=== PATIENT | female | born 1935 | race Caucasian/White ===

== ENCOUNTER 2016-07-05 07:08 | Emergency (ER) | payer OTHER ==
[2016-07-05] MEDS ORDERED: IPRATROPIUM/ALBUTEROL (0.5MG/3MG) NEB INH ONE (07:15)
[2016-07-05] MEDS ORDERED: METHYLPREDNISOLONE PF 125MG/VIAL IVP ONE (07:19)
--- NOTE | 2016-07-05 07:23 | Emergency Department Record ---
History of Present Illness - General Chief Complaint: Shortness of breath Stated Complaint: JOSÉ ANTONIO Time Seen by Provider: 07/05/16 07:18 Source: Patient Mode of Arrival: EMS Limitations: No limitations - History of Present Illness Initial Comments: 60 yo female presents to ED with a CC of difficulty breathing and wheezing symptoms, reports a history of COPD. Patient denies fevers or chills, but does report non-productive cough symptoms. Friend at the bedside reports that the patient went to bed last night without respiratory distress. Patient denies chest pain symptoms. MD Complaint: Shortness of breath Onset/Timin -: Minutes(s) Radiation: Other Severity: Severe Consistency: Constant Improves With: Nothing Worsens With: Nothing Known History Of: COPD Associated Symptoms: Other Treatments Prior to Arrival: Bronchodilator - Related Data Home Oxygen Therapy: No Home Medications Medication Instructions Recorded Confirmed Last Taken Albuterol Sulfate [Ventolin Hfa] 1 - 2 puff IH .EVERY 4-6 HOURS PRN 07/05/1607/05/16 Budesonide/Formoterol Fumarate 10.2 gm IH BID 07/05/16 07/05/16 07/05/16 [Symbicort 160-4.5 Mcg Inhaler] Clopidogrel Bisulfate [Clopidogrel] 75 mg PO DAILY 07/05/16 07/05/16 Unknown Diltiazem HCl [Diltiazem 24Hr ER] 240 mg PO DAILY 07/05/16 07/05/16 Unknown Ezetimibe [Zetia] 10 mg PO DAILY 07/05/16 07/05/16 Unknown Famotidine [Pepcid] 20 mg PO TID 07/05/16 07/05/16 Unknown Furosemide [Lasix] 20 mg PO DAILY 07/05/16 07/05/16 Unknown Simvastatin [Zocor] 20 mg PO DAILY 07/05/16 07/05/16 Unknown Allergies Allergy/AdvReac Type Severity Reaction Status Date / Time codeine Allergy PT UNSURE Verified 07/05/16 09:18 OF REACTION Penicillins Allergy PT UNSURE Verified 07/05/16 09:18 OF REACTION Travel Screening - Travel/Exposure Within Last 30 Days Have you traveled within the last 30 days?: No Review of Systems Constitutional: Denies: Chills, Fever, Malaise, Night sweats Eyes: Denies: Eye discharge, Eye pain ENT: Denies: Congestion, Ear pain, Epistaxis Respiratory: Reports: Cough, Dyspnea, Wheezes Cardiovascular: Reports: Dyspnea on exertion. Denies: Chest pain Endocrine: Denies: Fatigue, Heat or cold intolerance Gastrointestinal: Denies: Abdominal pain, Nausea, Vomiting Genitourinary: Denies: Dysuria, Frequency, Hematuria, Incontinence Musculoskeletal: Denies: Arthralgia, Back pain, Gout, Joint swelling Skin: Denies: Bruising, Change in color Neurological: Denies: Abnormal gait, Confusion, Headache, Seizure Psychiatric: Denies: Anxiety Hematological/Lymphatic: Denies: Anemia, Blood Clots Physical Exam - General General Appearance: Alert, Oriented x3, Cooperative, Severe distress - Head Head exam: Atraumatic, Normocephalic, Normal inspection Head exam detail: negative: Abrasion, Contusion, Bennett's sign, General tenderness, Hematoma, Laceration - Eye Eye exam: Normal appearance. negative: Conjunctival injection, Periorbital swelling, Periorbital tenderness, Scleral icterus - ENT Ear exam: negative: Auricular hematoma, Auricular trauma Nasal Exam: negative: Active bleeding, Discharge, Dried blood, Foreign body Mouth exam: negative: Drooling, Laceration, Muffled voice, Tongue elevation - Neck Neck exam: Normal inspection. negative: Meningismus, Tenderness - Respiratory Respiratory exam: Decreased breath sounds, Prolonged expiratory, Respiratory distress, Wheezes - Cardiovascular Cardiovascular Exam: Normal rhythm, Normal heart sounds, Tachycardia - GI/Abdominal GI/Abdominal exam: Soft. negative: Rebound, Rigid, Tenderness - Rectal Rectal exam: Deferred - exam: Deferred - Extremities Extremities exam: Normal inspection. negative: Calf tenderness, Pedal edema, Tenderness - Back Back exam: Denies: CVA tenderness (R), CVA tenderness (L) - Neurological Neurological exam: Alert, Normal gait, Oriented X3 - Psychiatric Psychiatric exam: Normal affect, Normal mood - Skin Skin exam: Normal color. negative: Abrasion Type of lesion: negative: abrasion Course Vital Signs 07/05/16 07:10 Temperature 97.9 F Pulse Rate 128 H Respiratory 40 H Rate Blood Pressure 135/74 Pulse Ox 100 - Reevaluation(s) Reevaluation #1: 07/05/16 07:26 EKG: Sinus Tachycardia 128 Normal axis, normal intervals No acute ST-T wave changes Patient is receiving 2nd duoneb (first via EMS), will likely trial Bipap following ABG results. Reevaluation #2: 07/05/16 07:49 Labs reviewed, WBC 15.5, chemistry is pending at this time. AB.36/84/39.3/21.4/97%. Patient reassessed, pulse down to 120, RR mid-upper 20's, patient reports that she is feeling tired. Will trial bipap for respiratory work of breathing and reassess. CXR: Hyperinflation, ?mild infiltrate RLL. Reevaluation #3: 07/05/16 08:06 Labs reviewed, Troponin 0.046. BUN 29, Creatinine 1.2. Reevaluation #4: 07/05/16 08:29 CXR reviewed, hyperinflation, pulmonary venous hypertension suggested with ? mild CHF superimposed. Reevaluation #5: 07/05/16 08:58 Case was discussed with Dr. Hawkins as well as Dr. Beck, will admit for COPD exacerbation. Patient reassessed, pulse 170's. repeat EKG obtained, now in atrial fibrillation. Cardizem IV and qttp ordered. EKG #2: Atrial Fibrillation 171 Normal axis, normal intervals rate-related ST-T wave changes. 10:[address] Beck was updated on the patient's development of atrial fibrillation, recommends transfer. Patient and her family report that they would like to be transferred to [facility], 1-call contacted for transfer. Patient's rate is now down to 90's, rate controlled, remains irregular. 07/05/16 09:41 07/05/16 10:30 Medical Decision Making - Lab Data Result diagrams: 07/05/16 07:25 07/05/16 07:25 Disposition Disposition: Admit Clinical Impression: COPD exacerbation, Elevated troponin, Atrial fibrillation and flutter Disposition: Still a Patient at [facility] Decision to Admit: Admit from ER Decision to Admit Date: 07/05/16 Decision to Admit Time: :59 Forms: Patient Portal Access Time of Disposition: 08:59
[2016-07-05 07:35] LABS: BASO % 0.3 % (0-6); EOS % 1.1 % (0-6); GRAN % 60.1 % (47-80); HEMATOCRIT 42.7 % (35.0-47.0); LYMPH % 33.1 % (16-45); MEAN CORPUSCULAR HEMOGLOBIN 31.8 pg (27-33); MEAN CORPUSCULAR HGB CONC 32.8 g/dl (32-36); MEAN PLATELET VOLUME 10.2 fl (7.4-10.4); MONO % 5.4 % (0-9); PLATELET COUNT 258 K/uL (130-400); RED CELL DISTRIBUTION WIDTH 14.6 % (11.5-14.5); WHITE BLOOD COUNT W/O DIFF 15.5 K/uL (4.2-12.2)
[2016-07-05 07:43] LABS: ALLEN TEST NOT DONE; ARTERIAL BLOOD GAS BASE EXCESS -3.2 mmol/L (-2 - 3); ARTERIAL BLOOD GAS HCO3 21.4 mmol/L (18-23); ARTERIAL BLOOD GAS PCO2 39.3 mmHg (35-48); ARTERIAL BLOOD GAS pH 7.36 (7.35-7.45); CARBOXYHEMOGLOBIN 1.4 % (0-1.5); METHEMOGLOBIN 0.1 % (0.0-1.5); O2 HEMOGLOBIN 95.5 % vol (94-99); TOTAL HEMOGLOBIN 13.3 g/dl (11.6-16)
[2016-07-05 07:48] LABS: ALB/GLOB RATIO 1.2 (1.1-1.8); ALBUMIN 3.8 gm/dL (3.5-5.0); ANION GAP 11.7 (7-16); BILIRUBIN,TOTAL 0.61 mg/dL (0.2-1.3); CARBON DIOXIDE 25.3 mmol/L (22-30); CREATININE 1.2 mg/dL (0.52-1.04); TOTAL PROTEIN 6.9 gm/dL (6.3-8.2)
[2016-07-05 07:59] LABS: TROPONIN I 0.046 ng/mL (0.00-0.034)
[2016-07-05] MEDS ORDERED: ASPIRIN 81 MG CHEWABLE TABLET PO ONE (08:06)
[2016-07-05] MEDS ORDERED: IPRATROPIUM/ALBUTEROL (0.5MG/3MG) NEB INH PRN (09:00)
[2016-07-05] MEDS ORDERED: 0.9 % SODIUM CHLORIDE 1000ML 1,000 ML IV PRN (09:00)
[2016-07-05] MEDS ORDERED: 0.9 % SODIUM CHLORIDE 1000ML 500 ML IV SCH (09:30)
[2016-07-05] MEDS ORDERED: DILTIAZEM 25MG/5ML VIAL IV ONE (09:39)
[2016-07-05] MEDS ORDERED: DILTIAZEM HCL 125 MG in 0.9 % SODIUM CHLORIDE 100ML 100 ML IV SCH (09:45)
[2016-07-05] MEDS ORDERED: METHYLPREDNISOLONE PF 125MG/VIAL IVP SCH (10:00)
[2016-07-05] MEDS ORDERED: LEVOFLOXACIN/D5W 750 MG in DEXTROSE 1 BAG IVPB SCH (10:00)
[2016-07-05] MEDS ORDERED: ALBUTEROL SULFATE (0.083%) 2.5 MG/3 ML NEB INH SCH (10:00)
--- NOTE | 2016-07-10 15:17 | RADIOLOGY REPORT ---
EXAM: PORTABLE CHEST HISTORY: SHORTNESS OF BREATH, PAIN MID TO LOWER CHEST BILATERALLY, SHE CAN'T CATCH HER BREATH, DIFFICULTY BREATHING. TECHNIQUE: AP portable view of the chest was obtained. Comparison: None. FINDINGS: The heart size is normal. The lungs appear somewhat hyperinflated which may represent some underlying COPD. There is blunting of the costophrenic angles. There also appears to be some pulmonary venous hypertension. The costophrenic angle blunting may be simply related to the hyperinflation, but small basilar effusions cannot be excluded. Clinical correlation as to mild CHF superimposed on COPD suggested. No pneumothorax evident. Calcification of the aorta. IMPRESSION: 1. HYPERINFLATION SUGGESTING COPD. 2. SOME PULMONARY VENOUS HYPERTENSION AND BLUNTING OF THE COSTOPHRENIC ANGLES. CLINICAL CORRELATION TO MILD CHF SUPERIMPOSED ON COPD SUGGESTED. JOB NUMBER: [id number] MTDD
== END 2016-07-05 14:52 | disposition still patient (30) ==
LOC: ER 07:08 → EDBD 07:08 → ER 14:52
DX: J44.1 Chronic obstructive pulmonary disease with (acute) exacerbation (principal); I48.91 Unspecified atrial fibrillation; I48.92 Unspecified atrial flutter; R79.89 Other specified abnormal findings of blood chemistry; Z87.891 Personal history of nicotine dependence
CPT/HCPCS: 36600; 71010; 80053; 82375; 82803; 84484; 85025; 93005; 93010; 94640; 94660; 96365; 96366; 96375; 99285; J2930; J7030

== ENCOUNTER 2016-07-19 12:16 | Inpatient (IN) | payer MEDICARE, OTHER ==
--- NOTE | 2016-07-19 12:33 | Emergency Department Record ---
History of Present Illness - General Chief complaint: Nausea, Vomiting, Diarrhea Stated complaint: A-FIB Time Seen by Provider: 07/19/16 12:32 Source: Patient Mode of Arrival: Ambulatory Limitations: No limitations - History of Present Illness Initial comments: The patient is here due to a 2 week hx of weakness, nausea, and loose stools. She denies any vomiting, CP, SOB, fevers or chills. The patient was in the ER here just over 2 weeks ago for a COPD excacerbation and was found to be in Afib. [facility] Afib chemically converted back to NSR. She was discharged on Amiodarone and a new heart medicine and has not felt well since. MD complaint: Diarrhea, Nausea Onset/Timin -: Week(s) Description of Diarrhea: Other Associated Symptoms: Headaches, Weakness - Related Data Home Medications Medication Instructions Recorded Confirmed Last Taken Albuterol Sulfate [Ventolin Hfa] 1 - 2 puff IH .EVERY 4-6 HOURS PRN 07/05/1601/2707/19/16 Budesonide/Formoterol Fumarate 10.2 gm IH BID 07/05/16 07/19/16 07/19/16 [Symbicort 160-4.5 Mcg Inhaler] Clopidogrel Bisulfate [Clopidogrel] 75 mg PO DAILY 07/05/16 07/19/16 07/19/16 Ezetimibe [Zetia] 10 mg PO DAILY 07/05/16 07/19/16 07/19/16 Famotidine [Pepcid] 20 mg PO TID 07/05/16 07/19/16 07/19/16 Furosemide [Lasix] 20 mg PO DAILY 07/05/16 07/19/16 07/19/16 Simvastatin [Zocor] 20 mg PO DAILY 07/05/16 07/19/16 07/19/16 Amiodarone HCl [Pacerone] 200 mg PO BID 07/19/16 07/19/16 07/19/16 Atenolol 25 mg PO BID 07/19/16 07/19/16 07/19/16 Famotidine [Pepcid] 20 mg PO BID 07/19/16 07/19/16 07/19/16 Prednisone [Prednisone 20Mg] 40 mg PO DAILY 07/19/16 07/19/16 07/19/16 Allergies Allergy/AdvReac Type Severity Reaction Status Date / Time codeine Allergy PT UNSURE Verified 07/05/16 09:18 OF REACTION Penicillins Allergy PT UNSURE Verified 07/05/16 09:18 OF REACTION Travel Screening - Travel/Exposure Within Last 30 Days Have you traveled within the last 30 days?: No - Travel/Exposure Within Last Year Have you traveled outside the [place] in the last year?: No - Additonal Travel Details Have you been exposed to anyone with a communicable illness?: No - Travel Symptoms Symptom Screening: None Review of Systems Constitutional: Reports: Malaise. Denies: Chills, Fever Eyes: Denies: Eye discharge ENT: Denies: Congestion Respiratory: Denies: Cough, Dyspnea Cardiovascular: Denies: Arrhythmia, Chest pain Past Medical History - SOCIAL HISTORY Smoking Status: Former smoker Alcohol Use: None Drug Use: None - RESPIRATORY Hx Respiratory Disorders: Yes Hx COPD: Yes Comment:: emphysema - CARDIOVASCULAR Hx Cardio Disorders: Yes Hx Heart Attack: Yes Hx Hypertension: Yes Comment:: High cholesterol, bilat. leg swelling, poss hx afib - NEURO Hx Neuro Disorders: No - GI Hx GI Disorders: Yes Hx Reflux: Yes - Hx Genitourinary Disorders: No - ENDOCRINE Hx Endocrine Disorders: No - MUSCULOSKELETAL Hx Musculoskeletal Disorders: No - PSYCH Hx Psych Problems: No - HEMATOLOGY/ONCOLOGY Hx Hematology/Oncology Disorders: Yes Hx Cancer: Yes (cervical) Family Medical History Any Significant Family History?: No Physical Exam - General General Appearance: Alert, Oriented x3, Cooperative, No acute distress - Head Head exam: Atraumatic, Normocephalic, Normal inspection - Eye Eye exam: Normal appearance, PERRL - ENT Throat exam: Normal inspection. negative: Tonsillar erythema, Tonsillar exudate - Neck Neck exam: Normal inspection, Full ROM. negative: Tenderness - Respiratory Respiratory exam: Normal lung sounds bilaterally. negative: Respiratory distress - Cardiovascular Cardiovascular Exam: Regular rate, Bradycardia - GI/Abdominal GI/Abdominal exam: Soft, Normal bowel sounds. negative: Guarding, Rigid, Tenderness - Extremities Extremities exam: Normal inspection, Full ROM, Normal capillary refill. negative: Tenderness Course Vital Signs 07/19/16 12:19 Temperature 98.0 F Pulse Rate 50 L Respiratory 16 Rate Blood Pressure 122/42 Pulse Ox 96 - Reevaluation(s) Reevaluation #1: The patient is doing much better at this time. Her nausea has resolved and she is asking to eat and drink. She denies any AP presently. 07/19/16 14:02 Reevaluation #2: The patient is doing better but still does not feel back to normal. I explained to her the results of her lab tests and UA and the need for admission and she agreed to the plan. I also did discuss the plan with Melissa (ROLO) and she accepts the admission. 07/19/16 15:42 Medical Decision Making - Data Complexity MDM Data: Labs Ordered and/or Reviewed, EKG Ordered and/or Reviewed - Lab Data Result diagrams: 07/19/16 13:34 07/19/16 13:34 - EKG Data -: EKG Interpreted by Me (Sinus leandro at 50. Lateral T changes with prolonged QT.) Disposition Disposition: Admit Clinical Impression: Hyponatremia Urinary Tract Infection Qualifiers: Urinary tract infection type: site unspecified Hematuria presence: without hematuria Qualified Code(s): N39.0 - Urinary tract infection, site not specified Disposition: Still a Patient at [facility] Decision to Admit: Admit from ER Decision to Admit Date: 07/19/16 Decision to Admit Time: 15:44 Accepting Physician: Shruthi Time Discussed w/Accepting Physician: 15:44 Condition: (2) Stable Forms: Patient Portal Access Time of Disposition: 15:44
[2016-07-19] MEDS ORDERED: ONDANSETRON HCL IV 4 MG/2 ML VIAL IVP ONE (12:37)
[2016-07-19] MEDS ORDERED: ACETAMINOPHEN 325 MG TAB PO ONE (12:37)
[2016-07-19] MEDS ORDERED: 0.9 % SODIUM CHLORIDE 1,000 ML BAG IV ONE ×2 (13:11→15:38)
[2016-07-19 13:36] LABS: BASO % 0.1 % (0-6); EOS % 0.7 % (0-6); GRAN % 79.2 % (47-80); HEMATOCRIT 40.5 % (35.0-47.0); HEMOGLOBIN 13.7 gm/dl (11.6-16.0); LYMPH % 11.1 % (16-45); MEAN CELL VOLUME 95.5 fl (81-97); MEAN CORPUSCULAR HEMOGLOBIN 32.3 pg (27-33); MEAN CORPUSCULAR HGB CONC 33.8 g/dl (32-36); MEAN PLATELET VOLUME 10.2 fl (7.4-10.4); MONO % 8.9 % (0-9); PLATELET COUNT 183 K/uL (130-400); RED BLOOD COUNT 4.24 M/uL (3.80-5.40); RED CELL DISTRIBUTION WIDTH 15.1 % (11.5-14.5); WHITE BLOOD COUNT W/O DIFF 14.9 K/uL (4.2-12.2)
[2016-07-19 14:01] LABS: CKMB < 1.0 ng/mL (0-4.3)
[2016-07-19 14:03] LABS: URINE BILIRUBIN NEGATIVE (NEGATIVE); URINE BLOOD TRACE-I (NEGATIVE); URINE COLOR YELLOW; URINE GLUCOSE (UA) NEGATIVE (NEGATIVE); URINE KETONE NEGATIVE (NEGATIVE); URINE LEUKOCYTE ESTERASE MODERATE (NEGATIVE); URINE NITRITE POSITIVE (NEGATIVE); URINE PROTEIN NEGATIVE (NEGATIVE); URINE UROBILINOGEN 0.2 E.U./dL (0.20 - 1.00)
[2016-07-19 14:04] LABS: URINE APPEARANCE CLOUDY
[2016-07-19 14:13] LABS: URINE BACTERIA 4+; URINE EPITHELIAL CELLS 0 - 2 (FEW); URINE WBC 36 - 50 (0-2/hpf)
[2016-07-19 15:16] LABS: BLOOD UREA NITROGEN 24 mg/dL (7-17); GLUCOSE,RANDOM 82 mg/dL (70-110)
[2016-07-19 15:17] LABS: ALB/GLOB RATIO 1.3 (1.1-1.8); ALKALINE PHOSPHATASE 45 U/L (38-126); ALT/SGPT 18 U/L (9-52); AST/SGOT 19 U/L (14-36); CREATININE 1.3 mg/dL (0.52-1.04); EST GLOMERULAR FILTRATION RATE 42 ml/min; TOTAL PROTEIN 5.3 gm/dL (6.3-8.2)
[2016-07-19 15:18] LABS: CREATINE PHOSPHOKINASE 20 U/L (30-135); TROPONIN I 0.016 ng/mL (0.00-0.034)
[2016-07-19] MEDS ORDERED: CEFTRIAXONE SODIUM 1 GM in 0.9 % SODIUM CHLORIDE 100ML 100 ML IVPB ONE (15:33)
[2016-07-19] MEDS ORDERED: ALBUTEROL HFA 8 GM INHALER INH PRN (17:00)
[2016-07-19] MEDS: CEFTRIAXONE SODIUM 1 GM in 0.9 % SODIUM CHLORIDE 100ML 100 ML IVPB SCH (18:54)
[2016-07-19] MEDS: 0.9 % SODIUM CHLORIDE 1000ML 1,000 ML IV PRN (19:30)
[2016-07-19] MEDS: SYMBICORT PUFF SCH ×2 (20:40→22:03)
[2016-07-19 20:43] LABS: CKMB 1.4 ug/L (0-6); TROPONIN I 0.024 ng/mL (0.00-0.034)
[2016-07-19] MEDS ORDERED: FAMOTIDINE 20MG TABLET PO SCH (22:00)
[2016-07-19] MEDS: ATENOLOL 25 MG TABLET PO SCH (22:42)
[2016-07-20] MEDS: ACETAMINOPHEN 500 MG TABLET PO PRN (01:54)
[2016-07-20] MEDS: DIPHENHYDRAMINE HCL 25 MG CAPSULE PO PRN (04:37)
[2016-07-20] MEDS: CEFTRIAXONE SODIUM 1 GM in 0.9 % SODIUM CHLORIDE 100ML 100 ML IVPB SCH ×2 (04:38→17:38)
[2016-07-20 04:39] LABS: BASO % 0.1 % (0-6); EOS % 0.9 % (0-6); GRAN % 79.5 % (47-80); HEMATOCRIT 40.4 % (35.0-47.0); HEMOGLOBIN 13.3 gm/dl (11.6-16.0); LYMPH % 11.6 % (16-45); MEAN CELL VOLUME 97.3 fl (81-97); MEAN CORPUSCULAR HGB CONC 32.9 g/dl (32-36); MEAN PLATELET VOLUME 10.4 fl (7.4-10.4); MONO % 7.9 % (0-9); PLATELET COUNT 168 K/uL (130-400); RED BLOOD COUNT 4.15 M/uL (3.80-5.40); RED CELL DISTRIBUTION WIDTH 15.5 % (11.5-14.5); WHITE BLOOD COUNT W/O DIFF 10.8 K/uL (4.2-12.2)
[2016-07-20 04:45] LABS: ANION GAP 6.4 (7-16); CARBON DIOXIDE 24.6 mmol/L (22-30); CREATININE 1.2 mg/dL (0.52-1.04)
[2016-07-20 07:25] LABS: ALBUMIN 2.9 gm/dL (3.5-5.0); BILIRUBIN,TOTAL 0.72 mg/dL (0.2-1.3); TOTAL PROTEIN 5.4 gm/dL (6.3-8.2)
[2016-07-20] MEDS: SYMBICORT PUFF SCH ×4 (08:48→22:00)
[2016-07-20] MEDS ORDERED: SIMVASTATIN 20 MG TABLET PO SCH (10:00)
[2016-07-20] MEDS ORDERED: PREDNISONE 20 MG TAB PO SCH (10:00)
[2016-07-20] MEDS ORDERED: EZETIMIBE 10 MG TABLET PO SCH (10:00)
--- NOTE | 2016-07-20 10:23 | History & Physical ---
History of Present Illness - Date of Service Date of Service for History & Physical: 07/20/16 - History of Present Illness Admitting Diagnosis: 1. Symptomatic hyponatremia with UTI. 2. Prolonged QT. History of Present Illness: 80yo female with CC of weakness and nausea. She has history of COPD, [place], HTN, HD , afib, GERD, arthritis, and cervical cancer. patient recently admitted at [facility] for afib that developed after COPD exacerbation. patient presented to the ED last night with weakness, nausea and just not feeling well for the past two weeks. Discharged home from [facility] about 2 weeks ago after being admitted for afib. was chemically cardioverted and discharged home on amiodorone. Has not felt well since but really started to feel weak yesterday. While in the ED, patient had EKG that showed sinus bradycardia with T wave changes in lateral leads and QTc of 481. Her 1st set of troponin was wnl range. she was not complaining of chest pain. Her WBC count was elevated at 14.9, sodium was low at 125 and chloride low at 97. Corrected calcium was 9.0 and mg was 2. Her UA was nitrite and leuk est positive. Patient was started on rocephin 1gm IV for UTI, amiodorone was held and she was admitted for serial enzymes and continued cardiac monitoring. 07/20/16- Patients states she is feeling much better today. She says she still feels weaker than baseline but was able to get up and ambulate to the bathroom independently. She denies chest pain, nausea, or abdominal pain. She has not had any urinary burning but has been urinating frequently. She denies fevers, chills and her appetite has been normal. She has a follow up appointment with Dr. Pollard in the next few weeks for her atrial fibrillation. PCP: Cardiology: [facility] Travel Screening - Travel/Exposure Within Last 30 Days Have you traveled within the last 30 days?: No - Travel/Exposure Within Last Year Have you traveled outside the [place] in the last year?: No - Additonal Travel Details Have you been exposed to anyone with a communicable illness?: No - Travel Symptoms Symptom Screening: None Review of Systems Constitutional: Reports: Malaise, Weakness (generalized). Denies: Chills, Fever Eyes: Denies: Eye discharge ENT: Denies: Congestion Respiratory: Denies: Cough, Dyspnea Cardiovascular: Denies: Arrhythmia, Chest pain Genitourinary: Denies: Dysuria, Frequency, Incontinence, Urgency Musculoskeletal: Denies: Back pain Neurological: Denies: Confusion, Headache Past Medical History - SOCIAL HISTORY Smoking Status: Former smoker Alcohol Use: None Drug Use: None - RESPIRATORY Hx Respiratory Disorders: Yes Hx Asthma: No Hx Bronchitis: No Hx COPD: Yes Hx Dyspnea: No Hx Pneumonia: No Hx Pulmonary Embolism: No Hx Sleep Apnea: No Hx Tuberculosis: No Hx of CPAP: No Comment:: emphysema - CARDIOVASCULAR Hx Cardio Disorders: Yes Hx Abnormal EKG: Yes Hx Cardiac Cath: No Hx Chest Pain: No Hx CHF: No Hx Deep Vein Thrombosis: No Hx Edema: No Hx Heart Attack: Yes Hx Hypertension: Yes Hx Hypotension: No Hx Irregular Heartbeat: Yes Hx Palpitations: No Hx Pacemaker/Defib: No Hx Vascular Disease: No Comment:: High cholesterol, bilat. leg swelling, poss hx afib - NEURO Hx Neuro Disorders: No - GI Hx GI Disorders: Yes Hx Abdominal Pain: No Hx Celiac Disease: No Hx Crohn's Disease: No Hx Diverticulitis: No Hx GI Bleed: No Hx Reflux: Yes Hx Hepatitis/Jaundice: No Hx Hiatal Hernia: No Hx Irritable Bowel: No Hx Liver Disease: No Hx Nausea/Vomiting: Yes Hx Obstructive Bowel: No Hx Pancreatitis: No Hx Rectal Bleeding: No Hx Ulcer: No Hx Wt Loss/Wt Gain: No Hx of Polyps: No - Hx Genitourinary Disorders: No - ENDOCRINE Hx Endocrine Disorders: No - MUSCULOSKELETAL Hx Musculoskeletal Disorders: Yes Hx Arthritis: Yes Hx Back Injury: No Hx Fibromyalgia: No Hx Gout: No Hx Musculoskeletal Disease: No Hx Osteoporosis: No - PSYCH Hx Psych Problems: No - HEMATOLOGY/ONCOLOGY Hx Hematology/Oncology Disorders: Yes Hx Cancer: Yes (cervical) Family Medical History Any Significant Family History?: No H&P Meds/Allergies - Allergies Allergies: Allergies Allergy/AdvReac Type Severity Reaction Status Date / Time codeine Allergy PT UNSURE Verified 07/19/16 17:56 OF REACTION Penicillins Allergy PT UNSURE Verified 07/19/16 17:56 OF REACTION - Home Medications Home Medications Medication Instructions Recorded Confirmed Last Taken Albuterol Sulfate [Ventolin Hfa] 1 - 2 puff IH .EVERY 4-6 HOURS PRN 07/05/1601/2707/19/16 Budesonide/Formoterol Fumarate 10.2 gm IH BID 07/05/16 07/19/16 07/19/16 [Symbicort 160-4.5 Mcg Inhaler] Clopidogrel Bisulfate [Clopidogrel] 75 mg PO DAILY 07/05/16 07/19/16 07/19/16 Ezetimibe [Zetia] 10 mg PO DAILY 07/05/16 07/19/16 07/19/16 Famotidine [Pepcid] 20 mg PO TID 07/05/16 07/19/16 07/19/16 Furosemide [Lasix] 20 mg PO DAILY 07/05/16 07/19/16 07/19/16 Simvastatin [Zocor] 20 mg PO DAILY 07/05/16 07/19/16 07/19/16 Amiodarone HCl [Pacerone] 200 mg PO BID 07/19/16 07/19/16 07/19/16 Atenolol 25 mg PO BID 07/19/16 07/19/16 07/19/16 Famotidine [Pepcid] 20 mg PO BID 07/19/16 07/19/16 07/19/16 Prednisone [Prednisone 20Mg] 40 mg PO DAILY 07/19/16 07/19/16 07/19/16 - Active Medications Active Medications: Current Medications Acetaminophen (Tylenol 500mg Tab) 1,000 mg PO Q6H PRN PRN Reason: Pain - General Last Admin: 07/20/16 01:54 Dose: 500 mg Albuterol Sulfate (Ventolin Hfa) 2 puff INH Q4H PRN PRN Reason: Cough and Difficulty Breathing Atenolol (Tenormin) 25 mg PO BID [facility] Last Admin: 07/19/16 22:42 Dose: Not Given Clopidogrel Bisulfate (Plavix) 75 mg PO DAILY [facility] Diphenhydramine HCl (Benadryl Capsule) 25 mg PO Q6H PRN PRN Reason: NAUSEA Last Admin: 07/20/16 04:37 Dose: 25 mg Ezetimibe (Zetia) 10 mg PO DAILY [facility] Famotidine (Pepcid) 20 mg PO BIDAC [facility] Ceftriaxone Sodium 1 gm/ (Sodium Chloride) 100 mls @ 100 mls/hr IVPB Q12H [facility] Stop: 07/24/16 17:01 Last Admin: 07/20/16 04:38 Dose: 100 mls/hr Sodium Chloride () 1,000 mls @ 83 mls/hr IV .Q12H3M PRN PRN Reason: LARGE VOLUME IV Last Admin: 07/19/16 19:30 Dose: 83 mls/hr Patient Own Med: (Symbicort 160-4.5 Mg) 2 each PUFF BID [facility] Last Admin: 07/20/16 08:48 Dose: 2 each Simvastatin (Zocor) 20 mg PO DAILY [facility] Physical Exam - Vital Signs Vital Signs: Vital Signs - Last 24 Hrs Temp Pulse Pulse Resp BP BP Pulse Ox 07/20/16 08:00 97.9 F 60 18 114/59 97 07/20/16 04:25 95 07/20/16 04:00 97.9 F 52 L 20 109/47 95 07/19/16 23:00 97.6 F 54 L 18 105/41 95 07/19/16 20:40 51 L 16 95 07/19/16 20:26 20 07/19/16 19:00 97.2 F L 55 L 16 118/70 07/19/16 17:32 53 L 16 07/19/16 17:02 16 108/41 96 07/19/16 17:00 97.8 F 53 L 12 126/70 98 - General General Appearance: Alert, Oriented x3, Cooperative, No acute distress Limitations: No limitations - Head Head exam: Atraumatic, Normocephalic, Normal inspection - Eye Eye exam: Normal appearance, PERRL - ENT Throat exam: Normal inspection. negative: Tonsillar erythema, Tonsillar exudate - Neck Neck exam: Normal inspection, Full ROM. negative: Tenderness - Respiratory Respiratory exam: Normal lung sounds bilaterally. negative: Respiratory distress - Cardiovascular Cardiovascular Exam: Regular rate, Bradycardia - GI/Abdominal GI/Abdominal exam: Soft, Normal bowel sounds. negative: Guarding, Rigid, Tenderness - Extremities Extremities exam: Normal inspection, Full ROM, Normal capillary refill. negative: Tenderness - Neurological Neurological exam: Alert, Normal gait, Oriented X3, Reflexes normal - Psychiatric Psychiatric exam: Normal affect, Normal mood - Skin Skin exam: Dry, Intact, Normal color, Warm Results - Labs Result Diagrams: 07/20/16 04:20 07/20/16 04:20 Labs Last 24 Hours: Laboratory Results - last 24 hr 07/19/16 07/20/16 07/20/16 20:10 04:20 04:20 WBC 10.8 RBC 4.15 Hgb 13.3 Hct 40.4 MCV 97.3 H MCH 32.0 MCHC 32.9 RDW 15.5 H Plt Count 168 MPV 10.4 Gran % 79.5 Lymphocytes % 11.6 L Monocytes % 7.9 Eosinophils % 0.9 Basophils % 0.1 Sodium Potassium Chloride Carbon Dioxide Anion Gap BUN Creatinine Estimated GFR Random Glucose Calcium Total Bilirubin Direct Bilirubin AST ALT Alkaline Phosphatase CK-MB (CK-2) 1.4 1.2 Troponin I 0.024 Total Protein Albumin 07/20/16 07/20/16 07/20/16 04:20 04:20 04:20 WBC RBC Hgb Hct MCV MCH MCHC RDW Plt Count MPV Gran % Lymphocytes % Monocytes % Eosinophils % Basophils % Sodium 138 Potassium 4.3 Chloride 107 Carbon Dioxide 24.6 Anion Gap 6.4 L BUN 18 H Creatinine 1.2 H Estimated GFR 46 Random Glucose 87 Calcium 7.7 L Total Bilirubin 0.72 Direct Bilirubin 0.0 AST 73 H ALT 36 Alkaline Phosphatase 57 CK-MB (CK-2) Troponin I 0.018 Total Protein 5.4 L Albumin 2.9 L VTE H&P Assessment - Risk for VTE Risk for VTE: Yes Risk Level: High Risk Assessment Date: 07/20/16 Risk Assessment Time: 17:35 VTE Orders Placed or Will Be Placed: Yes Plan - Inpatient Certification Inpatient Certification: Admit to inpatient care: Based on my medical assessment, after consideration of patient's risk factors (age, co-morbidities and patient presenting symptoms and acuity), I expect that this patient will remain in the hospital greater than or equal to two midnights and that the services needed warrant inpatient care because: Patient Risk Factors: [age, UTI, prolonged QT, hyponatremia, recent hospitalization] Estimated length of stay: [48-72H] The patient may reasonably be expected to be discharged or transferred to a hospital within 96 hours after admission to [facility]. Services needed: [IV antibiotics, IV fluids, cardiology consult, cardiac monitoring] Post hospital care (if known): [] I certify that my determination is in accordance with my understanding of Medicare requirements for reasonable and necessary inpatient services. 07/20/16 10:37 - Detailed Diagnosis and Plan (1) Urinary tract infection Current Visit: Yes Status: Acute Qualifiers: Urinary tract infection type: site unspecified Hematuria presence: without hematuria Qualified Code(s): N39.0 - Urinary tract infection, site not specified Base Code: N39.0 - URINARY TRACT INFECTION, SITE NOT SPECIFIED Comment: 07/20/16- UA showed nitrite positve and mod leuk esterase. urine sent for culture. WBC count down from 14.9 to 10.8 today and patient remains afebrile. -continue rocephin 1gm IV q12H -repeat labs qam (2) Generalized weakness Current Visit: Yes Status: Acute Base Code: R53.1 - WEAKNESS Comment: 07/20/16- generalized weakness improved today. MLC is UTI. She has been up ambulating to the bathroom with minimal assistance. she does currently live alone but has family doing most of her IADL's. still capable of her ADL's. -will continue to monitor need for PT/OT eval if she does not continue to improve (3) Hyponatremia Current Visit: Yes Status: Acute Base Code: E87.1 - HYPO-OSMOLALITY AND HYPONATREMIA Comment: 07/20/16- Resolved. Sodium improved to 138 from 125 with NS run at 83cc/ hr. -repeat labs qam (4) QT prolongation Current Visit: Yes Status: Acute Base Code: R94.31 - ABNORMAL ELECTROCARDIOGRAM [ECG] [EKG] Comment: 07/20/16- QTc 491 today. Holding amiodorone until cardiology consult. Patient still in sinus bradycardia. magnesium normal, calcium corrected for low albumin is WNL range. sodium corrected and potassium wnl. -cardiology consulted -continue cardiac monitoring (5) Full code status Current Visit: Yes Status: Acute Base Code: Z78.9 - OTHER SPECIFIED HEALTH STATUS Comment: 07/20/16- patient is full code (6) DVT prophylaxis Current Visit: Yes Status: Acute Base Code: [id number] - Comment: 07/20/16-Patient is high risk for DVT with h/o of afib, age and restricted mobility, however, also high risk for bleed with age, weakness, and antiplatelet therapy. 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
[2016-07-20] MEDS: CLOPIDOGREL 75MG TABLET PO SCH (11:14)
[2016-07-20] MEDS: FAMOTIDINE 20MG TABLET PO SCH (11:14)
[2016-07-20] MEDS: 0.9 % SODIUM CHLORIDE 1000ML 1,000 ML IV PRN (11:28)
[2016-07-20] MEDS: ATENOLOL 25 MG TABLET PO SCH ×2 (12:31→21:01)
--- NOTE | 2016-07-20 15:21 | Medical Records Consult ---
DATE OF CONSULTATION: 07/20/16 INDICATION: ABNORMAL EKG. HISTORY: This 80-year-old female with a prior history of COPD, MS, coronary disease, hypertension, peripheral vascular disease, A-fib, GERD, arthritis, cervical cancer presented to [facility] not feeling well and diagnosed with a urinary tract infection. The Emergency Department Physician felt her QT interval was abnormal. Her QT corrected was less than 500 on serial EKGs. She was just recently seen at [facility] by the Electrophysiology Service. She had an episode of atrial fibrillation, spontaneously converted, and has been taking Amiodarone. She has a follow-up appointment with Dr. Pollard. She was not placed on oral anticoagulation due to bleeding risk. This was going to be discussed with Dr. Pollard at a future appointment. She currently takes Plavix for her coronary artery disease, peripheral vascular disease. She has denied any recurrence of her atrial fibrillation since being discharged from the hospital. Her ejection fraction at the time of her hospitalization was 40%. She had moderate mitral regurgitation. No follow-up echocardiograms have been performed. PAST MEDICAL HISTORY: COPD. MS. Coronary artery disease. Peripheral vascular disease. Hypertension. A-Fib. GERD. Cervical cancer. Arthritis. ALLERGIES: CODEINE, PENICILLINS; UNSURE OF REACTION. HOME MEDICATIONS: Albuterol Sulfate one to two puffs every 4-6 hours Symbicort as directed Clopidogrel 75 mg daily Zetia 10 mg daily Pepcid 20 mg b.i.d. Lasix 20 mg daily Zocor 20 mg daily Amiodarone 200 mg b.i.d. as directed by Dr. Pollard Atenolol 25 mg b.i.d. Prednisone 40 mg daily REVIEW OF SYSTEMS: GENERAL: Positive for weakness. HEENT: No acute hearing/ vision changes. CARDIOVASCULAR: Denies any chest pain at rest with activity. No shortness of breath. No episodes of palpitations, fluttering. No syncope. PULMONARY: Chronic shortness of breath. No cough, hemoptysis. GI: Denies any dysuria, hematuria. ENDOCRINE: Denies diabetes history. HEME: No unexplained bruising or bleeding. NEUROMUSCULAR: No stroke or seizure history. She did have a fall last summer with a significant head injury. No documentation of that is available for review. PHYSICAL EXAMINATION: VITAL SIGNS: Temperature 97.9. Pulse 60 and regular. Blood pressure 114/59. Pulse ox 97%. GENERAL: Alert and in no apparent distress. She was sitting at the edge of the bed, just finished what appeared to be a large lunch. Her plate was clean. She denies any chest pain or shortness of breath. States she feels fine. HEENT: Normocephalic/atraumatic. NECK: Supple. No JVD. No carotid bruits are appreciated. PULMONARY: Clear to auscultation. A few scattered end expiratory wheezes. CARDIAC: Regular rhythm. 2/6 holosystolic murmur at the apex. ABDOMEN: Soft. Positive bowel sounds. No bruits are appreciated. EXTREMITIES: Trace edema. Pedal pulses are diminished. NEUROMUSCULAR: Speech was clear. Answered all questions appropriately. EKGs: Again show sinus bradycardia. QT corrected is less than 500. LABORATORIES: See EMR. Troponin-I is 0.018, BUN 18, creatinine 1.2. ASSESSMENT/PLAN: HISTORY OF ATRIAL FIBRILLATION: She converted spontaneously. She is on an antiarrhythmic in the form of Amiodarone 400 mg and had been titrating down as directed. She will continue on that medication. She will follow-up with Dr. Pollard regarding anticoagulation going forward. She will continue with her Plavix for now. I did explain to her that Plavix would likely give her very little protection in terms of atrial fibrillation but certainly given her vascular history and antiplatelet therapy are also indicated. She has had a noted right carotid artery dissection. 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 Her left internal carotid was 50-70% stenosed. If no follow-up has been done in the last year, would recommend follow-up carotid ultrasound. HISTORY OF CAD, PERIPHERAL VASCULAR DISEASE: Recommend again antiplatelet therapy, statin, LDL cholesterol goal less than 70. She should follow-up with one of our peripheral interventionalists if possible given her known history of peripheral vascular disease. Again, QT interval is less than 500. I see no reason why she has to discontinue Amiodarone at this point. Again, follow-up with Dr. Pollard as instructed from her hospital discharge summary dated 03/07/17. Jose Flores D.O. Date & Time JOB NUMBER: [id number] MTDD
[2016-07-20] MEDS: AMIODARONE HCL 200 MG TABLET PO SCH ×2 (17:45→21:01)
[2016-07-20] MEDS: SIMVASTATIN 20 MG TABLET PO SCH (21:01)
[2016-07-20] MEDS: EZETIMIBE 10 MG TABLET PO SCH (21:02)
[2016-07-21] MEDS: ACETAMINOPHEN 500 MG TABLET PO PRN (00:07)
[2016-07-21] MEDS: DIPHENHYDRAMINE HCL 25 MG CAPSULE PO PRN (02:51)
[2016-07-21] MEDS: CEFTRIAXONE SODIUM 1 GM in 0.9 % SODIUM CHLORIDE 100ML 100 ML IVPB SCH ×2 (05:20→17:21)
[2016-07-21 06:21] LABS: BASO % 0.2 % (0-6); EOS % 1.7 % (0-6); GRAN % 75.5 % (47-80); HEMOGLOBIN 13.9 gm/dl (11.6-16.0); LYMPH % 11.7 % (16-45); MEAN CELL VOLUME 98.4 fl (81-97); MEAN CORPUSCULAR HEMOGLOBIN 31.8 pg (27-33); MEAN CORPUSCULAR HGB CONC 32.3 g/dl (32-36); MEAN PLATELET VOLUME 10.3 fl (7.4-10.4); MONO % 10.9 % (0-9); PLATELET COUNT 138 K/uL (130-400); RED BLOOD COUNT 4.37 M/uL (3.80-5.40); RED CELL DISTRIBUTION WIDTH 15.5 % (11.5-14.5); WHITE BLOOD COUNT W/O DIFF 10.5 K/uL (4.2-12.2)
[2016-07-21] MEDS ORDERED: ALBUTEROL SULFATE (0.083%) 2.5 MG/3 ML NEB INH PRN (06:42)
[2016-07-21 07:40] LABS: ALB/GLOB RATIO 1.1 (1.1-1.8); ALBUMIN 3.1 gm/dL (3.5-5.0); ALKALINE PHOSPHATASE 60 U/L (38-126); ALT/SGPT 40 U/L (9-52); AST/SGOT 33 U/L (14-36); BILIRUBIN,TOTAL 0.41 mg/dL (0.2-1.3); BLOOD UREA NITROGEN 11 mg/dL (7-17); CREATININE 0.9 mg/dL (0.52-1.04); EST GLOMERULAR FILTRATION RATE > 60 ml/min; GLUCOSE,RANDOM 91 mg/dL (70-110); TOTAL PROTEIN 5.8 gm/dL (6.3-8.2)
[2016-07-21] MEDS: FAMOTIDINE 20MG TABLET PO SCH ×3 (08:05→17:20)
[2016-07-21] MEDS: SYMBICORT PUFF SCH ×2 (09:24→21:20)
[2016-07-21] MEDS ORDERED: FUROSEMIDE 20 MG TABLET PO SCH ×2 (10:00)
[2016-07-21] MEDS: AMIODARONE HCL 200 MG TABLET PO SCH ×2 (10:30→21:53)
[2016-07-21] MEDS: ATENOLOL 25 MG TABLET PO SCH ×2 (10:31→21:53)
[2016-07-21] MEDS: CLOPIDOGREL 75MG TABLET PO SCH ×2 (10:31→14:48)
[2016-07-21] MEDS: IPRATROPIUM/ALBUTEROL (0.5MG/3MG) NEB INH SCH ×4 (10:53→22:00)
--- NOTE | 2016-07-21 15:25 | Physician Progress Note ---
Subjective - Date Date of Physician Progress Note: 07/21/16 - Subjective Subjective Comment: 07/21/16- Patient reports that her weakness has improved. She has been up to the bathroom with minimal assistance which is much improved from admission. Patient does report shortness of breath starting this morning. She denies chest pain or pain with deep inspiration. Her oxygen saturation was about 89% on room air at that time. She has COPD and was admitted 2 weeks ago for exacerbation but has been doing well since that time. She denies cough, sputum production. She had relief of symptoms with supplemental O2 and duoneb treatment. Objective - Vital Signs Vital Signs: Vital Signs - Last 24 Hrs Temp Pulse Pulse Resp BP BP Pulse Ox 07/21/16 15:10 64 18 89 L 07/21/16 12:00 98.7 F 67 18 144/56 99 07/21/16 08:24 72 18 07/21/16 08:00 97.3 F L 72 18 153/94 2 L 07/21/16 06:45 74 18 97 07/21/16 06:25 68 18 89 L 07/21/16 04:00 97.6 F 63 20 148/70 96 07/21/16 00:00 97.9 F 77 20 147/69 97 07/20/16 20:00 97.9 F 67 18 107/49 97 07/20/16 16:00 97.6 F 68 18 150/65 97 - General General Appearance: Alert, Oriented x3, Cooperative, No acute distress Limitations: No limitations - Head Head exam: Atraumatic, Normocephalic, Normal inspection - Eye Eye exam: Normal appearance, PERRL - ENT Throat exam: Normal inspection. negative: Tonsillar erythema, Tonsillar exudate - Neck Neck exam: Normal inspection, Full ROM. negative: Tenderness - Respiratory Respiratory exam: Normal lung sounds bilaterally, Prolonged expiratory. negative: Accessory muscle use, Respiratory distress, Wheezes - Cardiovascular Cardiovascular Exam: Regular rate, Bradycardia - GI/Abdominal GI/Abdominal exam: Soft, Normal bowel sounds. negative: Guarding, Rigid, Tenderness - Extremities Extremities exam: Normal inspection, Full ROM, Normal capillary refill. negative: Tenderness - Neurological Neurological exam: Alert, Normal gait, Oriented X3, Reflexes normal - Psychiatric Psychiatric exam: Normal affect, Normal mood - Skin Skin exam: Dry, Intact, Normal color, Warm Assessment and Plan - Assessment and Plan (1) Urinary tract infection Current Visit: Yes Status: Acute Qualifiers: Urinary tract infection type: site unspecified Hematuria presence: without hematuria Qualified Code(s): N39.0 - Urinary tract infection, site not specified Base Code: N39.0 - URINARY TRACT INFECTION, SITE NOT SPECIFIED Comment: 07/21/16- Improving. UA showed nitrite positve and mod leuk esterase. urine sent for culture. WBC count stable at 10.5 and patient remains afebrile. -continue rocephin 1gm IV q12H. Will plan to transition to oral abx tomorrow if she continues to improve -repeat labs qam (2) Generalized weakness Current Visit: Yes Status: Acute Base Code: R53.1 - WEAKNESS Comment: 07/21/16- Improving. MLC is UTI. She has been up ambulating to the bathroom with minimal assistance. she does currently live alone but has family doing most of her IADL's. still capable of her ADL's. -will continue to monitor need for PT/OT eval if she does not continue to improve (3) Shortness of breath Current Visit: Yes Status: Acute Base Code: R06.02 - SHORTNESS OF BREATH Comment: 07/21/16- Improved following duoneb and supplemental oxygen. Patient was recently admitted for COPD exacerbationbut had been feeling back to baseline. -will get CXR to eval for acute process -will saline lock since electrolytes have normalized and she will receive her lasix 20mg today (she takes this q48H). -continue duoneb q4H prn SOB -continue supplemental o2 at 2L -monitor vitals q8H -If CXR negative and SOB does not improve will start eval for PE. (4) Hyponatremia Current Visit: Yes Status: Acute Base Code: E87.1 - HYPO-OSMOLALITY AND HYPONATREMIA Comment: 07/21/16- Resolved. Sodium stable at 142 today. -repeat labs qam (5) QT prolongation Current Visit: Yes Status: Acute Base Code: R94.31 - ABNORMAL ELECTROCARDIOGRAM [ECG] [EKG] Comment: 07/21/16- Stable. Patient evaluated by Dr. Flores, cardiology yesterday. He recommended resuming her amiodorone 200mg pO bid as prescribed by Dr. Pollard and following up with him as previously scheduled next week. -resume amiodorone 200mg po bid -continue cardiac monitoring -continue to monitor electrolytes qam (6) Full code status Current Visit: Yes Status: Acute Base Code: Z78.9 - OTHER SPECIFIED HEALTH STATUS Comment: 07/21/16- patient is full code (7) DVT prophylaxis Current Visit: Yes Status: Acute Base Code: [id number] - Comment: 07/21/16-Patient is high risk for DVT with h/o of afib, age and restricted mobility, however, also high risk for bleed with age, weakness, and antiplatelet therapy. -will continue plavix and aspirin -cardiology deferring to Dr. Pollard for exterminator helper termite anticoagulation -will add SCD's while in bed Results - Labs Result Diagrams: 07/21/16 06:15 07/21/16 06:15 Labs Last 24 Hours: Laboratory Results - last 24 hr 07/21/16 07/21/16 06:15 06:15 WBC 10.5 RBC 4.37 Hgb 13.9 Hct 43.0 MCV 98.4 H MCH 31.8 MCHC 32.3 RDW 15.5 H Plt Count 138 MPV 10.3 Gran % 75.5 Lymphocytes % 11.7 L Monocytes % 10.9 H Eosinophils % 1.7 Basophils % 0.2 Sodium 142 Potassium 4.6 Chloride 109 H Carbon Dioxide 27.0 Anion Gap 6.0 L BUN 11 Creatinine 0.9 Estimated GFR > 60 Random Glucose 91 Calcium 8.0 L Total Bilirubin 0.41 AST 33 ALT 40 Alkaline Phosphatase 60 Total Protein 5.8 L Albumin 3.1 L Globulin 2.7 Albumin/Globulin Ratio 1.1 DVT/PE Assessment - Risk for VTE Risk for VTE: No Risk Level: High Risk Assessment Date: 07/20/16 Risk Assessment Time: 17:35 VTE Orders Placed or Will Be Placed: Yes - Active Medicaitons Current Medications: Current Medications Acetaminophen (Tylenol 500mg Tab) 1,000 mg PO Q6H PRN PRN Reason: Pain - General Last Admin: 07/21/16 00:07 Dose: 1,000 mg Albuterol Sulfate (Ventolin Hfa) 2 puff INH Q4H PRN PRN Reason: Cough and Difficulty Breathing Last Admin: 07/21/16 04:00 Dose: 2 puff Albuterol/Ipratropium (Duoneb) 3 ml INH RESP.Q4H.WA [facility] Last Admin: 07/21/16 15:14 Dose: 3 ml Amiodarone HCl (Pacerone) 200 mg PO BID [facility] Last Admin: 07/21/16 10:30 Dose: 200 mg Atenolol (Tenormin) 25 mg PO BID [facility] Last Admin: 07/21/16 10:31 Dose: 25 mg Clopidogrel Bisulfate (Plavix) 75 mg PO DAILY [facility] Last Admin: 07/21/16 14:48 Dose: Not Given Diphenhydramine HCl (Benadryl Capsule) 25 mg PO Q6H PRN PRN Reason: NAUSEA Last Admin: 07/21/16 02:51 Dose: 25 mg Ezetimibe (Zetia) 10 mg PO QHS [facility] Last Admin: 07/20/16 21:02 Dose: Not Given Famotidine (Pepcid) 20 mg PO BIDAC [facility] Last Admin: 07/21/16 10:27 Dose: Not Given Furosemide (Lasix) 20 mg PO Q48H [facility] Last Admin: 07/21/16 10:29 Dose: Not Given Ceftriaxone Sodium 1 gm/ (Sodium Chloride) 100 mls @ 100 mls/hr IVPB Q12H [facility] Stop: 07/24/16 17:01 Last Admin: 07/21/16 05:20 Dose: 100 mls/hr Patient Own Med: (Symbicort 160-4.5 Mg) 2 each PUFF BID [facility] Last Admin: 07/21/16 09:24 Dose: 2 each Simvastatin (Zocor) 20 mg PO QHS [facility] Last Admin: 07/20/16 21:01 Dose: 20 mg AMI Plan - Labs Result Diagrams: 07/21/16 06:15 07/21/16 06:15
[2016-07-21] MEDS: EZETIMIBE 10 MG TABLET PO SCH (21:05)
[2016-07-21] MEDS: SIMVASTATIN 20 MG TABLET PO SCH (21:06)
[2016-07-22] MEDS: ACETAMINOPHEN 500 MG TABLET PO PRN (03:14)
[2016-07-22] MEDS: CEFTRIAXONE SODIUM 1 GM in 0.9 % SODIUM CHLORIDE 100ML 100 ML IVPB SCH (05:26)
[2016-07-22] MEDS: IPRATROPIUM/ALBUTEROL (0.5MG/3MG) NEB INH SCH ×2 (05:57→09:29)
[2016-07-22] MEDS: FAMOTIDINE 20MG TABLET PO SCH (06:05)
[2016-07-22] MEDS: DIPHENHYDRAMINE HCL 25 MG CAPSULE PO PRN (06:05)
[2016-07-22 07:40] LABS: BASO % 0.2 % (0-6); EOS % 1.7 % (0-6); GRAN % 71.3 % (47-80); HEMATOCRIT 41.2 % (35.0-47.0); HEMOGLOBIN 13.5 gm/dl (11.6-16.0); LYMPH % 15.8 % (16-45); MEAN CELL VOLUME 97.9 fl (81-97); MEAN CORPUSCULAR HEMOGLOBIN 32.1 pg (27-33); MEAN CORPUSCULAR HGB CONC 32.8 g/dl (32-36); MEAN PLATELET VOLUME 10.7 fl (7.4-10.4); PLATELET COUNT 132 K/uL (130-400); RED BLOOD COUNT 4.21 M/uL (3.80-5.40); RED CELL DISTRIBUTION WIDTH 15.4 % (11.5-14.5); WHITE BLOOD COUNT W/O DIFF 8.8 K/uL (4.2-12.2)
[2016-07-22 07:50] LABS: ALB/GLOB RATIO 1.1 (1.1-1.8); ALBUMIN 3.3 gm/dL (3.5-5.0); ALKALINE PHOSPHATASE 59 U/L (38-126); ALT/SGPT 34 U/L (9-52); ANION GAP 10.1 (7-16); AST/SGOT 26 U/L (14-36); BILIRUBIN,TOTAL 0.57 mg/dL (0.2-1.3); BLOOD UREA NITROGEN 14 mg/dL (7-17); CARBON DIOXIDE 27.9 mmol/L (22-30); CREATININE 0.9 mg/dL (0.52-1.04); EST GLOMERULAR FILTRATION RATE > 60 ml/min; GLUCOSE,RANDOM 137 mg/dL (70-110); TOTAL PROTEIN 6.2 gm/dL (6.3-8.2)
[2016-07-22] MEDS: SYMBICORT PUFF SCH (09:33)
[2016-07-22] MEDS: CLOPIDOGREL 75MG TABLET PO SCH (09:45)
[2016-07-22] MEDS: AMIODARONE HCL 200 MG TABLET PO SCH (09:46)
[2016-07-22] MEDS: ATENOLOL 25 MG TABLET PO SCH (09:48)
--- NOTE | 2016-07-22 12:37 | Discharge Summary ---
Providers Discharge Summary Date: 07/22/16 Date of admission: 07/19/16 16:40 Expected Date of Discharge: 07/22/16 Attending physician: LUCHO NI Primary care physician: RISHI BOB D.O. Consults: Consult Orders 07/19/16 17:08 Consult - Cardiology NOW Consulting Provider: BHARAT CORMIER Physician Instructions: Reason For Exam: bradycardia; QT prolongation Does pt have current boiler attendant?: TCI Comment: seen at [facility] for rapid afib about 1 month ago and started on amiodorone Physical Exam - Vital Signs Vital Signs: Vital Signs - Last 24 Hrs Temp Pulse Pulse Resp BP BP Pulse Ox 07/22/16 09:36 60 18 95 07/22/16 09:16 97.8 F 52 L 18 121/48 96 07/22/16 09:00 51 L 18 07/22/16 05:57 95 07/22/16 04:48 98.0 F 62 18 116/52 96 07/21/16 23:15 97.9 F 68 18 101/60 95 07/21/16 21:52 18 98 07/21/16 21:25 67 20 07/21/16 21:20 67 20 07/21/16 21:11 63 20 90 L 07/21/16 20:00 98.5 F 69 20 114/54 98 07/21/16 16:00 98.0 F 66 18 117/57 98 07/21/16 15:10 64 18 89 L 07/21/16 12:00 98.7 F 67 18 144/56 99 - General General Appearance: Alert, Oriented x3, Cooperative, No acute distress Limitations: No limitations - Head Head exam: Atraumatic, Normocephalic, Normal inspection - Eye Eye exam: Normal appearance, PERRL - ENT Throat exam: Normal inspection. negative: Tonsillar erythema, Tonsillar exudate - Neck Neck exam: Normal inspection, Full ROM. negative: Tenderness - Respiratory Respiratory exam: Normal lung sounds bilaterally, Prolonged expiratory. negative: Accessory muscle use, Respiratory distress, Wheezes - Cardiovascular Cardiovascular Exam: Regular rate, Normal rhythm, Normal heart sounds - GI/Abdominal GI/Abdominal exam: Soft, Normal bowel sounds. negative: Guarding, Rigid, Tenderness - Extremities Extremities exam: Normal inspection, Full ROM, Normal capillary refill. negative: Tenderness - Neurological Neurological exam: Alert, Normal gait, Oriented X3, Reflexes normal - Psychiatric Psychiatric exam: Normal affect, Normal mood - Skin Skin exam: Dry, Intact, Normal color, Warm Hospitalization - Hospitalization Admission Diagnosis: 1. Symptomatic hyponatremia with UTI. 2. Prolonged QT. - Problem List/Discharge Diagnosis (1) Urinary tract infection Status: Acute Discharge Diagnosis: Urinary tract infection type: site unspecified Hematuria presence: without hematuria Qualified Code(s): N39.0 - Urinary tract infection, site not specified Base Code: N39.0 - URINARY TRACT INFECTION, SITE NOT SPECIFIED Comment: 07/22/16- continues to improve. UA showed nitrite positve and mod leuk esterase. urine culture positive for e.coli susceptible to rocephin. WBC count continues to remain normal at 8.8 down from 14.9 at admission and patient remains afebrile. -transition to cefdinir 300mg PO BID for 7 mroe days for total 10 day course. Script sent to pharmacy -Patient's daughter will call Dr. Bob's office tomorrow to schedule follow up appointment (2) Generalized weakness Status: Acute Base Code: R53.1 - WEAKNESS Comment: 07/22/16- Resolved. MLC was UTI. She has been up ambulating to the bathroom without assistance and did take a walk down the [place] yesterday as well. she does currently live alone but has family doing most of her IADL's. still capable of her ADL's. -will plan to discharge home today. Daughter is going to stay with her for a few days to continue to monitor her (3) Shortness of breath Status: Acute Base Code: R06.02 - SHORTNESS OF BREATH Comment: 07/22/16- Resolved. Patient has not had any further shortness of breath and has been satting 96-98% on room air. She denies chest pain or cough/sputum production -will discharge home with outpatient follow up with PCP for COPD care. (4) Hyponatremia Status: Acute Base Code: E87.1 - HYPO-OSMOLALITY AND HYPONATREMIA Comment: 07/22/16- Resolved. Sodium stable at 138 today. (5) QT prolongation Status: Acute Base Code: R94.31 - ABNORMAL ELECTROCARDIOGRAM [ECG] [EKG] Comment: 07/22/16- resolved. Patient evaluated by Dr. Cormier, cardiology yesterday. He recommended resuming her amiodorone 200mg pO bid as prescribed by Dr. Pollard and following up with him as previously scheduled next week. -continue amiodorone 200mg po bid (6) Full code status Status: Acute Base Code: Z78.9 - OTHER SPECIFIED HEALTH STATUS Comment: 07/22/16- patient is full code (7) DVT prophylaxis Status: Acute Base Code: [id number] - Comment: 07/22/16-Patient is high risk for DVT with h/o of afib, age and restricted mobility, however, also high risk for bleed with age, weakness, and antiplatelet therapy. -will have her continue plavix and aspirin -cardiology deferring to Dr. Pollard for alf anticoagulation - Hospitalization Course Disposition: Home, Self-Care Hospital Course: 80yo female with CC of weakness and nausea. She has history of COPD, UT, HTN, HD , afib, GERD, arthritis, and cervical cancer. patient recently admitted at [facility] for afib that developed after COPD exacerbation. patient presented to the ED last night with weakness, nausea and just not feeling well for the past two weeks. Discharged home from [facility] about 2 weeks ago after being admitted for afib. was chemically cardioverted and discharged home on amiodorone. Has not felt well since but really started to feel weak yesterday. While in the ED, patient had EKG that showed sinus bradycardia with T wave changes in lateral leads and QTc of 481. Her 1st set of troponin was wnl range. she was not complaining of chest pain. Her WBC count was elevated at 14.9, sodium was low at 125 and chloride low at 97. Corrected calcium was 9.0 and mg was 2. Her UA was nitrite and leuk est positive. Patient was started on rocephin 1gm IV for UTI, amiodorone was held and she was admitted for serial enzymes and continued cardiac monitoring. 07/20/16- Patients states she is feeling much better today. She says she still feels weaker than baseline but was able to get up and ambulate to the bathroom independently. She denies chest pain, nausea, or abdominal pain. She has not had any urinary burning but has been urinating frequently. She denies fevers, chills and her appetite has been normal. She has a follow up appointment with Dr. Pollard in the next few weeks for her atrial fibrillation. 07/21/16- Patient reports that her weakness has improved. She has been up to the bathroom with minimal assistance which is much improved from admission. Patient does report shortness of breath starting this morning. She denies chest pain or pain with deep inspiration. Her oxygen saturation was about 89% on room air at that time. She has COPD and was admitted 2 weeks ago for exacerbation but has been doing well since that time. She denies cough, sputum production. She had relief of symptoms with supplemental O2 and duoneb treatment. 07/22/16- Patient reports that she is back to her baseline is ready to go home. She says her weakness has resolved and she has been up ambulating to the bathroom without assistance and even took a walk down the hallway last night. Her shrotness of breath resolved completely yesterday after duoneb treatment and has not returned. She has not needed supplemental oxygen and last breathing treatment was yesterday. she denies any chest pain or pain with inhalation. Procedures: Imaging and X-Rays 07/21/16 09:41 CHEST 2 VIEWS [RAD] Stat Abnormal Labs: Abnormal Lab Results 07/20/16 07/20/16 07/20/16 Range/Units 04:20 04:20 04:20 MCV 97.3 H (81-97) fl RDW 15.5 H (11.5-14.5) % MPV (7.4-10.4) fl Lymphocytes % 11.6 L (16-45) % Monocytes % (0-9) % Chloride (98-107) mmol/L Anion Gap 6.4 L (7-16) BUN 18 H (7-17) mg/dL Creatinine 1.2 H (0.52-1.04) mg/dL Random Glucose (70-110) mg/dL Calcium 7.7 L (8.5-10.1) mg/dL AST 73 H (14-36) U/L Total Protein 5.4 L (6.3-8.2) gm/dL Albumin 2.9 L (3.5-5.0) gm/dL 07/21/16 07/21/16 07/22/16 Range/Units 06:15 06:15 07:33 MCV 98.4 H 97.9 H (81-97) fl RDW 15.5 H 15.4 H (11.5-14.5) % MPV 10.7 H (7.4-10.4) fl Lymphocytes % 11.7 L 15.8 L (16-45) % Monocytes % 10.9 H 11.0 H (0-9) % Chloride 109 H (98-107) mmol/L Anion Gap 6.0 L (7-16) BUN (7-17) mg/dL Creatinine (0.52-1.04) mg/dL Random Glucose (70-110) mg/dL Calcium 8.0 L (8.5-10.1) mg/dL AST (14-36) U/L Total Protein 5.8 L (6.3-8.2) gm/dL Albumin 3.1 L (3.5-5.0) gm/dL 07/22/16 Range/Units 07:33 MCV (81-97) fl RDW (11.5-14.5) % MPV (7.4-10.4) fl Lymphocytes % (16-45) % Monocytes % (0-9) % Chloride (98-107) mmol/L Anion Gap (7-16) BUN (7-17) mg/dL Creatinine (0.52-1.04) mg/dL Random Glucose 137 H (70-110) mg/dL Calcium (8.5-10.1) mg/dL AST (14-36) U/L Total Protein 6.2 L (6.3-8.2) gm/dL Albumin 3.3 L (3.5-5.0) gm/dL Condition at Discharge: (2) Stable Discharge Medications - Discharge Medications Prescriptions: Cefdinir [Omnicef] 300 mg PO BID #14 cap Home Medications: Ambulatory Orders Albuterol Sulfate [Ventolin Hfa] 1 - 2 puff IH .EVERY 4-6 HOURS PRN 07/05/16 [ Last Taken 07/19/16] Budesonide/Formoterol Fumarate [Symbicort 160-4.5 Mcg Inhaler] 10.2 gm IH BID [Last Taken 07/19/16] Clopidogrel Bisulfate [Clopidogrel] 75 mg PO DAILY 07/05/16 [Last Taken 07/19/16 ] Ezetimibe [Zetia] 10 mg PO DAILY 07/05/16 [Last Taken 07/19/16] Famotidine [Pepcid] 20 mg PO TID 07/05/16 [Last Taken 07/19/16] Furosemide [Lasix] 20 mg PO DAILY 07/05/16 [Last Taken 07/19/16] Simvastatin [Zocor] 20 mg PO DAILY 07/05/16 [Last Taken 07/19/16] Amiodarone HCl [Pacerone] 200 mg PO BID 07/19/16 [Last Taken 07/19/16] Atenolol 25 mg PO BID 07/19/16 [Last Taken 07/19/16] Famotidine [Pepcid] 20 mg PO BID 07/19/16 [Last Taken 07/19/16] Prednisone [Prednisone 20Mg] 40 mg PO DAILY 07/19/16 [Last Taken 07/19/16] Cefdinir [Omnicef] 300 mg PO BID #14 cap 07/22/16 [Last Taken Unknown] Discharge Plan - Discharge Instructions Activity at Discharge: Resume Usual Activities As Tolerated Diet at Discharge: Advance to Usual Diet Instructions: Urinary Tract Infection in Women (DC) Additional Instructions: Continue omnicef 300mg twice daily until finished Follow up with Dr. Pollard as previously scheduled Call Dr. Bob to see if follow up appointment can be moved up
[2016-07-22] MEDS ORDERED: CEFDINIR 300 MG CAPSULE PO ONE (12:43)
--- NOTE | 2016-07-23 08:29 | RADIOLOGY REPORT ---
EXAM: CHEST, TWO VIEWS HISTORY: ACUTE SHORTNESS OF BREATH. TECHNIQUE: Two views of the chest were obtained. Comparison: Chest x-ray 07/05/16. FINDINGS: The lungs are hyperinflated with diffuse lucency consistent with emphysema. Fine reticular prominence at the lung bases, unchanged from prior likely due to chronic interstitial change. Blunting of the costophrenic angles consistent with trace pleural effusions. The cardiac silhouette is not enlarged. The diaphragm is unremarkable. Osteopenia with dextroconvex curvature of the lower thoracic spine. IMPRESSION: EMPHYSEMA WITH PROBABLE CHRONIC INTERSTITIAL CHANGE AT THE LUNG BASES. TRACE PLEURAL EFFUSIONS. JOB NUMBER: [id number] MTDD
== END 2016-07-22 13:19 | disposition home or self-care (01) | DRG 690 ==
LOC: ER 12:16 → MEDSURG 16:40
PROVIDERS: ADMIT Family Medicine; ATTEND Family Medicine
DX: N39.0 Urinary tract infection, site not specified (principal); E87.1 Hypo-osmolality and hyponatremia; Z79.01 Long term (current) use of anticoagulants; I48.91 Unspecified atrial fibrillation; E78.00 Pure hypercholesterolemia, unspecified; J44.1 Chronic obstructive pulmonary disease with (acute) exacerbation; I10 Essential (primary) hypertension; R94.31 Abnormal electrocardiogram [ECG] [EKG]; R53.1 Weakness; J44.9 Chronic obstructive pulmonary disease, unspecified; I25.10 Atherosclerotic heart disease of native coronary artery without angina pectoris; Z79.02 Long term (current) use of antithrombotics/antiplatelets
CPT/HCPCS: 93041; 99285 ×2; 94760; 96365; 82550; 83735; 85025; 82553; 84484; 80053; 81001; 93005; 93010; J2405; 71020; 80048; 80076; 94010; 94640; 94761; 99223; 99233; 99239; J7030; J7613

== ENCOUNTER 2016-07-30 05:22 | Emergency (ER) | payer MEDICARE ==
--- NOTE | 2016-07-30 05:43 | Emergency Department Record ---
History of Present Illness - General Chief Complaint: Difficulty Breathing Stated Complaint: JOSÉ ANTONIO Time Seen by Provider: 07/30/16 05:39 Source: Patient Mode of Arrival: Stretcher Limitations: No limitations - History of Present Illness Initial Comments: The patient is here due to a 2 hour history of JOSÉ ANTONIO and rib pain. The JOSÉ ANTONIO woke her up at home and since she has been breathing hard her ribs have been hurting also. She denies any recent fever, chills, or sputum production. The patient does have a hx of COPD and recent Afib and has been admitted to [facility] 3 weeks ago for that. She then was admitted here at [facility] from 07/19-07/22 for a UTI and hyponatremia. MD Complaint: Shortness of breath Onset/Timin -: Hour(s) Consistency: Constant Improves With: Nothing Worsens With: Nothing Known History Of: COPD Associated Symptoms: Chest pain Treatments Prior to Arrival: Bronchodilator - Related Data Home Oxygen Therapy: No Home Medications Medication Instructions Recorded Confirmed Last Taken Albuterol Sulfate [Ventolin Hfa] 1 - 2 puff IH .EVERY 4-6 HOURS PRN 07/05/1607/19/16 Budesonide/Formoterol Fumarate 10.2 gm IH BID 07/05/16 07/30/16 07/19/16 [Symbicort 160-4.5 Mcg Inhaler] Clopidogrel Bisulfate [Clopidogrel] 75 mg PO DAILY 07/05/16 07/30/16 07/19/16 Ezetimibe [Zetia] 10 mg PO DAILY 07/05/16 07/30/16 07/19/16 Furosemide [Lasix] 20 mg PO DAILY 07/05/16 07/30/16 07/19/16 Simvastatin [Zocor] 20 mg PO DAILY 07/05/16 07/30/16 07/19/16 Amiodarone HCl [Pacerone] 200 mg PO BID 07/19/16 07/30/16 07/19/16 Atenolol 25 mg PO BID 07/19/16 07/30/16 07/19/16 Famotidine [Pepcid] 20 mg PO BID 07/19/16 07/30/16 07/19/16 Allergies Allergy/AdvReac Type Severity Reaction Status Date / Time codeine Allergy PT UNSURE Verified 07/30/16 05:31 OF REACTION Penicillins Allergy PT UNSURE Verified 07/30/16 05:31 OF REACTION Travel Screening - Travel/Exposure Within Last 30 Days Have you traveled within the last 30 days?: No - Travel/Exposure Within Last Year Have you traveled outside the [place] in the last year?: No - Additonal Travel Details Have you been exposed to anyone with a communicable illness?: No - Travel Symptoms Symptom Screening: None Review of Systems Constitutional: Denies: Chills, Fever Eyes: Denies: Eye discharge ENT: Reports: Congestion Respiratory: Reports: Cough, Dyspnea Cardiovascular: Reports: Chest pain. Denies: Arrhythmia Endocrine: Reports: Fatigue Gastrointestinal: Denies: Diarrhea, Vomiting Genitourinary: Denies: Dysuria Musculoskeletal: Denies: Back pain Skin: Denies: Bruising Past Medical History - SOCIAL HISTORY Smoking Status: Former smoker Alcohol Use: None Drug Use: None - RESPIRATORY Hx Respiratory Disorders: Yes Hx Asthma: No Hx Bronchitis: No Hx COPD: Yes Hx Dyspnea: No Hx Pneumonia: No Hx Pulmonary Embolism: No Hx Sleep Apnea: No Hx Tuberculosis: No Hx of CPAP: No Comment:: emphysema - CARDIOVASCULAR Hx Cardio Disorders: Yes Hx Abnormal EKG: Yes Hx Cardiac Cath: No Hx Chest Pain: No Hx CHF: No Hx Deep Vein Thrombosis: No Hx Edema: No Hx Heart Attack: Yes Hx Hypertension: Yes Hx Hypotension: No Hx Irregular Heartbeat: Yes Hx Palpitations: No Hx Pacemaker/Defib: No Hx Vascular Disease: No Comment:: High cholesterol, bilat. leg swelling, poss hx afib - NEURO Hx Neuro Disorders: No - GI Hx GI Disorders: Yes Hx Abdominal Pain: No Hx Celiac Disease: No Hx Crohn's Disease: No Hx Diverticulitis: No Hx GI Bleed: No Hx Reflux: Yes Hx Hepatitis/Jaundice: No Hx Hiatal Hernia: No Hx Irritable Bowel: No Hx Liver Disease: No Hx Nausea/Vomiting: Yes Hx Obstructive Bowel: No Hx Pancreatitis: No Hx Rectal Bleeding: No Hx Ulcer: No Hx Wt Loss/Wt Gain: No Hx of Polyps: No - Hx Genitourinary Disorders: No - ENDOCRINE Hx Endocrine Disorders: No - MUSCULOSKELETAL Hx Musculoskeletal Disorders: Yes Hx Arthritis: Yes Hx Back Injury: No Hx Fibromyalgia: No Hx Gout: No Hx Musculoskeletal Disease: No Hx Osteoporosis: No - PSYCH Hx Psych Problems: No - HEMATOLOGY/ONCOLOGY Hx Hematology/Oncology Disorders: Yes Hx Cancer: Yes (cervical) Family Medical History Any Significant Family History?: No Physical Exam - General General Appearance: Alert, Oriented x3, Cooperative, Mild distress (due to JOSÉ ANTONIO.) - Head Head exam: Atraumatic, Normocephalic, Normal inspection - Eye Eye exam: Normal appearance, PERRL - ENT Throat exam: Normal inspection. negative: Tonsillar erythema, Tonsillar exudate - Neck Neck exam: Normal inspection, Full ROM. negative: Tenderness - Respiratory Respiratory exam: Accessory muscle use (mild.), Chest wall tenderness, Rales ( at the bases.), Respiratory distress (mild.), Rhonchi. negative: Normal lung sounds bilaterally - Cardiovascular Cardiovascular Exam: Regular rate, Normal rhythm, Normal heart sounds - GI/Abdominal GI/Abdominal exam: Soft, Normal bowel sounds. negative: Tenderness - Extremities Extremities exam: Normal inspection, Full ROM, Normal capillary refill. negative: Pedal edema, Tenderness - Neurological Neurological exam: Alert. negative: Motor sensory deficit - Psychiatric Psychiatric exam: Anxious Course Vital Signs 07/30/16 05:30 Temperature 98.1 F Pulse Rate 96 H Respiratory 32 H Rate Blood Pressure 186/101 Pulse Ox 99 - Reevaluation(s) Reevaluation #1: The patient's JOSÉ ANTONIO has not improved since presentation to the ER and her 02 sats have dropped minimally so we will start BIPAP. 07/30/16 06:07 Reevaluation #2: The patient is now on BIPAP and doing well. She feels like her breathing is improving and she denies any new issues. Her 02 sats are improving on the BIPAP. 07/30/16 06:17 Reevaluation #3: The patient is doing better now. She denies any significant CP and states her JOSÉ ANTONIO is improved. Her BP is down to 170/77 and her RR is now in the low 20's. Her work of breathing is improving and much less labored. I did discuss the issues with the Critical Care team at [facility] and they did accept the patient. She was formally accepted by Dr. Batista and Dr. Montes. 07/30/16 06:46 Reevaluation #4: The patient's BP is 164/78 and she is now on 20 mcg of Nitro. She is doing much better and is tolerating the BIPAP well. 07/30/16 06:57 Reevaluation #5: The patient is doing better at this time. Her RR is in the low 20's and her BP now is 155/70. She feels like her breathing has improved and denies feeling like she is tiring out. I have been unable to obtain an ABG due to the machine being down for maintenance and not coming up yet for use. Clinically the patient is doing much better on the BIPAP and seems to be tolerating it well. We will initiate her transfer even though we do not have the ABG. I clinically strongly doubt the patient will need to be intubated so we will not hold up the transfer for the ABG due to not knowing when we will be able to obtain it. 7:40 am The patient continues to improve. We did perform a 2nd ABG and her PH improved from 7.16 to 7.28 and her CO2 decreased to 52 from 65. I did discuss these results with Dr. Batista at [facility] and he agrees that she will not need to be intubated prior to transfer. The patient is awake and alert and denies any pain. She states her JOSÉ ANTONIO is much improved. The patient's BP is now 1205/60 so we will lower her Nitro drip minimally. 07/30/16 07:07 07/30/16 07:39 07/30/16 07:40 07/30/16 07:45 Medical Decision Making - Data Complexity MDM Data: Labs Ordered and/or Reviewed, X-Ray Ordered and/or Reviewed, EKG Ordered and/or Reviewed - Lab Data Result diagrams: 07/30/16 05:50 07/30/16 05:50 - EKG Data -: EKG Interpreted by Me EKG: No Acute Changes, Unchanged From Previous - Radiology Data Radiology results: Report reviewed (CXR: Pulm edema.) Critical Care Time Critical Care Time: Yes Total Critical Care Time: 60 Critical Care Time: Please see previous input for full accounting of the patient's evaluation. Disposition Disposition: Transfer Clinical Impression: Pulmonary edema Qualifiers: Chronicity: acute Qualified Code(s): J81.0 - Acute pulmonary edema Disposition: Acute Care Hospital Transfer Transfer To: [facility] CCU Reason For Transfer: Pulmonary Edema. Accepting Physician: Dr. Batista Time Discussed w/Accepting Physician: 06:51 Condition: (2) Stable Forms: Patient Portal Access Time of Disposition: 06:51
[2016-07-30] MEDS ORDERED: FUROSEMIDE IV 40MG/4ML VIAL IVP ONE (05:47)
[2016-07-30] MEDS ORDERED: IPRATROPIUM/ALBUTEROL (0.5MG/3MG) NEB INH ONE (05:48)
[2016-07-30] MEDS ORDERED: MORPHINE SULFATE 5 MG/ML PFS IVP ONE (05:50)
[2016-07-30 05:55] LABS: BASO % 0.3 % (0-6); EOS % 2.4 % (0-6); GRAN % 55.1 % (47-80); HEMATOCRIT 44.6 % (35.0-47.0); HEMOGLOBIN 14.8 gm/dl (11.6-16.0); LYMPH % 34.1 % (16-45); MEAN CELL VOLUME 97.2 fl (81-97); MEAN CORPUSCULAR HEMOGLOBIN 32.2 pg (27-33); MEAN CORPUSCULAR HGB CONC 33.2 g/dl (32-36); MEAN PLATELET VOLUME 9.9 fl (7.4-10.4); MONO % 8.1 % (0-9); PLATELET COUNT 301 K/uL (130-400); RED BLOOD COUNT 4.59 M/uL (3.80-5.40); RED CELL DISTRIBUTION WIDTH 14.9 % (11.5-14.5); WHITE BLOOD COUNT W/O DIFF 12.9 K/uL (4.2-12.2)
[2016-07-30] MEDS ORDERED: NITROGLYCERIN/D5W 50 MG in DEXTROSE 5 % IN WATER 1 BAG IV SCH ×2 (06:00)
[2016-07-30 06:05] LABS: ANION GAP 11.7 (7-16); CARBON DIOXIDE 25.3 mmol/L (22-30); CREATININE 1.2 mg/dL (0.52-1.04)
[2016-07-30 06:07] LABS: INR 0.89; PARTIAL THROMBOPLASTIN TIME 24.5 SECONDS (24.5-39.1); PROTHROMBIN TIME (PATIENT) 10.1 SECONDS (9.5-12.1)
[2016-07-30 06:18] LABS: CKMB 1.5 ug/L (0-6); TROPONIN I 0.017 ng/mL (0.00-0.034)
[2016-07-30] MEDS ORDERED: METHYLPREDNISOLONE PF 125MG/VIAL IVP ONE (07:07)
[2016-07-30 07:14] LABS: ARTERIAL BLD GAS O2 SATURATION 89.2 % (95-98); ARTERIAL BLOOD GAS BASE EXCESS -6.9 mmol/L (-2 - 3); ARTERIAL BLOOD GAS HCO3 22.8 mmol/L (18-23); CARBOXYHEMOGLOBIN 1.1 % (0-1.5); METHEMOGLOBIN 0.2 % (0.0-1.5); TOTAL HEMOGLOBIN 13.6 g/dl (11.6-16)
[2016-07-30 07:16] LABS: ARTERIAL BLOOD GAS pH 7.16 (7.35-7.45)
[2016-07-30 07:17] LABS: ARTERIAL BLOOD GAS PCO2 66.5 mmHg (35-48)
[2016-07-30 07:32] LABS: ARTERIAL BLD GAS O2 SATURATION 93.4 % (95-98); ARTERIAL BLOOD GAS BASE EXCESS -3.2 mmol/L (-2 - 3); ARTERIAL BLOOD GAS HCO3 23.8 mmol/L (18-23); ARTERIAL BLOOD GAS PCO2 52.7 mmHg (35-48); ARTERIAL BLOOD GAS pH 7.28 (7.35-7.45); CARBOXYHEMOGLOBIN 0.6 % (0-1.5); METHEMOGLOBIN 1.1 % (0.0-1.5); O2 HEMOGLOBIN 91.8 % vol (94-99); TOTAL HEMOGLOBIN 13.9 g/dl (11.6-16)
--- NOTE | 2016-08-01 15:27 | RADIOLOGY REPORT ---
EXAM: CHEST AP or PA ONLY HISTORY: DIFFICULTY IN BREATHING. TECHNIQUE: Single AP chest. COMPARISON: 07/21/2016. FINDINGS: Heart size normal. Chronic underlying interstitial lung disease. There is superimposed consolidation of the right lung base. Osseous structures are normal. IMPRESSION: CHRONIC UNDERLYING INTERSTITIAL LUNG DISEASE. SUPERIMPOSED CONSOLIDATION OF THE RIGHT LUNG BASE. FOLLOW-UP UNTIL RESOLUTION IS RECOMMENDED. JOB NUMBER: [id number] MTDD
== END 2016-07-30 08:05 | disposition short-term general hospital (02) ==
LOC: ER 05:22
DX: J81.0 Acute pulmonary edema (principal); Z87.891 Personal history of nicotine dependence; J44.9 Chronic obstructive pulmonary disease, unspecified; I10 Essential (primary) hypertension; I25.2 Old myocardial infarction; I48.91 Unspecified atrial fibrillation
CPT/HCPCS: 36600; 71010; 80048; 82375; 82550; 82553; 82803; 83880; 84484; 85025; 85610; 85730; 93005; 93010; 94640; 94660; 96365; 96366; 96375; 99291; J1940; J2930

== ENCOUNTER 2016-08-12 16:51 | Emergency (ER) | payer MEDICARE ==
[2016-08-12] MEDS ORDERED: METHYLPREDNISOLONE PF 125MG/VIAL IVP ONE (18:20)
--- NOTE | 2016-08-12 18:20 | Emergency Department Record ---
History of Present Illness - General Chief Complaint: Shortness of breath Stated Complaint: JOSÉ ANTONIO Time Seen by Provider: 08/12/16 18:03 Source: Patient Mode of Arrival: Wheelchair - History of Present Illness Initial Comments: The patient and her family states she is not feeling well the past 2-3 days, is less energetic, and just lying around the house. Today she is having JOSÉ ANTONIO and states "it feels like I'm trying to breathe too deep to get oxygen." She was discharged from [facility] 10 days ago on a steroid taper which finished yesterday. Daughter states she did not go home on antibiotics. Patient denies f ,c,n,v,d,ap,cp swelling in her legs. She has a history of COPD, a fib times 2, and now CHF, for which she was transferred to [facility]. She uses inhalers only, no nebulizers, according to family. MD Complaint: Shortness of breath Onset/Timin -: Days(s) Consistency: Constant Improves With: Nothing Worsens With: Nothing Known History Of: Congestive heart failure, COPD Associated Symptoms: Other Treatments Prior to Arrival: Bronchodilator, Diuretics - Related Data Home Oxygen Therapy: No Home Oxygen Amount: none Home Medications Medication Instructions Recorded Confirmed Last Taken Albuterol Sulfate [Ventolin Hfa] 1 - 2 puff IH .EVERY 4-6 HOURS PRN 07/05/1606/2908/12/16 Budesonide/Formoterol Fumarate 10.2 gm IH BID 07/05/16 08/12/16 08/12/16 [Symbicort 160-4.5 Mcg Inhaler] Ezetimibe [Zetia] 10 mg PO DAILY 07/05/16 08/12/16 08/12/16 Furosemide [Lasix] 20 mg PO DAILY 07/05/16 08/12/16 08/12/16 Simvastatin [Zocor] 20 mg PO DAILY 07/05/16 08/12/16 08/11/16 Amiodarone HCl [Pacerone] 200 mg PO BID 07/19/16 08/12/16 08/12/16 Famotidine [Pepcid] 20 mg PO BID 07/19/16 08/12/16 08/12/16 Apixaban [Eliquis] 5 mg PO BID 08/12/16 08/12/16 08/12/16 Aspirin [Aspir-Low] 81 mg PO DAILY 08/12/16 08/12/16 08/12/16 Carvedilol [Coreg] 3.125 mg PO BID 08/12/16 08/12/16 08/12/16 Lisinopril 2.5 mg PO DAILY 08/12/16 08/12/16 08/12/16 Allergies Allergy/AdvReac Type Severity Reaction Status Date / Time codeine Allergy PT UNSURE Verified 08/12/16 17:18 OF REACTION Penicillins Allergy PT UNSURE Verified 08/12/16 17:18 OF REACTION Travel Screening - Travel/Exposure Within Last 30 Days Have you traveled within the last 30 days?: No Review of Systems Reviewed: No additional complaints except as noted below Constitutional: Reports: As per HPI. Denies: Chills, Fever, Malaise, Night sweats, Weakness, Weight change Eyes: Reports: As per HPI. Denies: Eye discharge, Eye pain, Photophobia, Vision change ENT: Reports: As per HPI. Denies: Congestion, Dental pain, Ear pain, Epistaxis , Hearing loss, Throat pain Respiratory: Reports: As per HPI. Denies: Cough, Dyspnea, Hemoptysis, Stridor, Wheezes Cardiovascular: Reports: As per HPI. Denies: Arrhythmia, Chest pain, Dyspnea on exertion, Edema, Murmurs, Orthopnea, Palpitations, Paroxysmal nocturnal dyspnea, Rheumatic Fever, Syncope Endocrine: Reports: As per HPI. Denies: Fatigue, Heat or cold intolerance, Polydipsia, Polyuria Gastrointestinal: Reports: As per HPI. Denies: Abdominal pain, Constipation, Diarrhea, Hematemesis, Hematochezia, Melena, Nausea, Vomiting Genitourinary: Reports: As per HPI. Denies: Abnormal menses, Discharge, Dyspareunia, Dysuria, Frequency, Hematuria, Incontinence, Retention, Urgency Musculoskeletal: Reports: As per HPI. Denies: Arthralgia, Back pain, Gout, Joint swelling, Myalgia, Neck pain Skin: Reports: As per HPI. Denies: Bruising, Change in color, Change in hair/ nails, Lesions, Pruritus, Rash Neurological: Reports: As per HPI. Denies: Abnormal gait, Confusion, Headache, Numbness, Paresthesias, Seizure, Tingling, Tremors, Vertigo, Weakness Psychiatric: Reports: As per HPI. Denies: Anxiety, Auditory hallucinations, Depression, Homicidal thoughts, Suicidal thoughts, Visual hallucinations Hematological/Lymphatic: Reports: As per HPI. Denies: Anemia, Blood Clots, Easy bleeding, Easy bruising, Swollen glands Past Medical History - SOCIAL HISTORY Smoking Status: Former smoker Alcohol Use: None Drug Use: None - RESPIRATORY Hx Respiratory Disorders: Yes Hx Asthma: No Hx Bronchitis: No Hx COPD: Yes Hx Dyspnea: No Hx Pneumonia: No Hx Pulmonary Embolism: No Hx Sleep Apnea: No Hx Tuberculosis: No Hx of CPAP: No Comment:: emphysema - CARDIOVASCULAR Hx Cardio Disorders: Yes Hx Abnormal EKG: Yes Hx Cardiac Cath: No Hx Chest Pain: No Hx CHF: Yes Hx Deep Vein Thrombosis: No Hx Edema: No Hx Heart Attack: Yes Hx Hypertension: Yes Hx Hypotension: No Hx Irregular Heartbeat: Yes Hx Palpitations: No Hx Pacemaker/Defib: No Hx Vascular Disease: No Comment:: High cholesterol, bilat. leg swelling, poss hx afib - NEURO Hx Neuro Disorders: No - GI Hx GI Disorders: Yes Hx Abdominal Pain: No Hx Celiac Disease: No Hx Crohn's Disease: No Hx Diverticulitis: No Hx GI Bleed: No Hx Reflux: Yes Hx Hepatitis/Jaundice: No Hx Hiatal Hernia: No Hx Irritable Bowel: No Hx Liver Disease: No Hx Nausea/Vomiting: Yes Hx Obstructive Bowel: No Hx Pancreatitis: No Hx Rectal Bleeding: No Hx Ulcer: No Hx Wt Loss/Wt Gain: No Hx of Polyps: No - Hx Genitourinary Disorders: No - ENDOCRINE Hx Endocrine Disorders: No - MUSCULOSKELETAL Hx Musculoskeletal Disorders: Yes Hx Arthritis: Yes Hx Back Injury: No Hx Fibromyalgia: No Hx Gout: No Hx Musculoskeletal Disease: No Hx Osteoporosis: No - PSYCH Hx Psych Problems: No - HEMATOLOGY/ONCOLOGY Hx Hematology/Oncology Disorders: Yes Hx Cancer: Yes (cervical) Family Medical History Any Significant Family History?: No Physical Exam - General General Appearance: Alert, Oriented x3, Cooperative, No acute distress - Head Head exam: Normal inspection - Eye Eye exam: Normal appearance, PERRL Pupils: Normal accommodation - ENT ENT exam: Normal exam, Mucous membranes moist, Normal external ear exam, Normal orophraynx, TM's normal bilaterally Ear exam: Normal external inspection. negative: External canal tenderness Nasal Exam: Normal inspection. negative: Discharge, Sinus tenderness Mouth exam: Normal external inspection, Tongue normal Teeth exam: Normal inspection. negative: Dental caries Throat exam: Normal inspection. negative: Tonsillar erythema, Tonsillar exudate - Neck Neck exam: Normal inspection, Full ROM, Other (no JVD). negative: Lymphadenopathy, Meningismus, Tenderness - Respiratory Respiratory exam: Decreased breath sounds, Prolonged expiratory, Other ( increased AP diameter). negative: Accessory muscle use, Chest wall tenderness, Respiratory distress, Wheezes - Cardiovascular Cardiovascular Exam: Regular rate, Normal rhythm, Normal heart sounds - GI/Abdominal GI/Abdominal exam: Soft, Normal bowel sounds. negative: Tenderness - Rectal Rectal exam: Deferred - exam: Deferred - Extremities Extremities exam: Normal inspection, Full ROM, Normal capillary refill. negative: Calf tenderness, Pedal edema, Tenderness - Back Back exam: Reports: Normal inspection, Full ROM. Denies: Muscle spasm, Rash noted, Tenderness - Neurological Neurological exam: Alert, Normal gait, Oriented X3, Reflexes normal - Psychiatric Psychiatric exam: Normal affect, Normal mood - Skin Skin exam: Dry, Intact, Normal color, Warm Course Vital Signs 08/12/16 17:12 Temperature 97.4 F L Pulse Rate 74 Respiratory 18 Rate Blood Pressure 149/66 Pulse Ox 98 - Reevaluation(s) Reevaluation #1: The patient states the nebulizer helped her breathing but made her fine tremors worsen. She was instructed to follow up with Dr. Kwan as previously arranged this week to evaluate home nebulizers, steroids, and for general recheck. She was told that coming off of steroids from 2 days ago will make her feel worse in general and that is to be expected. Chronic steroid use is to be avoided. 08/12/16 19:51 Reevaluation #2: troponin is -.018 today. Reviewed her prior troponins all 6 of which were between 0.016 to 0.024. 08/12/16 19:53 08/12/16 19:54 08/12/16 19:54 Medical Decision Making - Management Options MDM Management: No Additional Work-up Planned - Data Complexity MDM Data: Labs Ordered and/or Reviewed, EKG Ordered and/or Reviewed - Lab Data Result diagrams: 08/12/16 19:04 08/12/16 19:04 - EKG Data -: EKG Interpreted by Me EKG: No Acute Changes Disposition Disposition: Discharge Clinical Impression: Chronic Obstructive Pulmonary Disease Qualifiers: COPD type: unspecified COPD Qualified Code(s): J44.9 - Chronic obstructive pulmonary disease, unspecified Disposition: Home, Self-Care Condition: (1) Good Instructions: Dyspnea (ED), Chronic Obstructive Pulmonary Disease (ED) Additional Instructions: Home. Continue present meds. Follow up with Dr. Kwan for recheck this week as scheduled. May call to request sooner appointment or first cancellation status if desired.
[2016-08-12 19:12] LABS: HEMATOCRIT 40.1 % (35.0-47.0); MEAN CELL VOLUME 96.9 fl (81-97); MEAN CORPUSCULAR HEMOGLOBIN 31.4 pg (27-33); MEAN CORPUSCULAR HGB CONC 32.4 g/dl (32-36); MEAN PLATELET VOLUME 10.8 fl (7.4-10.4); PLATELET COUNT 171 K/uL (130-400); RED BLOOD COUNT 4.14 M/uL (3.80-5.40); RED CELL DISTRIBUTION WIDTH 15.7 % (11.5-14.5); WHITE BLOOD COUNT W/O DIFF 14.1 K/uL (4.2-12.2)
[2016-08-12] MEDS ORDERED: ALBUTEROL SULFATE (0.083%) 2.5 MG/3 ML NEB INH ONE (19:22)
[2016-08-12 19:23] LABS: ANION GAP 2.6 (7-16); CARBON DIOXIDE 28.4 mmol/L (22-30)
[2016-08-12 19:34] LABS: TROPONIN I 0.018 ng/mL (0.00-0.034)
== END 2016-08-12 20:07 | disposition home or self-care (01) ==
LOC: ER 16:51
DX: J44.9 Chronic obstructive pulmonary disease, unspecified (principal); I48.91 Unspecified atrial fibrillation; I50.9 Heart failure, unspecified; I10 Essential (primary) hypertension; I25.2 Old myocardial infarction; Z87.891 Personal history of nicotine dependence
CPT/HCPCS: 71020; 80048; 84484; 85027; 93005; 93010; 94640; 99284; J2930; J7613

== ENCOUNTER 2016-08-17 19:00 | Inpatient (IN) | payer MEDICARE ==
[2016-08-17] MEDS ORDERED: ASPIRIN 81 MG CHEWABLE TABLET PO ONE (19:11)
[2016-08-17] MEDS ORDERED: IPRATROPIUM/ALBUTEROL (0.5MG/3MG) NEB INH ONE (19:11)
--- NOTE | 2016-08-17 19:20 | Emergency Department Record ---
History of Present Illness - General Chief Complaint: Shortness of breath Stated Complaint: CHEST PAINS TODAY / JOSÉ ANTONIO Time Seen by Provider: 08/17/16 19:10 Source: Patient, Family (patient's daughter) Mode of Arrival: Wheelchair Limitations: No limitations - History of Present Illness Initial Comments: 80 yo female presents to ED with a CC of increased JOSÉ ANTONIO today associated with intermittent chest pain symptoms. Patient was recently seen and treated for her COPD symptoms, deneis fevers, chills, or productive cough symptoms. Patient describes her CP symptoms as "flashes" of pain. Patient reports history of [place] 1987, believes she underwent nuclear stress testing in April of 2016. MD Complaint: Chest pain, Shortness of breath Onset/Timin -: Days(s) Severity: Moderate Consistency: Intermittent Improves With: Nothing Worsens With: Nothing Known History Of: COPD Associated Symptoms: Chest pain Treatments Prior to Arrival: None - Related Data Home Oxygen Therapy: No Home Medications Medication Instructions Recorded Confirmed Last Taken Albuterol Sulfate [Ventolin Hfa] 1 - 2 puff IH .EVERY 4-6 HOURS PRN 07/05/1611/2608/12/16 Budesonide/Formoterol Fumarate 10.2 gm IH BID 07/05/16 08/17/16 08/12/16 [Symbicort 160-4.5 Mcg Inhaler] Ezetimibe [Zetia] 10 mg PO DAILY 07/05/16 08/17/16 08/12/16 Furosemide [Lasix] 20 mg PO DAILY 07/05/16 08/17/16 08/12/16 Simvastatin [Zocor] 20 mg PO DAILY 07/05/16 08/17/16 08/11/16 Amiodarone HCl [Pacerone] 200 mg PO BID 07/19/16 08/17/16 08/12/16 Famotidine [Pepcid] 20 mg PO BID 07/19/16 08/17/16 08/12/16 Apixaban [Eliquis] 5 mg PO BID 08/12/16 08/17/16 08/12/16 Aspirin [Aspir-Low] 81 mg PO DAILY 08/12/16 08/17/16 08/12/16 Carvedilol [Coreg] 3.125 mg PO BID 08/12/16 08/17/16 08/12/16 Lisinopril 2.5 mg PO DAILY 08/12/16 08/17/16 08/12/16 Allergies Allergy/AdvReac Type Severity Reaction Status Date / Time codeine Allergy PT UNSURE Verified 08/12/16 17:18 OF REACTION Penicillins Allergy PT UNSURE Verified 08/12/16 17:18 OF REACTION Review of Systems Constitutional: Denies: Chills, Fever, Malaise, Night sweats Eyes: Denies: Eye discharge, Eye pain ENT: Denies: Congestion, Ear pain, Epistaxis Respiratory: Reports: Dyspnea. Denies: Cough, Hemoptysis Cardiovascular: Reports: Chest pain. Denies: Dyspnea on exertion, Palpitations Endocrine: Denies: Fatigue, Heat or cold intolerance Gastrointestinal: Denies: Abdominal pain, Nausea, Vomiting Genitourinary: Denies: Dysuria, Frequency, Hematuria, Incontinence Musculoskeletal: Denies: Arthralgia, Back pain, Gout, Joint swelling Skin: Denies: Bruising, Change in color Neurological: Denies: Abnormal gait, Confusion, Headache, Seizure Psychiatric: Denies: Anxiety Hematological/Lymphatic: Denies: Anemia, Blood Clots Past Medical History - SOCIAL HISTORY Smoking Status: Former smoker Drug Use: None - RESPIRATORY Hx Respiratory Disorders: Yes Hx Asthma: No Hx Bronchitis: No Hx COPD: Yes Hx Dyspnea: No Hx Pneumonia: No Hx Pulmonary Embolism: No Hx Sleep Apnea: No Hx Tuberculosis: No Hx of CPAP: No Comment:: emphysema - CARDIOVASCULAR Hx Cardio Disorders: Yes Hx Abnormal EKG: Yes Hx Cardiac Cath: No Hx Chest Pain: No Hx CHF: Yes Hx Deep Vein Thrombosis: No Hx Edema: No Hx Heart Attack: Yes Hx Hypertension: Yes Hx Hypotension: No Hx Irregular Heartbeat: Yes Hx Palpitations: No Hx Pacemaker/Defib: No Hx Vascular Disease: No Comment:: High cholesterol, bilat. leg swelling, poss hx afib - NEURO Hx Neuro Disorders: No - GI Hx GI Disorders: Yes Hx Abdominal Pain: No Hx Celiac Disease: No Hx Crohn's Disease: No Hx Diverticulitis: No Hx GI Bleed: No Hx Reflux: Yes Hx Hepatitis/Jaundice: No Hx Hiatal Hernia: No Hx Irritable Bowel: No Hx Liver Disease: No Hx Nausea/Vomiting: Yes Hx Obstructive Bowel: No Hx Pancreatitis: No Hx Rectal Bleeding: No Hx Ulcer: No Hx Wt Loss/Wt Gain: No Hx of Polyps: No - Hx Genitourinary Disorders: No - ENDOCRINE Hx Endocrine Disorders: No - MUSCULOSKELETAL Hx Musculoskeletal Disorders: Yes Hx Arthritis: Yes Hx Back Injury: No Hx Fibromyalgia: No Hx Gout: No Hx Musculoskeletal Disease: No Hx Osteoporosis: No - PSYCH Hx Psych Problems: No - HEMATOLOGY/ONCOLOGY Hx Hematology/Oncology Disorders: Yes Hx Cancer: Yes (cervical) Physical Exam - General General Appearance: Alert, Oriented x3, Cooperative, Other (patient reports that she is CP-free at this time) Limitations: No limitations - Head Head exam: Atraumatic, Normocephalic, Normal inspection Head exam detail: negative: Abrasion, Contusion, Bennett's sign, General tenderness, Hematoma, Laceration - Eye Eye exam: Normal appearance. negative: Conjunctival injection, Periorbital swelling, Periorbital tenderness, Scleral icterus - ENT Ear exam: negative: Auricular hematoma, Auricular trauma Nasal Exam: negative: Active bleeding, Discharge, Dried blood, Foreign body Mouth exam: negative: Drooling, Laceration, Muffled voice, Tongue elevation - Neck Neck exam: Normal inspection. negative: Meningismus, Tenderness - Respiratory Respiratory exam: Decreased breath sounds. negative: Rales, Respiratory distress, Rhonchi - Cardiovascular Cardiovascular Exam: Regular rate, Normal rhythm, Normal heart sounds - GI/Abdominal GI/Abdominal exam: Soft. negative: Rebound, Rigid, Tenderness - Rectal Rectal exam: Deferred - exam: Deferred - Extremities Extremities exam: Normal inspection. negative: Tenderness - Back Back exam: Denies: CVA tenderness (R), CVA tenderness (L) - Neurological Neurological exam: Alert, Oriented X3 - Psychiatric Psychiatric exam: Normal affect, Normal mood - Skin Skin exam: Normal color. negative: Abrasion Type of lesion: negative: abrasion Course - Reevaluation(s) Reevaluation #1: 08/17/16 19:17 EKG: NSR 72 Normal axis, normal intervals No acute ST-T wave changes Unchanged from 08/12/16 Previous records obtained from [facility] ([facility] Consult 07/31/16) Nuclear stress testing (05/11/17) No evidence for ischemia on examination Normal wall motion Reevaluation #2: 08/17/16 20:12 CXR: Improvement in right base infiltrate from previous Reevaluation #3: 08/17/16 20:52 Labs reviewed, BNP 1730, labs are otherwise grossly unremarkable for an acute process. Patient and family were updated on all results thus far as well as plan for repeat Troponin in 2.5 more hours, patient is resting comfortably and reports improvment in her breathing symptoms. Will continue to monitor. Reevaluation #4: 08/17/16 23:17 Patient's 2nd Troponin drawn, got up to use the restroom and became acute short of breath, biox 87%. Oxygen placed on the patient, solumedrol ordered for probable COPD exacerbation. Will admit for further observation and treatment of patient's COPD. Medical Decision Making - Lab Data Result diagrams: 08/17/16 19:30 08/17/16 19:30 Disposition Disposition: Admit Clinical Impression: COPD exacerbation, Generalized weakness COPD (chronic obstructive pulmonary disease) Qualifiers: COPD type: unspecified COPD Qualified Code(s): J44.9 - Chronic obstructive pulmonary disease, unspecified Chest pain Qualifiers: Chest pain type: unspecified Qualified Code(s): R07.9 - Chest pain, unspecified Disposition: Still a Patient at [facility] Decision to Admit: Admit from ER Decision to Admit Date: 08/17/16 Decision to Admit Time: 23:19 Condition: (2) Stable Forms: Patient Portal Access Time of Disposition: 23:19
[2016-08-17 19:42] LABS: BASO % 0.1 % (0-6); EOS % 1.8 % (0-6); GRAN % 78.9 % (47-80); HEMATOCRIT 36.3 % (35.0-47.0); HEMOGLOBIN 11.7 gm/dl (11.6-16.0); LYMPH % 10.6 % (16-45); MEAN CORPUSCULAR HGB CONC 32.2 g/dl (32-36); MEAN PLATELET VOLUME 9.9 fl (7.4-10.4); MONO % 8.6 % (0-9); PLATELET COUNT 180 K/uL (130-400); RED BLOOD COUNT 3.78 M/uL (3.80-5.40); RED CELL DISTRIBUTION WIDTH 15.4 % (11.5-14.5); WHITE BLOOD COUNT W/O DIFF 10.5 K/uL (4.2-12.2)
[2016-08-17 19:51] LABS: MEAN CORPUSCULAR HEMOGLOBIN 30.9 pg (27-33)
[2016-08-17 19:54] LABS: INR 1.19; PROTHROMBIN TIME (PATIENT) 13.4 SECONDS (9.5-12.1)
[2016-08-17 20:23] LABS: BLOOD UREA NITROGEN 17 mg/dL (7-17); EST GLOMERULAR FILTRATION RATE 57 ml/min; GLUCOSE,RANDOM 106 mg/dL (70-110)
[2016-08-17 20:24] LABS: ALBUMIN 2.8 gm/dL (3.5-5.0); ALKALINE PHOSPHATASE 60 U/L (38-126); ALT/SGPT 33 U/L (9-52); AST/SGOT 16 U/L (14-36); CREATINE PHOSPHOKINASE < 20 U/L (30-135); TOTAL PROTEIN 5.6 gm/dL (6.3-8.2)
[2016-08-17 20:40] LABS: CKMB 0.6 ug/L (0-6)
[2016-08-17 20:41] LABS: TROPONIN I 0.015 ng/mL (0.00-0.034)
[2016-08-17] MEDS ORDERED: METHYLPREDNISOLONE PF 125MG/VIAL IVP ONE (23:17)
[2016-08-18] MEDS ORDERED: CEFTRIAXONE SODIUM 1 GM in 0.9 % SODIUM CHLORIDE 100ML 100 ML IVPB SCH (00:27)
[2016-08-18] MEDS ORDERED: ALBUTEROL SULFATE (0.083%) 2.5 MG/3 ML NEB INH PRN (00:27)
[2016-08-18] MEDS ORDERED: 0.9 % SODIUM CHLORIDE 1000ML 1,000 ML IV PRN (00:27)
[2016-08-18] MEDS ORDERED: AZITHROMYCIN 500 MG in 0.9 % SODIUM CHLORIDE 250ML 250 ML IVPB SCH (00:27)
[2016-08-18] MEDS: IPRATROPIUM/ALBUTEROL (0.5MG/3MG) NEB INH SCH ×5 (06:43→23:22)
[2016-08-18 08:20] LABS: HEMATOCRIT 37.7 % (35.0-47.0); MEAN CELL VOLUME 96.4 fl (81-97); MEAN CORPUSCULAR HEMOGLOBIN 30.7 pg (27-33); MEAN CORPUSCULAR HGB CONC 31.8 g/dl (32-36); MEAN PLATELET VOLUME 9.9 fl (7.4-10.4); PLATELET COUNT 191 K/uL (130-400); RED BLOOD COUNT 3.91 M/uL (3.80-5.40); RED CELL DISTRIBUTION WIDTH 15.5 % (11.5-14.5)
[2016-08-18 08:32] LABS: ALB/GLOB RATIO 1.2 (1.1-1.8); ALBUMIN 3.8 gm/dL (3.5-5.0); ANION GAP 12.8 (7-16); BILIRUBIN,TOTAL 0.38 mg/dL (0.2-1.3); CARBON DIOXIDE 26.2 mmol/L (22-30); TOTAL PROTEIN 7.1 gm/dL (6.3-8.2)
[2016-08-18] MEDS ORDERED: FUROSEMIDE 20 MG TABLET PO SCH (10:00)
[2016-08-18] MEDS ORDERED: AMIODARONE HCL 200 MG PO SCH (10:00)
[2016-08-18] MEDS ORDERED: SIMVASTATIN 20 MG TABLET PO SCH (10:00)
[2016-08-18] MEDS ORDERED: METHYLPREDNISOLONE PF 125MG/VIAL IVP SCH ×2 (10:00)
[2016-08-18] MEDS ORDERED: LISINOPRIL 2.5 MG PO SCH (10:00)
[2016-08-18] MEDS: BUDESONIDE 0.5 MG/2 ML INH SCH ×2 (10:15→18:54)
[2016-08-18] MEDS: AMIODARONE HCL 200 MG TABLET PO SCH ×3 (11:28→23:11)
[2016-08-18] MEDS: CARVEDILOL 3.125 MG TABLET PO SCH ×3 (11:29→23:10)
[2016-08-18] MEDS: APIXABAN 5MG TABLET PO SCH ×3 (11:29→23:11)
[2016-08-18] MEDS: FAMOTIDINE 20MG TABLET PO SCH ×2 (11:29→17:52)
[2016-08-18] MEDS: LEVOFLOXACIN 500 MG TABLET PO SCH (11:30)
[2016-08-18] MEDS: PREDNISONE 20 MG TAB PO SCH (11:30)
[2016-08-18] MEDS: LISINOPRIL 5 MG TABLET PO SCH (11:33)
[2016-08-18] MEDS: EZETIMIBE 10 MG TABLET PO SCH (11:34)
[2016-08-18] MEDS: ASPIRIN 81 MG TABEC PO SCH (11:35)
--- NOTE | 2016-08-18 15:22 | History & Physical ---
History of Present Illness - Date of Service Date of Service for History & Physical: 08/18/16 - History of Present Illness Admitting Diagnosis: COPD exacerbation. Intermittent Chest Pain History of Present Illness: 80yo female with CC of shortness of breath and fatigue. She has history of COPD , [place], HTN, HD, afib, GERD, arthritis, and cervical cancer. patient's last stress test was in April 2016 was negative for ischemia. Patient has been hospitalized or been to the ED 5 times since beginning of July. She was originally here at [facility] ED for suspected COPD exacerbation and was found to be in afib so was transferred to [facility], where she chemically cardioverted. She was started on antiarrhythmic medication and discharged home. She returned to [facility] ED several days later with acute onset of weakness. She was found to have UTI and questionable QT prolongation. She was treated with antibiotics and evaluated by Dr. Flores at that time who recommended no change in medications and to follow up with Dr. Pollard outpatient. Patient then returned to [facility] ED about 10 days later with acute onset shortness of breath. she was found to be in respiratory distress and required bipap and transfer to [facility] where she was diagnosed with new onset heart failure. She was started on diuretics and eventually discharged home. She was doing well up until about 6 days ago when she returned to [facility] ED for shortness of breath and fatigue. Her CXR at that time showed RLL infiltrate, however, overall, CXR was vastly improved from previous visit. patient was sent home with supportive treatment but no abx. She returned last evening with continued SOB and fatigue. While in the ED, patient had another CXR again demonstrating a right lower lobe infiltrate that continued to improve from 07/30/16 and 08/12/16. No pulmonary edema or evidence of acute CHF. Her oxygen saturation at rest was mid to upper 90's but ED physician noted decrease with ambulation to below 89%. Her WBC count was WNL but with 95% neutrophils. Moderately decreased kidney function stable from previous visits. Troponin was trended and remained within cut-off guidelines (0.015/0.021/0.018/<0.012). Patient was admitted for right lower lobe pneumonia with COPD exacerbation. 08/18/16- Patient states she is feeling better today. She says her shortness of breath has mostly resolved. she was up to the bathroom independently and did not feel short of breath. She says the nebulizer seems to work much better than her inhalers at home. She has been trying to use her symbicort twice daily. she denies chest pain, headache, abdominal pain, black/bloody stools, lower leg swelling. PCP: [facility] Travel Screening - Travel/Exposure Within Last 30 Days Have you traveled within the last 30 days?: No - Travel/Exposure Within Last Year Have you traveled outside the [place] in the last year?: No - Travel Symptoms Symptom Screening: None Review of Systems Constitutional: Denies: Chills, Fever, Malaise, Night sweats Eyes: Denies: Eye discharge, Eye pain ENT: Denies: Congestion, Ear pain, Epistaxis Respiratory: Reports: Dyspnea. Denies: Cough, Hemoptysis Cardiovascular: Reports: Dyspnea on exertion. Denies: Chest pain, Palpitations Endocrine: Denies: Fatigue, Heat or cold intolerance Gastrointestinal: Denies: Abdominal pain, Nausea, Vomiting Genitourinary: Denies: Dysuria, Frequency, Hematuria, Incontinence Musculoskeletal: Denies: Arthralgia, Back pain, Gout, Joint swelling Skin: Denies: Bruising, Change in color Neurological: Reports: Weakness (tires easily). Denies: Abnormal gait, Confusion, Headache, Seizure Psychiatric: Denies: Anxiety Hematological/Lymphatic: Denies: Anemia, Blood Clots Past Medical History - SOCIAL HISTORY Smoking Status: Former smoker Alcohol Use: None Drug Use: None - RESPIRATORY Hx Respiratory Disorders: Yes Hx Asthma: No Hx Bronchitis: No Hx COPD: Yes Hx Dyspnea: No Hx Pneumonia: No Hx Pulmonary Embolism: No Hx Sleep Apnea: No Hx Tuberculosis: No Hx of CPAP: No Comment:: emphysema - CARDIOVASCULAR Hx Cardio Disorders: Yes Hx Abnormal EKG: Yes Hx Cardiac Cath: No Hx Chest Pain: No Hx CHF: Yes Hx Deep Vein Thrombosis: No Hx Edema: No Hx Heart Attack: Yes Hx Hypertension: Yes Hx Hypotension: No Hx Irregular Heartbeat: Yes Hx Palpitations: No Hx Pacemaker/Defib: No Hx Vascular Disease: No Comment:: High cholesterol, bilat. leg swelling, poss hx afib - NEURO Hx Neuro Disorders: No - GI Hx GI Disorders: Yes Hx Abdominal Pain: No Hx Celiac Disease: No Hx Crohn's Disease: No Hx Diverticulitis: No Hx GI Bleed: No Hx Reflux: Yes Hx Hepatitis/Jaundice: No Hx Hiatal Hernia: No Hx Irritable Bowel: No Hx Liver Disease: No Hx Nausea/Vomiting: Yes Hx Obstructive Bowel: No Hx Pancreatitis: No Hx Rectal Bleeding: No Hx Ulcer: No Hx Wt Loss/Wt Gain: No Hx of Polyps: No - Hx Genitourinary Disorders: No - ENDOCRINE Hx Endocrine Disorders: No - MUSCULOSKELETAL Hx Musculoskeletal Disorders: Yes Hx Arthritis: Yes Hx Back Injury: No Hx Fibromyalgia: No Hx Gout: No Hx Musculoskeletal Disease: No Hx Osteoporosis: No - PSYCH Hx Psych Problems: No - HEMATOLOGY/ONCOLOGY Hx Hematology/Oncology Disorders: Yes Hx Cancer: Yes (cervical) Family Medical History Any Significant Family History?: Yes Hx Heart Disease: Brother/Sister *Heart Comment: [place] H&P Meds/Allergies - Allergies Allergies: Allergies Allergy/AdvReac Type Severity Reaction Status Date / Time codeine Allergy PT UNSURE Verified 08/12/16 17:18 OF REACTION Penicillins Allergy PT UNSURE Verified 08/12/16 17:18 OF REACTION - Home Medications Home Medications Medication Instructions Recorded Confirmed Last Taken Albuterol Sulfate [Ventolin Hfa] 1 - 2 puff IH .EVERY 4-6 HOURS PRN 07/05/1611/2608/12/16 Budesonide/Formoterol Fumarate 10.2 gm IH BID 07/05/16 08/17/16 08/12/16 [Symbicort 160-4.5 Mcg Inhaler] Ezetimibe [Zetia] 10 mg PO DAILY 07/05/16 08/17/16 08/12/16 Furosemide [Lasix] 20 mg PO DAILY 07/05/16 08/17/16 08/12/16 Simvastatin [Zocor] 20 mg PO DAILY 07/05/16 08/17/16 08/11/16 Amiodarone HCl [Pacerone] 200 mg PO BID 07/19/16 08/17/16 08/12/16 Famotidine [Pepcid] 20 mg PO BID 07/19/16 08/17/16 08/12/16 Apixaban [Eliquis] 5 mg PO BID 08/12/16 08/17/16 08/12/16 Aspirin [Aspir-Low] 81 mg PO DAILY 08/12/16 08/17/16 08/12/16 Carvedilol [Coreg] 3.125 mg PO BID 08/12/16 08/17/16 08/12/16 Lisinopril 2.5 mg PO DAILY 08/12/16 08/17/16 08/12/16 - Active Medications Active Medications: Current Medications Albuterol Sulfate () 2.5 mg INH RESP.Q2H PRN PRN Reason: DIFFICULTY IN BREATHING Albuterol/Ipratropium (Duoneb) 3 ml INH RESP.Q4H.[facility] Last Admin: 08/18/16 14:22 Dose: 3 ml Amiodarone HCl (Pacerone) 200 mg PO BID [facility] Last Admin: 08/18/16 11:28 Dose: 200 mg Apixaban (Eliquis) 5 mg PO BID [facility] Last Admin: 08/18/16 11:29 Dose: 5 mg Aspirin (Ecotrin (Ec)) 81 mg PO DAILY [facility] Last Admin: 08/18/16 11:35 Dose: 81 mg Budesonide (Pulmicort) 0.5 mg INH RESP.BID [facility] Last Admin: 08/18/16 10:15 Dose: 0.5 mg Carvedilol (Coreg) 3.125 mg PO BID [facility] Last Admin: 08/18/16 11:29 Dose: 3.125 mg Ezetimibe (Zetia) 10 mg PO DAILY [facility] Last Admin: 08/18/16 11:34 Dose: 10 mg Famotidine (Pepcid) 20 mg PO BID [facility] Last Admin: 08/18/16 11:29 Dose: 20 mg Furosemide (Lasix) 20 mg PO DAILY [facility] Last Admin: 08/18/16 11:33 Dose: Not Given Sodium Chloride () 1,000 mls @ 15 mls/hr IV .Q24H PRN PRN Reason: LARGE VOLUME IV Levofloxacin (Levaquin Tab) 750 mg PO Q48H [facility] Last Admin: 08/18/16 11:30 Dose: 750 mg Lisinopril (Zestril) 2.5 mg PO DAILY [facility] Last Admin: 08/18/16 11:33 Dose: 2.5 mg Prednisone (Prednisone 20mg) 20 mg PO DAILYWM [facility] Last Admin: 08/18/16 11:30 Dose: 20 mg Simvastatin (Zocor) 20 mg PO DAILY [facility] Last Admin: 08/18/16 11:33 Dose: 20 mg Physical Exam - Vital Signs Vital Signs: Vital Signs - Last 24 Hrs Temp Pulse Pulse Resp BP Pulse Ox 08/18/16 14:15 74 18 08/18/16 14:00 97.4 F L 76 18 135/67 96 08/18/16 10:00 72 18 94 L 08/18/16 08:45 97.4 F L 77 18 145/71 98 08/18/16 06:51 76 18 97 08/18/16 06:00 97.5 F L 68 18 115/56 100 08/18/16 02:00 98.8 F 75 18 113/67 98 08/18/16 00:25 97.6 F 76 20 158/70 98 - General General Appearance: Alert, Oriented x3, Cooperative, No acute distress Limitations: No limitations - Head Head exam: Atraumatic, Normocephalic, Normal inspection Head exam detail: negative: Abrasion, Contusion, Bennett's sign, General tenderness, Hematoma, Laceration - Eye Eye exam: Normal appearance. negative: Conjunctival injection, Periorbital swelling, Periorbital tenderness, Scleral icterus - ENT Ear exam: negative: Auricular hematoma, Auricular trauma Nasal Exam: negative: Active bleeding, Discharge, Dried blood, Foreign body Mouth exam: negative: Drooling, Laceration, Muffled voice, Tongue elevation - Neck Neck exam: Normal inspection. negative: Meningismus, Tenderness - Respiratory Respiratory exam: Decreased breath sounds (diminshed throughout except for RLL) , Rales (crackles right lower lobe ). negative: Respiratory distress, Rhonchi - Cardiovascular Cardiovascular Exam: Regular rate, Normal rhythm, Normal heart sounds - GI/Abdominal GI/Abdominal exam: Soft. negative: Rebound, Rigid, Tenderness - Rectal Rectal exam: Deferred - exam: Deferred - Extremities Extremities exam: Normal inspection. negative: Tenderness - Back Back exam: Denies: CVA tenderness (R), CVA tenderness (L) - Neurological Neurological exam: Alert, Oriented X3 - Psychiatric Psychiatric exam: Normal affect, Normal mood - Skin Skin exam: Normal color. negative: Abrasion Type of lesion: negative: abrasion Results - Labs Result Diagrams: 08/18/16 08:10 08/18/16 08:10 Labs Last 24 Hours: Laboratory Results - last 24 hr 08/18/16 08/18/16 08/18/16 03:30 08:10 08:10 WBC 6.0 RBC 3.91 Hgb 12.0 Hct 37.7 MCV 96.4 MCH 30.7 MCHC 31.8 L RDW 15.5 H Plt Count 191 MPV 9.9 Neutrophils % 95.0 H Lymphocytes % 4.0 L Monocytes % 1.0 Eosinophils % 0.0 Basophils % 0.0 Sodium Potassium Chloride Carbon Dioxide Anion Gap BUN Creatinine Estimated GFR Random Glucose Calcium Total Bilirubin AST ALT Alkaline Phosphatase Troponin I 0.018 < 0.012 Total Protein Albumin Globulin Albumin/Globulin Ratio 08/18/16 08:10 WBC RBC Hgb Hct MCV MCH MCHC RDW Plt Count MPV Neutrophils % Lymphocytes % Monocytes % Eosinophils % Basophils % Sodium 141 Potassium 4.7 Chloride 102 Carbon Dioxide 26.2 Anion Gap 12.8 BUN 18 H Creatinine 1.0 Estimated GFR 57 Random Glucose 210 H Calcium 9.0 Total Bilirubin 0.38 AST 23 ALT 25 Alkaline Phosphatase 82 Troponin I Total Protein 7.1 Albumin 3.8 Globulin 3.3 Albumin/Globulin Ratio 1.2 - Imaging and Cardiology Chest x-ray Status: Report reviewed, Image reviewed (right lower lobe infiltrate. Improved compared to 08/12/16) VTE H&P Assessment - Risk for VTE Risk for VTE: No Risk Level: Very Low Risk Assessment Date: 08/18/16 Risk Assessment Time: 15:45 VTE Orders Placed or Will Be Placed: No VTE Reason for No Prophylaxis: Not Indicated (currently on residential anticoagulation therapy) Plan - Detailed Diagnosis and Plan (1) Right lower lobe pneumonia Current Visit: Yes Status: Acute Qualifiers: Pneumonia type: due to unspecified organism Qualified Code(s): J18.1 - Lobar pneumonia, unspecified organism Base Code: J18.1 - LOBAR PNEUMONIA, UNSPECIFIED ORGANISM Comment: 08/18/17- CXR form 08/17/16 shows persistent RLL infiltrate, but improving without abx. She denies any aspiration history but has been hospitalzed 3 times within the past month so risk for nosocomial infection is high. WBC count wnl with 95% neutrophils. afebrile. no blood cultures or sputum cultures obtained in the ED yesterday or from previous visit on 08/12 prior to initiating antibiotics. -will obtain blood and sputum cultures but abx have already been initiated in ED -will start on levaquin 750mg po q48 (renally dosed) for pneumonia in COPD patient, however, will monitor response closely and determine need for transition to abx that will cover for nosocomial infections. -continue supplemental oxygen to keep o2 saturation >92% -continue vitals q8H -repeat labs qam (2) COPD exacerbation Current Visit: Yes Status: Acute Base Code: J44.1 - CHRONIC OBSTRUCTIVE PULMONARY DISEASE W (ACUTE) EXACERBATION Comment: 08/18/16- suspect she has acute COPD (likely emphysema) exacerbation 2/2 RLL pneumonia. Respiratory therapy states patient has very ineffectual inspiration and capacity to use an inhaler or MDI. Feel that nebulizer medication will be of significant benefit to patient and already we have seen improvement in her symptoms with the nebulizer use vs inhaler -will write script for home nebulizer -disontinue symbicort -no LAMA/LABA in nebulizer solution available so will schedule duoneb QID -Add budesonide 0.5% nebulized twice daily -transition to oral prednisone 20mg daily. will do low dose to avoid fluid retention wiht new diagnosis of CHF -continue to monitor vitals q8H and response to nebulizer regimen (3) CHF (congestive heart failure) Current Visit: Yes Status: Chronic Qualifiers: Congestive heart failure type: unspecified congestive heart failure type Congestive heart failure chronicity: chronic Qualified Code(s): I50.9 - Heart failure, unspecified Base Code: I50.9 - HEART FAILURE, UNSPECIFIED Comment: 08/18/16- Patient believes she was recently diagnosed with CHF at her hospitalization at [facility] on 07/30/16. Her CXR from [facility] on 07/30/16 shows pulmondary edema and she was transferred then to [facility]. Unfortunately, I do not have those records available to review nor do I have echo results. I do see that she has been started on lasix 20mg q48H for renal dosing since her last admission. Her CXR from 08/17 shows resolution of edema but with residual RLL infiltrate. She has no pedal edema on exam -will continue lasix q48H -monitor weight daily -request records from [facility] (4) DVT prophylaxis Current Visit: No Status: Acute Base Code: [id number] - Comment: 08/18/16-Patient is low risk for DVT while on residential anticoagulation started by cardiology -will continue eliquis 5mg po bid -will continue aspirin 81mg po daily (5) Full code status Current Visit: No Status: Acute Base Code: Z78.9 - OTHER SPECIFIED HEALTH STATUS Comment: 08/18/16- patient is full code
[2016-08-18] MEDS: 0.9 % SODIUM CHLORIDE 10ML SYR IVP SCH (20:20)
[2016-08-19] MEDS ORDERED: DIPHENHYDRAMINE HCL 25 MG CAPSULE PO PRN (00:16)
[2016-08-19 06:23] LABS: BASO % 0.1 % (0-6); HEMATOCRIT 31.5 % (35.0-47.0); HEMOGLOBIN 10.2 gm/dl (11.6-16.0); LYMPH % 7.6 % (16-45); MEAN CELL VOLUME 96.3 fl (81-97); MEAN CORPUSCULAR HGB CONC 32.4 g/dl (32-36); MEAN PLATELET VOLUME 9.7 fl (7.4-10.4); MONO % 5.3 % (0-9); PLATELET COUNT 202 K/uL (130-400); RED BLOOD COUNT 3.27 M/uL (3.80-5.40); WHITE BLOOD COUNT W/O DIFF 13.7 K/uL (4.2-12.2)
[2016-08-19 06:27] LABS: MEAN CORPUSCULAR HEMOGLOBIN 31.1 pg (27-33)
[2016-08-19 06:34] LABS: ALKALINE PHOSPHATASE 62 U/L (38-126); ALT/SGPT 36 U/L (9-52); ANION GAP 6.1 (7-16); AST/SGOT 22 U/L (14-36); BILIRUBIN,TOTAL 0.28 mg/dL (0.2-1.3); BLOOD UREA NITROGEN 18 mg/dL (7-17); CARBON DIOXIDE 26.9 mmol/L (22-30); CREATININE 0.9 mg/dL (0.52-1.04); EST GLOMERULAR FILTRATION RATE > 60 ml/min; GLUCOSE,RANDOM 142 mg/dL (70-110); TOTAL PROTEIN 5.9 gm/dL (6.3-8.2)
[2016-08-19] MEDS: IPRATROPIUM/ALBUTEROL (0.5MG/3MG) NEB INH SCH ×5 (06:50→22:00)
[2016-08-19] MEDS: BUDESONIDE 0.5 MG/2 ML INH SCH ×2 (06:50→18:49)
[2016-08-19 06:56] LABS: PLATELET ESTIMATE NORMAL (NORMAL)
[2016-08-19] MEDS: PREDNISONE 20 MG TAB PO SCH (08:10)
[2016-08-19] MEDS: 0.9 % SODIUM CHLORIDE 10ML SYR IVP SCH ×2 (08:10→20:20)
[2016-08-19] MEDS: FAMOTIDINE 20MG TABLET PO SCH ×3 (08:10→16:58)
--- NOTE | 2016-08-19 09:36 | Physician Progress Note ---
Subjective - Date Date of Physician Progress Note: 08/19/16 - Subjective Subjective Comment: Patient states she continues to improve. She says her shortness of breath is much better when using the nebulizers for her breathing treatments. She denies cough, chest pain, lower extremity swelling. She did get up and walk with nursing yesterday but fatigued easily. Daughter present today states her mom gets little to no activity at home. She has refused in the past to go to pulmonary rehab. Objective - Vital Signs Vital Signs: Vital Signs - Last 24 Hrs Temp Pulse Pulse Resp BP BP BP 08/19/16 08:45 98.3 F 85 16 141/68 08/19/16 06:50 82 16 08/19/16 05:40 97.8 F 89 18 161/86 08/19/16 00:13 97.5 F L 77 18 147/84 08/18/16 20:00 97.7 F 79 18 148/68 08/18/16 18:29 97.4 F L 135/67 08/18/16 15:36 78 08/18/16 14:15 74 18 08/18/16 14:00 97.4 F L 76 18 135/67 08/18/16 10:00 72 18 Pulse Ox 08/19/16 08:45 95 08/19/16 06:50 97 08/19/16 05:40 98 08/19/16 00:13 96 08/18/16 20:00 96 08/18/16 18:29 08/18/16 15:36 08/18/16 14:15 08/18/16 14:00 96 08/18/16 10:00 94 L - General General Appearance: Alert, Oriented x3, Cooperative, No acute distress Limitations: No limitations - Head Head exam: Atraumatic, Normocephalic, Normal inspection Head exam detail: negative: Abrasion, Contusion, Bennett's sign, General tenderness, Hematoma, Laceration - Eye Eye exam: Normal appearance. negative: Conjunctival injection, Periorbital swelling, Periorbital tenderness, Scleral icterus - ENT Ear exam: negative: Auricular hematoma, Auricular trauma Nasal Exam: negative: Active bleeding, Discharge, Dried blood, Foreign body Mouth exam: negative: Drooling, Laceration, Muffled voice, Tongue elevation - Neck Neck exam: Normal inspection. negative: Meningismus, Tenderness - Respiratory Respiratory exam: Decreased breath sounds (diminshed throughout except for RLL) , Rales (crackles right lower lobe improving). negative: Respiratory distress, Rhonchi - Cardiovascular Cardiovascular Exam: Regular rate, Normal rhythm, Normal heart sounds - GI/Abdominal GI/Abdominal exam: Soft. negative: Rebound, Rigid, Tenderness - Rectal Rectal exam: Deferred - exam: Deferred - Extremities Extremities exam: Normal inspection. negative: Tenderness - Back Back exam: Denies: CVA tenderness (R), CVA tenderness (L) - Neurological Neurological exam: Alert, Oriented X3 - Psychiatric Psychiatric exam: Normal affect, Normal mood - Skin Skin exam: Normal color. negative: Abrasion Type of lesion: negative: abrasion Assessment and Plan - Assessment and Plan (1) Right lower lobe pneumonia Current Visit: Yes Status: Acute Qualifiers: Pneumonia type: due to unspecified organism Qualified Code(s): J18.1 - Lobar pneumonia, unspecified organism Base Code: J18.1 - LOBAR PNEUMONIA, UNSPECIFIED ORGANISM Comment: 08/19/17- clinically improving. CXR form 08/17/16 shows persistent RLL infiltrate. WBC count up slightly this morning but started steroids yesterday. afebrile. blood cultures and sputum cultures obtained and pending. -continue levaquin 750mg po q48 (renally dosed) for pneumonia in COPD patient, however, will continue to monitor response closely and determine need for transition to abx that will cover for nosocomial infections. -continue supplemental oxygen to keep o2 saturation >92% -continue vitals q8H -repeat labs qam (2) COPD exacerbation Current Visit: Yes Status: Acute Base Code: J44.1 - CHRONIC OBSTRUCTIVE PULMONARY DISEASE W (ACUTE) EXACERBATION Comment: 08/19/16- suspect she has acute COPD (likely emphysema) exacerbation 2/2 RLL pneumonia. Respiratory therapy states patient has very ineffectual inspiration and capacity to use an inhaler or MDI. Feel that nebulizer medication will be of significant benefit to patient and already we have seen improvement in her symptoms with the nebulizer use vs inhaler -will write script for home nebulizer -disontinue symbicort -no LAMA/LABA in nebulizer solution available so will schedule duoneb QID -Add budesonide 0.5% nebulized twice daily -continue oral prednisone 20mg daily. will do low dose to avoid fluid retention wiht new diagnosis of CHF -continue to monitor vitals q8H and response to nebulizer regimen (3) Physical deconditioning Current Visit: Yes Status: Acute Base Code: R53.81 - OTHER MALAISE Comment: 08/19/16- Patient has physical deconditioning from sedentary lifestyle. She has generalized weakness. Daughter very interested in having home therapy out. Patient has refused to go to pulmonary rehab in the past. -PT/OT ordered to evaluate patient tomorrow (4) CHF (congestive heart failure) Current Visit: Yes Status: Chronic Qualifiers: Congestive heart failure type: unspecified congestive heart failure type Congestive heart failure chronicity: chronic Qualified Code(s): I50.9 - Heart failure, unspecified Base Code: I50.9 - HEART FAILURE, UNSPECIFIED Comment: 08/19/16-stable. no evidence of fluid overload on exam. -will continue lasix q48H -monitor weight daily -request records from [facility] (5) DVT prophylaxis Current Visit: No Status: Acute Base Code: [id number] - Comment: 08/19/16-Patient is low risk for DVT while on termination clerk anticoagulation started by cardiology -will continue eliquis 5mg po bid -will continue aspirin 81mg po daily (6) Full code status Current Visit: No Status: Acute Base Code: Z78.9 - OTHER SPECIFIED HEALTH STATUS Comment: 08/19/16- patient is full code Results - Labs Result Diagrams: 08/20/16 06:05 08/20/16 06:05 Labs Last 24 Hours: Laboratory Results - last 24 hr 08/18/16 08/18/16 08/19/16 08:10 21:30 06:00 WBC 13.7 H RBC 3.27 L Hgb 10.2 L Hct 31.5 L MCV 96.3 MCH 31.1 MCHC 32.4 RDW 15.0 H Plt Count 202 MPV 9.7 Neutrophils % 89.0 H Lymphocytes % 7.0 L Monocytes % 4.0 Eosinophils % 0.0 Basophils % 0.1 Platelet Estimate Normal RBC Morphology Normal Sodium Potassium Chloride Carbon Dioxide Anion Gap BUN Creatinine Estimated GFR POC Glucose 261 H Random Glucose Calcium Total Bilirubin AST ALT Alkaline Phosphatase Troponin I < 0.012 Total Protein Albumin Globulin Albumin/Globulin Ratio 08/19/16 06:00 WBC RBC Hgb Hct MCV MCH MCHC RDW Plt Count MPV Neutrophils % Lymphocytes % Monocytes % Eosinophils % Basophils % Platelet Estimate RBC Morphology Sodium 138 Potassium 4.4 Chloride 105 Carbon Dioxide 26.9 Anion Gap 6.1 L BUN 18 H Creatinine 0.9 Estimated GFR > 60 POC Glucose Random Glucose 142 H Calcium 8.7 Total Bilirubin 0.28 AST 22 ALT 36 Alkaline Phosphatase 62 Troponin I Total Protein 5.9 L Albumin 3.0 L Globulin 2.9 Albumin/Globulin Ratio 1.0 L DVT/PE Assessment - Risk for VTE Risk for VTE: No Risk Level: Very Low Risk Assessment Date: 08/18/16 Risk Assessment Time: 15:45 VTE Orders Placed or Will Be Placed: No VTE Reason for No Prophylaxis: Not Indicated (currently on longterm anticoagulation therapy) - Active Medicaitons Current Medications: Current Medications Albuterol Sulfate () 2.5 mg INH RESP.Q2H PRN PRN Reason: DIFFICULTY IN BREATHING Albuterol/Ipratropium (Duoneb) 3 ml INH RESP.Q4H.[facility] Last Admin: 08/19/16 06:50 Dose: 3 ml Amiodarone HCl (Pacerone) 200 mg PO BID [facility] Last Admin: 08/18/16 23:11 Dose: Not Given Apixaban (Eliquis) 5 mg PO BID [facility] Last Admin: 08/18/16 23:11 Dose: Not Given Aspirin (Ecotrin (Ec)) 81 mg PO DAILY [facility] Last Admin: 08/18/16 11:35 Dose: 81 mg Budesonide (Pulmicort) 0.5 mg INH RESP.BID [facility] Last Admin: 08/19/16 06:50 Dose: 0.5 mg Carvedilol (Coreg) 3.125 mg PO BID [facility] Last Admin: 08/18/16 23:10 Dose: Not Given Diphenhydramine HCl (Benadryl Capsule) 25 mg PO QHS PRN PRN Reason: SLEEP Last Admin: 08/19/16 01:26 Dose: 25 mg Ezetimibe (Zetia) 10 mg PO DAILY [facility] Last Admin: 08/18/16 11:34 Dose: 10 mg Famotidine (Pepcid) 20 mg PO TIDAC [facility] Last Admin: 08/19/16 08:10 Dose: 20 mg Furosemide (Lasix) 20 mg PO WEEKLY [facility] Furosemide (Lasix) 20 mg PO WEEKLY [facility] Furosemide (Lasix) 20 mg PO WEEKLY [facility] Sodium Chloride () 1,000 mls @ 15 mls/hr IV .Q24H PRN PRN Reason: LARGE VOLUME IV Levofloxacin (Levaquin Tab) 750 mg PO Q48H [facility] Last Admin: 08/18/16 11:30 Dose: 750 mg Lisinopril (Zestril) 2.5 mg PO DAILY [facility] Last Admin: 08/18/16 11:33 Dose: 2.5 mg Prednisone (Prednisone 20mg) 20 mg PO DAILYWM [facility] Last Admin: 08/19/16 08:10 Dose: 20 mg Simvastatin (Zocor) 20 mg PO DAILY [facility] Last Admin: 08/18/16 20:20 Dose: 20 mg Sodium Chloride () 10 ml IVP Q12H [facility] Last Admin: 08/19/16 08:10 Dose: 10 ml AMI Plan - Labs Result Diagrams: 08/20/16 06:05 08/20/16 06:05
[2016-08-19] MEDS: CARVEDILOL 3.125 MG TABLET PO SCH ×3 (10:52→22:48)
[2016-08-19] MEDS: EZETIMIBE 10 MG TABLET PO SCH ×2 (10:53→20:20)
[2016-08-19] MEDS: ASPIRIN 81 MG TABEC PO SCH (10:53)
[2016-08-19] MEDS: APIXABAN 5MG TABLET PO SCH ×3 (10:53→22:48)
[2016-08-19] MEDS: LISINOPRIL 5 MG TABLET PO SCH (10:54)
[2016-08-19] MEDS: AMIODARONE HCL 200 MG TABLET PO SCH ×3 (10:55→22:48)
[2016-08-19] MEDS ORDERED: NAPROXEN 220 MG PO PRN ×2 (11:36→11:51)
[2016-08-19] MEDS ORDERED: SIMVASTATIN 20 MG TABLET PO SCH (20:00)
[2016-08-19] MEDS: SIMVASTATIN 20 MG TABLET PO SCH ×2 (20:19→22:49)
[2016-08-20] MEDS: TEMAZEPAM 15 MG CAPSULE PO PRN ×2 (01:06→23:01)
[2016-08-20] MEDS: IPRATROPIUM/ALBUTEROL (0.5MG/3MG) NEB INH SCH ×5 (06:20→23:18)
[2016-08-20] MEDS: BUDESONIDE 0.5 MG/2 ML INH SCH ×2 (06:20→19:03)
[2016-08-20 06:36] LABS: BASO % 0.1 % (0-6); EOS % 0.3 % (0-6); HEMATOCRIT 34.7 % (35.0-47.0); LYMPH % 14.8 % (16-45); MEAN CELL VOLUME 96.4 fl (81-97); MEAN CORPUSCULAR HGB CONC 31.7 g/dl (32-36); MEAN PLATELET VOLUME 9.4 fl (7.4-10.4); MONO % 8.8 % (0-9); PLATELET COUNT 244 K/uL (130-400); RED CELL DISTRIBUTION WIDTH 15.3 % (11.5-14.5); WHITE BLOOD COUNT W/O DIFF 12.9 K/uL (4.2-12.2)
[2016-08-20 06:40] LABS: MEAN CORPUSCULAR HEMOGLOBIN 30.5 pg (27-33)
[2016-08-20 06:47] LABS: ALBUMIN 3.1 gm/dL (3.5-5.0); BILIRUBIN,TOTAL 0.47 mg/dL (0.2-1.3); TOTAL PROTEIN 6.1 gm/dL (6.3-8.2)
--- NOTE | 2016-08-20 07:39 | RADIOLOGY REPORT ---
EXAM: CHEST, TWO VIEWS HISTORY: CHEST TIGHTNESS, PROGRESSIVE DIFFICULTY BREATHING. TECHNIQUE: Two views of the chest were obtained. Comparison: Chest 07/30/16 and also comparison chest x-ray 08/12/16. FINDINGS: The lungs are diffusely hyperinflated. Persistent moderately dense right basilar infiltrate perhaps minimally improved from the prior study. The cardiac silhouette is unremarkable. The diaphragm is flattened. Osteopenia. IMPRESSION: EMPHYSEMA. PERHAPS MILD IMPROVEMENT IN MODERATELY DENSE RIGHT BASILAR AIR SPACE DISEASE CONSISTENT WITH PNEUMONIA. JOB NUMBER: [id number] [facility]
[2016-08-20] MEDS: FAMOTIDINE 20MG TABLET PO SCH ×3 (08:11→17:05)
[2016-08-20] MEDS: PREDNISONE 20 MG TAB PO SCH (08:12)
[2016-08-20] MEDS: 0.9 % SODIUM CHLORIDE 10ML SYR IVP SCH ×2 (08:13→23:17)
[2016-08-20 08:38] LABS: ANION GAP 7.8 (7-16); CARBON DIOXIDE 25.2 mmol/L (22-30)
[2016-08-20] MEDS: ASPIRIN 81 MG TABEC PO SCH (09:36)
[2016-08-20] MEDS: CARVEDILOL 3.125 MG TABLET PO SCH ×3 (09:36→23:17)
[2016-08-20] MEDS: APIXABAN 5MG TABLET PO SCH ×3 (09:38→23:18)
[2016-08-20] MEDS: AMIODARONE HCL 200 MG TABLET PO SCH ×3 (09:39→23:18)
[2016-08-20] MEDS: LEVOFLOXACIN 500 MG TABLET PO SCH (09:39)
[2016-08-20] MEDS: LISINOPRIL 5 MG TABLET PO SCH (09:40)
[2016-08-20] MEDS ORDERED: FUROSEMIDE 20 MG TABLET PO SCH (10:00)
[2016-08-20] MEDS ORDERED: NAPROXEN 220 MG PO PRN (10:14)
--- NOTE | 2016-08-20 10:28 | Rehab Evaluation ---
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 1965 uterine cancer- partial hysterectomy Hernia repair PMH - Respiratory Hx Respiratory Disorders Yes Hx Asthma No Hx Bronchitis No Hx Chronic Obstructive Yes Pulmonary Disease (COPD) Hx Dyspnea No Hx Pneumonia No Hx Pulmonary Embolism No Hx Sleep Apnea No Hx Tuberculosis No Hx of CPAP No Comment: emphysema PMH - Cardiovascular Hx Cardiovascular Disorders Yes Hx Abnormal EKG Yes Hx Cardiac Catheterization No Hx Chest Pain No Hx Congestive Heart Failure Yes Hx Deep Vein Thrombosis No Hx Edema No Hx Heart Attack Yes Hx Hypertension Yes Hx Hypotension No Hx Irregular Heartbeat Yes Hx Palpitations No Hx Pacemaker/Defibrillator No Hx Vascular Disease No Comment: High cholesterol, bilat. leg swelling, poss hx afib PMH - Neuro Hx Neurological Disorders No PMH - GI Hx Gastrointestinal Disorders Yes Hx Abdominal Pain No Hx Celiac Disease No Hx Crohn's Disease No Hx Diverticulitis No Hx Gastrointestinal Bleed No Hx Gastroesophageal Reflux Yes Hx Hepatitis/Jaundice No Hx Hiatal Hernia No Hx Irritable Bowel No Hx Liver Disease No Hx Nausea/Vomiting Yes Hx Obstructive Bowel No Hx Pancreatitis No Hx Rectal Bleeding No Hx Ulcer No Hx Weight Loss/Weight Gain No PMH - Hx Genitourinary Disorders No PMH - Endocrine Hx Endocrine Disorders No PMH - Musculoskeletal Hx Musculoskeletal Disorders Yes Hx Arthritis Yes Hx Back Injury No Hx Fibromyalgia No Hx Gout No Hx Musculoskeletal Disease No Hx Osteoporosis No PMH - Psych Hx Psychiatric Problems No PMH - Hematology/Oncology Hx Hematology/Oncology Yes Disorders Hx Cancer Yes: cervical Premorbid Status: Detail (Pt lives with daughter in a 1 story house with 2 steps and no handrailing at the entrance. She has a tub/shower combination and her daughter just purchased a tub bench for her that she has not used yet. She has a standard height toilet in the bathroom that she normally uses and an elevated toilet in the second bathroom. She does not have grab bars in the tub or by the toilets. Prior to admission she was Ind with self cares although her daughter "supervises her". Her daughter is responsible for all home mgmt, meal prep and laundry. She has a 4 wheeled walker that she uses at times.) Social History: Detail (Pt has a supportive daughter.) Precautions: [place], Fall - Time With Patient Total Time Spent With Patient (Min): 30 Treatment Procedures: Detail (OT eval - low complexity) Subjective Information - Subjective Information Per Patient Objective Data - Pain Pain Present: No - Mental Status Patient Orientation: Oriented x3 - Visual Perception Appears within normal limits for therapeutic activities - ROM Within normal limits (Rahat UE AROM WNL) - Strength/Tone Within normal limits (Rahat UE MMT grossly 4/5 throughout) - Coordination Appears within normal limits for therapeutic activities (Pt presents with rahat UE tremors, she reports these are premorbid.) - Bed Mobility Independent (Ind with supine to sit.) - Transfers Independent (Ind with sit to stand from EOB, Ind with stand to sit into chair.) - Balance Balance Sitting: Good Balance Standing: Fair - Sensation Intact - Gait Detail (Pt able to amb in hallway with hand held assist. She was very fatigued and had mild shortness of breath.) - ADL's/IADL's Detail (Pt reports she is toileting with assist from nursing, sponge bathing with assist from nursing and she was able to don underpants, sock type slippers and slip on shoes Indly.) Therapy Assessment - Therapy Assessment Detail (Pt presents with decreased endurance, decreased Ind with self care activities and decreased safety with mobility needed for safe and Ind self cares.) Problem List - Problem List Occupational Therapy Problem List: Detail (1. Decreased Ind with self care activities 2. Decreased endurance needed for safe and Ind ADLs/functional mobility 3. Decreased functional mobility needed for safe and Ind self care activities) Goals - Goals Occupational Therapy Goals: 1. Pt will be Ind with showering in sitting. 2. Pt will be Ind with functional mobility needed for self care activities 3. Pt will demonstrate improved endurance needed for safe and Ind ADLs and functional mobility. Prognosis - Prognosis Good Plan - Plan Occupational Therapy Plan: OT 2-4 days per week to address goals. Pt would benefit from home OT at discharge to ensure safety and Ind with ADLs.
--- NOTE | 2016-08-20 10:44 | Rehab Evaluation ---
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 1965 uterine cancer- partial hysterectomy Hernia repair PMH - Respiratory Hx Respiratory Disorders Yes Hx Asthma No Hx Bronchitis No Hx Chronic Obstructive Yes Pulmonary Disease (COPD) Hx Dyspnea No Hx Pneumonia No Hx Pulmonary Embolism No Hx Sleep Apnea No Hx Tuberculosis No Hx of CPAP No Comment: emphysema PMH - Cardiovascular Hx Cardiovascular Disorders Yes Hx Abnormal EKG Yes Hx Cardiac Catheterization No Hx Chest Pain No Hx Congestive Heart Failure Yes Hx Deep Vein Thrombosis No Hx Edema No Hx Heart Attack Yes Hx Hypertension Yes Hx Hypotension No Hx Irregular Heartbeat Yes Hx Palpitations No Hx Pacemaker/Defibrillator No Hx Vascular Disease No Comment: High cholesterol, bilat. leg swelling, poss hx afib PMH - Neuro Hx Neurological Disorders No PMH - GI Hx Gastrointestinal Disorders Yes Hx Abdominal Pain No Hx Celiac Disease No Hx Crohn's Disease No Hx Diverticulitis No Hx Gastrointestinal Bleed No Hx Gastroesophageal Reflux Yes Hx Hepatitis/Jaundice No Hx Hiatal Hernia No Hx Irritable Bowel No Hx Liver Disease No Hx Nausea/Vomiting Yes Hx Obstructive Bowel No Hx Pancreatitis No Hx Rectal Bleeding No Hx Ulcer No Hx Weight Loss/Weight Gain No PMH - Hx Genitourinary Disorders No PMH - Endocrine Hx Endocrine Disorders No PMH - Musculoskeletal Hx Musculoskeletal Disorders Yes Hx Arthritis Yes Hx Back Injury No Hx Fibromyalgia No Hx Gout No Hx Musculoskeletal Disease No Hx Osteoporosis No PMH - Psych Hx Psychiatric Problems No PMH - Hematology/Oncology Hx Hematology/Oncology Yes Disorders Hx Cancer Yes: cervical Premorbid Status: Detail (Pt lives with daughter in a 1 story house with 2 steps and no handrailing at the entrance. She has a tub/shower combination and her daughter just purchased a tub bench for her that she has not used yet. She has a standard height toilet in the bathroom that she normally uses and an elevated toilet in the second bathroom. She does not have grab bars in the tub or by the toilets. Prior to admission she was Ind with self cares although her daughter "supervises her". Her daughter is responsible for all home mgmt, meal prep and laundry.) Social History: Detail (Pt has a supportive daughter.) Precautions: [place], Fall - Time With Patient Total Time Spent With Patient (Min): 25 Treatment Procedures: Detail (PT Initial Evaluation.) Subjective Information - Subjective Information Per Patient (The patient complained of bilateral LE "aching" due to "circulation ". The patient denied pain complaints. The patient also complained of feeling weak and "shakey".) Objective Data - Mental Status Patient Orientation: Oriented x3 - Visual Perception Appears within normal limits for therapeutic activities - ROM Within normal limits (LE AROM was WFL.) - Strength/Tone Not within normal limits (The patient's LE strength was generally 4 to 4+/5 throughout. Refer to OT note for UE strength grades. Bilateral hand tremors were noted at rest.) - Bed Mobility Independent (The patient was independent with supine to and from sit transfer and scooting up in bed.) - Transfers Independent (The patient acheived sit to and from stand transfer independently.) - Balance Balance Sitting: Good Balance Standing: Fair (The patient stood and pulled up her pants without support. Unsteadiness was noted with ambulation. The patient's balance was not fully assessed using Standardized Balance Tests.) - Gait Detail (The patient ambulated with CG and hand hold of one a distance of108 feet x 1. The patient ambulated with decreased stride length,shuffling steps . Shortness of breath was noted with ambulation after 54 feet. The patient required a 45 second rest breakand was able to complete pursed lip breathing.) Therapy Assessment - Therapy Assessment Detail (The patient has decreased ability to complete sustained physical activity, shortness of breath with activity, decreased LE strength and unsteadiness with gait. The patient and her daughter were instructed that the patient should use her walker when ambulating at home. The patient expressed reluctance in using a walker. The importance of using a walker for fall prevention was emphasized to the patient. Feel the patient would benefit from ongoing short term PT as an inpatient and then at Home to return to previous functional level. The PT complexity of evaluation is rated as low due stable condition and few personal factors.) Patient Education - Patient Education Teaching Topic: Equipment Use (The patient was instructed to use her wheeled walker at home due to current unsteadiness with gait.) Response: Verbalize Understanding Teaching Method: Discussion Teaching Recipient: Patient, Family Barriers To Learning: None Problem List - Problem List Physical Therapy Problem List: Detail (1) Shortness of breath with ambulation. 2 ) Decreased ability to complete sustained physical activity 3) Decreased standing balance and unsteadiness with ambulation. 4) Decreased LE strength) Goals - Goals Physical Therapy Goals: 1)The patient will ambulate 150 feet with minimal to no shortness of breath with or without assistive device. 2) The patient will tolerate 30 to 35 minutes of physical activity with one to two periods and minimal shortness of breath. 3) Evaluate the patient's balance using Tinetti Balance Assessment. 4) Increase LE strength 1/3 muscle grade. Prognosis - Prognosis Good (Good for return to home environment.) Plan - Plan Physical Therapy Plan: PT daily M-F for LE strengthening and balance exercises, ambulation and muscular endurance exercises. Ongoing PT is recommended following discharge from [facility].
--- NOTE | 2016-08-20 13:21 | Discharge Summary ---
<Melissa Lucia - Last Filed: 08/20/16 13:22> Providers Discharge Summary Date: 08/20/16 Date of admission: 08/17/16 23:45 Expected Date of Discharge: 08/20/16 Attending physician: LUCHO NI Primary care physician: RISHI BOB D.O. Physical Exam - Vital Signs Vital Signs: Vital Signs - Last 24 Hrs Temp Pulse Pulse Resp BP Pulse Ox 08/20/16 11:18 72 18 93 L 08/20/16 08:16 98.0 F 71 18 155/69 93 L 08/20/16 06:21 74 18 08/20/16 01:00 97.6 F 83 20 170/74 95 08/19/16 20:00 98.1 F 80 18 140/59 97 08/19/16 18:52 80 16 08/19/16 14:39 84 18 94 L 08/19/16 14:14 86 16 96 - General General Appearance: Alert, Oriented x3, Cooperative, No acute distress Limitations: No limitations - Head Head exam: Atraumatic, Normocephalic, Normal inspection Head exam detail: negative: Abrasion, Contusion, Bennett's sign, General tenderness, Hematoma, Laceration - Eye Eye exam: Normal appearance. negative: Conjunctival injection, Periorbital swelling, Periorbital tenderness, Scleral icterus - ENT Ear exam: negative: Auricular hematoma, Auricular trauma Nasal Exam: negative: Active bleeding, Discharge, Dried blood, Foreign body Mouth exam: negative: Drooling, Laceration, Muffled voice, Tongue elevation - Neck Neck exam: Normal inspection. negative: Meningismus, Tenderness - Respiratory Respiratory exam: Decreased breath sounds (diminshed throughout except for RLL) , Rales (crackles right lower lobe improving). negative: Respiratory distress, Rhonchi - Cardiovascular Cardiovascular Exam: Regular rate, Normal rhythm, Normal heart sounds - GI/Abdominal GI/Abdominal exam: Soft. negative: Rebound, Rigid, Tenderness - Rectal Rectal exam: Deferred - exam: Deferred - Extremities Extremities exam: Normal inspection. negative: Tenderness - Back Back exam: Denies: CVA tenderness (R), CVA tenderness (L) - Neurological Neurological exam: Alert, Oriented X3 - Psychiatric Psychiatric exam: Normal affect, Normal mood - Skin Skin exam: Normal color. negative: Abrasion Type of lesion: negative: abrasion Hospitalization - Hospitalization Admission Diagnosis: COPD exacerbation. Intermittent Chest Pain - Problem List/Discharge Diagnosis (1) Right lower lobe pneumonia Status: Acute Discharge Diagnosis: Pneumonia type: due to unspecified organism Qualified Code(s): J18.1 - Lobar pneumonia, unspecified organism Base Code: J18.1 - LOBAR PNEUMONIA, UNSPECIFIED ORGANISM Comment: 08/20/17- clinically improving. CXR form 08/17/16 shows persistent RLL infiltrate. WBC count up slightly this morning but started steroids yesterday. afebrile. blood cultures and sputum cultures obtained and pending. -continue levaquin 750mg po q48 (renally dosed) for pneumonia in COPD patient, however, will continue to monitor response closely and determine need for transition to abx that will cover for nosocomial infections. -continue supplemental oxygen to keep o2 saturation >92% -continue vitals q8H -repeat labs qam (2) COPD exacerbation Status: Acute Base Code: J44.1 - CHRONIC OBSTRUCTIVE PULMONARY DISEASE W ( ACUTE) EXACERBATION Comment: 08/20/16- suspect she has acute COPD (likely emphysema) exacerbation 2/ 2 RLL pneumonia. Respiratory therapy states patient has very ineffectual inspiration and capacity to use an inhaler or MDI. Feel that nebulizer medication will be of significant benefit to patient and already we have seen improvement in her symptoms with the nebulizer use vs inhaler -will write script for home nebulizer -disontinue symbicort -no LAMA/LABA in nebulizer solution available so will schedule duoneb QID -Add budesonide 0.5% nebulized twice daily -continue oral prednisone 20mg daily. will do low dose to avoid fluid retention wiht new diagnosis of CHF -continue to monitor vitals q8H and response to nebulizer regimen (3) Physical deconditioning Status: Acute Base Code: R53.81 - OTHER MALAISE Comment: 08/20/16- Patient has physical deconditioning from sedentary lifestyle. She has generalized weakness. Daughter very interested in having home therapy out. Patient has refused to go to pulmonary rehab in the past. -PT/OT ordered to evaluate patient tomorrow (4) CHF (congestive heart failure) Status: Chronic Discharge Diagnosis: Congestive heart failure type: unspecified congestive heart failure type Congestive heart failure chronicity: chronic Qualified Code(s): I50.9 - Heart failure, unspecified Base Code: I50.9 - HEART FAILURE, UNSPECIFIED Comment: 08/20/16-stable. no evidence of fluid overload on exam. -will continue lasix q48H -monitor weight daily -request records from [facility] (5) DVT prophylaxis Status: Acute Base Code: [id number] - Comment: 08/20/16-Patient is low risk for DVT while on oil heaterman anticoagulation started by cardiology -will continue eliquis 5mg po bid -will continue aspirin 81mg po daily (6) Full code status Status: Acute Base Code: Z78.9 - OTHER SPECIFIED HEALTH STATUS Comment: 08/20/16- patient is full code - Hospitalization Course Disposition: Home Health Service Hospital Course: 80yo female with CC of shortness of breath and fatigue. She has history of COPD , [place], HTN, HD, afib, GERD, arthritis, and cervical cancer. patient's last stress test was in April 2016 was negative for ischemia. Patient has been hospitalized or been to the ED 5 times since beginning of July. She was originally here at [facility] ED for suspected COPD exacerbation and was found to be in afib so was transferred to [facility], where she chemically cardioverted. She was started on antiarrhythmic medication and discharged home. She returned to [facility] ED several days later with acute onset of weakness. She was found to have UTI and questionable QT prolongation. She was treated with antibiotics and evaluated by Dr. Flores at that time who recommended no change in medications and to follow up with Dr. Pollard outpatient. Patient then returned to [facility] ED about 10 days later with acute onset shortness of breath. she was found to be in respiratory distress and required bipap and transfer to [facility] where she was diagnosed with new onset heart failure. She was started on diuretics and eventually discharged home. She was doing well up until about 6 days ago when she returned to [facility] ED for shortness of breath and fatigue. Her CXR at that time showed RLL infiltrate, however, overall, CXR was vastly improved from previous visit. patient was sent home with supportive treatment but no abx. She returned last evening with continued SOB and fatigue. While in the ED, patient had another CXR again demonstrating a right lower lobe infiltrate that continued to improve from 07/30/16 and 08/12/16. No pulmonary edema or evidence of acute CHF. Her oxygen saturation at rest was mid to upper 90's but ED physician noted decrease with ambulation to below 89%. Her WBC count was WNL but with 95% neutrophils. Moderately decreased kidney function stable from previous visits. Troponin was trended and remained within cut-off guidelines (0.015/0.021/0.018/<0.012). Patient was admitted for right lower lobe pneumonia with COPD exacerbation. 08/18/16- Patient states she is feeling better today. She says her shortness of breath has mostly resolved. she was up to the bathroom independently and did not feel short of breath. She says the nebulizer seems to work much better than her inhalers at home. She has been trying to use her symbicort twice daily. she denies chest pain, headache, abdominal pain, black/bloody stools, lower leg swelling. 08/19/16- Patient states she continues to improve. She says her shortness of breath is much better when using the nebulizers for her breathing treatments. She denies cough, chest pain, lower extremity swelling. She did get up and walk with nursing yesterday but fatigued easily. Daughter present today states her mom gets little to no activity at home. She has refused in the past to go to pulmonary rehab. 08/20/16- Abnormal Labs: Abnormal Lab Results 08/18/16 08/18/16 08/18/16 Range/Units 08:10 08:10 21:30 WBC (4.2-12.2) K/uL RBC (3.80-5.40) M/uL Hgb (11.6-16.0) gm/dl Hct (35.0-47.0) % MCHC 31.8 L (32-36) g/dl RDW 15.5 H (11.5-14.5) % Neutrophils % 95.0 H (47-80) % Lymphocytes % 4.0 L (16-45) % Chloride (98-107) mmol/L Anion Gap (7-16) BUN 18 H (7-17) mg/dL POC Glucose 261 H (70-110) mg/dL Random Glucose 210 H (70-110) mg/dL Total Protein (6.3-8.2) gm/dL Albumin (3.5-5.0) gm/dL Albumin/Globulin Ratio (1.1-1.8) 08/19/16 08/19/16 08/20/16 Range/Units 06:00 06:00 06:05 WBC 13.7 H 12.9 H (4.2-12.2) K/uL RBC 3.27 L 3.60 L (3.80-5.40) M/uL Hgb 10.2 L 11.0 L (11.6-16.0) gm/dl Hct 31.5 L 34.7 L (35.0-47.0) % MCHC 31.7 L (32-36) g/dl RDW 15.0 H 15.3 H (11.5-14.5) % Neutrophils % 89.0 H (47-80) % Lymphocytes % 7.0 L 14.8 L (16-45) % Chloride (98-107) mmol/L Anion Gap 6.1 L (7-16) BUN 18 H (7-17) mg/dL POC Glucose (70-110) mg/dL Random Glucose 142 H (70-110) mg/dL Total Protein 5.9 L (6.3-8.2) gm/dL Albumin 3.0 L (3.5-5.0) gm/dL Albumin/Globulin Ratio 1.0 L (1.1-1.8) 08/20/16 Range/Units 06:05 WBC (4.2-12.2) K/uL RBC (3.80-5.40) M/uL Hgb (11.6-16.0) gm/dl Hct (35.0-47.0) % MCHC (32-36) g/dl RDW (11.5-14.5) % Neutrophils % (47-80) % Lymphocytes % (16-45) % Chloride 108 H (98-107) mmol/L Anion Gap (7-16) BUN 26 H (7-17) mg/dL POC Glucose (70-110) mg/dL Random Glucose (70-110) mg/dL Total Protein 6.1 L (6.3-8.2) gm/dL Albumin 3.1 L (3.5-5.0) gm/dL Albumin/Globulin Ratio 1.0 L (1.1-1.8) Condition at Discharge: (1) Good Discharge Medications - Discharge Medications Prescriptions: Simvastatin [Zocor] 20 mg PO QHS #14 tablet Albuterol Sulfate 0.083% [Neb] 2.5 mg INH RESP.Q2H PRN #240 nebulization solution PRN Reason: Difficulty In Breathing Ipratropium/Albuterol [Duoneb] 3 ml IH Q4H #10 ampul.neb. Levofloxacin [Levaquin] 750 mg PO Q48H #5 tablet Budesonide [Pulmicort] 0.5 mg INH RESP.BID #10 ml Home Medications: Ambulatory Orders Albuterol Sulfate [Ventolin Hfa] 1 - 2 puff IH .EVERY 4-6 HOURS PRN 07/05/16 [ Last Taken 08/12/16] Ezetimibe [Zetia] 10 mg PO QHS 07/05/16 [Last Taken 08/12/16] Furosemide [Lasix] 20 mg PO MOWEFR 07/05/16 [Last Taken 08/12/16] Simvastatin [Zocor] 20 mg PO QHS 07/05/16 [Last Taken 08/11/16] Amiodarone HCl [Pacerone] 200 mg PO BID 07/19/16 [Last Taken 08/12/16] Famotidine [Pepcid] 20 mg PO TIDAC 07/19/16 [Last Taken 08/12/16] Apixaban [Eliquis] 5 mg PO BID 08/12/16 [Last Taken 08/12/16] Aspirin [Aspir-Low] 81 mg PO DAILY 08/12/16 [Last Taken 08/12/16] Carvedilol [Coreg] 3.125 mg PO BID 08/12/16 [Last Taken 08/12/16] Lisinopril 2.5 mg PO DAILY 08/12/16 [Last Taken 08/12/16] Budesonide [Pulmicort] 0.5 mg INH RESP.BID #10 ml 08/20/16 [Last Taken Unknown] Ipratropium/Albuterol [Duoneb] 3 ml IH Q4H #10 ampul.neb. 08/20/16 [Last Taken Unknown] Albuterol Sulfate 0.083% [Neb] 2.5 mg INH RESP.Q2H PRN #240 nebulization solution 08/21/16 [Last Taken Unknown] Levofloxacin [Levaquin] 750 mg PO Q48H #5 tablet 08/21/16 [Last Taken Unknown] Lisinopril [Zestril] 2.5 mg PO DAILY tablet 08/21/16 [Last Taken Unknown] Simvastatin [Zocor] 20 mg PO QHS #14 tablet 08/21/16 [Last Taken Unknown] Discharge Plan - Discharge Instructions Instructions: Simvastatin (By mouth), Levofloxacin (By mouth), Budesonide (By breathing), Ipratropium/Albuterol (By breathing), Chronic Obstructive Pulmonary Disease (DC), Pneumonia (DC) Additional Instructions: 2 Activity: As tolerated 2 Diet: As tolerated 2 Consults: [] 2 Follow Up: [With your primary care physician within 7-10 days] 2 Dressing/Wound Care: (Type) (Change) 2 Additional: [Continue home medications New medications Pulmicort 0.5mg inhaled twice per day Duoneb 3ml nebulized inhaled every 4 hours as needed for difficulty in breathing Albuterol 2.5mg inhaled every 2 hours as needed for difficulty in breathing levoquin as directed on bottle Zocor 20mg orally at bedtime] <SHER CAR - Last Filed: 08/21/16 15:52> Providers Discharge Summary Date: 08/21/16 Date of admission: 08/17/16 23:45 Expected Date of Discharge: 08/21/16 Attending physician: LUCHO NI Primary care physician: RISHI BOB D.O. Physical Exam - Vital Signs Vital Signs: Vital Signs - Last 24 Hrs Temp Pulse Pulse Resp BP Pulse Ox 08/21/16 08:56 97.5 F L 73 18 158/74 95 08/21/16 07:46 18 08/21/16 06:58 78 18 08/21/16 06:00 97.9 F 75 18 156/78 95 08/20/16 19:45 97.9 F 80 20 139/68 95 08/20/16 18:00 97.4 F L 85 18 118/69 94 L 08/20/16 15:19 74 20 08/20/16 14:00 97.6 F 78 18 157/87 92 L 08/20/16 11:18 72 18 93 L - General General Appearance: Alert, Oriented x3, No acute distress - Head Head exam: Normal inspection Head exam detail: negative: Abrasion, Contusion - Neck Neck exam: Normal inspection, Full ROM. negative: Tenderness - Respiratory Respiratory exam: Decreased breath sounds - Cardiovascular Cardiovascular Exam: Regular rate, Normal rhythm, Normal heart sounds - GI/Abdominal GI/Abdominal exam: Soft, Normal bowel sounds. negative: Tenderness - Extremities Extremities exam: Normal inspection, Full ROM, Normal capillary refill. negative: Tenderness - Psychiatric Psychiatric exam: Normal affect, Normal mood Hospitalization - Problem List/Discharge Diagnosis (1) Right lower lobe pneumonia Status: Acute Discharge Diagnosis: Pneumonia type: due to unspecified organism Qualified Code(s): J18.1 - Lobar pneumonia, unspecified organism Base Code: J18.1 - LOBAR PNEUMONIA, UNSPECIFIED ORGANISM Comment: 08/21/17- clinically improving. CXR form 08/17/16 shows persistent RLL infiltrate. WBC count 12.9 but currently on steroids. remains afebrile. blood cultures and sputum cultures obtained and pending. -continue levaquin 750mg po q48 (renally dosed) for pneumonia in COPD patient -discharge with home care -follow up with PCP in 2 weeks (family to arrange) (2) COPD exacerbation Status: Acute Base Code: J44.1 - CHRONIC OBSTRUCTIVE PULMONARY DISEASE W ( ACUTE) EXACERBATION Comment: 08/21/16- suspect she has acute COPD (likely emphysema) exacerbation 2/ 2 RLL pneumonia. Respiratory therapy states patient has very ineffectual inspiration and capacity to use an inhaler or MDI. Feel that nebulizer medication will be of significant benefit to patient and already we have seen improvement in her symptoms with the nebulizer use vs inhaler -home nebulizer with medications ordered through [facility]. -schedule duoneb QID -budesonide 0.5% nebulized twice daily -continue oral prednisone 20mg daily. will do low dose to avoid fluid retention wiht new diagnosis of CHF (3) CHF (congestive heart failure) Status: Chronic Discharge Diagnosis: Congestive heart failure type: unspecified congestive heart failure type Congestive heart failure chronicity: chronic Qualified Code(s): I50.9 - Heart failure, unspecified Base Code: I50.9 - HEART FAILURE, UNSPECIFIED Comment: 08/21/16-stable. no evidence of fluid overload on exam. - follow up with PCP in 2 weeks - home care to follow at home (4) DVT prophylaxis Status: Acute Base Code: [id number] - Comment: 08/21/16-Patient is low risk for DVT while on half-way anticoagulation started by cardiology -will continue eliquis 5mg po bid -will continue aspirin 81mg po daily (5) Full code status Status: Acute Base Code: Z78.9 - OTHER SPECIFIED HEALTH STATUS Comment: 08/21/16- patient is full code - Hospitalization Course Hospital Course: 80yo female with CC of shortness of breath and fatigue. She has history of COPD , [place], HTN, HD, afib, GERD, arthritis, and cervical cancer. patient's last stress test was in April 2016 was negative for ischemia. Patient has been hospitalized or been to the ED 5 times since beginning of July. She was originally here at [facility] ED for suspected COPD exacerbation and was found to be in afib so was transferred to [facility], where she chemically cardioverted. She was started on antiarrhythmic medication and discharged home. She returned to [facility] ED several days later with acute onset of weakness. She was found to have UTI and questionable QT prolongation. She was treated with antibiotics and evaluated by Dr. Flores at that time who recommended no change in medications and to follow up with Dr. Pollard outpatient. Patient then returned to [facility] ED about 10 days later with acute onset shortness of breath. she was found to be in respiratory distress and required bipap and transfer to [facility] where she was diagnosed with new onset heart failure. She was started on diuretics and eventually discharged home. She was doing well up until about 6 days ago when she returned to [facility] ED for shortness of breath and fatigue. Her CXR at that time showed RLL infiltrate, however, overall, CXR was vastly improved from previous visit. patient was sent home with supportive treatment but no abx. She returned last evening with continued SOB and fatigue. While in the ED, patient had another CXR again demonstrating a right lower lobe infiltrate that continued to improve from 07/30/16 and 08/12/16. No pulmonary edema or evidence of acute CHF. Her oxygen saturation at rest was mid to upper 90's but ED physician noted decrease with ambulation to below 89%. Her WBC count was WNL but with 95% neutrophils. Moderately decreased kidney function stable from previous visits. Troponin was trended and remained within cut-off guidelines (0.015/0.021/0.018/<0.012). Patient was admitted for right lower lobe pneumonia with COPD exacerbation. 08/18/16- Patient states she is feeling better today. She says her shortness of breath has mostly resolved. she was up to the bathroom independently and did not feel short of breath. She says the nebulizer seems to work much better than her inhalers at home. She has been trying to use her symbicort twice daily. she denies chest pain, headache, abdominal pain, black/bloody stools, lower leg swelling. PCP: [facility] Abnormal Labs: Abnormal Lab Results 08/18/16 08/18/16 08/18/16 Range/Units 08:10 08:10 21:30 WBC (4.2-12.2) K/uL RBC (3.80-5.40) M/uL Hgb (11.6-16.0) gm/dl Hct (35.0-47.0) % MCHC 31.8 L (32-36) g/dl RDW 15.5 H (11.5-14.5) % Neutrophils % 95.0 H (47-80) % Lymphocytes % 4.0 L (16-45) % Monocytes % (0-9) % Chloride (98-107) mmol/L Anion Gap (7-16) BUN 18 H (7-17) mg/dL Creatinine (0.52-1.04) mg/dL POC Glucose 261 H (70-110) mg/dL Random Glucose 210 H (70-110) mg/dL Total Protein (6.3-8.2) gm/dL Albumin (3.5-5.0) gm/dL Albumin/Globulin Ratio (1.1-1.8) 08/19/16 08/19/16 08/20/16 Range/Units 06:00 06:00 06:05 WBC 13.7 H 12.9 H (4.2-12.2) K/uL RBC 3.27 L 3.60 L (3.80-5.40) M/uL Hgb 10.2 L 11.0 L (11.6-16.0) gm/dl Hct 31.5 L 34.7 L (35.0-47.0) % MCHC 31.7 L (32-36) g/dl RDW 15.0 H 15.3 H (11.5-14.5) % Neutrophils % 89.0 H (47-80) % Lymphocytes % 7.0 L 14.8 L (16-45) % Monocytes % (0-9) % Chloride (98-107) mmol/L Anion Gap 6.1 L (7-16) BUN 18 H (7-17) mg/dL Creatinine (0.52-1.04) mg/dL POC Glucose (70-110) mg/dL Random Glucose 142 H (70-110) mg/dL Total Protein 5.9 L (6.3-8.2) gm/dL Albumin 3.0 L (3.5-5.0) gm/dL Albumin/Globulin Ratio 1.0 L (1.1-1.8) 08/20/16 08/21/16 08/21/16 Range/Units 06:05 06:25 06:25 WBC (4.2-12.2) K/uL RBC 3.59 L (3.80-5.40) M/uL Hgb 11.0 L (11.6-16.0) gm/dl Hct 34.3 L (35.0-47.0) % MCHC (32-36) g/dl RDW 15.2 H (11.5-14.5) % Neutrophils % (47-80) % Lymphocytes % (16-45) % Monocytes % 10.4 H (0-9) % Chloride 108 H (98-107) mmol/L Anion Gap (7-16) BUN 26 H 26 H (7-17) mg/dL Creatinine 1.1 H (0.52-1.04) mg/dL POC Glucose (70-110) mg/dL Random Glucose (70-110) mg/dL Total Protein 6.1 L 5.9 L (6.3-8.2) gm/dL Albumin 3.1 L 3.1 L (3.5-5.0) gm/dL Albumin/Globulin Ratio 1.0 L (1.1-1.8) Discharge Plan - Discharge Instructions Diet at Discharge: Advance to Usual Diet
--- NOTE | 2016-08-20 15:26 | Physician Progress Note ---
Subjective - Date Date of Physician Progress Note: 08/20/16 - Subjective Subjective Comment: 08/20/16- Patient continues to improve. Respiratory reports she coughed up a large mucus plug this morning following a breathing treatment. Her oxygen saturation has been stable 93% with activity. She has not had any further wheezing. she does report anxiety about going home. She says she gets nervous and feels like she can't breath when thinking about going home and says she'll probably have to come right back. Patient currently lives with her daughter. They are very open to having home care out with patient. patient continues to deny chest pain, headache, dizziness, abdominal pain. PT/OT worked with patient and found her to be deconditioned but felt she would do well with home therapy and use of her walker. Objective - Vital Signs Vital Signs: Vital Signs - Last 24 Hrs Temp Pulse Pulse Resp BP Pulse Ox 08/20/16 11:18 72 18 93 L 08/20/16 08:16 98.0 F 71 18 155/69 93 L 08/20/16 06:21 74 18 08/20/16 01:00 97.6 F 83 20 170/74 95 08/19/16 20:00 98.1 F 80 18 140/59 97 08/19/16 18:52 80 16 - General General Appearance: Alert, Oriented x3, Cooperative, No acute distress Limitations: No limitations - Head Head exam: Atraumatic, Normocephalic, Normal inspection Head exam detail: negative: Abrasion, Contusion, Bennett's sign, General tenderness, Hematoma, Laceration - Eye Eye exam: Normal appearance. negative: Conjunctival injection, Periorbital swelling, Periorbital tenderness, Scleral icterus - ENT Ear exam: negative: Auricular hematoma, Auricular trauma Nasal Exam: negative: Active bleeding, Discharge, Dried blood, Foreign body Mouth exam: negative: Drooling, Laceration, Muffled voice, Tongue elevation - Neck Neck exam: Normal inspection. negative: Meningismus, Tenderness - Respiratory Respiratory exam: Decreased breath sounds (diminshed throughout except for RLL) , Rales (crackles right lower lobe. continue to improve). negative: Respiratory distress, Rhonchi - Cardiovascular Cardiovascular Exam: Regular rate, Normal rhythm, Normal heart sounds - GI/Abdominal GI/Abdominal exam: Soft. negative: Rebound, Rigid, Tenderness - Rectal Rectal exam: Deferred - exam: Deferred - Extremities Extremities exam: Normal inspection. negative: Tenderness - Back Back exam: Denies: CVA tenderness (R), CVA tenderness (L) - Neurological Neurological exam: Alert, Oriented X3 - Psychiatric Psychiatric exam: Normal affect, Normal mood - Skin Skin exam: Normal color. negative: Abrasion Type of lesion: negative: abrasion Assessment and Plan - Assessment and Plan (1) Right lower lobe pneumonia Current Visit: Yes Status: Acute Qualifiers: Pneumonia type: due to unspecified organism Qualified Code(s): J18.1 - Lobar pneumonia, unspecified organism Base Code: J18.1 - LOBAR PNEUMONIA, UNSPECIFIED ORGANISM Comment: 08/20/17- clinically improving. CXR form 08/17/16 shows persistent RLL infiltrate. WBC count 12.9 but currently on steroids. remains afebrile. blood cultures and sputum cultures obtained and pending. -continue levaquin 750mg po q48 (renally dosed) for pneumonia in COPD patient, however, will continue to monitor response closely and determine need for transition to abx that will cover for nosocomial infections. -continue supplemental oxygen to keep o2 saturation >92% -continue vitals q8H -repeat labs qam (2) COPD exacerbation Current Visit: Yes Status: Acute Base Code: J44.1 - CHRONIC OBSTRUCTIVE PULMONARY DISEASE W (ACUTE) EXACERBATION Comment: 08/20/16- suspect she has acute COPD (likely emphysema) exacerbation 2/ 2 RLL pneumonia. Respiratory therapy states patient has very ineffectual inspiration and capacity to use an inhaler or MDI. Feel that nebulizer medication will be of significant benefit to patient and already we have seen improvement in her symptoms with the nebulizer use vs inhaler -home nebulizer with medications ordered through [facility]. will not be able to deliver until tomorrow. Do not feel patient can be discharged until nebulizer and medications set up at home so will plan on dc tomorrow morning. -schedule duoneb QID -budesonide 0.5% nebulized twice daily -continue oral prednisone 20mg daily. will do low dose to avoid fluid retention wiht new diagnosis of CHF -continue to monitor vitals q8H and response to nebulizer regimen (3) Physical deconditioning Current Visit: Yes Status: Acute Base Code: R53.81 - OTHER MALAISE Comment: 08/20/16- Patient has physical deconditioning from sedentary lifestyle. She has generalized weakness. pt/ot evaluated patient and felt she could use home therapy services for deconditioning. -social work has [facility] set up -will have home nursing, health aid, pt/ot, and home SW set up upon discharge (4) CHF (congestive heart failure) Current Visit: Yes Status: Chronic Qualifiers: Congestive heart failure type: unspecified congestive heart failure type Congestive heart failure chronicity: chronic Qualified Code(s): I50.9 - Heart failure, unspecified Base Code: I50.9 - HEART FAILURE, UNSPECIFIED Comment: 08/20/16-stable. no evidence of fluid overload on exam. -will continue lasix q48H -monitor weight daily -request records from [facility] (5) DVT prophylaxis Current Visit: No Status: Acute Base Code: [id number] - Comment: 08/20/16-Patient is low risk for DVT while on ferry terminal agent anticoagulation started by cardiology -will continue eliquis 5mg po bid -will continue aspirin 81mg po daily (6) Full code status Current Visit: No Status: Acute Base Code: Z78.9 - OTHER SPECIFIED HEALTH STATUS Comment: 08/20/16- patient is full code Results - Labs Result Diagrams: 08/20/16 06:05 08/20/16 06:05 Labs Last 24 Hours: Laboratory Results - last 24 hr 08/20/16 08/20/16 06:05 06:05 WBC 12.9 H RBC 3.60 L Hgb 11.0 L Hct 34.7 L MCV 96.4 MCH 30.5 MCHC 31.7 L RDW 15.3 H Plt Count 244 MPV 9.4 Gran % 76.0 Lymphocytes % 14.8 L Monocytes % 8.8 Eosinophils % 0.3 Basophils % 0.1 Sodium 141 Potassium 4.8 Chloride 108 H Carbon Dioxide 25.2 Anion Gap 7.8 BUN 26 H Creatinine 1.0 Estimated GFR 57 Random Glucose 80 Calcium 8.9 Total Bilirubin 0.47 AST 30 ALT 36 Alkaline Phosphatase 57 Total Protein 6.1 L Albumin 3.1 L Globulin 3.0 Albumin/Globulin Ratio 1.0 L DVT/PE Assessment - Risk for VTE Risk for VTE: No Risk Level: Very Low Risk Assessment Date: 08/18/16 Risk Assessment Time: 15:45 VTE Orders Placed or Will Be Placed: No VTE Reason for No Prophylaxis: Not Indicated (currently on ferry terminal agent anticoagulation therapy) - Active Medicaitons Current Medications: Current Medications Albuterol Sulfate () 2.5 mg INH RESP.Q2H PRN PRN Reason: DIFFICULTY IN BREATHING Albuterol/Ipratropium (Duoneb) 3 ml INH RESP.Q4H.WA [facility] Last Admin: 08/20/16 15:18 Dose: 3 ml Amiodarone HCl (Pacerone) 200 mg PO BID [facility] Last Admin: 08/20/16 09:39 Dose: 200 mg Apixaban (Eliquis) 5 mg PO BID [facility] Last Admin: 08/20/16 09:38 Dose: 5 mg Aspirin (Ecotrin (Ec)) 81 mg PO DAILY [facility] Last Admin: 08/20/16 09:36 Dose: 81 mg Budesonide (Pulmicort) 0.5 mg INH RESP.BID [facility] Last Admin: 08/20/16 06:20 Dose: 0.5 mg Carvedilol (Coreg) 3.125 mg PO BID [facility] Last Admin: 08/20/16 09:36 Dose: 3.125 mg Diphenhydramine HCl (Benadryl Capsule) 25 mg PO QHS PRN PRN Reason: SLEEP Last Admin: 08/19/16 01:26 Dose: 25 mg Ezetimibe (Zetia) 10 mg PO 2000 [facility] Last Admin: 08/19/16 20:20 Dose: 10 mg Famotidine (Pepcid) 20 mg PO TIDAC [facility] Last Admin: 08/20/16 13:22 Dose: 20 mg Furosemide (Lasix) 20 mg PO MoWeFr [facility] Last Admin: 08/20/16 09:38 Dose: 20 mg Sodium Chloride () 1,000 mls @ 15 mls/hr IV .Q24H PRN PRN Reason: LARGE VOLUME IV Levofloxacin (Levaquin Tab) 750 mg PO Q48H [facility] Last Admin: 08/20/16 09:39 Dose: 750 mg Lisinopril (Zestril) 2.5 mg PO DAILY [facility] Last Admin: 08/20/16 09:40 Dose: 2.5 mg Patient Own Med: Naproxen 220 Mg ( Aleve) 2 each PO Q12H PRN PRN Reason: Pain - General Patient Own Med: Naproxen 220 Mg ( Aleve) 1 each PO Q12H PRN PRN Reason: Pain - General Prednisone (Prednisone 20mg) 20 mg PO DAILYWM [facility] Last Admin: 08/20/16 08:12 Dose: 20 mg Simvastatin (Zocor) 20 mg PO QHS [facility] Last Admin: 08/19/16 22:49 Dose: Not Given Sodium Chloride () 10 ml IVP Q12H [facility] Last Admin: 08/20/16 08:13 Dose: 10 ml Temazepam (Restoril) 15 mg PO QHS PRN PRN Reason: INSOMNIA Last Admin: 08/20/16 01:06 Dose: 15 mg AMI Plan - Labs Result Diagrams: 08/20/16 06:05 08/20/16 06:05
[2016-08-20] MEDS: EZETIMIBE 10 MG TABLET PO SCH (20:43)
[2016-08-20] MEDS: SIMVASTATIN 20 MG TABLET PO SCH ×2 (20:44→23:18)
[2016-08-21 06:48] LABS: BASO % 0.1 % (0-6); EOS % 0.8 % (0-6); GRAN % 72.1 % (47-80); HEMATOCRIT 34.3 % (35.0-47.0); LYMPH % 16.6 % (16-45); MEAN CELL VOLUME 95.5 fl (81-97); MEAN CORPUSCULAR HEMOGLOBIN 30.6 pg (27-33); MEAN CORPUSCULAR HGB CONC 32.1 g/dl (32-36); MEAN PLATELET VOLUME 9.7 fl (7.4-10.4); MONO % 10.4 % (0-9); PLATELET COUNT 252 K/uL (130-400); RED BLOOD COUNT 3.59 M/uL (3.80-5.40); RED CELL DISTRIBUTION WIDTH 15.2 % (11.5-14.5); WHITE BLOOD COUNT W/O DIFF 8.7 K/uL (4.2-12.2)
[2016-08-21] MEDS: IPRATROPIUM/ALBUTEROL (0.5MG/3MG) NEB INH SCH (06:56)
[2016-08-21] MEDS: BUDESONIDE 0.5 MG/2 ML INH SCH (06:57)
[2016-08-21 07:28] LABS: ALB/GLOB RATIO 1.1 (1.1-1.8); ALBUMIN 3.1 gm/dL (3.5-5.0); BILIRUBIN,TOTAL 0.41 mg/dL (0.2-1.3); TOTAL PROTEIN 5.9 gm/dL (6.3-8.2)
[2016-08-21 07:29] LABS: ANION GAP 8.3 (7-16); CARBON DIOXIDE 28.7 mmol/L (22-30); CREATININE 1.1 mg/dL (0.52-1.04)
[2016-08-21] MEDS: PREDNISONE 20 MG TAB PO SCH (07:33)
[2016-08-21] MEDS: FAMOTIDINE 20MG TABLET PO SCH (07:33)
[2016-08-21] MEDS: LISINOPRIL 5 MG TABLET PO SCH (07:40)
[2016-08-21] MEDS: APIXABAN 5MG TABLET PO SCH (07:40)
[2016-08-21] MEDS: AMIODARONE HCL 200 MG TABLET PO SCH (07:41)
[2016-08-21] MEDS: CARVEDILOL 3.125 MG TABLET PO SCH (07:41)
[2016-08-21] MEDS: ASPIRIN 81 MG TABEC PO SCH (07:41)
--- NOTE | 2016-08-21 10:10 | Physical Therapy Tx Note ---
Physical Therapy Tx Note - Treatment Note Tolerated: Good Total Time Spent With Patient: 15 Physical Therapy Tx Note: Detail (The patient's balance was assessed using the Tinetti Assessment Tool. The patient scored 20/28 which is in the moderate risk for falling category. The patient ambulated 50 feet x 1 without device. O2 level was 92 after ambulating, shortness of breath was noted, however the patient used proper pursed lip breathing technique. The patient had one incident of LOB but was able to right herself. The patient's steadiness with gait has improved overall. The patient was instructed in fall prevention ie: wide of base of support, use of walker at home , walking often and also functional strengthening quad exercise including sit to stand without use of arms. The patient's family was present to reinforce importance of physical activity.) Physical Therapy Problem List: Detail (1) Shortness of breath with ambulation. 2 ) Decreased ability to complete sustained physical activity 3) Decreased standing balance and unsteadiness with ambulation. 4) Decreased LE strength) Physical Therapy Goals: 1)The patient will ambulate 150 feet with minimal to no shortness of breath with or without assistive device. 2) The patient will tolerate 30 to 35 minutes of physical activity with one to two periods and minimal shortness of breath. 3) Evaluate the patient's balance using Tinetti Balance Assessment. 4) Increase LE strength 1/3 muscle grade. Physical Therapy Plan: Patient is discharging to home today and is to recieve Home PT for balance and strengthening exercises and assessment of mobility in home environment.
[2016-08-27] MEDS ORDERED: FUROSEMIDE 20 MG TABLET PO SCH (10:00)
[2016-08-29] MEDS ORDERED: FUROSEMIDE 20 MG TABLET PO SCH (10:00)
[2016-08-31] MEDS ORDERED: FUROSEMIDE 20 MG TABLET PO SCH (10:00)
== END 2016-08-21 11:17 | disposition home health service (06) | DRG 194 ==
LOC: ER 19:00 → MEDSURG 23:45 → OBSVTOIN 23:45
PROVIDERS: ADMIT Family Medicine; ATTEND Family Medicine
DX: J18.1 Lobar pneumonia, unspecified organism (principal); J44.1 Chronic obstructive pulmonary disease with (acute) exacerbation; I10 Essential (primary) hypertension; I48.2 Chronic atrial fibrillation; I25.10 Atherosclerotic heart disease of native coronary artery without angina pectoris; E78.00 Pure hypercholesterolemia, unspecified; Z85.44 Personal history of malignant neoplasm of other female genital organs; Z85.41 Personal history of malignant neoplasm of cervix uteri; I50.9 Heart failure, unspecified; R53.1 Weakness; Z78.9 Other specified health status
CPT/HCPCS: 36416; 71020; 80053; 82550; 82553; 82948; 83880; 84484; 85025; 85027; 85610; 87040; 93005; 93010; 93041; 94760; 94761; 96374; 97165; 97530; 99223; 99233; 99239; 99285; J0456; J2930; J7050; J7512

== ENCOUNTER 2016-08-30 14:26 | Inpatient (IN) | payer MEDICARE ==
--- NOTE | 2016-08-30 14:36 | Emergency Department Record ---
History of Present Illness - General Chief complaint: Edema Stated complaint: SWELLING IN HER FEET/VOMITING Time Seen by Provider: 08/30/16 14:35 Source: Patient, Family Mode of Arrival: Wheelchair Limitations: No limitations - History of Present Illness Initial comments: The patient is here due to one day of nausea, 2 episodes of vomiting and bilateral feet swelling and pain. The patient states she was well yesterday. She denies any AP, back pain, CP, or SPRAGUE but has been SOB. The patient has a long hx of COPD, CHF and vascular dz and recently was in the hospital for CHF and COPD. The patient states she has been having foot and leg pain for months and it is slightly worse this week. She denies any weakness or numbness to the legs. The patient did see her PCP earlier this week who started her on Tramadol for the chronic issue. She has had femoral artery stents in the past about 15 years ago. MD Complaint: Abdominal Pain, Extremity pain Onset/Timin -: Days(s) Location: Left, Right, Foot Improves with: Nothing Worsens with: Nothing - Related Data Home Medications Medication Instructions Recorded Confirmed Last Taken Albuterol Sulfate [Ventolin Hfa] 1 - 2 puff IH .EVERY 4-6 HOURS PRN 07/05/1608/12/16 Ezetimibe [Zetia] 10 mg PO QHS 07/05/16 08/30/16 08/29/16 Furosemide [Lasix] 20 mg PO MOWEFR 07/05/16 08/30/16 08/29/16 Simvastatin [Zocor] 20 mg PO QHS 07/05/16 08/30/16 08/29/16 Amiodarone HCl [Pacerone] 200 mg PO BID 07/19/16 08/30/16 08/30/16 Apixaban [Eliquis] 5 mg PO BID 08/12/16 08/30/16 08/30/16 Aspirin [Aspir-Low] 81 mg PO DAILY 08/12/16 08/30/16 08/30/16 Carvedilol [Coreg] 3.125 mg PO BID 08/12/16 08/30/16 08/30/16 Omeprazole [Prilosec] 20 mg PO DAILY 08/30/16 08/30/16 08/30/16 Tramadol HCl [Ultram] 50 mg PO Q6H 08/30/16 08/30/16 08/30/16 Previous Rx's Medication Instructions Recorded Ipratropium/Albuterol [Duoneb] 3 ml IH Q4H #10 ampul.neb. 08/20/16 Albuterol Sulfate 0.083% [Neb] 2.5 mg INH RESP.Q2H PRN #240 08/21/16 nebulization solution Levofloxacin [Levaquin] 750 mg PO Q48H #5 tablet 08/21/16 Lisinopril [Zestril] 2.5 mg PO DAILY tablet 08/21/16 Allergies Allergy/AdvReac Type Severity Reaction Status Date / Time codeine Allergy PT UNSURE Verified 08/12/16 17:18 OF REACTION Penicillins Allergy PT UNSURE Verified 08/12/16 17:18 OF REACTION Travel Screening - Travel/Exposure Within Last 30 Days Have you traveled within the last 30 days?: No - Travel/Exposure Within Last Year Have you traveled outside the [place] in the last year?: No - Additonal Travel Details Have you been exposed to anyone with a communicable illness?: No - Travel Symptoms Symptom Screening: None Review of Systems Constitutional: Denies: Chills, Fever Eyes: Denies: Eye discharge ENT: Denies: Congestion Respiratory: Reports: Dyspnea. Denies: Cough Cardiovascular: Denies: Chest pain Endocrine: Reports: Fatigue Gastrointestinal: Reports: Nausea, Vomiting. Denies: Diarrhea Genitourinary: Denies: Dysuria Musculoskeletal: Denies: Back pain Skin: Denies: Bruising Past Medical History - SOCIAL HISTORY Smoking Status: Former smoker Alcohol Use: None Drug Use: None - RESPIRATORY Hx Respiratory Disorders: Yes Hx Asthma: No Hx Bronchitis: No Hx COPD: Yes Hx Dyspnea: No Hx Pneumonia: No Hx Pulmonary Embolism: No Hx Sleep Apnea: No Hx Tuberculosis: No Comment:: emphysema - CARDIOVASCULAR Hx Cardio Disorders: Yes Hx Abnormal EKG: Yes Hx Cardiac Cath: No Hx Chest Pain: No Hx CHF: Yes Hx Deep Vein Thrombosis: No Hx Edema: No Hx Heart Attack: Yes Hx Hypertension: Yes Hx Hypotension: No Hx Irregular Heartbeat: Yes Hx Palpitations: No Hx Pacemaker/Defib: No Hx Vascular Disease: No Comment:: High cholesterol, bilat. leg swelling, poss hx afib - NEURO Hx Neuro Disorders: No - GI Hx GI Disorders: Yes Hx Abdominal Pain: No Hx Celiac Disease: No Hx Crohn's Disease: No Hx Diverticulitis: No Hx GI Bleed: No Hx Reflux: Yes Hx Hepatitis/Jaundice: No Hx Hiatal Hernia: No Hx Irritable Bowel: No Hx Liver Disease: No Hx Nausea/Vomiting: Yes Hx Obstructive Bowel: No Hx Pancreatitis: No Hx Rectal Bleeding: No Hx Ulcer: No Hx Wt Loss/Wt Gain: No - Hx Genitourinary Disorders: No - ENDOCRINE Hx Endocrine Disorders: No - MUSCULOSKELETAL Hx Musculoskeletal Disorders: Yes Hx Arthritis: Yes Hx Back Injury: No Hx Fibromyalgia: No Hx Gout: No Hx Musculoskeletal Disease: No Hx Osteoporosis: No - PSYCH Hx Psych Problems: No - HEMATOLOGY/ONCOLOGY Hx Hematology/Oncology Disorders: Yes Hx Cancer: Yes (cervical) Family Medical History Any Significant Family History?: No Hx Heart Disease: Brother/Sister *Heart Comment: [place] Physical Exam - General General Appearance: Alert, Oriented x3, Cooperative, No acute distress, Other ( The patient's repeat RA biox was 92%.) - Head Head exam: Atraumatic, Normocephalic, Normal inspection - Eye Eye exam: Normal appearance, PERRL - ENT Throat exam: Normal inspection. negative: Tonsillar erythema, Tonsillar exudate - Neck Neck exam: Normal inspection, Full ROM. negative: Tenderness - Respiratory Respiratory exam: Normal lung sounds bilaterally. negative: Decreased breath sounds, Respiratory distress, Rhonchi, Stridor, Wheezes - Cardiovascular Cardiovascular Exam: Regular rate, Normal rhythm, Normal heart sounds - GI/Abdominal GI/Abdominal exam: Soft, Tenderness (There is mild diffuse tenderness in all 4 quads.). negative: Guarding, Rebound, Rigid - Extremities Extremities exam: Full ROM, Tenderness (The feet are tender bilaterally with decreased pulses. Both feet have normal sensation and are warm equally bilaterally.). negative: Normal inspection (There is very mild foot swelling but no leg swelling.), Calf tenderness, Normal capillary refill, Pedal edema - Neurological Neurological exam: Alert, Oriented X3. negative: Motor sensory deficit Course Vital Signs 08/30/16 14:28 Temperature 97.8 F Pulse Rate 80 Respiratory 18 Rate Blood Pressure 173/83 Pulse Ox 88 L - Reevaluation(s) Reevaluation #1: The patient is doing very well at this time. She is resting comfortably with no AP, nausea, SPRAGUE, CP or SOB. 08/30/16 15:19 Reevaluation #2: The patient is doing better at this time. She denies any CP or SOB and is resting comfortably on oxygen. She has urinated since receiving the Lasix. 08/30/16 17:36 Reevaluation #3: The patient is doing much better at this time. She has urinated twice since receiving the Lasix. Due to her JOSÉ ANTONIO, low biox and elevated BNP I do feel she will need overnight hospital admission. I did discuss this with the patient and she agrees. I then did talk with Gracia and she accepts the admission for Dr. Hawkins. 08/30/16 18:11 Reevaluation #4: The patient's Lower leg arterial studies were completed and do demonstrate a possible blockage on the L. The R does have fairly normal flow all the way down the leg. Due to the pain being chronic and present for months and years and the fact that the pain is in both legs equally, I do not feel the blockage is critical to the L leg. The patient does have normal sensation and motor function to the legs and feet, and does have warm legs and feet so I do not feel there is any limb threatening vascular issues at this time. I did discuss this with the patient and daughter and did recommend outpatient follow up with her vascular surgeon group when she is discharged from the hospital. 08/30/16 18:44 Medical Decision Making - Data Complexity MDM Data: Labs Ordered and/or Reviewed, X-Ray Ordered and/or Reviewed, EKG Ordered and/or Reviewed - Lab Data Result diagrams: 08/30/16 14:58 08/30/16 14:58 - EKG Data -: EKG Interpreted by Me EKG: No Acute Changes, Unchanged From Previous - Radiology Data Radiology results: Report reviewed (CXR: COPD with a possible small amount of atelectasis R base with trace pleural fluid.) Disposition Disposition: Admit Clinical Impression: CHF (congestive heart failure) Qualifiers: Congestive heart failure type: unspecified congestive heart failure type Congestive heart failure chronicity: chronic Qualified Code(s): I50.9 - Heart failure, unspecified Disposition: Still a Patient at [facility] Decision to Admit: Admit from ER Decision to Admit Date: 08/30/16 Decision to Admit Time: 18:13 Accepting Physician: Shruthi Time Discussed w/Accepting Physician: 18:13 Condition: (1) Good Forms: Patient Portal Access Time of Disposition: 18:13
[2016-08-30] MEDS ORDERED: ONDANSETRON HCL IV 4 MG/2 ML VIAL IVP ONE (14:44)
[2016-08-30 15:02] LABS: BASO % 0.2 % (0-6); EOS % 0.7 % (0-6); GRAN % 76.8 % (47-80); HEMATOCRIT 31.2 % (35.0-47.0); HEMOGLOBIN 10.2 gm/dl (11.6-16.0); LYMPH % 14.4 % (16-45); MEAN CELL VOLUME 94.3 fl (81-97); MEAN CORPUSCULAR HEMOGLOBIN 30.8 pg (27-33); MEAN CORPUSCULAR HGB CONC 32.7 g/dl (32-36); MEAN PLATELET VOLUME 8.8 fl (7.4-10.4); MONO % 7.9 % (0-9); PLATELET COUNT 335 K/uL (130-400); RED BLOOD COUNT 3.31 M/uL (3.80-5.40); RED CELL DISTRIBUTION WIDTH 15.1 % (11.5-14.5); WHITE BLOOD COUNT W/O DIFF 9.8 K/uL (4.2-12.2)
[2016-08-30 15:16] LABS: ANION GAP 9.6 (7-16); CARBON DIOXIDE 24.4 mmol/L (22-30); CREATININE 1.2 mg/dL (0.52-1.04)
[2016-08-30 15:17] LABS: INR 1.3; PARTIAL THROMBOPLASTIN TIME 39.9 SECONDS (24.5-39.1); PROTHROMBIN TIME (PATIENT) 14.7 SECONDS (9.5-12.1)
[2016-08-30 15:18] LABS: ALBUMIN 3.6 gm/dL (3.5-5.0); BILIRUBIN,TOTAL 0.78 mg/dL (0.2-1.3); TOTAL PROTEIN 6.7 gm/dL (6.3-8.2)
[2016-08-30 15:29] LABS: CKMB 1.3 ug/L (0-6); TROPONIN I 0.015 ng/mL (0.00-0.034)
[2016-08-30] MEDS ORDERED: FUROSEMIDE IV 20MG/2ML VIAL IVP ONE (15:31)
[2016-08-30] MEDS ORDERED: IPRATROPIUM/ALBUTEROL (0.5MG/3MG) NEB INH ONE (17:13)
[2016-08-30 17:38] LABS: URINE APPEARANCE CLEAR; URINE BILIRUBIN NEGATIVE (NEGATIVE); URINE BLOOD NEGATIVE (NEGATIVE); URINE COLOR YELLOW; URINE GLUCOSE (UA) NEGATIVE (NEGATIVE); URINE KETONE NEGATIVE (NEGATIVE); URINE LEUKOCYTE ESTERASE NEGATIVE (NEGATIVE); URINE NITRITE NEGATIVE (NEGATIVE); URINE PROTEIN NEGATIVE (NEGATIVE); URINE UROBILINOGEN 0.2 E.U./dL (0.20 - 1.00)
[2016-08-30] MEDS ORDERED: ALBUTEROL SULFATE (0.083%) 2.5 MG/3 ML NEB INH PRN (18:57)
[2016-08-30] MEDS ORDERED: ALBUTEROL HFA 8 GM INHALER INH PRN (18:57)
[2016-08-30] MEDS: IPRATROPIUM/ALBUTEROL (0.5MG/3MG) NEB INH SCH ×2 (19:33→22:38)
[2016-08-30] MEDS: AMIODARONE HCL 200 MG TABLET PO SCH (21:16)
[2016-08-30] MEDS: APIXABAN 5MG TABLET PO SCH (21:29)
[2016-08-30] MEDS: EZETIMIBE 10 MG TABLET PO SCH (21:32)
[2016-08-30] MEDS: CARVEDILOL 3.125 MG TABLET PO SCH (21:32)
[2016-08-30] MEDS: SIMVASTATIN 20 MG TABLET PO SCH (21:33)
[2016-08-30] MEDS: TRAMADOL HCL 50 MG TABLET PO SCH (21:39)
[2016-08-30 22:46] LABS: TROPONIN I 0.015 ng/mL (0.00-0.034)
[2016-08-31] MEDS: TRAMADOL HCL 50 MG TABLET PO SCH ×2 (01:06→06:12)
[2016-08-31] MEDS: IPRATROPIUM/ALBUTEROL (0.5MG/3MG) NEB INH SCH ×7 (02:38→22:54)
[2016-08-31 05:12] LABS: BASO % 0.3 % (0-6); EOS % 1.4 % (0-6); GRAN % 64.5 % (47-80); HEMATOCRIT 28.2 % (35.0-47.0); HEMOGLOBIN 9.1 gm/dl (11.6-16.0); LYMPH % 20.4 % (16-45); MEAN CELL VOLUME 94.9 fl (81-97); MEAN CORPUSCULAR HEMOGLOBIN 30.6 pg (27-33); MEAN CORPUSCULAR HGB CONC 32.3 g/dl (32-36); MEAN PLATELET VOLUME 8.7 fl (7.4-10.4); MONO % 13.4 % (0-9); PLATELET COUNT 329 K/uL (130-400); RED BLOOD COUNT 2.97 M/uL (3.80-5.40); RED CELL DISTRIBUTION WIDTH 15.1 % (11.5-14.5); WHITE BLOOD COUNT W/O DIFF 7.6 K/uL (4.2-12.2)
[2016-08-31 05:30] LABS: TROPONIN I 0.016 ng/mL (0.00-0.034)
[2016-08-31 05:44] LABS: ANION GAP 7.6 (7-16); CARBON DIOXIDE 25.4 mmol/L (22-30); CREATININE 1.2 mg/dL (0.52-1.04)
[2016-08-31] MEDS: PANTOPRAZOLE SODIUM 40 MG TABLET PO SCH (06:09)
--- NOTE | 2016-08-31 07:50 | RADIOLOGY REPORT ---
EXAM: CHEST, TWO VIEWS HISTORY: WEAKNESS. DIFFICULTY IN BREATHING. LOWER EXTREMITY SWELLING. TECHNIQUE: Semi-erect AP and lateral views of the chest were obtained. Comparison: Two view chest radiographic examination dated 08/17/16. FINDINGS: The heart projects mildly enlarged. No gross pulmonary venous hypertension is seen. Patchy air space opacities within the right lung base appear slightly more pronounced in the interval consistent with atelectasis or infiltrate, likely localizing to the posterior lower lobe. There is likely a small associated new right basilar pleural effusion. The lungs and pleural spaces are otherwise clear. The lungs are hyperinflated consistent with COPD. No destructive bone lesion is demonstrated. IMPRESSION: 1. HYPERINFLATION OF THE LUNGS CONSISTENT WITH COPD. 2. PATCHY AIR SPACE DISEASE WITHIN THE RIGHT LUNG BASE APPEARING SLIGHTLY MORE PRONOUNCED IN THE INTERVAL CONSISTENT WITH INFILTRATE OR ATELECTASIS. QUESTIONABLE NEW SMALL RIGHT BASILAR PLEURAL EFFUSION. 3. MILD CARDIOMEGALY WITHOUT GROSS PULMONARY VENOUS HYPERTENSION. 4. COPD. [facility]: [id number] [facility]
--- NOTE | 2016-08-31 08:02 | US ARTERIAL DOPPLER REPORT ---
EXAM: EMERGENCY BILATERAL ARTERIAL DOPPLER ULTRASOUND OF BOTH LOWER EXTREMITIES HISTORY: SWOLLEN FEET, FOOT PAIN, NAUSEA TODAY. TECHNIQUE: Sonographic evaluation of the arterial system of the bilateral lower extremities was performed with the addition of Doppler and spectral analysis. Images were obtained with the vascular probe oriented 60 degrees. Comparison: No prior arterial Doppler ultrasound of the lower extremities. FINDINGS: 3 Right Waveform Left Waveform Common Femoral Artery 64 cm/s Monophasic 123 cm/s Monophasic Profunda Femoral Artery 66 cm/s Monophasic 125 cm/s Monophasic Proximal Femoral Artery 58 cm/s Monophasic 33 cm/s Monophasic Mid Femoral Artery 63 cm/s Monophasic 40 cm/s Monophasic Distal Femoral Artery 52 cm/s Monophasic 29 cm/s Monophasic Popliteal Artery 27 cm/s Monophasic 32 cm/s Monophasic Posterior Tibial Artery 35 cm/s Monophasic 16 cm/s Monophasic Anterior Tibial Artery 23 cm/s Monophasic 21 cm/s Monophasic Peroneal Artery 28 cm/s Monophasic Not visualized Dorsalis Pedis Artery 15 cm/s Monophasic Not visualized The innersole fitter notes that plaque was visualized throughout the bilateral lower extremities although on the images themselves a prominent amount of plaque is not clearly seen on the right side. On the left there does appear to be a fairly prominent amount of plaque in the mid to distal aspect of the superficial femoral artery with reduced flow evident through this segment of the artery with color flow. IMPRESSION: 1. ON THE RIGHT SIDE, MONOPHASIC IMAGING IS SEEN THROUGHOUT, HOWEVER, FLOW IS VISUALIZED THROUGHOUT THE VESSELS OF THE RIGHT LOWER EXTREMITY INCLUDING THE TRIFURCATION RUN OFF ARTERIES THROUGHOUT THE CALF AND THE DORSALIS PEDIS. 2. ON THE LEFT, MONOPHASIC IMAGING IS SEEN THROUGHOUT THE VISUALIZED ARTERIES. THE PERONEAL ARTERY WAS NOT CLEARLY VISUALIZED WITHIN THE CALF. THE ANTERIOR AND POSTERIOR TIBIALS WERE SEEN. THE DORSALIS PEDIS WAS NOT CLEARLY SEEN WELL. CONSIDERABLE DROP IN FLOW VELOCITY BETWEEN THE COMMON FEMORAL AND THE SUPERFICIAL FEMORAL WITH DECREASED FLOW EVIDENT ON THE IMAGES IN MUCH OF THE SUPERFICIAL FEMORAL WELL, SUGGESTING SIGNIFICANT STENOSIS THROUGHOUT MUCH OF THE SUPERFICIAL FEMORAL ARTERY ON THE LEFT. [facility]: [id number] [facility]
--- NOTE | 2016-08-31 08:28 | History & Physical ---
Addendum entered and electronically signed by Gracia Schaeffer P.A. 16:17: Patient sitting up in chair following lunch. She began to feel dizzy. BP checked by nursing revealed systolic bp of 68, diastolic ~30. Patient placed on 20 mg of IV Lasix for CHF exacerbation by the ED physician. No IVF's were ordered. Nurse notified me of BP. Patient denies CP, SOB, upper extremity pain or jaw pain. Patient afebrile during this episode. Patient started on IV NS bolus. BP has now improved to 90/39. EKG demonstrate QTi of 502. Troponin negative. Patient's dizziness improved once BP improved. She's not lying comfortably in bed w/o concern. Original Note: History of Present Illness - Date of Service Date of Service for History & Physical: 08/31/16 - History of Present Illness Admitting Diagnosis: 1. Acute CHF with COPD History of Present Illness: 80yo female with CC of n/v and B/L LE swelling. She has history of COPD, CA, HTN, HD, afib, GERD, arthritis, and cervical cancer. patient's last stress test was in April 2016 was negative for ischemia. Patient's recent history from previous note on 08/20/16: Patient has been hospitalized or been to the ED 6 times since beginning of July. She was originally here at [facility] ED for suspected COPD exacerbation and was found to be in afib so was transferred to [facility], where she chemically cardioverted. She was started on antiarrhythmic medication and discharged home. She returned to [facility] ED several days later with acute onset of weakness. She was found to have UTI and questionable QT prolongation. She was treated with antibiotics and evaluated by Dr. Flores at that time who recommended no change in medications and to follow up with Dr. Pollard outpatient. Patient then returned to [facility] ED about 10 days later with acute onset shortness of breath. she was found to be in respiratory distress and required bipap and transfer to [facility] where she was diagnosed with new onset heart failure. She was started on diuretics and eventually discharged home. She was doing well up until 08/16/16 , when she returned to [facility] ED for shortness of breath and fatigue. Her CXR at that time showed RLL infiltrate, however, overall, CXR was vastly improved from previous visit. patient was sent home with supportive treatment but no abx. She returned 08/17/16 with continued SOB and fatigue. Patient admitted 08/17/16-02/26. Patient's daughter brought patient back to our ED 08/30/16 for N/V and B/L LE swelling. While in the ED, patient had another CXR demonstrating a right lower lobe infiltrate, hyperinflation suggesting COPD, and R basilar pleural effusion. No evidence of pulmonary HTN. EKG: no acute changes from previous. Borderline QT int: >485ms. Her oxygen saturation at rest was 88 per ED documentation. Her WBC count was WNL. Hgb 10.2, hct 31.2. Moderately decreased kidney function stable from previous visits. Troponin was trended and remained within cut-off guidelines (0.015/0.015/0.016). BNP 3680. Patient with chronic lower extremity pain. Lower ext arterial studies performed which demonstrate possible blockage on the left. The right does have fairly normal flow all the way down the leg. Patient was started on her home medications along with 20 mg of IV Lasix. Admitted for CHF exacerbation. 08/31/16- Patient states she is feeling a little better today. She denies SOB at rest, CP, LE swelling, nausea, fever, chills, diarrhea, hematemesis, hemoptysis , melena or hematochezia. She reports gas, generalized abdominal pain which she contributes to constipation. Her last stool was etiher Saturday or Saturday. She ambulated to the bathroom w/ assistance while off supplemental O2 and did drop oxygen saturation below 70 %. Supplemental O2 helps with VAZQUEZ. She says the nebulizer seems to work much better than her inhalers at home. She currently take 20 mg of PO Lasix at home , , and Saturday. Lower extremity leg pain is chronic and worse with ambulation. She has diminished pedal pulses B/L , denies numbness or tingling. normal ROM. She does not have a vascular surgeon. Patient had appt with [facility] (Dr. Cardoza) on 08/30/16, however this appt was cancelled as pt was experiencing N/V/ LE swelling. Patient was seen by her PCP on 08/28/16. Patient Levaquin was extended for 10 more days. Patient did not take her antibiotic on Saturday, however. Patient has home health assistance at home (PT/OT/nursing/home health aide). Lives at home with her daughter, Rachele. PCP: Demarcus Kwan D.O. Cardiology: Dr. Cardoza Travel Screening - Travel/Exposure Within Last 30 Days Have you traveled within the last 30 days?: No - Travel/Exposure Within Last Year Have you traveled outside the [place] in the last year?: No - Additonal Travel Details Have you been exposed to anyone with a communicable illness?: No - Travel Symptoms Symptom Screening: Joint & Muscle Aches, Vomiting Review of Systems Constitutional: Denies: Chills, Fever Eyes: Denies: Eye discharge ENT: Denies: Congestion Respiratory: Denies: Cough, Dyspnea Cardiovascular: Reports: Dyspnea on exertion. Denies: Chest pain, Edema, Palpitations Endocrine: Reports: Fatigue Gastrointestinal: Reports: Constipation, Nausea. Denies: Diarrhea, Vomiting Genitourinary: Denies: Dysuria Musculoskeletal: Denies: Back pain Skin: Denies: Bruising Neurological: Denies: Abnormal gait Hematological/Lymphatic: Reports: Anemia, Easy bruising Past Medical History - SOCIAL HISTORY Smoking Status: Former smoker Alcohol Use: None Drug Use: None - RESPIRATORY Hx Respiratory Disorders: Yes Hx COPD: Yes Hx Dyspnea: Yes Hx Pneumonia: Yes Comment:: emphysema - CARDIOVASCULAR Hx Cardio Disorders: Yes Hx Abnormal EKG: Yes Hx Chest Pain: Yes Hx CHF: Yes Hx Edema: Yes Hx Heart Attack: Yes Hx Hypertension: Yes Hx Irregular Heartbeat: Yes Hx Palpitations: Yes Hx Vascular Disease: Yes Comment:: High cholesterol, bilat. leg swelling, hx afib - NEURO Hx Neuro Disorders: Yes Hx Dizziness: Yes Hx Headaches: Yes Hx Neuropathy: Yes - GI Hx GI Disorders: Yes Hx Reflux: Yes Hx Nausea/Vomiting: Yes Hx Ulcer: Yes - Hx Genitourinary Disorders: Yes Hx Bladder Problem: Yes (bladder repair) - ENDOCRINE Hx Endocrine Disorders: No - MUSCULOSKELETAL Hx Musculoskeletal Disorders: Yes Hx Arthritis: Yes - PSYCH Hx Psych Problems: Yes Hx Anxiety: Yes Hx Depression: Yes Feelings of Hopelessness: Yes - HEMATOLOGY/ONCOLOGY Hx Hematology/Oncology Disorders: Yes Hx Cancer: Yes (uterine- partial hysterectomy) Family Medical History Any Significant Family History?: No Hx Heart Disease: Brother/Sister *Heart Comment: CA H&P Meds/Allergies - Allergies Allergies: Allergies Allergy/AdvReac Type Severity Reaction Status Date / Time codeine Allergy PT UNSURE Verified 08/12/16 17:18 OF REACTION Penicillins Allergy PT UNSURE Verified 08/12/16 17:18 OF REACTION - Home Medications Home Medications Medication Instructions Recorded Confirmed Last Taken Albuterol Sulfate [Ventolin Hfa] 1 - 2 puff IH .EVERY 4-6 HOURS PRN 07/05/1608/12/16 Ezetimibe [Zetia] 10 mg PO QHS 07/05/16 08/30/16 08/29/16 Furosemide [Lasix] 20 mg PO MOWEFR 07/05/16 08/30/16 08/29/16 Simvastatin [Zocor] 20 mg PO QHS 07/05/16 08/30/16 08/29/16 Amiodarone HCl [Pacerone] 200 mg PO DAILY 07/19/16 08/30/16 08/30/16 Apixaban [Eliquis] 5 mg PO BID 08/12/16 08/30/16 08/30/16 Aspirin [Aspir-Low] 81 mg PO DAILY 08/12/16 08/30/16 08/30/16 Carvedilol [Coreg] 3.125 mg PO BID 08/12/16 08/30/16 08/30/16 Levofloxacin [Levaquin Tab] 500 mg PO DAILY 08/30/16 08/30/16 Unknown Nitroglycerin [Nitroglycerin] 0.3 mg SL ASDIR PRN 08/30/16 08/30/16 Unknown Omeprazole [Prilosec] 40 mg PO DAILY 08/30/16 08/30/16 08/30/16 Tramadol HCl [Ultram] 50 mg PO Q6H 08/30/16 08/30/16 08/30/16 Budesonide [Pulmicort] 0.5 mg INH RESP.BID 08/31/16 08/31/16 08/30/16 07:00 Previous Rx's Medication Instructions Recorded Ipratropium/Albuterol [Duoneb] 3 ml IH Q4H #10 ampul.neb. 08/20/16 Albuterol Sulfate 0.083% [Neb] 2.5 mg INH RESP.Q2H PRN #240 08/21/16 nebulization solution Lisinopril [Zestril] 2.5 mg PO DAILY tablet 08/21/16 - Active Medications Active Medications: Current Medications Acetaminophen (Tylenol 500mg Tab) 500 mg PO Q6H PRN PRN Reason: PAIN/TEMP Albuterol Sulfate () 2.5 mg INH RESP.Q2H PRN PRN Reason: DIFFICULTY IN BREATHING Albuterol Sulfate (Ventolin Hfa) 1 - 2 puff INH .EVERY 4-6 HOURS PRN PRN Reason: DIFFICULTY IN BREATHING Albuterol/Ipratropium (Duoneb) 3 ml INH Q4H [facility] Last Admin: 08/31/16 06:13 Dose: 3 ml Amiodarone HCl (Pacerone) 200 mg PO BID [facility] Last Admin: 08/30/16 21:16 Dose: Not Given Apixaban (Eliquis) 5 mg PO BID [facility] Last Admin: 08/30/16 21:29 Dose: 5 mg Aspirin (Ecotrin (Ec)) 81 mg PO DAILY [facility] Budesonide (Pulmicort) 0.5 mg INH RESP.BID [facility] Carvedilol (Coreg) 3.125 mg PO BID [facility] Last Admin: 08/30/16 21:32 Dose: 3.125 mg Ezetimibe (Zetia) 10 mg PO QHS [facility] Last Admin: 08/30/16 21:32 Dose: 10 mg Furosemide (Lasix Iv) 20 mg IVP DAILY [facility] Lisinopril (Zestril) 2.5 mg PO DAILY [facility]oprazole [facility] (Pro[facility]ix) [facility] Last Admin: 08/31/16 06:09 Dose: 40 mg Simvastatin (Zocor) 20 mg PO QHS [facility] Last Admin: 08/30/16 21:33 Dose: 20 mg Temazepam (Restoril) 15 mg PO QHS PRN PRN Reason: INSOMNIA Tramadol HCl (Ultram) 50 mg PO Q6H [facility] Last Admin: 08/31/16 06:12 Dose: Not Given Physical Exam - Vital Signs Vital Signs: Vital Signs - Last 24 Hrs Temp Pulse Pulse Resp BP Pulse Ox 08/31/16 08:00 97.5 F L 74 14 117/57 97 08/31/16 06:37 84 16 08/31/16 06:36 80 20 97 08/31/16 04:00 97.9 F 72 12 107/54 98 08/31/16 02:46 86 16 08/31/16 02:44 80 16 98 08/31/16 00:57 98.5 F 67 14 110/47 100 08/30/16 22:41 76 16 96 08/30/16 22:30 84 16 08/30/16 20:57 97.3 F L 75 18 117/46 99 08/30/16 19:34 84 16 98 08/30/16 18:57 97.9 F 77 16 141/65 97 - General General Appearance: Alert, Oriented x3, Cooperative, No acute distress Limitations: No limitations - Head Head exam: Atraumatic, Normocephalic, Normal inspection - Eye Eye exam: Normal appearance, PERRL - ENT Throat exam: Normal inspection. negative: Tonsillar erythema, Tonsillar exudate - Neck Neck exam: Normal inspection, Full ROM. negative: Tenderness - Respiratory Respiratory exam: Normal lung sounds bilaterally, Rales (RLL). negative: Decreased breath sounds, Respiratory distress, Rhonchi, Stridor, Wheezes - Cardiovascular Cardiovascular Exam: Regular rate, Normal rhythm, Normal heart sounds - GI/Abdominal GI/Abdominal exam: Soft, Normal bowel sounds, Tenderness (There is mild diffuse tenderness in all 4 quads.). negative: Diminished bowel sounds, Guarding, Hyperactive bowel sounds, Hypoactive bowel sounds, Rebound, Rigid - Rectal Rectal exam: Deferred - exam: Deferred - Extremities Extremities exam: Full ROM, Tenderness (The feet are tender bilaterally with decreased pulses. Both feet have normal sensation and are warm equally bilaterally.). negative: Normal inspection, Calf tenderness, Normal capillary refill, Pedal edema - Neurological Neurological exam: Alert, Oriented X3. negative: Motor sensory deficit Results - Labs Result Diagrams: 08/31/16 05:00 08/31/16 05:00 Labs Last 24 Hours: Laboratory Results - last 24 hr 08/30/16 08/31/16 08/31/16 22:10 05:00 05:00 WBC 7.6 RBC 2.97 L Hgb 9.1 L Hct 28.2 L MCV 94.9 MCH 30.6 MCHC 32.3 RDW 15.1 H Plt Count 329 MPV 8.7 Gran % 64.5 Lymphocytes % 20.4 Monocytes % 13.4 H Eosinophils % 1.4 Basophils % 0.3 Sodium Potassium Chloride Carbon Dioxide Anion Gap BUN Creatinine Estimated GFR Random Glucose Calcium CK-MB (CK-2) 1.0 1.0 Troponin I 0.015 0.016 08/31/16 05:00 WBC RBC Hgb Hct MCV MCH MCHC RDW Plt Count MPV Gran % Lymphocytes % Monocytes % Eosinophils % Basophils % Sodium 132 L Potassium 4.4 Chloride 99 Carbon Dioxide 25.4 Anion Gap 7.6 BUN 15 Creatinine 1.2 H Estimated GFR 46 Random Glucose 73 Calcium 8.3 L CK-MB (CK-2) Troponin I VTE H&P Assessment - Risk for VTE Risk for VTE: Yes Risk Level: Low Risk Assessment Date: 08/31/16 Risk Assessment Time: 11:00 VTE Orders Placed or Will Be Placed: Yes Plan - Detailed Diagnosis and Plan (1) Anemia Current Visit: Yes Status: Acute Base Code: D64.9 - ANEMIA, UNSPECIFIED Comment: 08/31/16: unclear etiology. H/H decreased since previous admission. Denies any signs of GI bleeding. Will order anemia work up. (2) Right lower lobe pneumonia Current Visit: No Status: Acute Qualifiers: Pneumonia type: due to unspecified organism Qualified Code(s): J18.1 - Lobar pneumonia, unspecified organism Base Code: J18.1 - LOBAR PNEUMONIA, UNSPECIFIED ORGANISM Comment: 08/31/17- CXR 08/30/16- persistent RLL infiltrate. WBC WNL. remains afebrile. - continue PO levaquin 500 mg po qd. Levaquin dose extended by PCP as outpatient. Patient missed Saturday dose. May need to adjust dosing noting renal function and pneumonia in COPD patient - continue home COPD medication - supplemental O2. (3) CHF (congestive heart failure) Current Visit: Yes Status: Chronic Qualifiers: Congestive heart failure type: unspecified congestive heart failure type Congestive heart failure chronicity: chronic Qualified Code(s): I50.9 - Heart failure, unspecified Base Code: I50.9 - HEART FAILURE, UNSPECIFIED Comment: 08/31/16- CXR: COPD, small R basilar pleural effusion. Mild CMG. BNP: 3680. no evidence of fluid overload on exam. - Continue 20 mg of IV Lasix - Supplemental O2 as needed (4) COPD (chronic obstructive pulmonary disease) Current Visit: No Status: Acute Qualifiers: COPD type: unspecified COPD Qualified Code(s): J44.9 - Chronic obstructive pulmonary disease, unspecified Base Code: J44.9 - CHRONIC OBSTRUCTIVE PULMONARY DISEASE, UNSPECIFIED Comment: 08/31/16: Continue home medication. Duo neb treatment Q4H's while awake. Supplemental O2 as needed. (5) QT prolongation Current Visit: No Status: Acute Base Code: R94.31 - ABNORMAL ELECTROCARDIOGRAM [ECG] [EKG] Comment: 08/31/16- Patient evaluated by Dr. Flores during her previous admission. He recommended resuming her amiodorone 200mg PO BID as prescribed by Dr. Pollard. - paitent on Telemetry and in NSR. She denies SOB at rest, CP, dizziness. - patient had f/up visit with Dr. Pollard on 08/30/16, however she was not able to make appt noting ED visit. -continue amiodorone 200mg po bid - F/up with Dr. Pollard on 09/13/16 (6) Full code status Current Visit: No Status: Acute Base Code: Z78.9 - OTHER SPECIFIED HEALTH STATUS Comment: 08/31/16- patient is full code (7) DVT prophylaxis Current Visit: No Status: Acute Base Code: [id number] - Comment: 08/31/16-Patient is low risk for DVT while on long term care administrator anticoagulation started by cardiology -will continue eliquis 5mg po bid -will continue aspirin 81mg po daily
[2016-08-31] MEDS: ONDANSETRON 4 MG ODT TABLET SL PRN (09:23)
[2016-08-31] MEDS: CARVEDILOL 3.125 MG TABLET PO SCH ×2 (09:24→22:00)
[2016-08-31] MEDS: ASPIRIN 81 MG TABEC PO SCH (09:24)
[2016-08-31] MEDS: APIXABAN 5MG TABLET PO SCH ×2 (09:24→22:01)
[2016-08-31] MEDS: AMIODARONE HCL 200 MG TABLET PO SCH ×2 (09:24→22:02)
[2016-08-31] MEDS: LISINOPRIL 5 MG TABLET PO SCH (09:25)
[2016-08-31] MEDS ORDERED: TRAMADOL HCL 50 MG TABLET PO PRN (09:59)
[2016-08-31] MEDS ORDERED: FUROSEMIDE IV 20MG/2ML VIAL IVP SCH (10:00)
[2016-08-31] MEDS ORDERED: BISACODYL 5 MG TABLET PO ONE (10:27)
[2016-08-31] MEDS: BUDESONIDE 0.5 MG/2 ML INH SCH ×2 (10:52→19:42)
[2016-08-31] MEDS ORDERED: 0.9 % SODIUM CHLORIDE 1000ML 1,000 ML IV PRN ×2 (12:30→16:44)
[2016-08-31 14:10] LABS: CKMB 0.8 ug/L (0-6)
[2016-08-31 14:13] LABS: TROPONIN I < 0.012 ng/mL (0.00-0.034)
[2016-08-31] MEDS ORDERED: 0.9 % SODIUM CHLORIDE 1,000 ML BAG IV ONE (14:14)
[2016-08-31] MEDS: CEFEPIME HCL 2 GM in 0.9 % SODIUM CHLORIDE 100ML 100 ML IVPB SCH (16:48)
[2016-08-31] MEDS: EZETIMIBE 10 MG TABLET PO SCH (22:02)
[2016-08-31] MEDS: SIMVASTATIN 20 MG TABLET PO SCH (22:03)
[2016-09-01] MEDS: IPRATROPIUM/ALBUTEROL (0.5MG/3MG) NEB INH SCH ×5 (06:21→22:05)
[2016-09-01] MEDS: BUDESONIDE 0.5 MG/2 ML INH SCH ×2 (06:22→19:35)
[2016-09-01] MEDS: PANTOPRAZOLE SODIUM 40 MG TABLET PO SCH (06:57)
[2016-09-01] MEDS ORDERED: TRAMADOL HCL 50 MG TABLET PO PRN (10:09)
[2016-09-01 10:36] LABS: ANION GAP 3.7 (7-16); CARBON DIOXIDE 28.3 mmol/L (22-30); CREATININE 1.3 mg/dL (0.52-1.04)
[2016-09-01 10:51] LABS: BASO % 0.1 % (0-6); EOS % 1.4 % (0-6); GRAN % 75.3 % (47-80); HEMATOCRIT 30.1 % (35.0-47.0); HEMOGLOBIN 9.3 gm/dl (11.6-16.0); LYMPH % 13.1 % (16-45); MEAN CELL VOLUME 98.4 fl (81-97); MEAN CORPUSCULAR HGB CONC 30.9 g/dl (32-36); MEAN PLATELET VOLUME 9.1 fl (7.4-10.4); MONO % 10.1 % (0-9); PLATELET COUNT 331 K/uL (130-400); RED BLOOD COUNT 3.06 M/uL (3.80-5.40); RED CELL DISTRIBUTION WIDTH 15.6 % (11.5-14.5); WHITE BLOOD COUNT W/O DIFF 7.8 K/uL (4.2-12.2)
[2016-09-01 10:52] LABS: MEAN CORPUSCULAR HEMOGLOBIN 30.3 pg (27-33)
[2016-09-01] MEDS: CARVEDILOL 3.125 MG TABLET PO SCH ×2 (10:57→21:36)
[2016-09-01] MEDS: APIXABAN 5MG TABLET PO SCH ×2 (10:57→21:36)
[2016-09-01] MEDS: ASPIRIN 81 MG TABEC PO SCH (10:57)
[2016-09-01] MEDS: AMIODARONE HCL 200 MG TABLET PO SCH ×2 (10:59→21:36)
[2016-09-01] MEDS: LISINOPRIL 5 MG TABLET PO SCH (10:59)
[2016-09-01] MEDS: FUROSEMIDE 20 MG TABLET PO SCH (11:09)
[2016-09-01] MEDS ORDERED: MAGNESIUM HYDROXIDE 30 ML UDC PO PRN ×2 (13:04→15:27)
[2016-09-01] MEDS: CEFEPIME HCL 2 GM in 0.9 % SODIUM CHLORIDE 100ML 100 ML IVPB SCH (15:46)
--- NOTE | 2016-09-01 17:15 | Physician Progress Note ---
Subjective - Date Date of Physician Progress Note: 09/01/16 - Subjective Subjective Comment: feeling better and more energetic this am tolerating meals large stool pulse Ox dropped to 80% on RA no cp, heart palpitations, pain, fever, or chills. Objective - General General Appearance: Alert, Oriented x3, Cooperative, No acute distress Limitations: No limitations - Head Head exam: Atraumatic, Normocephalic, Normal inspection - Eye Eye exam: Normal appearance, PERRL - ENT Throat exam: Normal inspection. negative: Tonsillar erythema, Tonsillar exudate - Neck Neck exam: Normal inspection, Full ROM. negative: Tenderness - Respiratory Respiratory exam: Normal lung sounds bilaterally, Rales (RLL). negative: Decreased breath sounds, Respiratory distress, Rhonchi, Stridor, Wheezes - Cardiovascular Cardiovascular Exam: Regular rate, Normal rhythm, Normal heart sounds - GI/Abdominal GI/Abdominal exam: Soft, Normal bowel sounds. negative: Diminished bowel sounds , Guarding, Hyperactive bowel sounds, Hypoactive bowel sounds, Rebound, Rigid, Tenderness - Rectal Rectal exam: Deferred - exam: Deferred - Extremities Extremities exam: Full ROM, Tenderness (The feet are tender bilaterally with decreased pulses. Both feet have normal sensation and are warm equally bilaterally.). negative: Normal inspection, Calf tenderness, Normal capillary refill, Pedal edema - Neurological Neurological exam: Alert, Oriented X3. negative: Motor sensory deficit Assessment and Plan - Assessment and Plan (1) Right lower lobe pneumonia Current Visit: No Status: Acute Qualifiers: Pneumonia type: due to unspecified organism Qualified Code(s): J18.1 - Lobar pneumonia, unspecified organism Base Code: J18.1 - LOBAR PNEUMONIA, UNSPECIFIED ORGANISM Comment: 09/01/17- CXR 08/30/16- persistent RLL infiltrate. WBC WNL. remains afebrile. - IV Cefepime - continue home COPD medication - supplemental O2. (2) Anemia Current Visit: Yes Status: Acute Base Code: D64.9 - ANEMIA, UNSPECIFIED Comment: 09/01/16: improved. no signs of GI bleeding. (3) CHF (congestive heart failure) Current Visit: Yes Status: Chronic Qualifiers: Congestive heart failure type: unspecified congestive heart failure type Congestive heart failure chronicity: chronic Qualified Code(s): I50.9 - Heart failure, unspecified Base Code: I50.9 - HEART FAILURE, UNSPECIFIED Comment: 09/01/16- CXR: COPD, small R basilar pleural effusion. Mild CMG. BNP: 3680 on admission. - Continue 10 mg of PO Lasix daily - hold IVFs - Supplemental O2 as needed - monitor for fluid overload (4) COPD (chronic obstructive pulmonary disease) Current Visit: No Status: Acute Qualifiers: COPD type: unspecified COPD Qualified Code(s): J44.9 - Chronic obstructive pulmonary disease, unspecified Base Code: J44.9 - CHRONIC OBSTRUCTIVE PULMONARY DISEASE, UNSPECIFIED Comment: 09/01/16: - Continue home medication. - Duo neb treatment Q4H's while awake. - Supplemental O2 as needed. - home O2 qualification prior to D/C. (5) QT prolongation Current Visit: No Status: Acute Base Code: R94.31 - ABNORMAL ELECTROCARDIOGRAM [ECG] [EKG] Comment: 09/01/16 - continue to avoid QT prolonging agents - Discontinued Levquin and initiate IV cefepime - continue amiodorone 200mg po bid - continue to monitor VS's closely and tele - F/up with Dr. Pollard on 09/13/16 (6) Full code status Current Visit: No Status: Acute Base Code: Z78.9 - OTHER SPECIFIED HEALTH STATUS Comment: 09/01/16- patient is full code (7) DVT prophylaxis Current Visit: No Status: Acute Base Code: [id number] - Comment: 09/01/16-Patient is low risk for DVT while on usp anticoagulation started by cardiology -will continue eliquis 5mg po bid -will continue aspirin 81mg po daily Results - Labs Result Diagrams: 09/01/16 08:30 09/01/16 08:30 DVT/PE Assessment - Risk for VTE Risk for VTE: No Risk Level: Low Risk Assessment Date: 08/31/16 Risk Assessment Time: 11:00 VTE Orders Placed or Will Be Placed: Yes - Active Medicaitons Current Medications: Current Medications Acetaminophen (Tylenol 500mg Tab) 500 mg PO Q6H PRN PRN Reason: PAIN/TEMP Albuterol Sulfate () 2.5 mg INH RESP.Q2H PRN PRN Reason: DIFFICULTY IN BREATHING Albuterol/Ipratropium (Duoneb) 3 ml INH RESP.Q4H[facility] Last Admin: 04/22/17 15:15 Dose: 3 ml Amiodarone HCl (Pacerone) 200 mg PO BID [facility] Last Admin: 09/01/16 10:59 Dose: 200 mg Apixaban (Eliquis) 5 mg PO BID [facility] Last Admin: 09/01/16 10:57 Dose: 5 mg Aspirin (Ecotrin (Ec)) 81 mg PO DAILY [facility] Last Admin: 09/01/16 10:57 Dose: 81 mg Budesonide (Pulmicort) 0.5 mg INH RESP.BID [facility] Last Admin: 09/01/16 06:22 Dose: 0.5 mg Carvedilol (Coreg) 3.125 mg PO BID [facility] Last Admin: 09/01/16 10:57 Dose: 3.125 mg Ezetimibe (Zetia) 10 mg PO QHS [facility] Last Admin: 08/31/16 22:02 Dose: 10 mg Furosemide (Lasix) 10 mg PO DAILY [facility] Last Admin: 09/01/16 11:09 Dose: 10 mg CEFEPIME HCL 2 gm/ Sodium (Chloride) 100 mls @ 200 mls/hr IVPB Q24H [facility] Last Admin: 09/01/16 15:46 Dose: 200 mls/hr Sodium Chloride () 1,000 mls @ 25 mls/hr IV .Q24H PRN PRN Reason: LARGE VOLUME IV Last Admin: 08/31/16 16:46 Dose: 25 mls/hr Lisinopril (Zestril) 2.5 mg PO DAILY [facility] Last Admin: 09/01/16 10:59 Dose: 2.5 mg Magnesium Hydroxide (Milk Of Magnesium) 30 ml PO DAILY PRN PRN Reason: INDIGESTION Ondansetron HCl (Zofran Odt) 4 mg SL Q6H PRN PRN Reason: NAUSEA/VOMITING Last Admin: 08/31/16 09:23 Dose: 4 mg [facility]oprazole [facility] ([facility]) [facility] Admin: 09/01/16 06:57 Dose: 40 mg Simvastatin (Zocor) 20 mg PO QHS [facility] Last Admin: 08/31/16 22:03 Dose: 20 mg Temazepam (Restoril) 15 mg PO QHS PRN PRN Reason: INSOMNIA Tramadol HCl (Ultram) 50 mg PO Q6H PRN PRN Reason: Pain - General AMI Plan - Labs Result Diagrams: 09/01/16 08:30 09/01/16 08:30
[2016-09-01] MEDS: SIMVASTATIN 20 MG TABLET PO SCH (21:37)
[2016-09-01] MEDS: EZETIMIBE 10 MG TABLET PO SCH (21:37)
[2016-09-02] MEDS: TEMAZEPAM 15 MG CAPSULE PO PRN (02:14)
[2016-09-02] MEDS: PANTOPRAZOLE SODIUM 40 MG TABLET PO SCH (06:25)
[2016-09-02 06:31] LABS: BASO % 0.4 % (0-6); EOS % 1.9 % (0-6); HEMATOCRIT 27.5 % (35.0-47.0); HEMOGLOBIN 8.7 gm/dl (11.6-16.0); LYMPH % 23.3 % (16-45); MEAN CELL VOLUME 97.2 fl (81-97); MEAN CORPUSCULAR HEMOGLOBIN 30.7 pg (27-33); MEAN CORPUSCULAR HGB CONC 31.6 g/dl (32-36); MONO % 12.4 % (0-9); PLATELET COUNT 297 K/uL (130-400); RED BLOOD COUNT 2.83 M/uL (3.80-5.40); RED CELL DISTRIBUTION WIDTH 15.5 % (11.5-14.5); WHITE BLOOD COUNT W/O DIFF 6.8 K/uL (4.2-12.2)
[2016-09-02 06:41] LABS: ANION GAP 3.1 (7-16); CARBON DIOXIDE 29.9 mmol/L (22-30); CREATININE 1.1 mg/dL (0.52-1.04)
[2016-09-02] MEDS: IPRATROPIUM/ALBUTEROL (0.5MG/3MG) NEB INH SCH ×5 (09:31→22:55)
[2016-09-02] MEDS: BUDESONIDE 0.5 MG/2 ML INH SCH ×2 (09:31→19:13)
[2016-09-02] MEDS: ASPIRIN 81 MG TABEC PO SCH (10:58)
[2016-09-02] MEDS: APIXABAN 5MG TABLET PO SCH ×2 (10:58→21:39)
[2016-09-02] MEDS: FUROSEMIDE 20 MG TABLET PO SCH (10:59)
--- NOTE | 2016-09-02 10:59 | Physician Progress Note ---
Subjective - Date Date of Physician Progress Note: 09/02/16 - Subjective Subjective Comment: sitting up in bed w/ family at bedside appears to have even more energy today 2 moderate sized stools yesterday normal function denies fever, chills, n/v, abd pain, worsening cough patient interested in rehab facility following d/c. Objective - Vital Signs Vital Signs: Vital Signs - Last 24 Hrs Temp Pulse Resp BP Pulse Ox 09/02/16 08:17 97.6 F 89 16 139/57 95 09/02/16 05:00 97.9 F 77 18 121/47 95 09/01/16 23:20 97.7 F 71 20 125/54 98 09/01/16 20:00 97.4 F L 71 18 131/61 98 09/01/16 17:27 98.1 F 77 18 138/86 100 - General General Appearance: Alert, Oriented x3, Cooperative, No acute distress Limitations: No limitations - Head Head exam: Atraumatic, Normocephalic, Normal inspection - Eye Eye exam: Normal appearance, PERRL - ENT Throat exam: Normal inspection. negative: Tonsillar erythema, Tonsillar exudate - Neck Neck exam: Normal inspection, Full ROM. negative: Tenderness - Respiratory Respiratory exam: Normal lung sounds bilaterally, Rales (RLL). negative: Decreased breath sounds, Respiratory distress, Rhonchi, Stridor, Wheezes - Cardiovascular Cardiovascular Exam: Regular rate, Normal rhythm, Normal heart sounds - GI/Abdominal GI/Abdominal exam: Soft, Normal bowel sounds. negative: Diminished bowel sounds , Guarding, Hyperactive bowel sounds, Hypoactive bowel sounds, Rebound, Rigid, Tenderness - Rectal Rectal exam: Deferred - exam: Deferred - Extremities Extremities exam: Full ROM, Tenderness (The feet are tender bilaterally with decreased pulses. Both feet have normal sensation and are warm equally bilaterally.). negative: Normal inspection, Calf tenderness, Normal capillary refill, Pedal edema - Neurological Neurological exam: Alert, Oriented X3. negative: Motor sensory deficit Assessment and Plan - Assessment and Plan (1) Right lower lobe pneumonia Current Visit: No Status: Acute Qualifiers: Pneumonia type: due to unspecified organism Qualified Code(s): J18.1 - Lobar pneumonia, unspecified organism Base Code: J18.1 - LOBAR PNEUMONIA, UNSPECIFIED ORGANISM Comment: 09/01/17- CXR 08/30/16- persistent RLL infiltrate. WBC WNL. remains afebrile. - IV Cefepime - continue home COPD medication - supplemental O2. (2) Anemia Current Visit: Yes Status: Acute Base Code: D64.9 - ANEMIA, UNSPECIFIED Comment: 09/01/16: improved. no signs of GI bleeding. (3) CHF (congestive heart failure) Current Visit: Yes Status: Chronic Qualifiers: Congestive heart failure type: unspecified congestive heart failure type Congestive heart failure chronicity: chronic Qualified Code(s): I50.9 - Heart failure, unspecified Base Code: I50.9 - HEART FAILURE, UNSPECIFIED Comment: 09/02/16- Repeat CXR: COPD, R basilar pleural effusion. Mild CMG. RLL infiltrate. BNP: 3680 on admission. - Continue 10 mg of PO Lasix daily - hold IVFs - Supplemental O2 as needed - monitor for fluid overload - PNA treatment w/ IV Cefepime (4) COPD (chronic obstructive pulmonary disease) Current Visit: No Status: Acute Qualifiers: COPD type: unspecified COPD Qualified Code(s): J44.9 - Chronic obstructive pulmonary disease, unspecified Base Code: J44.9 - CHRONIC OBSTRUCTIVE PULMONARY DISEASE, UNSPECIFIED Comment: 09/02/16: - Continue home medication. - Duo neb treatment Q4H's while awake. - Supplemental O2 as needed. - home O2 qualification prior to D/C. (5) QT prolongation Current Visit: No Status: Acute Base Code: R94.31 - ABNORMAL ELECTROCARDIOGRAM [ECG] [EKG] Comment: 09/02/16 - continue to avoid QT prolonging agents - continue IV cefepime - continue amiodorone 200mg po bid - continue to monitor VS's closely and tele - F/up with Dr. Pollard on 09/13/16 (6) Full code status Current Visit: No Status: Acute Base Code: Z78.9 - OTHER SPECIFIED HEALTH STATUS Comment: 09/02/16- patient is full code (7) DVT prophylaxis Current Visit: No Status: Acute Base Code: [id number] - Comment: 09/02/16-Patient is low risk for DVT while on nursing home anticoagulation started by cardiology -will continue eliquis 5mg po bid -will continue aspirin 81mg po daily Results - Labs Result Diagrams: 09/02/16 05:30 09/02/16 05:30 Labs Last 24 Hours: Laboratory Results - last 24 hr 09/02/16 09/02/16 05:30 05:30 WBC 6.8 RBC 2.83 L Hgb 8.7 L Hct 27.5 L MCV 97.2 H MCH 30.7 MCHC 31.6 L RDW 15.5 H Plt Count 297 MPV 9.0 Gran % 62.0 Lymphocytes % 23.3 Monocytes % 12.4 H Eosinophils % 1.9 Basophils % 0.4 Sodium 137 Potassium 4.1 Chloride 104 Carbon Dioxide 29.9 Anion Gap 3.1 L BUN 14 Creatinine 1.1 H Estimated GFR 51 Random Glucose 86 Calcium 8.5 DVT/PE Assessment - Risk for VTE Risk for VTE: No Risk Level: Low Risk Assessment Date: 08/31/16 Risk Assessment Time: 11:00 VTE Orders Placed or Will Be Placed: Yes - Active Medicaitons Current Medications: Current Medications Acetaminophen (Tylenol 500mg Tab) 500 mg PO Q6H PRN PRN Reason: PAIN/TEMP Albuterol Sulfate () 2.5 mg INH RESP.Q2H PRN PRN Reason: DIFFICULTY IN BREATHING Albuterol/Ipratropium (Duoneb) 3 ml INH RESP.Q4H.WA [facility] Last Admin: 09/02/16 10:19 Dose: Not Given Amiodarone HCl (Pacerone) 200 mg PO BID [facility] Last Admin: 09/01/16 21:36 Dose: 200 mg Apixaban (Eliquis) 5 mg PO BID [facility] Last Admin: 09/01/16 21:36 Dose: 5 mg Aspirin (Ecotrin (Ec)) 81 mg PO DAILY [facility] Last Admin: 09/01/16 10:57 Dose: 81 mg Budesonide (Pulmicort) 0.5 mg INH RESP.BID [facility] Last Admin: 09/02/16 09:31 Dose: 0.5 mg Carvedilol (Coreg) 3.125 mg PO BID [facility] Last Admin: 09/01/16 21:36 Dose: 3.125 mg Ezetimibe (Zetia) 10 mg PO QHS [facility] Last Admin: 09/01/16 21:37 Dose: 10 mg Furosemide (Lasix) 10 mg PO DAILY [facility] Last Admin: 09/01/16 11:09 Dose: 10 mg CEFEPIME HCL 2 gm/ Sodium (Chloride) 100 mls @ 200 mls/hr IVPB Q24H [facility] Last Admin: 09/01/16 15:46 Dose: 200 mls/hr Lisinopril (Zestril) 2.5 mg PO DAILY [facility] Last Admin: 09/01/16 10:59 Dose: 2.5 mg Magnesium Hydroxide (Milk Of Magnesium) 30 ml PO DAILY PRN PRN Reason: INDIGESTION Ondansetron HCl (Zofran Odt) 4 mg SL Q6H PRN PRN Reason: NAUSEA/VOMITING Last Admin: 08/31/16 09:23 Dose: 4 mg [facility]op[facility] Admin: 09/02/16 06:25 Dose: 40 mg Simvastatin (Zocor) 20 mg PO QHS [facility] Last Admin: 09/01/16 21:37 Dose: 20 mg Temazepam (Restoril) 15 mg PO QHS PRN PRN Reason: INSOMNIA Last Admin: 09/02/16 02:14 Dose: 15 mg Tramadol HCl (Ultram) 50 mg PO Q6H PRN PRN Reason: Pain - General AMI Plan - Labs Result Diagrams: 09/02/16 05:30 09/02/16 05:30
[2016-09-02] MEDS: LISINOPRIL 5 MG TABLET PO SCH (11:01)
[2016-09-02] MEDS: CARVEDILOL 3.125 MG TABLET PO SCH ×2 (11:03→21:39)
[2016-09-02] MEDS: AMIODARONE HCL 200 MG TABLET PO SCH ×2 (11:03→21:39)
[2016-09-02] MEDS: CEFEPIME HCL 2 GM in 0.9 % SODIUM CHLORIDE 100ML 100 ML IVPB SCH (16:55)
[2016-09-02] MEDS: SIMVASTATIN 20 MG TABLET PO SCH (21:39)
[2016-09-02] MEDS: EZETIMIBE 10 MG TABLET PO SCH (21:39)
[2016-09-03] MEDS: TEMAZEPAM 15 MG CAPSULE PO PRN ×2 (01:40→21:17)
[2016-09-03] MEDS: IPRATROPIUM/ALBUTEROL (0.5MG/3MG) NEB INH SCH ×4 (06:21→18:31)
[2016-09-03] MEDS: BUDESONIDE 0.5 MG/2 ML INH SCH ×2 (06:21→18:31)
[2016-09-03] MEDS: PANTOPRAZOLE SODIUM 40 MG TABLET PO SCH (06:37)
[2016-09-03 06:46] LABS: HEMATOCRIT 29.5 % (35.0-47.0); HEMOGLOBIN 9.4 gm/dl (11.6-16.0); MEAN CORPUSCULAR HEMOGLOBIN 31.2 pg (27-33); MEAN CORPUSCULAR HGB CONC 31.9 g/dl (32-36); MEAN PLATELET VOLUME 8.8 fl (7.4-10.4); PLATELET COUNT 293 K/uL (130-400); RED BLOOD COUNT 3.01 M/uL (3.80-5.40); RED CELL DISTRIBUTION WIDTH 15.8 % (11.5-14.5); WHITE BLOOD COUNT W/O DIFF 6.9 K/uL (4.2-12.2)
[2016-09-03 07:08] LABS: ANION GAP 4.6 (7-16); CARBON DIOXIDE 31.4 mmol/L (22-30); CREATININE 1.1 mg/dL (0.52-1.04)
[2016-09-03 07:30] LABS: PLATELET ESTIMATE NORMAL (NORMAL)
--- NOTE | 2016-09-03 08:03 | Discharge Summary ---
Providers Discharge Summary Date: 09/03/16 Date of admission: 09/01/16 11:10 Expected Date of Discharge: 09/04/16 Attending physician: LUCHO NI Primary care physician: DEMARCUS BOB D.O. Physical Exam - Vital Signs Vital Signs: Vital Signs - Last 24 Hrs Temp Pulse Pulse Resp BP Pulse Ox 09/03/16 06:22 76 18 96 09/03/16 04:55 97.9 F 75 18 130/54 96 09/03/16 01:40 97.8 F 72 18 138/51 96 09/02/16 20:00 97.5 F L 74 18 135/49 97 09/02/16 17:00 98.6 F 66 18 108/73 99 09/02/16 13:00 97.6 F 72 18 133/57 99 09/02/16 09:00 68 18 09/02/16 08:17 97.6 F 89 16 139/57 95 - General General Appearance: Alert, Oriented x3, Cooperative, No acute distress Limitations: No limitations - Head Head exam: Atraumatic, Normocephalic, Normal inspection - Eye Eye exam: Normal appearance, PERRL - ENT Throat exam: Normal inspection. negative: Tonsillar erythema, Tonsillar exudate - Neck Neck exam: Normal inspection, Full ROM. negative: Tenderness - Respiratory Respiratory exam: Normal lung sounds bilaterally, Rales (RLL, improving). negative: Decreased breath sounds, Respiratory distress, Rhonchi, Stridor, Wheezes - Cardiovascular Cardiovascular Exam: Regular rate, Normal rhythm, Normal heart sounds - GI/Abdominal GI/Abdominal exam: Soft, Normal bowel sounds. negative: Diminished bowel sounds , Guarding, Hyperactive bowel sounds, Hypoactive bowel sounds, Rebound, Rigid, Tenderness - Rectal Rectal exam: Deferred - exam: Deferred - Extremities Extremities exam: Full ROM, Tenderness (The feet are tender bilaterally with decreased pulses. Both feet have normal sensation and are warm equally bilaterally.). negative: Normal inspection, Calf tenderness, Normal capillary refill, Pedal edema - Neurological Neurological exam: Alert, Oriented X3. negative: Motor sensory deficit Hospitalization - Hospitalization Admission Diagnosis: 1. Acute CHF with COPD - Problem List/Discharge Diagnosis (1) Right lower lobe pneumonia Current Visit: No Status: Acute Discharge Diagnosis: Pneumonia type: due to unspecified organism Qualified Code(s): J18.1 - Lobar pneumonia, unspecified organism Base Code: J18.1 - LOBAR PNEUMONIA, UNSPECIFIED ORGANISM Comment: 09/05/16 - afebrile, normal WBC. - She will complete IV Cefepime today - continue home COPD medications - supplemental O2 (2L's) w/ ambulation and at night. (2) Anemia Current Visit: Yes Status: Acute Base Code: D64.9 - ANEMIA, UNSPECIFIED Comment: 09/05/16: stable. no signs of GI bleeding. (3) CHF (congestive heart failure) Current Visit: Yes Status: Chronic Discharge Diagnosis: Congestive heart failure type: unspecified congestive heart failure type Congestive heart failure chronicity: chronic Qualified Code(s): I50.9 - Heart failure, unspecified Base Code: I50.9 - HEART FAILURE, UNSPECIFIED Comment: 09/05/16- Repeat CXR: COPD, R basilar pleural effusion. Mild CMG. RLL infiltrate. BNP: 3680 on admission. - Continue 10 mg of PO Lasix daily as outpatient. - outpatient cardiology visit as scheduled (09/13/16 & 10/26/16) - re lower ext pain, patient will need outpatient vascular referral (4) COPD (chronic obstructive pulmonary disease) Current Visit: No Status: Acute Discharge Diagnosis: COPD type: unspecified COPD Qualified Code(s): J44.9 - Chronic obstructive pulmonary disease, unspecified Base Code: J44.9 - CHRONIC OBSTRUCTIVE PULMONARY DISEASE, UNSPECIFIED Comment: 09/05/16: - Continue home medications - Duo neb treatment Q4H's while awake. - home O2 qualification: 2 L's of supplemental O2 w/ ambulationg and at night (5) QT prolongation Current Visit: No Status: Acute Base Code: R94.31 - ABNORMAL ELECTROCARDIOGRAM [ECG] [EKG] Comment: 09/05/16 - continue to avoid QT prolonging agents - amiodorone 200mg po bid - F/up with cardiology on 09/13/16 & 10/26/16 (6) Full code status Current Visit: No Status: Acute Base Code: Z78.9 - OTHER SPECIFIED HEALTH STATUS Comment: 09/05/16- patient remained full code - Hospitalization Course Disposition: Home Health Service Hospital Course: 80yo female with CC of n/v and B/L LE swelling. She has history of COPD, CA, HTN, HD, afib, GERD, arthritis, and cervical cancer. patient's last stress test was in April 2016 was negative for ischemia. Patient's recent history from previous note on 08/20/16: Patient has been hospitalized or been to the ED 6 times since beginning of July. She was originally here at [facility] ED for suspected COPD exacerbation and was found to be in afib so was transferred to [facility], where she chemically cardioverted. She was started on antiarrhythmic medication and discharged home. She returned to [facility] ED several days later with acute onset of weakness. She was found to have UTI and questionable QT prolongation. She was treated with antibiotics and evaluated by Dr. Flores at that time who recommended no change in medications and to follow up with Dr. Pollard outpatient. Patient then returned to [facility] ED about 10 days later with acute onset shortness of breath. she was found to be in respiratory distress and required bipap and transfer to [facility] where she was diagnosed with new onset heart failure. She was started on diuretics and eventually discharged home. She was doing well up until 08/16/16 , when she returned to [facility] ED for shortness of breath and fatigue. Her CXR at that time showed RLL infiltrate, however, overall, CXR was vastly improved from previous visit. patient was sent home with supportive treatment but no abx. She returned 08/17/16 with continued SOB and fatigue. Patient admitted 08/17/16-02/26. Patient's daughter brought patient back to our ED 08/30/16 for N/V and B/L LE swelling. While in the ED, patient had another CXR demonstrating a right lower lobe infiltrate, hyperinflation suggesting COPD, and R basilar pleural effusion. No evidence of pulmonary HTN. EKG: no acute changes from previous. Borderline QT int: >485ms. Her oxygen saturation at rest was 88 per ED documentation. Her WBC count was WNL. Hgb 10.2, hct 31.2. Moderately decreased kidney function stable from previous visits. Troponin was trended and remained within cut-off guidelines (0.015/0.015/0.016). BNP 3680. Patient with chronic lower extremity pain. Lower ext arterial studies performed which demonstrate possible blockage on the left. The right does have fairly normal flow all the way down the leg. Patient was started on her home medications along with 20 mg of IV Lasix. Admitted for CHF exacerbation. 08/31/16- Patient states she is feeling a little better today. She denies SOB at rest, CP, LE swelling, nausea, fever, chills, diarrhea, hematemesis, hemoptysis , melena or hematochezia. She reports gas, generalized abdominal pain which she contributes to constipation. Her last stool was etiher Saturday or Saturday. She ambulated to the bathroom w/ assistance while off supplemental O2 and did drop oxygen saturation below 70 %. Supplemental O2 helps with VAZQUEZ. She says the nebulizer seems to work much better than her inhalers at home. She currently take 20 mg of PO Lasix at home , , and Saturday. Lower extremity leg pain is chronic and worse with ambulation. She has diminished pedal pulses B/L , denies numbness or tingling. normal ROM. She does not have a vascular surgeon. Patient had appt with [facility] [employer] [facility] (Dr. Cardoza) on 08/30/16, however this appt was cancelled as pt was experiencing N/V/ LE swelling. Patient was seen by her PCP on 08/28/16. Patient Levaquin was extended for 10 more days. Patient did not take her antibiotic on Saturday, however. Patient has home health assistance at home (PT/OT/nursing/home health aide). Lives at home with her daughter, Rachele. PCP: Demarcus Bob D.O. Cardiology: Dr. Cardoza 09/03/16: patient sitting up in bed with family at bedside. States she didn't sleep great last night. No stool this morning. tolerated breakfast. no new concerns this am. denies cp, fever, chills, n/v, diarrhea, abdominal pain. 09/05/16: patient sitting up in bed eating lunch. she appears more energetic this afternoon. she's eating lunch. stool yesterday. no dizziness, n/v, fever , chills, abdominal pain, or cough. Procedures: Imaging and X-Rays 09/01/16 17:11 CHEST 2 VIEWS [RAD] Stat Abnormal Labs: Abnormal Lab Results 09/02/16 09/02/16 09/03/16 Range/Units 05:30 05:30 06:05 RBC 2.83 L 3.01 L (3.80-5.40) M/uL Hgb 8.7 L 9.4 L (11.6-16.0) gm/dl Hct 27.5 L 29.5 L (35.0-47.0) % MCV 97.2 H 98.0 H (81-97) fl MCHC 31.6 L 31.9 L (32-36) g/dl RDW 15.5 H 15.8 H (11.5-14.5) % Monocytes % 12.4 H (0-9) % Carbon Dioxide (22-30) mmol/L Anion Gap 3.1 L (7-16) Creatinine 1.1 H (0.52-1.04) mg/dL 09/03/16 Range/Units 06:05 RBC (3.80-5.40) M/uL Hgb (11.6-16.0) gm/dl Hct (35.0-47.0) % MCV (81-97) fl MCHC (32-36) g/dl RDW (11.5-14.5) % Monocytes % (0-9) % Carbon Dioxide 31.4 H (22-30) mmol/L Anion Gap 4.6 L (7-16) Creatinine 1.1 H (0.52-1.04) mg/dL Condition at Discharge: (2) Stable Discharge Medications - Discharge Medications Home Medications: Ambulatory Orders Albuterol Sulfate [Ventolin Hfa] 1 - 2 puff IH .EVERY 4-6 HOURS PRN 07/05/16 [ Last Taken 08/12/16] Ezetimibe [Zetia] 10 mg PO QHS 07/05/16 [Last Taken 08/29/16] Simvastatin [Zocor] 20 mg PO QHS 07/05/16 [Last Taken 08/29/16] Amiodarone HCl [Pacerone] 200 mg PO DAILY 07/19/16 [Last Taken 08/30/16] Apixaban [Eliquis] 5 mg PO BID 08/12/16 [Last Taken 08/30/16] Aspirin [Aspir-Low] 81 mg PO DAILY 08/12/16 [Last Taken 08/30/16] Carvedilol [Coreg] 3.125 mg PO BID 08/12/16 [Last Taken 08/30/16] Ipratropium/Albuterol [Duoneb] 3 ml IH Q4H #10 ampul.neb. 08/20/16 [Last Taken 08/30/16] Albuterol Sulfate 0.083% [Neb] 2.5 mg INH RESP.Q2H PRN #240 nebulization solution 08/21/16 [Last Taken Unknown] Lisinopril [Zestril] 2.5 mg PO DAILY tablet 08/21/16 [Last Taken 08/30/16] Nitroglycerin 0.3 mg SL ASDIR PRN 08/30/16 [Last Taken Unknown] Omeprazole [Prilosec] 40 mg PO DAILY 08/30/16 [Last Taken 08/30/16] Tramadol HCl [Ultram] 50 mg PO Q6H 08/30/16 [Last Taken 08/30/16] Budesonide [Pulmicort] 0.5 mg INH RESP.BID 08/31/16 [Last Taken 08/30/16 07:00] Furosemide [Lasix] 10 mg PO DAILY #30 09/05/16 [Last Taken 08/29/16] Discharge Plan - Discharge Instructions Activity at Discharge: As Per Physical Therapy, Wear Oxygen At Night (and with movement) Diet at Discharge: Other (cardiac diet) Instructions: Heart Failure (DC), Abdominal Aortic Aneurysm (DC) Additional Instructions: Continue medications as medication list states Wear supplemental oxygen with activity and at night. Follow up visit with your [facility] [employer] [facility] 09/13/16 & 10/26/16 @ 3:45pm. Home health services have been set up by our manager case management. We were unable to get ahold of Dr. Bob's office. Please contact his office and schedule a visit within 3-4 days of discharge. During your visit w/ Dr. Bob, please discuss lower extremity pain and possible vascular surgery referral to further evaluate leg vessels. return to the ER in the meantime regarding any new or worsening symptoms. Diet as tolerated Activity as tolerated
--- NOTE | 2016-09-03 08:57 | RADIOLOGY REPORT ---
EXAM: CHEST, TWO VIEWS HISTORY: PNEUMONIA. TECHNIQUE: Upright PA and lateral views of the chest were obtained. Comparison: Two view chest radiographic examination dated 08/30/16. FINDINGS: The heart remains normal in size and the pulmonary vasculature is nondilated. The thoracic aorta is tortuous and atherosclerotic. Alveolar opacities in the posterior aspect of the right lower lobe are redemonstrated appearing slightly more confluent in the interval consistent with pneumonia. There is an associated small right basilar pleural effusion. The lungs and pleural spaces are otherwise clear. The lungs are hyperinflated consistent with COPD. IMPRESSION: 1. ALVEOLAR OPACITIES IN THE POSTERIOR RIGHT LOWER LOBE APPEAR SLIGHTLY MORE CONFLUENT CONSISTENT WITH PNEUMONIA. SMALL RIGHT BASILAR PLEURAL EFFUSION. 2. COPD. JOB NUMBER: [id number] MTDD
[2016-09-03] MEDS: ONDANSETRON 4 MG ODT TABLET SL PRN ×2 (12:41→21:55)
[2016-09-03] MEDS: KETOROLAC 30 MG/ML VIAL IVP ONE ×2 (12:50→16:55)
--- NOTE | 2016-09-03 13:53 | Rehab Evaluation ---
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 bladder repair 1965 uterine cancer- partial hysterectomy Hernia repair PMH - Respiratory Hx Respiratory Disorders Yes Hx Asthma No Hx Bronchitis No Hx Chronic Obstructive Yes Pulmonary Disease (COPD) Hx Dyspnea Yes Hx Pneumonia Yes Hx Pulmonary Embolism No Hx Sleep Apnea No Hx Tuberculosis No Hx of URI Yes Comment: emphysema PMH - Cardiovascular Hx Cardiovascular Disorders Yes Hx Abnormal EKG Yes Hx Cardiac Catheterization No Hx Chest Pain Yes Hx Congestive Heart Failure Yes Hx Deep Vein Thrombosis No Hx Edema Yes Hx Heart Attack Yes Hx Hypertension Yes Hx Hypotension No Hx Irregular Heartbeat Yes Hx Palpitations Yes Hx Pacemaker/Defibrillator No Hx Vascular Disease Yes Comment: High cholesterol, bilat. leg swelling, hx afib PMH - Neuro Hx Neurological Disorders Yes Hx Dizziness Yes Hx Headaches Yes Hx Neuropathy Yes Hx Syncope Yes PMH - GI Hx Gastrointestinal Disorders Yes Hx Abdominal Pain No Hx Celiac Disease No Hx Crohn's Disease No Hx Diverticulitis No Hx Gastrointestinal Bleed No Hx Gastroesophageal Reflux Yes Hx Hepatitis/Jaundice No Hx Hiatal Hernia No Hx Irritable Bowel No Hx Liver Disease No Hx Nausea/Vomiting Yes Hx Obstructive Bowel No Hx Pancreatitis No Hx Rectal Bleeding No Hx Ulcer Yes Hx Weight Loss/Weight Gain No PMH - Hx Genitourinary Disorders Yes Patient No Hx Bladder Problem Yes: bladder repair PMH - Endocrine Hx Endocrine Disorders No PMH - Musculoskeletal Hx Musculoskeletal Disorders Yes Hx Arthritis Yes Hx Back Injury No Hx Fibromyalgia No Hx Gout No Hx Musculoskeletal Disease No Hx Osteoporosis No PMH - Psych Hx Psychiatric Problems Yes Hx Anxiety Yes Hx Depression Yes Feelings of Hopelessness Yes PMH - Hematology/Oncology Hx Hematology/Oncology Yes Disorders Hx Cancer Yes: uterine- partial hysterectomy Premorbid Status: Detail (Pt lives with daughter in a 1 story house with 2 steps and no handrailing at the entrance. She has a tub/shower combination and a tub bench as well as a standard height toilet. She does not have grab bars by the toilet or in the bathtub. She has a nurse 2 x weekly to assist with showering, she is Ind with dressing and toileting. Her daughter completes all home mgmt, meal prep and laundry tasks. She ambulates with a 4 wheeled walker. She feels she has been going downhill since her surgery in May.) Social History: Detail (Pt has a supportive family.) Precautions: [place], Fall - Time With Patient Total Time Spent With Patient (Min): 40 Treatment Procedures: Detail (OT eval moderate complexity) Subjective Information - Subjective Information Per Patient Objective Data - Pain Pain Present: Yes (Pt reports having a headache.) - Mental Status Patient Orientation: Oriented x3 - Visual Perception Appears within normal limits for therapeutic activities (Pt wears glasses) - ROM Within normal limits (Rahat UE AROM WNL) - Strength/Tone Within normal limits (Rahat UE MMT 4/5 throughout) - Coordination Appears within normal limits for therapeutic activities - Transfers Needs Assist (SBA for sit to stand from chair.) - Balance Balance Sitting: Good Balance Standing: Fair - Sensation Intact - Gait Detail (Pt ambulated in hallway with 4 wheeled walker on 2 liters of oxygen and SBA.) - ADL's/IADL's Detail (Pt reports she is toileting with nursing providing supervision.) Therapy Assessment - Therapy Assessment Detail (Pt fatigued with evaluation and ambulation in hallway. Self cares activities were not formally assessed as pt was awaiting ultrasound exam.) Problem List - Problem List Occupational Therapy Problem List: Detail (1. Decreased Ind with self care activities 2. Decreased endurance needed for safe and Ind ADLs 3. Decreased functional mobility needed for safe and Ind ADLs.) Goals - Goals Occupational Therapy Goals: 1. Pt will be Ind with total body dressing. 2. Pt will complete showering with supervision 3. Pt will be safe and Ind with functional mobility needed for ADLs. Prognosis - Prognosis Good Plan - Plan Occupational Therapy Plan: OT 1-3 times weekly to address self cares, functional mobility, endurance needed for safe and Ind return home with daughter.
--- NOTE | 2016-09-03 14:00 | Rehab Evaluation ---
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 bladder repair 1965 uterine cancer- partial hysterectomy Hernia repair PMH - Respiratory Hx Respiratory Disorders Yes Hx Asthma No Hx Bronchitis No Hx Chronic Obstructive Yes Pulmonary Disease (COPD) Hx Dyspnea Yes Hx Pneumonia Yes Hx Pulmonary Embolism No Hx Sleep Apnea No Hx Tuberculosis No Hx of URI Yes Comment: emphysema PMH - Cardiovascular Hx Cardiovascular Disorders Yes Hx Abnormal EKG Yes Hx Cardiac Catheterization No Hx Chest Pain Yes Hx Congestive Heart Failure Yes Hx Deep Vein Thrombosis No Hx Edema Yes Hx Heart Attack Yes Hx Hypertension Yes Hx Hypotension No Hx Irregular Heartbeat Yes Hx Palpitations Yes Hx Pacemaker/Defibrillator No Hx Vascular Disease Yes Comment: High cholesterol, bilat. leg swelling, hx afib PMH - Neuro Hx Neurological Disorders Yes Hx Dizziness Yes Hx Headaches Yes Hx Neuropathy Yes Hx Syncope Yes PMH - GI Hx Gastrointestinal Disorders Yes Hx Abdominal Pain No Hx Celiac Disease No Hx Crohn's Disease No Hx Diverticulitis No Hx Gastrointestinal Bleed No Hx Gastroesophageal Reflux Yes Hx Hepatitis/Jaundice No Hx Hiatal Hernia No Hx Irritable Bowel No Hx Liver Disease No Hx Nausea/Vomiting Yes Hx Obstructive Bowel No Hx Pancreatitis No Hx Rectal Bleeding No Hx Ulcer Yes Hx Weight Loss/Weight Gain No PMH - Hx Genitourinary Disorders Yes Patient No Hx Bladder Problem Yes: bladder repair PMH - Endocrine Hx Endocrine Disorders No PMH - Musculoskeletal Hx Musculoskeletal Disorders Yes Hx Arthritis Yes Hx Back Injury No Hx Fibromyalgia No Hx Gout No Hx Musculoskeletal Disease No Hx Osteoporosis No PMH - Psych Hx Psychiatric Problems Yes Hx Anxiety Yes Hx Depression Yes Feelings of Hopelessness Yes PMH - Hematology/Oncology Hx Hematology/Oncology Yes Disorders Hx Cancer Yes: uterine- partial hysterectomy Premorbid Status: Detail (Pt lives with daughter in a 1 story house with 2 steps and no handrailing at the entrance. She has a tub/shower combination and a tub bench as well as a standard height toilet. She does not have grab bars by the toilet or in the bathtub. She has a nurse 2 x weekly to assist with showering, she is Ind with dressing and toileting. Her daughter completes all home mgmt, meal prep and laundry tasks. She ambulates with a 4 wheeled walker. She feels she has been going downhill since her surgery in May.) Social History: Detail (Pt has a supportive family.) Precautions: [place], [place] - Time With Patient Total Time Spent With Patient (Min): 30 Treatment Procedures: Detail (PT initial evaluation.) Subjective Information - Subjective Information Per Patient (The patient had complaints of LE "achiness" which is due to " poor circulation".) Objective Data - Mental Status Patient Orientation: Oriented x3 - ROM Within normal limits (The patient 's LE AROM is WNL. Refer to OT report for UE ROM.) - Strength/Tone Not within normal limits (LE strength: L hip flexors 4-/5, R 4/5, hip extensors NT,B hip abductors 4/5, hip adductors L 4-/5, R 4/5, Quadriceps L 4-/5, R 4/5, hamstrings L4-/5, R 4/5, ankle musculature 4+/5.) - Bed Mobility Needs Assist (Not evaluated since the patient was up in a chair.) - Transfers Independent (The patient was independent with sit to and from stand transfer.) - Balance Balance Sitting: Good Balance Standing: Fair (The patient required walker for support. The patient's balance was not formally assessed using standardized balance test.) - Gait Detail (The patient ambulated with 4 wheeled walker with supervision of 1 with 2 L of O2 a distance of 60 feet x 1. no shortness of breath was noted.) Therapy Assessment - Therapy Assessment Detail (The patient exhibits LE weakness L LE greater then R , decreased balance in standing and decreased ability to complete sustained physical activity. Feel the patient would benefit from short term subacute rehabilitation to return to previous functional level.) Problem List - Problem List Physical Therapy Problem List: Detail (1) Decreased LE strength 2) Decreased stand balance 3) Decreased ability to complete sustained physical activity) Goals - Goals Physical Therapy Goals: 1)Evaluate the patient's balance using standardized Balance scale. 2) Increase LE strength 1/3 muscle grade. 3) The patient will be able to complete 30 minutes of physical activity with one rest period. Prognosis - Prognosis Moderate Plan - Plan Physical Therapy Plan: PT one time a week M-F for balance , LE strengthening exercises, gait and transfer training.
--- NOTE | 2016-09-03 14:28 | Physician Progress Note ---
Subjective - Date Date of Physician Progress Note: 09/03/16 - Subjective Subjective Comment: pt sitting up in bed comfortably family at bedside understands she will benefit from I/P rehab +headache no stool yet today tolerated breakfast denies fever, chills, n/v, abd pain, diarrhea, cp, sob. Objective - Vital Signs Vital Signs: Vital Signs - Last 24 Hrs Temp Pulse Pulse Resp BP Pulse Ox 09/03/16 09:00 98.1 F 86 16 151/75 94 L 09/03/16 06:22 76 18 96 09/03/16 04:55 97.9 F 75 18 130/54 96 09/03/16 01:40 97.8 F 72 18 138/51 96 09/02/16 20:00 97.5 F L 74 18 135/49 97 09/02/16 17:00 98.6 F 66 18 108/73 99 - General General Appearance: Alert, Oriented x3, Cooperative, No acute distress Limitations: No limitations - Head Head exam: Atraumatic, Normocephalic, Normal inspection - Eye Eye exam: Normal appearance, PERRL - ENT Throat exam: Normal inspection. negative: Tonsillar erythema, Tonsillar exudate - Neck Neck exam: Normal inspection, Full ROM. negative: Tenderness - Respiratory Respiratory exam: Normal lung sounds bilaterally, Rales (RLL). negative: Decreased breath sounds, Respiratory distress, Rhonchi, Stridor, Wheezes - Cardiovascular Cardiovascular Exam: Regular rate, Normal rhythm, Normal heart sounds - GI/Abdominal GI/Abdominal exam: Soft, Normal bowel sounds, Bruit (fernando umbilical). negative : Diminished bowel sounds, Guarding, Hyperactive bowel sounds, Hypoactive bowel sounds, Rebound, Rigid, Tenderness - Rectal Rectal exam: Deferred - exam: Deferred - Extremities Extremities exam: Full ROM, Tenderness (The feet are tender bilaterally with decreased pulses. Both feet have normal sensation and are warm equally bilaterally.). negative: Normal inspection, Calf tenderness, Normal capillary refill, Pedal edema - Neurological Neurological exam: Alert, Oriented X3. negative: Motor sensory deficit Assessment and Plan - Assessment and Plan (1) Right lower lobe pneumonia Current Visit: No Status: Acute Qualifiers: Pneumonia type: due to unspecified organism Qualified Code(s): J18.1 - Lobar pneumonia, unspecified organism Base Code: J18.1 - LOBAR PNEUMONIA, UNSPECIFIED ORGANISM Comment: 09/03/16- CXR 08/30/16- persistent RLL infiltrate. WBC WNL. remains afebrile. - IV Cefepime until 09/06/16 - continue home COPD medications - supplemental O2 (2L's) w/ ambulation and with rest. (2) Anemia Current Visit: Yes Status: Acute Base Code: D64.9 - ANEMIA, UNSPECIFIED Comment: 09/03/16: improving. no signs of GI bleeding. (3) CHF (congestive heart failure) Current Visit: Yes Status: Chronic Qualifiers: Congestive heart failure type: unspecified congestive heart failure type Congestive heart failure chronicity: chronic Qualified Code(s): I50.9 - Heart failure, unspecified Base Code: I50.9 - HEART FAILURE, UNSPECIFIED Comment: 09/03/16- Repeat CXR: COPD, R basilar pleural effusion. Mild CMG. RLL infiltrate. BNP: 3680 on admission. - Continue 10 mg of PO Lasix daily as outpatient. - outpatient cardiology visit as scheduled. - continue telemetry - bruit noted on abd exam- aorta U/S ordered to further evaluate - re lower ext pain, O/P vascular visit recommended. (4) COPD (chronic obstructive pulmonary disease) Current Visit: No Status: Acute Qualifiers: COPD type: unspecified COPD Qualified Code(s): J44.9 - Chronic obstructive pulmonary disease, unspecified Base Code: J44.9 - CHRONIC OBSTRUCTIVE PULMONARY DISEASE, UNSPECIFIED Comment: 09/03/16: - Continue home medications - Duo neb treatment Q4H's while awake. - home O2 qualification: 2 L's of supplemental O2 w/ ambulationg and at night - continue supp O2 (5) QT prolongation Current Visit: No Status: Acute Base Code: R94.31 - ABNORMAL ELECTROCARDIOGRAM [ECG] [EKG] Comment: 09/03/16 - continue to avoid QT prolonging agents - continue IV cefepime- complete on 09/06/16 - amiodorone 200mg po bid - F/up with Dr. Pollard on 09/13/16 (6) Full code status Current Visit: No Status: Acute Base Code: Z78.9 - OTHER SPECIFIED HEALTH STATUS Comment: 09/03/16- patient remained full code Results - Labs Result Diagrams: 09/03/16 06:05 09/03/16 06:05 Labs Last 24 Hours: Laboratory Results - last 24 hr 09/03/16 09/03/16 06:05 06:05 WBC 6.9 RBC 3.01 L Hgb 9.4 L Hct 29.5 L MCV 98.0 H MCH 31.2 MCHC 31.9 L RDW 15.8 H Plt Count 293 MPV 8.8 Neutrophils % 68.0 Lymphocytes % 27.0 Monocytes % 5.0 Eosinophils % Not Reportable Basophils % Not Reportable Platelet Estimate Normal RBC Morphology Normal Sodium 138 Potassium 4.1 Chloride 102 Carbon Dioxide 31.4 H Anion Gap 4.6 L BUN 16 Creatinine 1.1 H Estimated GFR 51 Random Glucose 88 Calcium 8.6 DVT/PE Assessment - Risk for VTE Risk for VTE: No Risk Level: Low Risk Assessment Date: 08/31/16 Risk Assessment Time: 11:00 VTE Orders Placed or Will Be Placed: Yes - Active Medicaitons Current Medications: Current Medications Acetaminophen (Tylenol 500mg Tab) 500 mg PO Q6H PRN PRN Reason: PAIN/TEMP Albuterol Sulfate () 2.5 mg INH RESP.Q2H PRN PRN Reason: DIFFICULTY IN BREATHING Albuterol/Ipratropium (Duoneb) 3 ml INH RESP.Q4H.[place] [facility] Last Admin: 09/03/16 10:18 Dose: 3 ml Amiodarone HCl (Pacerone) 200 mg PO BID [facility] Last Admin: 09/02/16 21:39 Dose: 200 mg Apixaban (Eliquis) 5 mg PO BID [facility] Last Admin: 09/02/16 21:39 Dose: 5 mg Aspirin (Ecotrin (Ec)) 81 mg PO DAILY [facility] Last Admin: 09/02/16 10:58 Dose: 81 mg Budesonide (Pulmicort) 0.5 mg INH RESP.BID [facility] Last Admin: 09/03/16 06:21 Dose: 0.5 mg Carvedilol (Coreg) 3.125 mg PO BID [facility] Last Admin: 09/02/16 21:39 Dose: 3.125 mg Ezetimibe (Zetia) 10 mg PO QHS [facility] Last Admin: 09/02/16 21:39 Dose: 10 mg Furosemide (Lasix) 10 mg PO DAILY [facility] Last Admin: 09/02/16 10:59 Dose: 10 mg CEFEPIME HCL 2 gm/ Sodium (Chloride) 100 mls @ 200 mls/hr IVPB Q24H [facility] Last Admin: 09/02/16 16:55 Dose: 200 mls/hr Lisinopril (Zestril) 2.5 mg PO DAILY [facility] Last Admin: 09/02/16 11:01 Dose: 2.5 mg Magnesium Hydroxide (Milk Of Magnesium) 30 ml PO DAILY PRN PRN Reason: INDIGESTION Ondansetron HCl (Zofran Odt) 4 mg SL Q6H PRN PRN Reason: NAUSEA/VOMITING Last Admin: 09/03/16 12:41 Dose: 4 mg [facility]oprazole [facility]) [facility] Last Admin: 09/03/16 06:37 Dose: 40 mg Simvastatin (Zocor) 20 mg PO QHS [facility] Last Admin: 09/02/16 21:39 Dose: 20 mg Temazepam (Restoril) 15 mg PO QHS PRN PRN Reason: INSOMNIA Last Admin: 09/03/16 01:40 Dose: 15 mg Tramadol HCl (Ultram) 50 mg PO Q6H PRN PRN Reason: Pain - General AMI Plan - Labs Result Diagrams: 09/03/16 06:05 09/03/16 06:05
[2016-09-03] MEDS: CEFEPIME HCL 2 GM in 0.9 % SODIUM CHLORIDE 100ML 100 ML IVPB SCH (14:47)
[2016-09-03] MEDS: AMIODARONE HCL 200 MG TABLET PO SCH (14:51)
[2016-09-03] MEDS: ACETAMINOPHEN 500 MG TABLET PO PRN (14:56)
[2016-09-03] MEDS ORDERED: 0.9 % SODIUM CHLORIDE 1000ML 1,000 ML IV PRN (15:53)
[2016-09-03] MEDS: APIXABAN 5MG TABLET PO SCH (16:54)
[2016-09-03] MEDS: CARVEDILOL 3.125 MG TABLET PO SCH (16:55)
[2016-09-03] MEDS: LISINOPRIL 5 MG TABLET PO SCH (16:55)
[2016-09-03] MEDS: FUROSEMIDE 20 MG TABLET PO SCH (16:55)
[2016-09-03] MEDS: ASPIRIN 81 MG TABEC PO SCH (16:55)
[2016-09-03] MEDS: EZETIMIBE 10 MG TABLET PO SCH (21:17)
[2016-09-03] MEDS: SIMVASTATIN 20 MG TABLET PO SCH (21:17)
[2016-09-04] MEDS: IPRATROPIUM/ALBUTEROL (0.5MG/3MG) NEB INH SCH ×6 (00:06→23:01)
[2016-09-04] MEDS: CARVEDILOL 3.125 MG TABLET PO SCH ×3 (00:06→22:57)
[2016-09-04] MEDS: AMIODARONE HCL 200 MG TABLET PO SCH ×3 (00:07→22:57)
[2016-09-04] MEDS: APIXABAN 5MG TABLET PO SCH ×3 (00:07→22:57)
[2016-09-04] MEDS: ONDANSETRON 4 MG ODT TABLET SL PRN ×2 (03:34→12:46)
[2016-09-04] MEDS: PANTOPRAZOLE SODIUM 40 MG TABLET PO SCH (06:39)
[2016-09-04] MEDS: BUDESONIDE 0.5 MG/2 ML INH SCH ×2 (06:44→19:26)
[2016-09-04 06:45] LABS: BASO % 0.6 % (0-6); EOS % 2.1 % (0-6); GRAN % 66.1 % (47-80); HEMATOCRIT 29.2 % (35.0-47.0); HEMOGLOBIN 9.1 gm/dl (11.6-16.0); LYMPH % 21.3 % (16-45); MEAN CELL VOLUME 98.6 fl (81-97); MEAN CORPUSCULAR HEMOGLOBIN 30.7 pg (27-33); MEAN CORPUSCULAR HGB CONC 31.2 g/dl (32-36); MEAN PLATELET VOLUME 8.9 fl (7.4-10.4); MONO % 9.9 % (0-9); PLATELET COUNT 260 K/uL (130-400); RED BLOOD COUNT 2.96 M/uL (3.80-5.40); WHITE BLOOD COUNT W/O DIFF 8.1 K/uL (4.2-12.2)
[2016-09-04 07:03] LABS: ANION GAP 5.5 (7-16); CARBON DIOXIDE 30.5 mmol/L (22-30)
--- NOTE | 2016-09-04 07:32 | ULTRASOUND REPORT ---
EXAM: ULTRASOUND OF THE ABDOMINAL AORTA HISTORY: ABDOMINAL PULSATIONS. TECHNIQUE: Transabdominal ultrasound examination of the abdominal aorta was performed as well as color Doppler imaging. Comparison: None. FINDINGS: There is diffuse atherosclerosis. The proximal abdominal aorta measures 2.1 cm in diameter while the mid portion measures 1.7 cm. There is fusiform dilatation of the distal 3.5 cm of the abdominal aorta to the level of the bifurcation. This measures 3 cm AP x 3.4 cm transverse. There is evidence of mural thrombus posteriorly. The common iliac arteries appear normal in caliber. No periaortic mass or fluid collection is seen. IMPRESSION: 1. ANEURYSMAL DILATATION OF THE DISTAL 3.5 CM OF THE ABDOMINAL AORTA TO THE LEVEL OF THE BIFURCATION MEASURING 3.4 CM IN MAXIMUM DIAMETER. THERE IS MODERATE MURAL THROMBUS POSTERIORLY. 2. DIFFUSE ATHEROSCLEROSIS. JOB NUMBER: [id number] [facility]
[2016-09-04] MEDS: ASPIRIN 81 MG TABEC PO SCH (09:29)
[2016-09-04] MEDS: FUROSEMIDE 20 MG TABLET PO SCH (09:30)
[2016-09-04] MEDS: LISINOPRIL 5 MG TABLET PO SCH (09:31)
--- NOTE | 2016-09-04 10:23 | Physical Therapy Tx Note ---
Physical Therapy Tx Note - Treatment Note Physical Therapy Tx Note: Detail (The patient will be placed on hold until activity level is clarified due to medical issues.) Physical Therapy Problem List: Detail (1) Decreased LE strength 2) Decreased stand balance 3) Decreased ability to complete sustained physical activity) Physical Therapy Goals: 1)Evaluate the patient's balance using standardized Balance scale. 2) Increase LE strength 1/3 muscle grade. 3) The patient will be able to complete 30 minutes of physical activity with one rest period. Physical Therapy Plan: PT one time a week M-F for balance , LE strengthening exercises, gait and transfer training.
[2016-09-04] MEDS: ACETAMINOPHEN 500 MG TABLET PO PRN (12:45)
--- NOTE | 2016-09-04 13:19 | Occupational Therapy Tx Note ---
Occupational Therapy Tx Note - Treatment Note Occupational Therapy Treatment Note: Detail (Pt is on hold due to medical issues. Will continue once cleared.) Occupational Therapy Problem List: Detail (1. Decreased Ind with self care activities 2. Decreased endurance needed for safe and Ind ADLs 3. Decreased functional mobility needed for safe and Ind ADLs.) Occupational Therapy Goals: 1. Pt will be Ind with total body dressing. 2. Pt will complete showering with supervision 3. Pt will be safe and Ind with functional mobility needed for ADLs. Occupational Therapy Plan: OT 1-3 times weekly to address self cares, functional mobility, endurance needed for safe and Ind return home with daughter.
[2016-09-04] MEDS: CEFEPIME HCL 2 GM in 0.9 % SODIUM CHLORIDE 100ML 100 ML IVPB SCH (16:20)
--- NOTE | 2016-09-04 20:44 | Physician Progress Note ---
Subjective - Date Date of Physician Progress Note: 09/04/16 - Subjective Subjective Comment: pt more energetic this morning family at bedside +nausea. stool today no dizziness, abd pain, fever, chills worsening weakness since admission. Objective - Vital Signs Vital Signs: Vital Signs - Last 24 Hrs Temp Pulse Pulse Resp BP BP Pulse Ox 09/04/16 17:00 97.5 F L 80 16 119/60 97 09/04/16 14:09 68 20 95 09/04/16 12:55 97.4 F L 74 16 97/46 111/43 99 09/04/16 09:00 98.1 F 78 16 132/65 100 09/04/16 07:54 18 09/04/16 05:00 97.8 F 77 18 156/62 96 09/04/16 00:00 97.8 F 74 18 127/58 95 - General General Appearance: Alert, Oriented x3, Cooperative, No acute distress Limitations: No limitations - Head Head exam: Atraumatic, Normocephalic, Normal inspection - Eye Eye exam: Normal appearance, PERRL - ENT Throat exam: Normal inspection. negative: Tonsillar erythema, Tonsillar exudate - Neck Neck exam: Normal inspection, Full ROM. negative: Tenderness - Respiratory Respiratory exam: Normal lung sounds bilaterally, Rales (RLL). negative: Decreased breath sounds, Respiratory distress, Rhonchi, Stridor, Wheezes - Cardiovascular Cardiovascular Exam: Regular rate, Normal rhythm, Normal heart sounds - GI/Abdominal GI/Abdominal exam: Soft, Normal bowel sounds, Bruit (fernando umbilical). negative : Diminished bowel sounds, Guarding, Hyperactive bowel sounds, Hypoactive bowel sounds, Rebound, Rigid, Tenderness - Rectal Rectal exam: Deferred - exam: Deferred - Extremities Extremities exam: Full ROM, Tenderness (The feet are tender bilaterally with decreased pulses. Both feet have normal sensation and are warm equally bilaterally.). negative: Normal inspection, Calf tenderness, Normal capillary refill, Pedal edema - Neurological Neurological exam: Alert, Oriented X3. negative: Motor sensory deficit Assessment and Plan - Assessment and Plan (1) Right lower lobe pneumonia Current Visit: No Status: Acute Qualifiers: Pneumonia type: due to unspecified organism Qualified Code(s): J18.1 - Lobar pneumonia, unspecified organism Base Code: J18.1 - LOBAR PNEUMONIA, UNSPECIFIED ORGANISM Comment: 09/04/16- CXR 08/30/16- persistent RLL infiltrate. WBC WNL. remains afebrile. - IV Cefepime until 09/06/16 - continue home COPD medications - supplemental O2 (2L's) w/ ambulation and with rest. (2) Anemia Current Visit: Yes Status: Acute Base Code: D64.9 - ANEMIA, UNSPECIFIED Comment: 09/04/16: stable. no signs of GI bleeding. (3) CHF (congestive heart failure) Current Visit: Yes Status: Chronic Qualifiers: Congestive heart failure type: unspecified congestive heart failure type Congestive heart failure chronicity: chronic Qualified Code(s): I50.9 - Heart failure, unspecified Base Code: I50.9 - HEART FAILURE, UNSPECIFIED Comment: 09/04/16- Repeat CXR: COPD, R basilar pleural effusion. Mild CMG. RLL infiltrate. BNP: 3680 on admission. - Continue 10 mg of PO Lasix daily as outpatient. - outpatient cardiology visit as scheduled. - continue telemetry - re lower ext pain, O/P vascular visit recommended. (4) COPD (chronic obstructive pulmonary disease) Current Visit: No Status: Acute Qualifiers: COPD type: unspecified COPD Qualified Code(s): J44.9 - Chronic obstructive pulmonary disease, unspecified Base Code: J44.9 - CHRONIC OBSTRUCTIVE PULMONARY DISEASE, UNSPECIFIED Comment: 09/04/16: - Continue home medications - Duo neb treatment Q4H's while awake. - home O2 qualification: 2 L's of supplemental O2 w/ ambulationg and at night - continue supp O2 (5) QT prolongation Current Visit: No Status: Acute Base Code: R94.31 - ABNORMAL ELECTROCARDIOGRAM [ECG] [EKG] Comment: 09/04/16 - continue to avoid QT prolonging agents - continue IV cefepime- complete on 09/06/16 - amiodorone 200mg po bid - F/up with Dr. Pollard on 09/13/16 (6) Full code status Current Visit: No Status: Acute Base Code: Z78.9 - OTHER SPECIFIED HEALTH STATUS Comment: 09/04/16- patient remained full code (7) Abdominal aortic aneurysm (AAA) 3.0 cm to 5.0 cm in diameter in female Current Visit: Yes Status: Acute Base Code: I71.4 - ABDOMINAL AORTIC ANEURYSM, WITHOUT RUPTURE Comment: 09/04/16: Abd u/s revealed 3.4 cm. Follow up with Dr. Beck in 1-2 week following discharge. - continue BB & statin therapy Results - Labs Result Diagrams: 09/04/16 06:15 09/04/16 06:15 Labs Last 24 Hours: Laboratory Results - last 24 hr 09/04/16 09/04/16 06:15 06:15 WBC 8.1 RBC 2.96 L Hgb 9.1 L Hct 29.2 L MCV 98.6 H MCH 30.7 MCHC 31.2 L RDW 16.0 H Plt Count 260 MPV 8.9 Gran % 66.1 Lymphocytes % 21.3 Monocytes % 9.9 H Eosinophils % 2.1 Basophils % 0.6 Sodium 139 Potassium 4.3 Chloride 103 Carbon Dioxide 30.5 H Anion Gap 5.5 L BUN 14 Creatinine 1.0 Estimated GFR 57 Random Glucose 85 Calcium 8.5 DVT/PE Assessment - Risk for VTE Risk for VTE: No Risk Level: Low Risk Assessment Date: 08/31/16 Risk Assessment Time: 11:00 VTE Orders Placed or Will Be Placed: Yes - Active Medicaitons Current Medications: Current Medications Acetaminophen (Tylenol 500mg Tab) 500 mg PO Q6H PRN PRN Reason: PAIN/TEMP Last Admin: 09/04/16 12:45 Dose: 500 mg Albuterol Sulfate () 2.5 mg INH RESP.Q2H PRN PRN Reason: DIFFICULTY IN BREATHING Albuterol/Ipratropium (Duoneb) 3 ml INH RESP.Q4H.[facility] Last Admin: 09/04/16 19:26 Dose: 3 ml Amiodarone HCl (Pacerone) 200 mg PO BID [facility] Last Admin: 09/04/16 09:30 Dose: Not Given Apixaban (Eliquis) 5 mg PO BID [facility] Last Admin: 09/04/16 09:30 Dose: Not Given Aspirin (Ecotrin (Ec)) 81 mg PO DAILY [facility] Last Admin: 09/04/16 09:29 Dose: 81 mg Budesonide (Pulmicort) 0.5 mg INH RESP.BID [facility] Last Admin: 09/04/16 19:26 Dose: 0.5 mg Carvedilol (Coreg) 3.125 mg PO BID [facility] Last Admin: 09/04/16 09:29 Dose: 3.125 mg Ezetimibe (Zetia) 10 mg PO QHS [facility] Last Admin: 09/03/16 21:17 Dose: 10 mg Furosemide (Lasix) 10 mg PO DAILY [facility] Last Admin: 09/04/16 09:30 Dose: 10 mg CEFEPIME HCL 2 gm/ Sodium (Chloride) 100 mls @ 200 mls/hr IVPB Q24H [facility] Last Admin: 09/04/16 16:20 Dose: 200 mls/hr Sodium Chloride () 1,000 mls @ 25 mls/hr IV .Q24H PRN PRN Reason: LARGE VOLUME IV Lisinopril (Zestril) 2.5 mg PO DAILY [facility] Last Admin: 09/04/16 09:31 Dose: 2.5 mg Magnesium Hydroxide (Milk Of Magnesium) 30 ml PO DAILY PRN PRN Reason: INDIGESTION Ondansetron HCl (Zofran Odt) 4 mg SL Q6H PRN PRN Reason: NAUSEA/VOMITING Last Admin: 09/04/16 12:46 Dose: 4 mg [facility] Last Admin: 09/04/16 06:39 Dose: 40 mg Simvastatin (Zocor) 20 mg PO QHS [facility] Last Admin: 09/03/16 21:17 Dose: 20 mg Temazepam (Restoril) 15 mg PO QHS PRN PRN Reason: INSOMNIA Last Admin: 09/03/16 21:17 Dose: 15 mg Tramadol HCl (Ultram) 50 mg PO Q6H PRN PRN Reason: Pain - General AMI Plan - Labs Result Diagrams: 09/04/16 06:15 09/04/16 06:15
[2016-09-04] MEDS: TEMAZEPAM 15 MG CAPSULE PO PRN (22:55)
[2016-09-04] MEDS: EZETIMIBE 10 MG TABLET PO SCH (22:56)
[2016-09-04] MEDS: SIMVASTATIN 20 MG TABLET PO SCH (22:56)
[2016-09-05] MEDS: PANTOPRAZOLE SODIUM 40 MG TABLET PO SCH (06:01)
[2016-09-05] MEDS: ACETAMINOPHEN 500 MG TABLET PO PRN (06:01)
[2016-09-05] MEDS: IPRATROPIUM/ALBUTEROL (0.5MG/3MG) NEB INH SCH ×3 (06:06→14:09)
[2016-09-05] MEDS: BUDESONIDE 0.5 MG/2 ML INH SCH (06:18)
[2016-09-05] MEDS: ONDANSETRON 4 MG ODT TABLET SL PRN (08:05)
[2016-09-05] MEDS: LISINOPRIL 5 MG TABLET PO SCH (10:03)
[2016-09-05] MEDS: ASPIRIN 81 MG TABEC PO SCH (10:08)
[2016-09-05] MEDS: FUROSEMIDE 20 MG TABLET PO SCH (10:08)
[2016-09-05] MEDS: AMIODARONE HCL 200 MG TABLET PO SCH (10:08)
[2016-09-05] MEDS: APIXABAN 5MG TABLET PO SCH (10:08)
[2016-09-05] MEDS: CARVEDILOL 3.125 MG TABLET PO SCH (10:08)
[2016-09-05] MEDS: CEFEPIME HCL 2 GM in 0.9 % SODIUM CHLORIDE 100ML 100 ML IVPB SCH (12:35)
== END 2016-09-05 15:20 | disposition home health service (06) | DRG 195 ==
LOC: ER 14:26 → UNDOADMOB 18:46 → INTOOBSV 18:46 → OBSVTOIN 18:46 → MEDSURG 18:46 → OBSVTOIN 18:47 → MEDSURG 18:47 → UNDOADMOB 09-01 11:10 → OBSVTOIN 09-01 11:10 → MEDSURG 09-01 11:10 → UNDODISIN 09-01 11:10 → INTOOBSV 09-01 11:10
PROVIDERS: ADMIT Family Medicine; ATTEND Family Medicine
DX: J18.1 Lobar pneumonia, unspecified organism (principal); I99.9 Unspecified disorder of circulatory system; E78.00 Pure hypercholesterolemia, unspecified; I50.9 Heart failure, unspecified; J44.9 Chronic obstructive pulmonary disease, unspecified; Z78.9 Other specified health status; D64.9 Anemia, unspecified; R94.31 Abnormal electrocardiogram [ECG] [EKG]; I10 Essential (primary) hypertension; I71.4 Abdominal aortic aneurysm, without rupture; I48.91 Unspecified atrial fibrillation
CPT/HCPCS: 93041; 99285 ×2; 94760; 96374; 96375; 82550; 83605; 83690; 85025; 85730; 85610; 80076; 82553; 84484; 80048; 81003; 83880; 71020; 93925; 94640; 93005; 93010; J2405; 76775; 82607; 82728; 82746; 83550; 85027; 94761; 97166; 99223; 99233; 99239; J1885; J1940; J7030

== ENCOUNTER 2016-09-07 18:27 | Emergency (ER) | payer MEDICARE ==
--- NOTE | 2016-09-07 20:07 | Emergency Department Record ---
History of Present Illness - General Chief Complaint: Abdominal Pain Stated Complaint: UPPER ABDOMINAL PAIN Time Seen by Provider: 09/07/16 19:44 Source: Patient Mode of Arrival: Ambulatory Limitations: No limitations - History of Present Illness Initial Comments: 80 yo female presents to ED with multiple chief complaints, including; upper abdominal pain "for a while" resulting in decreased appetite, patient also complains of not being able to sleep and intermittent headache symptoms. Patient reports nausea without vomiting, denies change in stools. 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 Patient denies fevers, chills, or chest pain symptoms. MD Complaint: Abdominal pain -: Year(s) Location: Epigastric Radiation: None Migration to: No migration Severity: Moderate Quality: Aching, Dull Consistency: Constant Improves With: Nothing Worsens With: Nothing Context: Other Associated Symptoms: Anorexia - Related Data Home Medications Medication Instructions Recorded Confirmed Last Taken Albuterol Sulfate [Ventolin Hfa] 1 - 2 puff IH .EVERY 4-6 HOURS PRN 07/05/1608/12/16 Ezetimibe [Zetia] 10 mg PO QHS 07/05/16 08/30/16 08/29/16 Simvastatin [Zocor] 20 mg PO QHS 07/05/16 08/30/16 08/29/16 Amiodarone HCl [Pacerone] 200 mg PO DAILY 07/19/16 08/30/16 08/30/16 Apixaban [Eliquis] 5 mg PO BID 08/12/16 08/30/16 08/30/16 Aspirin [Aspir-Low] 81 mg PO DAILY 08/12/16 08/30/16 08/30/16 Carvedilol [Coreg] 3.125 mg PO BID 08/12/16 08/30/16 08/30/16 Nitroglycerin 0.3 mg SL ASDIR PRN 08/30/16 08/30/16 Unknown Omeprazole [Prilosec] 40 mg PO DAILY 08/30/16 08/30/16 08/30/16 Tramadol HCl [Ultram] 50 mg PO Q6H 08/30/16 08/30/16 08/30/16 Budesonide [Pulmicort] 0.5 mg INH RESP.BID 08/31/16 08/31/16 08/30/16 07:00 Previous Rx's Medication Instructions Recorded Ipratropium/Albuterol [Duoneb] 3 ml IH Q4H #10 ampul.neb. 08/20/16 Albuterol Sulfate 0.083% [Neb] 2.5 mg INH RESP.Q2H PRN #240 08/21/16 nebulization solution Lisinopril [Zestril] 2.5 mg PO DAILY tablet 08/21/16 Furosemide [Lasix] 10 mg PO DAILY #30 09/05/16 Ondansetron [Zofran Odt] 4 mg PO Q6H PRN #20 tab.rapdis 09/07/16 Allergies Allergy/AdvReac Type Severity Reaction Status Date / Time codeine Allergy PT UNSURE Verified 08/12/16 17:18 OF REACTION Penicillins Allergy PT UNSURE Verified 08/12/16 17:18 OF REACTION Travel Screening - Travel/Exposure Within Last 30 Days Have you traveled within the last 30 days?: No Review of Systems Constitutional: Denies: Chills, Fever, Malaise, Night sweats Eyes: Denies: Eye discharge, Eye pain ENT: Denies: Congestion, Ear pain, Epistaxis Respiratory: Denies: Cough, Dyspnea Cardiovascular: Denies: Chest pain, Dyspnea on exertion Endocrine: Denies: Fatigue, Heat or cold intolerance Gastrointestinal: Reports: Abdominal pain, Nausea. Denies: Constipation, Vomiting Genitourinary: Denies: Dysuria, Frequency, Hematuria, Incontinence Musculoskeletal: Denies: Arthralgia, Back pain, Gout, Joint swelling Skin: Denies: Bruising, Change in color, Change in hair/nails Neurological: Denies: Abnormal gait, Confusion, Headache Psychiatric: Denies: Anxiety Hematological/Lymphatic: Denies: Anemia, Blood Clots Past Medical History - SOCIAL HISTORY Smoking Status: Former smoker Alcohol Use: None Drug Use: None - RESPIRATORY Hx Respiratory Disorders: Yes Hx COPD: Yes Hx Dyspnea: Yes Hx Pneumonia: Yes Comment:: emphysema - CARDIOVASCULAR Hx Cardio Disorders: Yes Hx Abnormal EKG: Yes Hx Chest Pain: Yes Hx CHF: Yes Hx Edema: Yes Hx Heart Attack: Yes Hx Hypertension: Yes Hx Irregular Heartbeat: Yes Hx Palpitations: Yes Hx Vascular Disease: Yes Comment:: High cholesterol, bilat. leg swelling, hx afib - NEURO Hx Neuro Disorders: Yes Hx Dizziness: Yes Hx Headaches: Yes Hx Neuropathy: Yes - GI Hx GI Disorders: Yes Hx Reflux: Yes Hx Nausea/Vomiting: Yes Hx Ulcer: Yes - Hx Genitourinary Disorders: Yes Hx Bladder Problem: Yes (bladder repair) - ENDOCRINE Hx Endocrine Disorders: No - MUSCULOSKELETAL Hx Musculoskeletal Disorders: Yes Hx Arthritis: Yes - PSYCH Hx Psych Problems: Yes Hx Anxiety: Yes Hx Depression: Yes - HEMATOLOGY/ONCOLOGY Hx Hematology/Oncology Disorders: Yes Hx Cancer: Yes (uterine- partial hysterectomy) Family Medical History Any Significant Family History?: Yes Hx Heart Disease: Brother/Sister *Heart Comment: [place] Physical Exam - General General Appearance: Alert, Oriented x3, Cooperative, No acute distress Limitations: No limitations - Head Head exam: Atraumatic, Normocephalic, Normal inspection Head exam detail: negative: Abrasion, Contusion, Bennett's sign, General tenderness, Hematoma, Laceration - Eye Eye exam: Normal appearance. negative: Conjunctival injection, Periorbital swelling, Periorbital tenderness, Scleral icterus - ENT Ear exam: negative: Auricular hematoma, Auricular trauma Nasal Exam: negative: Active bleeding, Discharge, Dried blood, Foreign body Mouth exam: negative: Drooling, Laceration, Muffled voice, Tongue elevation - Neck Neck exam: Normal inspection. negative: Meningismus, Tenderness - Respiratory Respiratory exam: Normal lung sounds bilaterally. negative: Respiratory distress, Rhonchi, Stridor, Wheezes - Cardiovascular Cardiovascular Exam: Regular rate, Normal rhythm, Normal heart sounds - GI/Abdominal GI/Abdominal exam: Soft, Tenderness, Other (mild/moderate TTP to the epigatric region on examination, no rebound or guarding present). negative: Pulsatile mass, Rebound, Rigid - Rectal Rectal exam: Deferred - exam: Deferred - Extremities Extremities exam: Normal inspection. negative: Calf tenderness, Pedal edema, Tenderness - Back Back exam: Denies: CVA tenderness (R), CVA tenderness (L) - Neurological Neurological exam: Alert, Normal gait, Oriented X3 - Psychiatric Psychiatric exam: Depressed, Flat affect - Skin Skin exam: Normal color. negative: Abrasion Type of lesion: negative: abrasion Course Vital Signs 09/07/16 19:42 Temperature 98.1 F Pulse Rate 76 Respiratory 20 Rate Blood Pressure 147/103 Pulse Ox 96 - Reevaluation(s) Reevaluation #1: 09/07/16 20:08 Previous/recent imaging studies reviewed, no recent CT iamging of the abdomen/ pelvis have been performed. As the patient is on Eliquis in jessenia presence of an aneursym, will perform imaging for further evaluation of the patient's symptoms. Reevaluation #2: 09/07/16 20:46 Labs reviewed, Hgb 9.6 (similar to the last 5 labs, 8.7-9.6). Labs are otherwise grossly unremarkable for an acute process. Reevaluation #3: 09/07/16 22:17 CT Abdomen and Pelvis: Aneurysmal dilitation of the infra-renal aorta, no leak or dissection present, occlusion of the common iliac stents bilaterally. Patient and her grand-daughter were updated on all results, patient reports that her nausea symptoms are improved and she appears for discharge with instructions for follow-up with her PCP next week. 09/07/16 22:19 Medical Decision Making - Lab Data Result diagrams: 09/07/16 20:10 09/07/16 20:10 Disposition Disposition: Discharge Clinical Impression: Chronic abdominal pain Anemia Qualifiers: Anemia type: unspecified type Qualified Code(s): D64.9 - Anemia, unspecified Disposition: Home, Self-Care Condition: (2) Stable Instructions: Abdominal Pain (ED) Additional Instructions: Return to ED if your symptoms worsen or if you have any concerns. Zofran as directed. Follow-up with your family doctor in 3-5 days as directed. Prescriptions: Ondansetron [Zofran Odt] 4 mg PO Q6H PRN #20 tab.rapdis PRN Reason: Nausea/Vomiting Forms: Patient Portal Access Time of Disposition: 22:21
[2016-09-07 20:25] LABS: BASO % 0.4 % (0-6); EOS % 2.3 % (0-6); GRAN % 61.4 % (47-80); HEMATOCRIT 29.5 % (35.0-47.0); HEMOGLOBIN 9.6 gm/dl (11.6-16.0); LYMPH % 23.4 % (16-45); MEAN CELL VOLUME 96.4 fl (81-97); MEAN CORPUSCULAR HGB CONC 32.5 g/dl (32-36); MEAN PLATELET VOLUME 9.2 fl (7.4-10.4); MONO % 12.5 % (0-9); PLATELET COUNT 233 K/uL (130-400); RED BLOOD COUNT 3.06 M/uL (3.80-5.40); RED CELL DISTRIBUTION WIDTH 15.7 % (11.5-14.5)
[2016-09-07 20:27] LABS: MEAN CORPUSCULAR HEMOGLOBIN 31.3 pg (27-33)
[2016-09-07 20:34] LABS: LACTIC ACID 1.2 mmol/L (0.7-2.1)
[2016-09-07 20:37] LABS: ALB/GLOB RATIO 1.1 (1.1-1.8); ALBUMIN 3.3 gm/dL (3.5-5.0); BILIRUBIN,TOTAL 0.6 mg/dL (0.2-1.3); TOTAL PROTEIN 6.4 gm/dL (6.3-8.2)
[2016-09-07] MEDS ORDERED: ONDANSETRON 4 MG ODT TABLET SL ONE (20:48)
[2016-09-07 21:27] LABS: URINE APPEARANCE CLEAR; URINE BILIRUBIN NEGATIVE (NEGATIVE); URINE BLOOD NEGATIVE (NEGATIVE); URINE COLOR YELLOW; URINE GLUCOSE (UA) NEGATIVE (NEGATIVE); URINE KETONE NEGATIVE (NEGATIVE); URINE LEUKOCYTE ESTERASE NEGATIVE (NEGATIVE); URINE NITRITE NEGATIVE (NEGATIVE); URINE PROTEIN NEGATIVE (NEGATIVE); URINE UROBILINOGEN 0.2 E.U./dL (0.20 - 1.00)
[2016-09-07] MEDS ORDERED: IPRATROPIUM/ALBUTEROL (0.5MG/3MG) NEB INH ONE (21:27)
== END 2016-09-07 22:34 | disposition home or self-care (01) ==
LOC: ER 18:27
DX: R10.13 Epigastric pain (principal); G89.29 Other chronic pain; R11.0 Nausea; D64.9 Anemia, unspecified; R51 Headache; J44.9 Chronic obstructive pulmonary disease, unspecified; I71.4 Abdominal aortic aneurysm, without rupture; I50.9 Heart failure, unspecified; I11.0 Hypertensive heart disease with heart failure; Z87.891 Personal history of nicotine dependence; Z79.01 Long term (current) use of anticoagulants
CPT/HCPCS: 99283; 99284; 83605; 83690; 85025; 80053; 81003; 74177; 94640; Q9967

== ENCOUNTER 2016-09-18 12:56 | Inpatient (IN) | payer MEDICARE ==
[2016-09-18] MEDS ORDERED: ONDANSETRON HCL IV 4 MG/2 ML VIAL IVP ONE (13:23)
[2016-09-18] MEDS ORDERED: 0.9 % SODIUM CHLORIDE 1,000 ML BAG IV ONE (13:23)
--- NOTE | 2016-09-18 13:32 | Emergency Department Record ---
History of Present Illness - General Chief complaint: Weakness Stated complaint: WEAKNESS Time Seen by Provider: 09/18/16 13:22 Source: Patient, Family Mode of Arrival: Ambulatory Limitations: No limitations - History of Present Illness Initial comments: 80 yo female presents with weakness, poor appetite, not eating, decreased bowel movements over the last two weeks. Her family state that her health has declined in the last 6 months. She has been admitted to the hospital at [facility]. Over the last two weeks she has had very poor appetite associated with nausea and vomiting at times. No diarrhea. She states she has not had a bowel movement in 4 days. No fever. No urinary symptoms. MD Complaint: Generalized weakness, Lack of energy -: Week(s) (2) Location: Generalized Severity: Severe Consistency: Constant Improves with: None Worsens with: None Context: Recent illness Associated Symptoms: Other - Carlos Coma Scale Eye Response: (4) Open spontaneously Motor Response: (6) Obeys commands Verbal Response: (5) Oriented Carlos Total: 15 - Symptoms of Stroke Symptoms of stroke: Unsteady When Walking - Related Data Home Medications Medication Instructions Recorded Confirmed Last Taken Albuterol Sulfate [Ventolin Hfa] 1 - 2 puff IH .EVERY 4-6 HOURS PRN 07/05/1601/27 1 Day Ago ~09/17/16 Ezetimibe [Zetia] 10 mg PO QHS 07/05/16 09/18/16 1 Day Ago ~09/17/16 Simvastatin [Zocor] 20 mg PO QHS 07/05/16 09/18/16 1 Day Ago ~09/17/16 Amiodarone HCl [Pacerone] 200 mg PO DAILY 07/19/16 09/18/16 1 Day Ago ~09/17/16 Apixaban [Eliquis] 5 mg PO BID 08/12/16 09/18/16 1 Day Ago ~09/17/16 Aspirin [Aspir-Low] 81 mg PO DAILY 08/12/16 09/18/16 1 Day Ago ~09/17/16 Carvedilol [Coreg] 3.125 mg PO BID 08/12/16 09/18/16 1 Day Ago ~09/17/16 Nitroglycerin 0.3 mg SL ASDIR PRN 08/30/16 09/18/16 1 Day Ago ~09/17/16 Omeprazole [Prilosec] 40 mg PO DAILY 08/30/16 09/18/16 1 Day Ago ~09/17/16 Tramadol HCl [Ultram] 50 mg PO Q6H 08/30/16 09/18/16 1 Day Ago ~09/17/16 Budesonide [Pulmicort] 0.5 mg INH RESP.BID 08/31/16 09/18/16 1 Day Ago ~09/17/16 Previous Rx's Medication Instructions Recorded Ipratropium/Albuterol [Duoneb] 3 ml IH Q4H #10 ampul.neb. 08/20/16 Albuterol Sulfate 0.083% [Neb] 2.5 mg INH RESP.Q2H PRN #240 08/21/16 nebulization solution Lisinopril [Zestril] 2.5 mg PO DAILY tablet 08/21/16 Furosemide [Lasix] 10 mg PO DAILY #30 09/05/16 Ondansetron [Zofran Odt] 4 mg PO Q6H PRN #20 tab.rapdis 09/07/16 Allergies Allergy/AdvReac Type Severity Reaction Status Date / Time codeine Allergy PT UNSURE Verified 09/18/16 13:27 OF REACTION Penicillins Allergy PT UNSURE Verified 09/18/16 13:27 OF REACTION Review of Systems Constitutional: Reports: Malaise, Weakness. Denies: Chills, Fever Eyes: Denies: Eye discharge, Eye pain, Vision change ENT: Denies: Congestion Respiratory: Denies: Cough, Dyspnea, Hemoptysis, Stridor, Wheezes Cardiovascular: Denies: Chest pain, Palpitations, Syncope Endocrine: Reports: Fatigue. Denies: Polydipsia, Polyuria Gastrointestinal: Reports: As per HPI, Abdominal pain, Constipation, Nausea, Vomiting. Denies: Diarrhea, Hematemesis, Hematochezia Genitourinary: Denies: Dysuria, Urgency Musculoskeletal: Denies: Arthralgia, Back pain, Joint swelling, Myalgia Skin: Denies: Bruising, Change in color, Rash Neurological: Denies: Confusion, Headache Psychiatric: Denies: Anxiety Hematological/Lymphatic: Denies: Blood Clots, Easy bleeding, Easy bruising, Swollen glands Past Medical History - SOCIAL HISTORY Smoking Status: Former smoker - RESPIRATORY Hx Respiratory Disorders: Yes Hx COPD: Yes Hx Dyspnea: Yes Hx Pneumonia: Yes Comment:: emphysema - CARDIOVASCULAR Hx Cardio Disorders: Yes Hx Abnormal EKG: Yes Hx Chest Pain: Yes Hx CHF: Yes Hx Edema: Yes Hx Heart Attack: Yes Hx Hypertension: Yes Hx Irregular Heartbeat: Yes Hx Palpitations: Yes Hx Vascular Disease: Yes Comment:: High cholesterol, bilat. leg swelling, hx afib - NEURO Hx Neuro Disorders: Yes Hx Dizziness: Yes Hx Headaches: Yes Hx Neuropathy: Yes - GI Hx GI Disorders: Yes Hx Reflux: Yes Hx Nausea/Vomiting: Yes Hx Ulcer: Yes - Hx Genitourinary Disorders: Yes Hx Bladder Problem: Yes (bladder repair) - ENDOCRINE Hx Endocrine Disorders: No - MUSCULOSKELETAL Hx Musculoskeletal Disorders: Yes Hx Arthritis: Yes - PSYCH Hx Psych Problems: Yes Hx Anxiety: Yes Hx Depression: Yes - HEMATOLOGY/ONCOLOGY Hx Hematology/Oncology Disorders: Yes Hx Cancer: Yes (uterine- partial hysterectomy) Family Medical History Hx Heart Disease: Brother/Sister *Heart Comment: [place] Physical Exam - General General Appearance: Alert, Oriented x3, Cooperative, No acute distress Limitations: No limitations - Head Head exam: Atraumatic, Normal inspection - Eye Eye exam: Normal appearance, PERRL. negative: Conjunctival injection, Periorbital swelling - ENT ENT exam: Normal exam, Mucous membranes moist, Normal orophraynx Ear exam: Normal external inspection Nasal Exam: Normal inspection Mouth exam: Normal external inspection Teeth exam: Normal inspection Throat exam: Normal inspection - Neck Neck exam: Normal inspection, Full ROM. negative: Lymphadenopathy, Tenderness - Respiratory Respiratory exam: Normal lung sounds bilaterally. negative: Respiratory distress - Cardiovascular Cardiovascular Exam: Regular rate, Normal rhythm, Normal heart sounds - GI/Abdominal GI/Abdominal exam: Soft. negative: Diminished bowel sounds, Distended, Rebound , Rigid, Tenderness (very soft abdomen) - Rectal Rectal exam: Deferred - exam: Deferred - Extremities Extremities exam: Normal inspection, Full ROM, Normal capillary refill. negative: Pedal edema, Tenderness - Back Back exam: Reports: Normal inspection, Full ROM. Denies: Muscle spasm, Rash noted, Tenderness - Neurological Neurological exam: Alert, Normal gait, Oriented X3. negative: Motor sensory deficit - Psychiatric Psychiatric exam: Normal affect, Normal mood. negative: Agitated, Anxious - Skin Skin exam: Dry, Intact, Normal color, Warm Course - Reevaluation(s) Reevaluation #1: The labs were reviewed The patient is hyponatremic at 121 She is also anemic at 9.1 EKG NSR rate 63, intervals Qt 497, [place] normal, ST normal, 09/18/16 14:35 Reevaluation #2: I DONNIE Morin regarding the admission for hyponatremia 09/18/16 14:40 Procedures - EKG Initial Date: 09/18/16 Time: 14:19 EKG Detail: Rate 63, Int Qt 497, ST no acute changes, Medical Decision Making - Lab Data Result diagrams: 09/18/16 13:53 09/18/16 13:53 Disposition Disposition: Admit Clinical Impression: Hyponatremia, Weakness, Severe muscle deconditioning, QT prolongation Anemia Qualifiers: Anemia type: unspecified type Qualified Code(s): D64.9 - Anemia, unspecified Disposition: Still a Patient at [facility] Decision to Admit: Admit from ER Decision to Admit Date: 09/18/16 Decision to Admit Time: 14:41 Condition: (1) Good Forms: Patient Portal Access Time of Disposition: 14:42
[2016-09-18 13:59] LABS: BASO % 0.3 % (0-6); EOS % 1.9 % (0-6); GRAN % 62.5 % (47-80); HEMATOCRIT 27.5 % (35.0-47.0); HEMOGLOBIN 9.1 gm/dl (11.6-16.0); MEAN CELL VOLUME 95.2 fl (81-97); MEAN CORPUSCULAR HEMOGLOBIN 31.4 pg (27-33); MEAN CORPUSCULAR HGB CONC 33.1 g/dl (32-36); MEAN PLATELET VOLUME 9.3 fl (7.4-10.4); MONO % 12.3 % (0-9); PLATELET COUNT 358 K/uL (130-400); RED BLOOD COUNT 2.89 M/uL (3.80-5.40); RED CELL DISTRIBUTION WIDTH 15.3 % (11.5-14.5); WHITE BLOOD COUNT W/O DIFF 6.4 K/uL (4.2-12.2)
[2016-09-18 14:10] LABS: ALB/GLOB RATIO 1.3 (1.1-1.8); ALBUMIN 3.7 gm/dL (3.5-5.0); ALKALINE PHOSPHATASE 72 U/L (38-126); ALT/SGPT 32 U/L (9-52); ANION GAP 7.5 (7-16); AST/SGOT 31 U/L (14-36); BILIRUBIN,TOTAL 1.13 mg/dL (0.2-1.3); BLOOD UREA NITROGEN 14 mg/dL (7-17); CARBON DIOXIDE 28.5 mmol/L (22-30); CREATININE 1.2 mg/dL (0.52-1.04); EST GLOMERULAR FILTRATION RATE 46 ml/min; GLUCOSE,RANDOM 97 mg/dL (70-110); TOTAL PROTEIN 6.6 gm/dL (6.3-8.2)
[2016-09-18 14:32] LABS: TROPONIN I < 0.012 ng/mL (0.00-0.034)
[2016-09-18 14:41] LABS: THYROID STIMULATING HORMONE 1.93 uIU/ml (0.465-4.68)
[2016-09-18 15:27] LABS: URINE APPEARANCE CLEAR; URINE BILIRUBIN NEGATIVE (NEGATIVE); URINE BLOOD NEGATIVE (NEGATIVE); URINE COLOR YELLOW; URINE GLUCOSE (UA) NEGATIVE (NEGATIVE); URINE KETONE NEGATIVE (NEGATIVE); URINE LEUKOCYTE ESTERASE NEGATIVE (NEGATIVE); URINE NITRITE NEGATIVE (NEGATIVE); URINE PROTEIN NEGATIVE (NEGATIVE); URINE UROBILINOGEN 0.2 E.U./dL (0.20 - 1.00)
[2016-09-18] MEDS ORDERED: NAPROXEN 250 MG TABLET PO ONE (16:00)
[2016-09-18] MEDS ORDERED: IPRATROPIUM/ALBUTEROL (0.5MG/3MG) NEB INH ONE (17:10)
[2016-09-18] MEDS ORDERED: 0.9 % SODIUM CHLORIDE 1000ML 1,000 ML IV PRN (18:22)
[2016-09-18] MEDS ORDERED: ALBUTEROL SULFATE (0.083%) 2.5 MG/3 ML NEB INH PRN (18:22)
[2016-09-18] MEDS ORDERED: 0.9 % SODIUM CHLORIDE 1000ML 1,000 ML IV ONE (18:42)
[2016-09-18] MEDS ORDERED: ENOXAPARIN 40 MG/0.4 ML SYR SQ SCH (18:45)
[2016-09-18] MEDS: BUDESONIDE 0.5 MG/2 ML INH SCH (19:22)
[2016-09-18] MEDS: TRAMADOL HCL 50 MG TABLET PO SCH (21:27)
[2016-09-18] MEDS: CARVEDILOL 3.125 MG TABLET PO SCH (21:28)
[2016-09-18] MEDS: APIXABAN 5MG TABLET PO SCH (21:30)
[2016-09-18] MEDS: IPRATROPIUM/ALBUTEROL (0.5MG/3MG) NEB INH SCH (21:54)
[2016-09-18] MEDS ORDERED: EZETIMIBE 10 MG TABLET PO SCH (22:00)
[2016-09-18] MEDS ORDERED: SIMVASTATIN 20 MG TABLET PO SCH (22:00)
[2016-09-18] MEDS ORDERED: DICYCLOMINE HCL 10 MG CAPSULE PO PRN (22:22)
[2016-09-18] MEDS ORDERED: TEMAZEPAM 15 MG CAPSULE PO PRN (22:24)
[2016-09-19] MEDS: DOCUSATE SODIUM 100 MG CAPSULE PO SCH ×2 (01:01→11:02)
[2016-09-19] MEDS: TRAMADOL HCL 50 MG TABLET PO SCH ×2 (01:02→06:55)
[2016-09-19] MEDS: IPRATROPIUM/ALBUTEROL (0.5MG/3MG) NEB INH SCH ×5 (02:01→18:04)
[2016-09-19 08:37] LABS: ANION GAP 7.5 (7-16); CARBON DIOXIDE 28.5 mmol/L (22-30); CREATININE 1.2 mg/dL (0.52-1.04)
[2016-09-19] MEDS: BUDESONIDE 0.5 MG/2 ML INH SCH ×2 (09:31→18:06)
[2016-09-19] MEDS ORDERED: AMIODARONE HCL 200 MG TABLET PO SCH (10:00)
[2016-09-19] MEDS ORDERED: PANTOPRAZOLE SODIUM 40 MG TABLET PO SCH (10:00)
[2016-09-19] MEDS ORDERED: LISINOPRIL 5 MG TABLET PO SCH (10:00)
[2016-09-19] MEDS ORDERED: ASPIRIN 81 MG TABEC PO SCH (10:00)
[2016-09-19] MEDS ORDERED: POLYETHYLENE GLY 17 GM PACKET PO SCH (10:00)
--- NOTE | 2016-09-19 10:03 | History and Physical Report ---
DATE OF ADMISSION: 09/18/2016 CHIEF COMPLAINT: Weakness, dehydration, hyponatremia. HISTORY OF CHIEF COMPLAINT: This 80-year-old female came into the hospital because of weakness, decreased appetite and nausea, constipation. Two weeks ago she was at [facility] for pneumonia, congestive heart failure, and started back up on Lasix, and she became dehydrated and hyponatremic. She was evaluated by Dr. Leger and admitted to the hospital for hyponatremia, anemia, deconditioning, and prolonged QT. When I saw the patient, she stood up from the wheelchair, she walked to the stand-up scale, stood there, went back to her wheelchair, sat down, got up, walked to the bed, sat back down. She moved around the bed adequately. She uses home oxygen at 2 liters per minute nasal cannula. MEDICAL HISTORY: Congestive heart failure, cardiomyopathy, COPD. Stopped smoking in 2017. She has a 50-pack year history of smoking. History of right lower lobe pneumonia, history of chronic anemia, history of hypercholesterolemia, history of GERD, history of hypertension, history of atrial fibrillation and on Eliquis and amiodarone, uses DuoNebs every 4 hours. She has also albuterol inhalers and albuterol nebulization meds at home. She has COPD. 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 CURRENT MEDICATIONS: 1. Tramadol 50 mg q.6 hours. 2. Simvastatin 20 mg q.h.s. 3. Zofran ODT 4 mg q.6 hours p.r.n. 4. Omeprazole 40 mg daily. 5. Nitroglycerin sublingual p.r.n. 6. Lisinopril 2.5 daily. 7. DuoNebs q.4 hours p.r.n. 8. Lasix 10 mg daily. 9. Zetia 10 mg at h.s. 10. Coreg 3.125 b.i.d. 11. Pulmicort 0.5 mg b.i.d. via the nebulizer. 12. Aspirin 81 mg daily. 13. Eliquis 5 mg b.i.d. 14. Amiodarone 200 mg daily. 15. Albuterol nebulization 2.5 q.2 hours p.r.n. 16. Ventolin inhaler 2 puffs q.4 hours p.r.n. ALLERGIES: Codeine and penicillin. SOCIAL HISTORY: She is a former smoker, smoked from [id number], and quit this year. No alcohol or drug use or abuse. FAMILY HISTORY: Brother and sister had MIs SYSTEMS REVIEW: HEENT: No upper respiratory infection symptoms, cough, cold or congestion. Cardiovascular: No chest pain, palpitations, arrhythmias. Respiratory: She is not short of breath. No cough, cold or congestion. She does require 2 liters per minute nasal cannula and at home she has that. Gastrointestinal: No nausea, vomiting, diarrhea, black stools, or bloody stools. Genitourinary: She is constipated. She has not had a bowel movement in 3 days. No dysuria, hematuria, frequency, or burning on urination. Musculoskeletal: No joint or bone abnormalities. Neurologic: No CVA, paralysis or paresthesias. Endocrine: No diabetes or thyroid disease. Integument: No rash, ulcer changes, yellow skin. PHYSICAL EXAMINATION: VITAL SIGNS: Height is 4 feet 10 inches. Weight is 98 pounds. Temperature is 97.8. Pulse is 71. Blood pressure 158/61. Respiratory rate is 18. Pulse ox is 97% on 2 liters nasal cannula. Weight is 98 pounds. HEENT: Pupils are equal, round and reactive to light and accommodation. Extraocular muscles are intact. Throat is clear. Nose is clear. Tympanic membranes are dry. NECK: Supple, no jugular venous distention, no hepatojugular reflux, no carotid bruit. Thyroid is smooth. LUNGS: Decreased breath sounds bilaterally but equal bilaterally and no wheezing or rales. HEART: Regular rate and rhythm without murmurs, clicks, rubs, or gallops. ABDOMEN: Soft, nontender, no hepatosplenomegaly, no masses, no tenderness. Bowel sounds are active. No bruit. EXTREMITIES: No pitting edema, no cyanosis, no clubbing. Full range of motion. Peripheral pulses are good. BREASTS, GYNCOLOGICAL AND RECTAL: Deferred. NEUROLOGIC: Cranial nerves II-XII intact. No gross decreased sensation or strength. Normal deep tendon reflexes, equal bilaterally. Babinski is negative. MENTAL STATUS: Alert and oriented x 3. IMPRESSION: 1. Hyponatremia, 121. 2. Weakness secondary to above. 3. Dehydration secondary to diuresis. 4. History of CHF and was placed on Lasix about 2 weeks ago here at our hospital. Her primary doctor is Dr. Demarcus Kwan. Her welding operator is Dr. Pelayo. PLAN: IV fluids cautioned. She was given about 500-1000 mL of normal saline in the Emergency Department and would reduce her IV rate to 50 mL per hour at this time. We will recheck her sodium in the morning. MTDD
[2016-09-19] MEDS ORDERED: TRAMADOL HCL 50 MG TABLET PO PRN (10:11)
[2016-09-19] MEDS: APIXABAN 5MG TABLET PO SCH (11:02)
[2016-09-19] MEDS: CARVEDILOL 3.125 MG TABLET PO SCH (11:04)
--- NOTE | 2016-09-19 15:23 | RADIOLOGY REPORT ---
EXAM: ACUTE ABDOMEN SERIES HISTORY: ACUTE NONPRODUCTIVE COUGH, WEAKNESS, CONSTIPATION. TECHNIQUE: Frontal view of the chest and two views of the abdomen were obtained. Comparison: Abdomen CT 09/07/16. Chest x-ray 09/01/16. FINDINGS: Blunting of the right costophrenic angle consistent with small effusion. Fine reticular prominence throughout the lungs. Minimal right basilar air space disease decreased from prior study. The cardiac silhouette is top normal in size. The diaphragm is unremarkable. Osteopenia. No free air. Bifurcated abdominal aortic stent graft overlies the lower abdomen. There is a small amount of gas throughout nondistended small and large bowel. Abundant fecal material in the ascending colon. No suspicious calcification. IMPRESSION: 1. PERSISTENT SMALL RIGHT PLEURAL EFFUSION. DECREASED AIR SPACE DISEASE IN THE RIGHT BASE WITH MINIMAL PATCHY AIR SPACE DISEASE REMAINING WHICH MAY REFLECT ATELECTASIS OR PNEUMONITIS. 2. NO FREE AIR. 3. NONOBSTRUCTED BOWEL GAS PATTERN. CONSTIPATION. JOB NUMBER: [id number] MTDD
--- NOTE | 2016-09-19 15:25 | Rehab Evaluation ---
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 leg swelling, hx afib PMH - Neuro Hx Neurological Disorders Yes Hx Dizziness Yes Hx Headaches Yes Hx Neuropathy Yes PMH - GI Hx Gastrointestinal Disorders Yes Hx Gastroesophageal Reflux Yes Hx Nausea/Vomiting Yes Hx Ulcer Yes PMH - Hx Genitourinary Disorders Yes Hx Bladder Problem Yes: bladder repair PMH - Endocrine Hx Endocrine Disorders No PMH - Musculoskeletal Hx Musculoskeletal Disorders Yes Hx Arthritis Yes PMH - Psych Hx Psychiatric Problems Yes Hx Anxiety Yes Hx Depression Yes PMH - Hematology/Oncology Hx Hematology/Oncology Yes Disorders Hx Cancer Yes: uterine- partial hysterectomy Premorbid Status: Detail (The patient was ambulatory with 4 wheeled walker at home and receiving Home PT.) Social History: Detail (The patient lives with daughter in a one story house with 2 steps at the enterance and no railing. The patient has a tub/shower combo with a tub bench and a standard toilet. The patient is I with toileting and dressing and has a nurse assist with showering twice a week.) - Time With Patient Total Time Spent With Patient (Min): 30 Treatment Procedures: Detail (Initial Evaluation) Subjective Information - Subjective Information Per Patient (The patient reports of LE achiness and tremors at times in LE's, UE 's and Trunk.) Objective Data - Mental Status Patient Orientation: Oriented x3 - Visual Perception Appears within normal limits for therapeutic activities - ROM Within normal limits (UE strength bilaterally is 4+ to 5/5 except for R triceps 4/5. LE strength is 4+ to 5/5 except R hip flexors 4/5.) - Strength/Tone Within normal limits - Bed Mobility Independent (Independent with supine to and from sit and scooting up in bed.) - Transfers Independent (Independent with sit to and from stand transfer. The patient has been ambulating to bathroom Independently.) - Balance Balance Sitting: Good Balance Standing: Fair (The patient's balance using Tinetti Assessment Scale is 20/28 which is in the moderate for risk for falling category.) - Gait Detail (The patient ambulated without device 30 feet x1 independently with short shuffling steps.) Therapy Assessment - Therapy Assessment Detail (The patient is independent with mobility. The patient exhibits balance deficits and is rated as a moderate risk for falling. Feel patient would benefit from Home PT to improve balance once she is discharged from [facility] [place].) Problem List - Problem List Physical Therapy Problem List: Detail (1) Decreased standing balance 2) Decreased ability to complete sustained physical activity) Goals - Goals Physical Therapy Goals: 1) Improve the patient's balance to minimal fall risk as rated by the Tinetti balance scale. Prognosis - Prognosis Moderate (To improve balance.) Plan - Plan Physical Therapy Plan: PT 1 time a day for balance exercises M-F until discharge from [facility] [place]. Home PT to improve patient's balance is recommended.
--- NOTE | 2016-09-19 17:07 | Discharge Note ---
VTE H&P Assessment - Risk for VTE Risk for VTE: Yes Risk Level: Moderate Risk Assessment Date: 09/18/16 Risk Assessment Time: 09:00 VTE Orders Placed or Will Be Placed: Yes Discharge Medications - Discharge Medications Home Medications: Ambulatory Orders Albuterol Sulfate [Ventolin Hfa] 1 - 2 puff IH .EVERY 4-6 HOURS PRN 07/05/16 [ Last Taken 1 Day Ago ~09/17/16] Ezetimibe [Zetia] 10 mg PO QHS 07/05/16 [Last Taken 1 Day Ago ~09/17/16] Simvastatin [Zocor] 20 mg PO QHS 07/05/16 [Last Taken 1 Day Ago ~09/17/16] Amiodarone HCl [Pacerone] 200 mg PO DAILY 07/19/16 [Last Taken 1 Day Ago ~] Apixaban [Eliquis] 5 mg PO BID 08/12/16 [Last Taken 1 Day Ago ~09/17/16] Aspirin [Aspir-Low] 81 mg PO DAILY 08/12/16 [Last Taken 1 Day Ago ~09/17/16] Carvedilol [Coreg] 3.125 mg PO BID 08/12/16 [Last Taken 1 Day Ago ~09/17/16] Ipratropium/Albuterol [Duoneb] 3 ml IH Q4H #10 ampul.neb. 08/20/16 [Last Taken 1 Day Ago ~09/17/16] Albuterol Sulfate 0.083% [Neb] 2.5 mg INH RESP.Q2H PRN #240 nebulization solution 08/21/16 [Last Taken 1 Day Ago ~09/17/16] Lisinopril [Zestril] 2.5 mg PO DAILY tablet 08/21/16 [Last Taken 1 Day Ago ~12/27] Nitroglycerin 0.3 mg SL ASDIR PRN 08/30/16 [Last Taken 1 Day Ago ~09/17/16] Omeprazole [Prilosec] 40 mg PO DAILY 08/30/16 [Last Taken 1 Day Ago ~09/17/16] Tramadol HCl [Ultram] 50 mg PO Q6H PRN 08/30/16 [Last Taken 1 Day Ago ~09/17/16] Budesonide [Pulmicort] 0.5 mg INH RESP.BID 08/31/16 [Last Taken 1 Day Ago ~09/17] Ondansetron [Zofran Odt] 4 mg PO Q6H PRN #20 tab.rapdis 09/07/16 [Last Taken 1 Day Ago ~09/17/16] Polyethylene Glycol 3350 [Miralax] 17 gm PO DAILY #1 bottle 09/19/16 [Last Taken Unknown] Discharge Note - Date Date of Discharge Note: 09/19/16 Disposition: Home, Self-Care Condition: (1) Good Additional Instructions: follow up with Dr. Bob in 2-5 days stop lasix Prescriptions: Polyethylene Glycol 3350 [Miralax] 17 gm PO DAILY #1 bottle Referrals: RISHI BOB [Primary Care Provider] - Forms: Patient Portal Access Activity at Discharge: Increase Activity as Tolerated Diet at Discharge: Low Salt Diet
--- NOTE | 2016-09-21 10:00 | Discharge Summary ---
DISCHARGE DIAGNOSES: 1. Hyponatremia, resolving, secondary to Lasix use. 2. Weakness, resolving, secondary from dehydration. 3. Dehydration. 4. History of congestive heart failure. 5. Chronic obstructive pulmonary disease. 6. Gastroesophageal reflux disease. 7. Hypercholesterolemia. 9. History of atrial fibrillation, on Eliquis. 10. Also on amiodarone. ATTENDING PHYSICIAN: Ernesto Morin DO REASON FOR HOSPITALIZATION: Weakness, dehydration, and hyponatremia. This 80-year-old female presented to the emergency department because of weakness, decreased appetite, nausea, and constipation. Two weeks ago she was in the [facility] for pneumonia and congestive heart failure and started on Lasix. She became dehydrated and hyponatremic. She was evaluated by Dr. Leger and admitted to the hospital for hyponatremia, anemia, deconditioning, prolonged QT. when I saw the patient, she stood up from the walker. She walked very well to the scale and back. She also was walking to the bathroom well. She is on home oxygen. We will continue the home oxygen at 2L/min nasal cannula. SIGNIFICANT FINDINGS FROM EXAMINATION: Initially her sodium was 121 and today it went up to 130. She is starting to urinate better. She also is eating nicely. EKG showing sinus rhythm with prolonged QT calculated. Actually, it looks like it is less than what the computer reads and it is about 0.44 and it is not prolonged. LABORATORY: As stated, the sodium is improved. She had an acute abdominal x-ray which showed constipation. We are recommending she drink more fluids and use MiraLax one 17 g daily. WBC 6400, hemoglobin 9.1. She has a chronic anemia. TSH 1.93. Troponin I was normal. Urine was negative. THERAPY PROVIDED: Cautious IV hydration. HOSPITAL COURSE: She improved. She is eating. CONDITION ON DISCHARGE: Much improved. DISCHARGE INSTRUCTIONS: Follow up with Dr. Demarcus Kwan in 2-5 days. Drink more fluids. Use MiraLax 17 g daily to help on the constipation. Continue her home medications. Stop the Lasix. We will continue the tramadol 50 q.6 h. p.r.n., Zocor 20 q.h.s., Zofran 4 mg q.6 h. p.r.n., omeprazole 40 mg daily, nitroglycerin sublingual p.r.n., lisinopril 2.5 daily, DuoNeb q.4 h. p.r.n., Zetia 10 mg q.h.s., Coreg 3.125 b.i.d., Pulmicort 0.5 nebulized twice a day, aspirin 81 mg daily, Eliquis 5 mg b.i.d., amiodarone 200 mg daily, albuterol 2 puffs q.4 h. p.r.n. or nebulized q.4 h. p.r.n. Ernesto Morin DO CC: [facility]. Demarcus Kwan [facility]
== END 2016-09-19 18:50 | disposition home or self-care (01) | DRG 641 ==
LOC: ER 12:56 → MEDSURG 17:50
PROVIDERS: ADMIT Emergency Medicine; ATTEND Emergency Medicine
DX: E87.1 Hypo-osmolality and hyponatremia (principal); I42.9 Cardiomyopathy, unspecified; I48.1 Persistent atrial fibrillation; E86.0 Dehydration; T50.1X5A Adverse effect of loop [high-ceiling] diuretics, initial encounter; R53.1 Weakness; I50.9 Heart failure, unspecified; J44.9 Chronic obstructive pulmonary disease, unspecified; E78.00 Pure hypercholesterolemia, unspecified; Z79.01 Long term (current) use of anticoagulants
CPT/HCPCS: 74022; 80048; 80053; 81003; 83735; 84443; 84484; 85025; 93005; 93010; 94640; 99223; 99239; 99285; J7030

== ENCOUNTER 2016-09-21 04:01 | Emergency (ER) | payer MEDICARE ==
[2016-09-21] MEDS ORDERED: METHYLPREDNISOLONE PF 125MG/VIAL IVP ONE (04:14)
[2016-09-21] MEDS ORDERED: PROMETHAZINE HCL 25 MG/ML VIAL IVP ONE (04:23)
[2016-09-21 04:34] LABS: BASO % 0.4 % (0-6); EOS % 2.4 % (0-6); HEMATOCRIT 28.8 % (35.0-47.0); LYMPH % 25.6 % (16-45); MEAN CELL VOLUME 98.3 fl (81-97); MEAN CORPUSCULAR HEMOGLOBIN 30.7 pg (27-33); MEAN CORPUSCULAR HGB CONC 31.3 g/dl (32-36); MONO % 10.6 % (0-9); PLATELET COUNT 316 K/uL (130-400); RED BLOOD COUNT 2.93 M/uL (3.80-5.40); RED CELL DISTRIBUTION WIDTH 15.9 % (11.5-14.5); WHITE BLOOD COUNT W/O DIFF 7.9 K/uL (4.2-12.2)
[2016-09-21 04:43] LABS: ANION GAP 4.4 (7-16); BLOOD UREA NITROGEN 15 mg/dL (7-17); CARBON DIOXIDE 28.6 mmol/L (22-30); EST GLOMERULAR FILTRATION RATE 57 ml/min; GLUCOSE,RANDOM 137 mg/dL (70-110)
[2016-09-21] MEDS ORDERED: 0.9% SODIUM CHLORIDE 250ML BAG IV ONE (04:54)
[2016-09-21 04:55] LABS: TROPONIN I < 0.012 ng/mL (0.00-0.034)
[2016-09-21] MEDS ORDERED: IPRATROPIUM/ALBUTEROL (0.5MG/3MG) NEB INH ONE (05:12)
[2016-09-21] MEDS ORDERED: FUROSEMIDE IV 20MG/2ML VIAL IVP ONE ×2 (05:13→06:29)
--- NOTE | 2016-09-21 05:23 | Emergency Department Record ---
History of Present Illness - General Chief Complaint: Shortness of breath Stated Complaint: UNSTEADY, JOSÉ ANTONIO Time Seen by Provider: 09/21/16 04:05 Source: Patient, Family Mode of Arrival: Wheelchair Limitations: No limitations - History of Present Illness Initial Comments: pt woke up with increasing sob. no cp. pt also has nausea MD Complaint: Shortness of breath Onset/Timin -: Minutes(s) Improves With: Nothing Worsens With: Exertion Known History Of: Congestive heart failure, COPD Associated Symptoms: Nausea/vomiting Treatments Prior to Arrival: None - Related Data Home Oxygen Amount: 2 Liters Home Medications Medication Instructions Recorded Confirmed Last Taken Albuterol Sulfate [Ventolin Hfa] 1 - 2 puff IH .EVERY 4-6 HOURS PRN 07/05/1604/28 1 Day Ago ~09/17/16 Ezetimibe [Zetia] 10 mg PO QHS 07/05/16 09/21/16 1 Day Ago ~09/17/16 Simvastatin [Zocor] 20 mg PO QHS 07/05/16 09/21/16 1 Day Ago ~09/17/16 Amiodarone HCl [Pacerone] 200 mg PO DAILY 07/19/16 09/21/16 1 Day Ago ~09/17/16 Apixaban [Eliquis] 5 mg PO BID 08/12/16 09/21/16 1 Day Ago ~09/17/16 Aspirin [Aspir-Low] 81 mg PO DAILY 08/12/16 09/21/16 1 Day Ago ~09/17/16 Carvedilol [Coreg] 3.125 mg PO BID 08/12/16 09/21/16 1 Day Ago ~09/17/16 Nitroglycerin 0.3 mg SL ASDIR PRN 08/30/16 09/21/16 1 Day Ago ~09/17/16 Omeprazole [Prilosec] 40 mg PO DAILY 08/30/16 09/21/16 1 Day Ago ~09/17/16 Tramadol HCl [Ultram] 50 mg PO Q6H PRN 08/30/16 09/21/16 1 Day Ago ~09/17/16 Budesonide [Pulmicort] 0.5 mg INH RESP.BID 08/31/16 09/21/16 1 Day Ago ~09/17/16 Previous Rx's Medication Instructions Recorded Ipratropium/Albuterol [Duoneb] 3 ml IH Q4H #10 ampul.neb. 08/20/16 Albuterol Sulfate 0.083% [Neb] 2.5 mg INH RESP.Q2H PRN #240 08/21/16 nebulization solution Lisinopril [Zestril] 2.5 mg PO DAILY tablet 08/21/16 Ondansetron [Zofran Odt] 4 mg PO Q6H PRN #20 tab.rapdis 09/07/16 Polyethylene Glycol 3350 [Miralax] 17 gm PO DAILY #1 bottle 09/19/16 Allergies Allergy/AdvReac Type Severity Reaction Status Date / Time codeine Allergy PT UNSURE Verified 09/18/16 13:27 OF REACTION Penicillins Allergy PT UNSURE Verified 09/18/16 13:27 OF REACTION Travel Screening - Travel/Exposure Within Last 30 Days Have you traveled within the last 30 days?: No - Travel Symptoms Symptom Screening: None Review of Systems Constitutional: Reports: Malaise, Weakness. Denies: Chills, Fever, Night sweats , Weight change Eyes: Reports: As per HPI. Denies: Eye discharge, Eye pain, Photophobia, Vision change ENT: Reports: As per HPI. Denies: Congestion, Dental pain, Ear pain, Epistaxis , Hearing loss, Throat pain Respiratory: Reports: As per HPI, Cough, Dyspnea, Wheezes. Denies: Hemoptysis, Stridor Cardiovascular: Reports: As per HPI, Arrhythmia, Dyspnea on exertion, Paroxysmal nocturnal dyspnea. Denies: Chest pain, Edema, Murmurs, Orthopnea, Palpitations, Rheumatic Fever, Syncope Endocrine: Reports: As per HPI, Fatigue. Denies: Heat or cold intolerance, Polydipsia, Polyuria Gastrointestinal: Reports: As per HPI, Nausea. Denies: Abdominal pain, Constipation, Diarrhea, Hematemesis, Hematochezia, Melena, Vomiting Genitourinary: Reports: As per HPI. Denies: Abnormal menses, Discharge, Dyspareunia, Dysuria, Frequency, Hematuria, Incontinence, Retention, Urgency Musculoskeletal: Reports: As per HPI, Arthralgia. Denies: Back pain, Gout, Joint swelling, Myalgia, Neck pain Skin: Reports: As per HPI. Denies: Bruising, Change in color, Change in hair/ nails, Lesions, Pruritus, Rash Neurological: Reports: As per HPI, Weakness. Denies: Abnormal gait, Confusion, Headache, Numbness, Paresthesias, Seizure, Tingling, Tremors, Vertigo Psychiatric: Reports: As per HPI, Anxiety. Denies: Auditory hallucinations, Depression, Homicidal thoughts, Suicidal thoughts, Visual hallucinations Hematological/Lymphatic: Reports: As per HPI, Anemia. Denies: Blood Clots, Easy bleeding, Easy bruising, Swollen glands Past Medical History - SOCIAL HISTORY Smoking Status: Former smoker Alcohol Use: None Drug Use: None - RESPIRATORY Hx Respiratory Disorders: Yes Hx COPD: Yes Hx Dyspnea: Yes Hx Pneumonia: Yes Comment:: emphysema - CARDIOVASCULAR Hx Cardio Disorders: Yes Hx Abnormal EKG: Yes Hx Chest Pain: Yes Hx CHF: Yes Hx Edema: Yes Hx Heart Attack: Yes Hx Hypertension: Yes Hx Irregular Heartbeat: Yes Hx Palpitations: Yes Hx Vascular Disease: Yes Comment:: High cholesterol, bilat. leg swelling, hx afib - NEURO Hx Neuro Disorders: Yes Hx Dizziness: Yes Hx Headaches: Yes Hx Neuropathy: Yes - GI Hx GI Disorders: Yes Hx Reflux: Yes Hx Nausea/Vomiting: Yes Hx Ulcer: Yes - Hx Genitourinary Disorders: Yes Hx Bladder Problem: Yes (bladder repair) - ENDOCRINE Hx Endocrine Disorders: No - MUSCULOSKELETAL Hx Musculoskeletal Disorders: Yes Hx Arthritis: Yes - PSYCH Hx Psych Problems: Yes Hx Anxiety: Yes Hx Depression: Yes - HEMATOLOGY/ONCOLOGY Hx Hematology/Oncology Disorders: Yes Hx Cancer: Yes (uterine- partial hysterectomy) Family Medical History Any Significant Family History?: Yes Hx Heart Disease: Brother/Sister *Heart Comment: [place] Physical Exam - General General Appearance: Alert, Oriented x3, Cooperative, Mild distress - Head Head exam: Normal inspection - Eye Eye exam: Normal appearance, PERRL, EOMI Pupils: Normal accommodation - ENT ENT exam: Normal exam, Mucous membranes moist, Normal external ear exam, Normal orophraynx Ear exam: Normal external inspection. negative: External canal tenderness Nasal Exam: Normal inspection. negative: Discharge, Sinus tenderness Mouth exam: Normal external inspection, Tongue normal Teeth exam: Normal inspection. negative: Dental caries Throat exam: Normal inspection. negative: Tonsillar erythema, Tonsillar exudate - Neck Neck exam: Normal inspection, Full ROM. negative: Tenderness - Respiratory Respiratory exam: Rales (rll), Respiratory distress, Wheezes - Cardiovascular Cardiovascular Exam: Regular rate, Normal rhythm, Normal heart sounds - GI/Abdominal GI/Abdominal exam: Soft, Normal bowel sounds. negative: Tenderness - Rectal Rectal exam: Deferred - exam: Deferred - Extremities Extremities exam: Normal inspection, Full ROM, Normal capillary refill. negative: Tenderness - Back Back exam: Reports: Normal inspection, Full ROM. Denies: Muscle spasm, Rash noted, Tenderness - Neurological Neurological exam: Alert, CN II-XII intact, Normal gait, Oriented X3 - Psychiatric Psychiatric exam: Normal affect, Normal mood - Skin Skin exam: Dry, Intact, Normal color, Warm Course Vital Signs 09/21/16 04:04 Pulse Rate 79 Respiratory 24 Rate Blood Pressure 170/69 Pulse Ox 94 L - Reevaluation(s) Reevaluation #1: 09/21/16 05:57 despite having lasix, solumedrol, duoneb pt contd to get worse. bipap was started and pt will be transferred Medical Decision Making - Management Options MDM Management: Additional Work-up Planned (e.g. ADM/Transfer/OP Study) - Data Complexity MDM Data: Labs Ordered and/or Reviewed, X-Ray Ordered and/or Reviewed, EKG Ordered and/or Reviewed - Lab Data Result diagrams: 09/21/16 04:25 09/21/16 04:25 Lab Results 09/21/16 09/21/16 09/21/16 Range/Units 04:25 04:25 04:25 WBC 7.9 (4.2-12.2) K/uL RBC 2.93 L (3.80-5.40) M/uL Hgb 9.0 L (11.6-16.0) gm/dl Hct 28.8 L (35.0-47.0) % MCV 98.3 H (81-97) fl MCH 30.7 (27-33) pg MCHC 31.3 L (32-36) g/dl RDW 15.9 H (11.5-14.5) % Plt Count 316 (130-400) K/uL MPV 9.0 (7.4-10.4) fl Gran % 61.0 (47-80) % Lymphocytes % 25.6 (16-45) % Monocytes % 10.6 H (0-9) % Eosinophils % 2.4 (0-6) % Basophils % 0.4 (0-6) % D-Dimer 1.23 H (0-0.59) mg/L FEU Sodium 128 L (136-145) mmol/L Potassium 4.5 (3.5-5.1) mmol/L Chloride 95 L (98-107) mmol/L Carbon Dioxide 28.6 (22-30) mmol/L Anion Gap 4.4 L (7-16) BUN 15 (7-17) mg/dL Creatinine 1.0 (0.52-1.04) mg/dL Estimated GFR 57 ml/min Random Glucose 137 H (70-110) mg/dL Calcium 8.6 (8.5-10.1) mg/dL Troponin I < 0.012 (0.00-0.034) ng/mL NT-Pro-B Natriuret Pep 2140.00 H (<450) pg/mL - EKG Data -: EKG Interpreted by Md EKG: No Acute Changes Disposition Disposition: Transfer Clinical Impression: Hyponatremia Pulmonary edema Qualifiers: Chronicity: acute Qualified Code(s): J81.0 - Acute pulmonary edema Pneumonia Qualifiers: Pneumonia type: due to unspecified organism Laterality: right Lung location: lower lobe of lung Qualified Code(s): J18.1 - Lobar pneumonia, unspecified organism COPD (chronic obstructive pulmonary disease) Qualifiers: COPD type: unspecified COPD Qualified Code(s): J44.9 - Chronic obstructive pulmonary disease, unspecified Disposition: Acute Care Hospital [facility] Reason For Transfer: resp failure Accepting Physician: dr nam Time Discussed w/Accepting Physician: 06:51 Forms: Patient Portal Access
[2016-09-21 05:37] LABS: URINE APPEARANCE CLEAR; URINE BILIRUBIN NEGATIVE (NEGATIVE); URINE BLOOD NEGATIVE (NEGATIVE); URINE COLOR YELLOW; URINE GLUCOSE (UA) NEGATIVE (NEGATIVE); URINE KETONE NEGATIVE (NEGATIVE); URINE LEUKOCYTE ESTERASE NEGATIVE (NEGATIVE); URINE NITRITE NEGATIVE (NEGATIVE); URINE PROTEIN NEGATIVE (NEGATIVE); URINE UROBILINOGEN 0.2 E.U./dL (0.20 - 1.00)
[2016-09-21] MEDS ORDERED: CEFTRIAXONE SODIUM 1 GM in 0.9 % SODIUM CHLORIDE 100ML 100 ML IVPB ONE (06:30)
[2016-09-21 06:43] LABS: ARTERIAL BLD GAS O2 SATURATION 92.8 % (95-98); ARTERIAL BLOOD GAS BASE EXCESS 0.3 mmol/L (-2 - 3); ARTERIAL BLOOD GAS PCO2 43.5 mmHg (35-48); ARTERIAL BLOOD GAS pH 7.38 (7.35-7.45); CARBOXYHEMOGLOBIN 1.9 % (0-1.5); METHEMOGLOBIN 0.6 % (0.0-1.5); O2 HEMOGLOBIN 90.5 % vol (94-99); TOTAL HEMOGLOBIN 9.5 g/dl (11.6-16)
[2016-09-21 06:44] LABS: ALLEN TEST NOT DONE
--- NOTE | 2016-09-21 06:56 | Emergency Department Record ---
History of Present Illness - General Chief Complaint: Shortness of breath Stated Complaint: UNSTEADY, JOSÉ ANTONIO Time Seen by Provider: 09/21/16 04:05 Source: Patient, Family Mode of Arrival: Wheelchair Limitations: No limitations - History of Present Illness Onset/Timin -: Minutes(s) Improves With: Nothing Worsens With: Exertion Known History Of: Congestive heart failure, COPD Associated Symptoms: Nausea/vomiting Treatments Prior to Arrival: None - Related Data Home Oxygen Amount: 2 Liters Home Medications Medication Instructions Recorded Confirmed Last Taken Albuterol Sulfate [Ventolin Hfa] 1 - 2 puff IH .EVERY 4-6 HOURS PRN 07/05/1604/28 1 Day Ago ~09/17/16 Ezetimibe [Zetia] 10 mg PO QHS 07/05/16 09/21/16 1 Day Ago ~09/17/16 Simvastatin [Zocor] 20 mg PO QHS 07/05/16 09/21/16 1 Day Ago ~09/17/16 Amiodarone HCl [Pacerone] 200 mg PO DAILY 07/19/16 09/21/16 1 Day Ago ~09/17/16 Apixaban [Eliquis] 5 mg PO BID 08/12/16 09/21/16 1 Day Ago ~09/17/16 Aspirin [Aspir-Low] 81 mg PO DAILY 08/12/16 09/21/16 1 Day Ago ~09/17/16 Carvedilol [Coreg] 3.125 mg PO BID 08/12/16 09/21/16 1 Day Ago ~09/17/16 Nitroglycerin 0.3 mg SL ASDIR PRN 08/30/16 09/21/16 1 Day Ago ~09/17/16 Omeprazole [Prilosec] 40 mg PO DAILY 08/30/16 09/21/16 1 Day Ago ~09/17/16 Tramadol HCl [Ultram] 50 mg PO Q6H PRN 08/30/16 09/21/16 1 Day Ago ~09/17/16 Budesonide [Pulmicort] 0.5 mg INH RESP.BID 08/31/16 09/21/16 1 Day Ago ~09/17/16 Previous Rx's Medication Instructions Recorded Ipratropium/Albuterol [Duoneb] 3 ml IH Q4H #10 ampul.neb. 04/10/17 Albuterol Sulfate 0.083% [Neb] 2.5 mg INH RESP.Q2H PRN #240 08/21/16 nebulization solution Lisinopril [Zestril] 2.5 mg PO DAILY tablet 08/21/16 Ondansetron [Zofran Odt] 4 mg PO Q6H PRN #20 tab.rapdis 09/07/16 Polyethylene Glycol 3350 [Miralax] 17 gm PO DAILY #1 bottle 09/19/16 Allergies Allergy/AdvReac Type Severity Reaction Status Date / Time codeine Allergy PT UNSURE Verified 09/18/16 13:27 OF REACTION Penicillins Allergy PT UNSURE Verified 09/18/16 13:27 OF REACTION Travel Screening - Travel/Exposure Within Last 30 Days Have you traveled within the last 30 days?: No - Travel Symptoms Symptom Screening: None Review of Systems Constitutional: Reports: Malaise, Weakness. Denies: Chills, Fever, Night sweats , Weight change Eyes: Reports: As per HPI. Denies: Eye discharge, Eye pain, Photophobia, Vision change ENT: Reports: As per HPI. Denies: Congestion, Dental pain, Ear pain, Epistaxis , Hearing loss, Throat pain Respiratory: Reports: As per HPI, Cough, Dyspnea, Wheezes. Denies: Hemoptysis, Stridor Cardiovascular: Reports: As per HPI, Arrhythmia, Dyspnea on exertion, Paroxysmal nocturnal dyspnea. Denies: Chest pain, Edema, Murmurs, Orthopnea, Palpitations, Rheumatic Fever, Syncope Endocrine: Reports: As per HPI, Fatigue. Denies: Heat or cold intolerance, Polydipsia, Polyuria Gastrointestinal: Reports: As per HPI, Nausea. Denies: Abdominal pain, Constipation, Diarrhea, Hematemesis, Hematochezia, Melena, Vomiting Genitourinary: Reports: As per HPI. Denies: Abnormal menses, Discharge, Dyspareunia, Dysuria, Frequency, Hematuria, Incontinence, Retention, Urgency Musculoskeletal: Reports: As per HPI, Arthralgia. Denies: Back pain, Gout, Joint swelling, Myalgia, Neck pain Skin: Reports: As per HPI. Denies: Bruising, Change in color, Change in hair/ nails, Lesions, Pruritus, Rash Neurological: Reports: As per HPI, Weakness. Denies: Abnormal gait, Confusion, Headache, Numbness, Paresthesias, Seizure, Tingling, Tremors, Vertigo Psychiatric: Reports: As per HPI, Anxiety. Denies: Auditory hallucinations, Depression, Homicidal thoughts, Suicidal thoughts, Visual hallucinations Hematological/Lymphatic: Reports: As per HPI, Anemia. Denies: Blood Clots, Easy bleeding, Easy bruising, Swollen glands Past Medical History - SOCIAL HISTORY Smoking Status: Former smoker Alcohol Use: None Drug Use: None - RESPIRATORY Hx Respiratory Disorders: Yes Hx COPD: Yes Hx Dyspnea: Yes Hx Pneumonia: Yes Comment:: emphysema - CARDIOVASCULAR Hx Cardio Disorders: Yes Hx Abnormal EKG: Yes Hx Chest Pain: Yes Hx CHF: Yes Hx Edema: Yes Hx Heart Attack: Yes Hx Hypertension: Yes Hx Irregular Heartbeat: Yes Hx Palpitations: Yes Hx Vascular Disease: Yes Comment:: High cholesterol, bilat. leg swelling, hx afib - NEURO Hx Neuro Disorders: Yes Hx Dizziness: Yes Hx Headaches: Yes Hx Neuropathy: Yes - GI Hx GI Disorders: Yes Hx Reflux: Yes Hx Nausea/Vomiting: Yes Hx Ulcer: Yes - Hx Genitourinary Disorders: Yes Hx Bladder Problem: Yes (bladder repair) - ENDOCRINE Hx Endocrine Disorders: No - MUSCULOSKELETAL Hx Musculoskeletal Disorders: Yes Hx Arthritis: Yes - PSYCH Hx Psych Problems: Yes Hx Anxiety: Yes Hx Depression: Yes - HEMATOLOGY/ONCOLOGY Hx Hematology/Oncology Disorders: Yes Hx Cancer: Yes (uterine- partial hysterectomy) Family Medical History Any Significant Family History?: Yes Hx Heart Disease: Brother/Sister *Heart Comment: [place] Physical Exam - General Limitations: No limitations Course Vital Signs 09/21/16 09/21/16 09/21/16 04:04 05:15 05:59 Pulse Rate 79 87 Pulse Rate [ 89 Pulse Ox Probe] Respiratory 24 24 20 Rate Blood Pressure 170/69 Blood Pressure 171/68 [Left Arm] Pulse Ox 94 L 94 L 09/21/16 06:29 Pulse Rate Pulse Rate [ 81 Pulse Ox Probe] Respiratory 24 Rate Blood Pressure Blood Pressure 169/72 [Left Arm] Pulse Ox 94 L - Reevaluation(s) Reevaluation #1: 09/21/16 06:54 pt was not sent for ct because she could not lay flat though her d-dimer is elevated, however pt is already on [employer] Medical Decision Making - Lab Data Result diagrams: 09/21/16 04:25 09/21/16 04:25 Lab Results 09/21/16 09/21/16 09/21/16 Range/Units 04:25 04:25 04:25 WBC 7.9 (4.2-12.2) K/uL RBC 2.93 L (3.80-5.40) M/uL Hgb 9.0 L (11.6-16.0) gm/dl Hct 28.8 L (35.0-47.0) % MCV 98.3 H (81-97) fl MCH 30.7 (27-33) pg MCHC 31.3 L (32-36) g/dl RDW 15.9 H (11.5-14.5) % Plt Count 316 (130-400) K/uL MPV 9.0 (7.4-10.4) fl Gran % 61.0 (47-80) % Lymphocytes % 25.6 (16-45) % Monocytes % 10.6 H (0-9) % Eosinophils % 2.4 (0-6) % Basophils % 0.4 (0-6) % D-Dimer 1.23 H (0-0.59) mg/L FEU Puncture Site pCO2 pO2 HCO3 Oxyhemoglobin ABG pH ABG O2 Saturation ABG Base Excess Robert Test VBG pH Carboxyhemoglobin Methemoglobin Total Hemoglobin Actual Respiration Rate FiO2 Sodium 128 L (136-145) mmol/L Potassium 4.5 (3.5-5.1) mmol/L Chloride 95 L (98-107) mmol/L Carbon Dioxide 28.6 (22-30) mmol/L Anion Gap 4.4 L (7-16) BUN 15 (7-17) mg/dL Creatinine 1.0 (0.52-1.04) mg/dL Estimated GFR 57 ml/min Random Glucose 137 H (70-110) mg/dL Calcium 8.6 (8.5-10.1) mg/dL Troponin I < 0.012 (0.00-0.034) ng/mL NT-Pro-B Natriuret Pep 2140.00 H (<450) pg/mL Urine Color Urine Appearance Urine pH (5.0-8.0) Ur Specific [place] (1.002-1.030) Urine Protein (NEGATIVE) Urine Glucose (UA) (NEGATIVE) Urine Ketones (NEGATIVE) Urine Blood (NEGATIVE) Urine Nitrite (NEGATIVE) Urine Bilirubin (NEGATIVE) Urine Urobilinogen (0.20 - 1.00) E.U./dL Ur Leukocyte Esterase (NEGATIVE) 09/21/16 09/21/16 09/21/16 Range/Units 05:30 05:32 06:06 WBC (4.2-12.2) K/uL RBC (3.80-5.40) M/uL Hgb (11.6-16.0) gm/dl Hct (35.0-47.0) % MCV (81-97) fl MCH (27-33) pg MCHC (32-36) g/dl RDW (11.5-14.5) % Plt Count (130-400) K/uL MPV (7.4-10.4) fl Gran % (47-80) % Lymphocytes % (16-45) % Monocytes % (0-9) % Eosinophils % (0-6) % Basophils % (0-6) % D-Dimer (0-0.59) mg/L FEU Puncture Site Cancelled pCO2 Cancelled pO2 Cancelled HCO3 Cancelled Oxyhemoglobin Cancelled ABG pH Cancelled ABG O2 Saturation Cancelled ABG Base Excess Cancelled Robert Test Cancelled VBG pH Cancelled Carboxyhemoglobin Cancelled Methemoglobin Cancelled Total Hemoglobin Cancelled Actual Respiration Rate Cancelled FiO2 Cancelled Sodium (136-145) mmol/L Potassium (3.5-5.1) mmol/L Chloride (98-107) mmol/L Carbon Dioxide (22-30) mmol/L Anion Gap (7-16) BUN (7-17) mg/dL Creatinine (0.52-1.04) mg/dL Estimated GFR ml/min Random Glucose (70-110) mg/dL Calcium (8.5-10.1) mg/dL Troponin I (0.00-0.034) ng/mL NT-Pro-B Natriuret Pep (<450) pg/mL Urine Color Yellow Urine Appearance Clear Urine pH 6.0 (5.0-8.0) Ur Specific [place] 1.015 (1.002-1.030) Urine Protein Negative (NEGATIVE) Urine Glucose (UA) Negative (NEGATIVE) Urine Ketones Negative (NEGATIVE) Urine Blood Negative (NEGATIVE) Urine Nitrite Negative (NEGATIVE) Urine Bilirubin Negative (NEGATIVE) Urine Urobilinogen 0.2 (0.20 - 1.00) E.U./dL Ur Leukocyte Esterase Negative (NEGATIVE) 09/21/16 Range/Units 06:35 WBC (4.2-12.2) K/uL RBC (3.80-5.40) M/uL Hgb (11.6-16.0) gm/dl Hct (35.0-47.0) % MCV (81-97) fl MCH (27-33) pg MCHC (32-36) g/dl RDW (11.5-14.5) % Plt Count (130-400) K/uL MPV (7.4-10.4) fl Gran % (47-80) % Lymphocytes % (16-45) % Monocytes % (0-9) % Eosinophils % (0-6) % Basophils % (0-6) % D-Dimer (0-0.59) mg/L FEU Puncture Site Left brachial pCO2 43.5 pO2 62.0 L HCO3 25.0 H Oxyhemoglobin 90.5 L ABG pH 7.38 ABG O2 Saturation 92.8 L ABG Base Excess 0.3 Robert Test Not done VBG pH Carboxyhemoglobin 1.9 H Methemoglobin 0.6 Total Hemoglobin 9.5 L Actual Respiration Rate 20.0 H FiO2 35.0 H Sodium (136-145) mmol/L Potassium (3.5-5.1) mmol/L Chloride (98-107) mmol/L Carbon Dioxide (22-30) mmol/L Anion Gap (7-16) BUN (7-17) mg/dL Creatinine (0.52-1.04) mg/dL Estimated GFR ml/min Random Glucose (70-110) mg/dL Calcium (8.5-10.1) mg/dL Troponin I (0.00-0.034) ng/mL NT-Pro-B Natriuret Pep (<450) pg/mL Urine Color Urine Appearance Urine pH (5.0-8.0) Ur Specific [place] (1.002-1.030) Urine Protein (NEGATIVE) Urine Glucose (UA) (NEGATIVE) Urine Ketones (NEGATIVE) Urine Blood (NEGATIVE) Urine Nitrite (NEGATIVE) Urine Bilirubin (NEGATIVE) Urine Urobilinogen (0.20 - 1.00) E.U./dL Ur Leukocyte Esterase (NEGATIVE) Disposition Clinical Impression: Hyponatremia Pulmonary edema Qualifiers: Chronicity: acute Qualified Code(s): J81.0 - Acute pulmonary edema Pneumonia Qualifiers: Pneumonia type: due to unspecified organism Laterality: right Lung location: lower lobe of lung Qualified Code(s): J18.1 - Lobar pneumonia, unspecified organism COPD (chronic obstructive pulmonary disease) Qualifiers: COPD type: unspecified COPD Qualified Code(s): J44.9 - Chronic obstructive pulmonary disease, unspecified Disposition: Acute Care Hospital Transfer Forms: Patient Portal Access
== END 2016-09-21 09:00 | disposition short-term general hospital (02) ==
LOC: ER 04:01
DX: I50.9 Heart failure, unspecified (principal); J44.9 Chronic obstructive pulmonary disease, unspecified; J18.1 Lobar pneumonia, unspecified organism; E87.1 Hypo-osmolality and hyponatremia; R11.2 Nausea with vomiting, unspecified; I48.91 Unspecified atrial fibrillation; I25.2 Old myocardial infarction; I10 Essential (primary) hypertension; F17.210 Nicotine dependence, cigarettes, uncomplicated; Z79.01 Long term (current) use of anticoagulants
CPT/HCPCS: 36600; 71010; 80048; 81003; 82375; 82803; 83880; 84484; 85025; 85379; 93005; 93010; 94640; 94660; 96361; 96365; 96366; 96375; 96376; 99285; J1940; J2550; J2930

== ENCOUNTER 2016-10-22 12:16 | Observation (INO) | payer MEDICARE ==
--- NOTE | 2016-10-22 12:33 | Emergency Department Record ---
History of Present Illness - General Chief complaint: Weakness Stated complaint: WEAKNESS Time Seen by Provider: 10/22/16 12:32 Source: Patient, Family Mode of Arrival: EMS Limitations: No limitations - History of Present Illness Initial comments: The patient is here due to a 24 hour hx of lower leg pain and trouble walking. She has been having mild back pain with sitting and standing also. Today she has been unable to get up due to the pain. When she is lying flat in bed she has no pain. Additionally she has been having pelvic pain and trouble urinating. The patient did fall about 3 weeks ago but was not hurt and did not seek care. There has been no fever, chills, vomiting, diarrhea, CP, SOB, or dysuria. MD Complaint: Generalized weakness Onset/Timin -: Days(s) Location: Generalized Severity scale (1-10): 10 Consistency: Constant Improves with: None Worsens with: None Associated Symptoms: Denies other symptoms - [place] Coma Scale Eye Response: (4) Open spontaneously Motor Response: (6) Obeys commands Verbal Response: (5) Oriented [place] Total: 15 - Related Data Home Medications Medication Instructions Recorded Confirmed Last Taken Albuterol Sulfate [Ventolin Hfa] 1 - 2 puff IH .EVERY 4-6 HOURS PRN 07/05/1604/28 1 Day Ago ~09/17/16 Ezetimibe [Zetia] 10 mg PO QHS 07/05/16 10/22/16 1 Day Ago ~09/17/16 Simvastatin [Zocor] 20 mg PO QHS 07/05/16 10/22/16 1 Day Ago ~09/17/16 Amiodarone HCl [Pacerone] 400 mg PO DAILY 07/19/16 10/22/16 1 Day Ago ~09/17/16 Apixaban [Eliquis] 5 mg PO BID 08/12/16 10/22/16 1 Day Ago ~09/17/16 Aspirin [Aspir-Low] 81 mg PO DAILY 08/12/16 10/22/16 1 Day Ago ~09/17/16 Carvedilol [Coreg] 3.125 mg PO BID 08/12/16 10/22/16 1 Day Ago ~09/17/16 Nitroglycerin 0.3 mg SL ASDIR PRN 08/30/16 10/22/16 1 Day Ago ~09/17/16 Omeprazole [Prilosec] 40 mg PO DAILY 08/30/16 10/22/16 1 Day Ago ~09/17/16 Tramadol HCl [Ultram] 50 mg PO Q6H PRN 08/30/16 10/22/16 1 Day Ago ~09/17/16 Budesonide [Pulmicort] 0.5 mg INH RESP.BID 08/31/16 10/22/16 1 Day Ago ~09/17/16 Furosemide [Lasix] 20 mg PO DAILY 10/22/16 10/22/16 Unknown Promethazine HCl [Phenergan] 25 mg PO Q4H PRN 10/22/16 10/22/16 Unknown Previous Rx's Medication Instructions Recorded Ipratropium/Albuterol [Duoneb] 3 ml IH Q4H #10 ampul.neb. 08/20/16 Albuterol Sulfate 0.083% [Neb] 2.5 mg INH RESP.Q2H PRN #240 08/21/16 nebulization solution Lisinopril [Zestril] 2.5 mg PO DAILY tablet 08/21/16 Allergies Allergy/AdvReac Type Severity Reaction Status Date / Time codeine Allergy PT UNSURE Verified 09/18/16 13:27 OF REACTION Penicillins Allergy PT UNSURE Verified 09/18/16 13:27 OF REACTION Travel Screening - Travel/Exposure Within Last 30 Days Have you traveled within the last 30 days?: No Review of Systems Constitutional: Denies: Chills, Fever Eyes: Denies: Eye discharge ENT: Denies: Congestion Respiratory: Denies: Cough, Dyspnea Cardiovascular: Denies: Chest pain Endocrine: Reports: Fatigue Gastrointestinal: Denies: Diarrhea, Nausea, Vomiting Genitourinary: Denies: Dysuria Musculoskeletal: Reports: Back pain Past Medical History - SOCIAL HISTORY Smoking Status: Former smoker Alcohol Use: None Drug Use: None - RESPIRATORY Hx Respiratory Disorders: Yes Hx COPD: Yes Hx Dyspnea: Yes Hx Pneumonia: Yes Comment:: emphysema - CARDIOVASCULAR Hx Cardio Disorders: Yes Hx Abnormal EKG: Yes Hx Chest Pain: Yes Hx CHF: Yes Hx Edema: Yes Hx Heart Attack: Yes Hx Hypertension: Yes Hx Irregular Heartbeat: Yes Hx Palpitations: Yes Hx Vascular Disease: Yes Comment:: High cholesterol, bilat. leg swelling, hx afib - NEURO Hx Neuro Disorders: Yes Hx Dizziness: Yes Hx Headaches: Yes Hx Neuropathy: Yes - GI Hx GI Disorders: Yes Hx Reflux: Yes Hx Nausea/Vomiting: Yes Hx Ulcer: Yes - Hx Genitourinary Disorders: Yes Hx Bladder Problem: Yes (bladder repair) - ENDOCRINE Hx Endocrine Disorders: No - MUSCULOSKELETAL Hx Musculoskeletal Disorders: Yes Hx Arthritis: Yes - PSYCH Hx Psych Problems: Yes Hx Anxiety: Yes Hx Depression: Yes - HEMATOLOGY/ONCOLOGY Hx Hematology/Oncology Disorders: Yes Hx Cancer: Yes (uterine- partial hysterectomy) Family Medical History Any Significant Family History?: Yes Hx Heart Disease: Brother/Sister *Heart Comment: [place] Physical Exam - General General Appearance: Alert, Oriented x3, Cooperative, No acute distress - Head Head exam: Atraumatic, Normocephalic, Normal inspection - Eye Eye exam: Normal appearance, PERRL - ENT Throat exam: Normal inspection. negative: Tonsillar erythema, Tonsillar exudate - Neck Neck exam: Normal inspection, Full ROM. negative: Tenderness - Respiratory Respiratory exam: Normal lung sounds bilaterally. negative: Respiratory distress - Cardiovascular Cardiovascular Exam: Regular rate, Normal rhythm, Normal heart sounds - GI/Abdominal GI/Abdominal exam: Soft, Tenderness (There is mild pelvic tenderness diffusely.) . negative: Distended, Guarding - Extremities Extremities exam: Normal inspection, Full ROM. negative: Joint swelling, Pedal edema, Tenderness - Back Back exam: Reports: Normal inspection, Paraspinal tenderness (diffusely bilateral lumbar L3-5 area.). Denies: Vertebral tenderness - Neurological Neurological exam: Abnormal gait, Alert. negative: Motor sensory deficit, Normal gait - Psychiatric Psychiatric exam: negative: Agitated, Anxious Course Vital Signs 10/22/16 12:22 Temperature 98.0 F Pulse Rate 72 Respiratory 20 Rate Blood Pressure 134/59 Pulse Ox 91 L - Reevaluation(s) Reevaluation #1: The patient is doing much better now. She did have a Mcadams catheter placed and had 1000cc's of urine present. Her pelvic pain symptoms have now resolved. On exam her abdomen is very soft and nontender in all 4 quads. 10/22/16 13:18 Reevaluation #2: The patient is doing well at this time. She denies any AP or back pain or leg weakness. Her symptoms seem to have resolved with the placement of the mcadams catheter. She has urinated > 1000 cc's since placement. 10/22/16 13:57 Reevaluation #3: The patient is still having back pain only with movements and twisting. When lying flat she has no pain or discomfort. Her abdominal pain has also resolved. We are unable to get the patient to ambulate with her walker. Her daughter also states they are in the process to get her placed in a residential. Due to that fact we will admit the patient to the hospital overnight and will consult social group worker due to the residential issue and also Urology due to the bladder outlet obstruction. I did discuss the case with Dr. Morin and he does accept the admission. 10/22/16 14:41 Medical Decision Making - Data Complexity MDM Data: Labs Ordered and/or Reviewed, X-Ray Ordered and/or Reviewed - Lab Data Result diagrams: 10/22/16 12:55 10/22/16 12:55 - Radiology Data Radiology results: Report reviewed (LS Spine: No acute changes.) Disposition Disposition: Admit Clinical Impression: Weakness Anemia Qualifiers: Anemia type: unspecified type Qualified Code(s): D64.9 - Anemia, unspecified Disposition: Still a Patient at [facility] Decision to Admit: Admit from ER Decision to Admit Date: 10/22/16 Decision to Admit Time: 14:44 Accepting Physician: Patience Time Discussed w/Accepting Physician: 14:44 Condition: (2) Stable Forms: Patient Portal Access Time of Disposition: 14:44
[2016-10-22] MEDS ORDERED: 0.9% SODIUM CHLORIDE 250ML BAG IV ONE (12:43)
[2016-10-22] MEDS ORDERED: MORPHINE SULFATE 5 MG/ML PFS IVP ONE (12:44)
[2016-10-22 13:03] LABS: URINE APPEARANCE CLEAR; URINE BILIRUBIN NEGATIVE (NEGATIVE); URINE BLOOD NEGATIVE (NEGATIVE); URINE COLOR YELLOW; URINE GLUCOSE (UA) NEGATIVE (NEGATIVE); URINE KETONE NEGATIVE (NEGATIVE); URINE LEUKOCYTE ESTERASE NEGATIVE (NEGATIVE); URINE NITRITE NEGATIVE (NEGATIVE); URINE PROTEIN NEGATIVE (NEGATIVE); URINE UROBILINOGEN 0.2 E.U./dL (0.20 - 1.00)
[2016-10-22 13:05] LABS: BASO % 0.2 % (0-6); EOS % 0.8 % (0-6); HEMOGLOBIN 8.7 gm/dl (11.6-16.0); MEAN CELL VOLUME 95.4 fl (81-97); MEAN CORPUSCULAR HEMOGLOBIN 30.7 pg (27-33); MEAN CORPUSCULAR HGB CONC 32.2 g/dl (32-36); MEAN PLATELET VOLUME 8.9 fl (7.4-10.4); PLATELET COUNT 343 K/uL (130-400); RED BLOOD COUNT 2.83 M/uL (3.80-5.40); RED CELL DISTRIBUTION WIDTH 15.2 % (11.5-14.5); WHITE BLOOD COUNT W/O DIFF 8.8 K/uL (4.2-12.2)
[2016-10-22 13:18] LABS: ALB/GLOB RATIO 1.1 (1.1-1.8); ALBUMIN 3.5 gm/dL (3.5-5.0); ANION GAP 6.5 (7-16); BILIRUBIN,TOTAL 0.83 mg/dL (0.2-1.3); CARBON DIOXIDE 29.5 mmol/L (22-30); CREATININE 1.3 mg/dL (0.52-1.04); TOTAL PROTEIN 6.6 gm/dL (6.3-8.2)
[2016-10-22 13:21] LABS: INR 1.21; PARTIAL THROMBOPLASTIN TIME 35.1 SECONDS (24.5-39.1); PROTHROMBIN TIME (PATIENT) 13.7 SECONDS (9.5-12.1)
[2016-10-22] MEDS ORDERED: HYDROCODONE/APAP 5/325MG TABLET PO ONE (14:07)
[2016-10-22] MEDS ORDERED: PROMETHAZINE HCL 25 MG TABLET PO PRN (15:37)
[2016-10-22] MEDS ORDERED: ONDANSETRON HCL IV 4 MG/2 ML VIAL IVP PRN (15:37)
[2016-10-22] MEDS ORDERED: ALBUTEROL SULFATE (0.083%) 2.5 MG/3 ML NEB INH PRN (15:37)
[2016-10-22] MEDS ORDERED: ALBUTEROL HFA 8 GM INHALER INH PRN (15:37)
[2016-10-22] MEDS ORDERED: NITROGLYCERIN 0.4MG SL TABLET #25 BTL SL PRN (15:58)
[2016-10-22] MEDS: IPRATROPIUM/ALBUTEROL (0.5MG/3MG) NEB INH SCH ×2 (16:43→22:09)
[2016-10-22] MEDS ORDERED: BUDESONIDE 0.5 MG/2 ML INH SCH (18:00)
[2016-10-22] MEDS: ACETAMINOPHEN 325 MG TAB PO PRN (18:54)
[2016-10-22] MEDS: SIMVASTATIN 20 MG TABLET PO SCH (22:00)
[2016-10-22] MEDS: TRAMADOL HCL 50 MG TABLET PO PRN (22:00)
[2016-10-22] MEDS: EZETIMIBE 10 MG TABLET PO SCH (22:01)
[2016-10-22] MEDS: APIXABAN 5MG TABLET PO SCH (22:01)
[2016-10-22] MEDS: CARVEDILOL 3.125 MG TABLET PO SCH (22:07)
[2016-10-22] MEDS: BUDESONIDE 0.5 MG/2 ML INH SCH (22:15)
[2016-10-23] MEDS: IPRATROPIUM/ALBUTEROL (0.5MG/3MG) NEB INH SCH ×8 (02:26→21:36)
[2016-10-23] MEDS: TRAMADOL HCL 50 MG TABLET PO PRN ×3 (04:00→22:43)
[2016-10-23] MEDS: PANTOPRAZOLE SODIUM 40 MG TABLET PO SCH (06:33)
[2016-10-23 06:36] LABS: BASO % 0.4 % (0-6); EOS % 1.9 % (0-6); GRAN % 68.1 % (47-80); HEMATOCRIT 26.8 % (35.0-47.0); HEMOGLOBIN 8.4 gm/dl (11.6-16.0); MEAN CELL VOLUME 95.7 fl (81-97); MEAN CORPUSCULAR HGB CONC 31.3 g/dl (32-36); MONO % 10.6 % (0-9); PLATELET COUNT 341 K/uL (130-400); RED CELL DISTRIBUTION WIDTH 15.4 % (11.5-14.5); WHITE BLOOD COUNT W/O DIFF 8.3 K/uL (4.2-12.2)
[2016-10-23] MEDS ORDERED: PANTOPRAZOLE SODIUM 40 MG TABLET PO SCH ×2 (07:00)
--- NOTE | 2016-10-23 07:07 | RADIOLOGY REPORT ---
EXAM: LUMBAR SPINE, THREE VIEWS HISTORY: CHRONIC LOW BACK PAIN RADIATES TO BILATERAL LOWER EXTREMITIES FOR ONE DAY. TECHNIQUE: Three views of the lumbar spine were obtained. Comparison: Abdomen and pelvis CT 09/07/16. FINDINGS: Osteopenia. Five lumbar segments with a few degrees of dextroconvex curvature. No acute fracture. Minimal degenerative disk disease at L3-L4 with small end plate osteophytes. Mild facet arthropathy lower lumbar spine. IMPRESSION: OSTEOPENIA OF THE LUMBAR SPINE WITH MULTILEVEL DEGENERATIVE CHANGE. NO ACUTE PROCESS. NO CHANGE FROM PRIOR STUDY. JOB NUMBER: [id number] [facility]
[2016-10-23 07:11] LABS: ANION GAP 7.2 (7-16); CARBON DIOXIDE 29.8 mmol/L (22-30); CREATININE 1.3 mg/dL (0.52-1.04)
[2016-10-23] MEDS: ACETAMINOPHEN 325 MG TAB PO PRN (08:33)
[2016-10-23] MEDS: ALPRAZOLAM 0.25 MG TABLET PO PRN ×2 (08:45→22:21)
[2016-10-23] MEDS: BUDESONIDE 0.5 MG/2 ML INH SCH ×2 (09:46→21:43)
--- NOTE | 2016-10-23 09:52 | Rehab Evaluation ---
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 leg swelling, hx afib PMH - Neuro Hx Neurological Disorders Yes Hx Dizziness Yes Hx Headaches Yes Hx Neuropathy Yes PMH - GI Hx Gastrointestinal Disorders Yes Hx Gastroesophageal Reflux Yes Hx Nausea/Vomiting Yes Hx Ulcer Yes PMH - Hx Genitourinary Disorders Yes Hx Bladder Problem Yes: bladder repair PMH - Endocrine Hx Endocrine Disorders No PMH - Musculoskeletal Hx Musculoskeletal Disorders Yes Hx Arthritis Yes PMH - Psych Hx Psychiatric Problems Yes Hx Anxiety Yes Hx Depression Yes PMH - Hematology/Oncology Hx Hematology/Oncology Yes Disorders Hx Cancer Yes: uterine- partial hysterectomy Premorbid Status: Detail (The patient was ambulatory with a 4 wheeled walker.) Social History: Detail (The patient lives with daughter in a one story house with 2 steps at the enterance and no railing. The patient has a tub/shower combo with a tub bench and a standard toilet. The patient's home also has a second bathroom with an elevated toilet however the patient does not usually use that bathroom. The patient was independent with toileting and dressing and has a health aide assit with showering twice a week.) Precautions: None given, [employer], Fall - Time With Patient Total Time Spent With Patient (Min): 25 Treatment Procedures: Detail (Initial Evaluation, Manual therapy techniques ( soft tissue mobilization and MFR techniques to quadratus lumborum and piriformis musculature.) Subjective Information - Subjective Information Per Patient (The patient has complaints of bilateral buttock region pain radiating into both LE's. The patient reports the pain began Saturday evening and increased Saturday am so strong that she was unable to move. The patient stated the pain began on the R side and radiated into the L side. The patient also complained of numbness in both feet which now has decreased. The patient currently rates her pain as 8/9 at the highest using a 0 to 10 pain scale.) Objective Data - Mental Status Patient Orientation: Oriented x3 - Visual Perception Appears within normal limits for therapeutic activities - ROM Not within normal limits (UE and LE ROM was WNL. Lumbar mobility was not tested due to pain complaints.) - Strength/Tone Not within normal limits (The patient's UE strength is generally 4+ to 5/5, LE strength was not assessed due to pain complaints, however the patient's strength was functional.) - Bed Mobility Needs Assist (The patient was independent with rolling onto her right side. The patient required moderate assist of 1 for upper body and minimal assist of 1 for legs with supine to and from sit transfer plus maximal verbal cues to log roll.) - Transfers Needs Assist (The patient transferred from bed to commode with moderate/minimal PA of 2 due to pain complaints.) - Balance Balance Sitting: Fair - Sensation Intact (The patient's LE sensation was intact to light touch.) - Gait Detail (The patient did not ambulate but took a few steps to the commode.) - Special Tests Yes (Palpation: the patient had muscular tightness to palpation of piriformis and quadratus lumborum and gastrocnemius musculature bilaterally.) Therapy Assessment - Therapy Assessment Detail (The patient has complaints of severe buttock region pain with radiation into both LE's and increased muscular tightness. The patient is fearful of movement due to pain complaints. The patient requires maximal verbal encouragement to complete bed mobility and transfers. The patient had relief of pain with MFR techniques temporarily. Moist Heat was attempted however the patient would not stay in a sidelying position .The patient could benefit from PT to reduce muscle tightness, decrease pain level and improve mobilty which is limited due to pain.) Problem List - Problem List Physical Therapy Problem List: Detail (1) Bilateral buttock pain radiating into LE's level 8/9 at the highest 2) Assistance with mobility due to pain complaints 3) Muscular tightness in lumbar region and both gastrocnemius. 4) Nonambulatory due to pain complaints. 5) Anxiety and fear of movement due to pain complaints.) Goals - Goals Physical Therapy Goals: 1) The patient will be independent with bed mobility and transfers. 2) The patient will ambulate on levels with assistive device household distances independently and on 2-3 stairs with supervision for safety. 3) Decrease lumbar muscular tightness by 50% to allow the patient to acheive independent mobility. 4) Decrease buttock pain to level 3-4 at the highest to allow the patient to acheive independent mobility. Prognosis - Prognosis Moderate Plan - Plan Physical Therapy Plan: PT one time a day for bed mobility, transfers, ambulation , manual therapy techniques to decrease pain and modalities as needed.
[2016-10-23] MEDS: FUROSEMIDE 20 MG TABLET PO SCH (10:38)
[2016-10-23] MEDS: APIXABAN 5MG TABLET PO SCH ×2 (10:38→22:11)
[2016-10-23] MEDS: ASPIRIN 81 MG TABEC PO SCH (10:38)
[2016-10-23] MEDS: LISINOPRIL 5 MG TABLET PO SCH (10:39)
[2016-10-23] MEDS: CARVEDILOL 3.125 MG TABLET PO SCH ×2 (10:40→22:11)
[2016-10-23] MEDS: AMIODARONE HCL 200 MG TABLET PO SCH (10:40)
[2016-10-23] MEDS: TAMSULOSIN HCL 0.4 MG CAP.ER.24H PO SCH (17:30)
--- NOTE | 2016-10-23 17:51 | Physical Therapy Tx Note ---
Physical Therapy Tx Note - Treatment Note Tolerated: Good Total Time Spent With Patient: 20 Physical Therapy Tx Note: Detail (Cold packs were placed on low back x 20 minutes (no charge PT). The patient rolled onto side with less complaints of pain.) Physical Therapy Problem List: Detail (1) Bilateral buttock pain radiating into LE's level 8/9 at the highest 2) Assistance with mobility due to pain complaints 3) Muscular tightness in lumbar region and both gastrocnemius. 4) Nonambulatory due to pain complaints. 5) Anxiety and fear of movement due to pain complaints.) Physical Therapy Goals: 1) The patient will be independent with bed mobility and transfers. 2) The patient will ambulate on levels with assistive device household distances independently and on 2-3 stairs with supervision for safety. 3) Decrease lumbar muscular tightness by 50% to allow the patient to acheive independent mobility. 4) Decrease buttock pain to level 3-4 at the highest to allow the patient to acheive independent mobility. Physical Therapy Plan: PT one time a day for bed mobility, transfers, ambulation , manual therapy techniques to decrease pain and modalities as needed.
[2016-10-23 18:07] LABS: URINE APPEARANCE CLEAR; URINE BILIRUBIN NEGATIVE (NEGATIVE); URINE BLOOD NEGATIVE (NEGATIVE); URINE COLOR YELLOW; URINE GLUCOSE (UA) NEGATIVE (NEGATIVE); URINE KETONE NEGATIVE (NEGATIVE); URINE LEUKOCYTE ESTERASE NEGATIVE (NEGATIVE); URINE NITRITE NEGATIVE (NEGATIVE); URINE PROTEIN NEGATIVE (NEGATIVE); URINE UROBILINOGEN 0.2 E.U./dL (0.20 - 1.00)
[2016-10-23] MEDS: SIMVASTATIN 20 MG TABLET PO SCH (22:11)
[2016-10-23] MEDS: EZETIMIBE 10 MG TABLET PO SCH (22:11)
[2016-10-24] MEDS: ACETAMINOPHEN 325 MG TAB PO PRN ×3 (00:14→16:35)
[2016-10-24] MEDS: IPRATROPIUM/ALBUTEROL (0.5MG/3MG) NEB INH SCH ×7 (01:02→22:13)
[2016-10-24] MEDS: PANTOPRAZOLE SODIUM 40 MG TABLET PO SCH ×2 (05:35→07:33)
[2016-10-24] MEDS: TRAMADOL HCL 50 MG TABLET PO PRN ×4 (05:41→22:27)
--- NOTE | 2016-10-24 09:05 | History and Physical Report ---
DATE OF ADMISSION: 10/22/2016 CHIEF COMPLAINT: Weakness and bilateral leg pain. HISTORY OF CHIEF COMPLAINT: This 80-year-old female presented to the Emergency Department via EMS, evaluated by Dr. Huerta, and she states she has been having lower leg pain and trouble walking for the last 24 hours. She has mild back pain with sitting, standing. Also, patient unable to get up through the pain. When she is lying flat in bed, she has no pain. Additionally, she has been having pelvic pain and trouble urinating. The patient did fall about 3 weeks ago and was not hurt and did not seek care. There have been no fevers, chills, vomiting, diarrhea, chest pain, shortness of breath, or dyspnea. She was admitted to the hospital with a diagnosis of weakness, anemia, and verbally told me back pain and bilateral leg pain. She also has urinary retention. In the Emergency Department, she only urinated a small amount. They put a High in. She had 1000 mL of urine in her bladder. When she got to the floor, decided to try removing the urinary catheter to see if she will urinate on her own. Urology is here tomorrow. Will consult them for further evaluation and treatment. Concern with the High in she will not get up out of bed at all. PAST MEDICAL HISTORY: COPD and using home oxygen with hypoxia, cardiomyopathy, congestive heart failure. She stopped smoking in 2018. She has a 50 pack-year history of smoking. She has a history of chronic anemia, history of hypercholesterolemia, GERD, hypertension, history of atrial fibrillation on Eliquis and amiodarone. Uses DuoNebs every 4 hours. She also has albuterol inhaler and albuterol nebs every 2-4 hours too. PAST SURGICAL HISTORY: Had a tumor removed from her neck, bladder repair in 1965, hysterectomy with uterine cancer, hernia repair, and carotid endarterectomy. MEDICATIONS ON ADMISSION: Simvastatin 20 mg at bedtime, Nitro sublingual p.r.n. , DuoNebs every 4 hours, Lasix 20 mg daily, Pulmicort 0.5 mg b.i.d., amiodarone 400 mg daily, Ventolin 2 puffs every 4 hours p.r.n., albuterol nebs every 2 hours p.r.n., Phenergan 25 mg orally every 4 hours, Zetia 10 mg at bedtime, Coreg 3.125 b.i.d., aspirin 81 mg daily, Eliquis 5 mg b.i.d., Ultram 50 mg every 6 hours p.r.n., omeprazole 40 mg daily, lisinopril 2.5 mg daily. ALLERGIES: Codeine and penicillin. FAMILY PSYCHOSOCIAL HISTORY: Unremarkable. She stopped smoking in 2016. She started smoking in 1951. No alcohol or drug use. Brother and sister had heart disease. REVIEW OF SYSTEMS: HEENT: No upper respiratory infection symptoms, cough, cold , or congestion. Cardiovascular: No chest pain, palpitations, or arrhythmias. Respiratory: Stable at this point. She uses home oxygen, and she is not short of breath. Gastrointestinal: No nausea, vomiting, diarrhea, black stools , or bloody stools. Genitourinary: She did have some difficulty with urination. They put a High in in the ER. She had 1000 mL of urine in her bladder. They removed the High when she got to the floor to see if she could urinate. Will bladder scan her as needed. Musculoskeletal: She is having mild back pain and bilateral leg cramping. Neurologic: No CVA, paralysis, or paresthesias. Gynecologic: No abnormal lumps in her breasts or vaginal bleeding. Endocrine: No diabetes or thyroid disease. Integument: No rash, ulcers, changes in moles, or yellow skin. PHYSICAL EXAMINATION: VITAL SIGNS: Height 4'10". Weight 100 pounds. Temperature is 98.6. Pulse 69. Blood pressure 107/54. Respiratory rate is 18. Pulse ox 96% on 2 liters O2. HEENT: Pupils equal, round, and reactive to light and accommodation. Extraocular muscles intact. Throat is clear. Nose is clear. Tympanic membranes underwood. NECK: Supple. No jugular venous distention. No hepatojugular reflux. No carotid bruits. Thyroid is smooth. She has tattooed above her eyebrows, upper eyebrows. CARDIOVASCULAR: Regular rate and rhythm without murmurs, clicks, rubs, or gallops. RESPIRATORY: Breathing sounds are equal bilaterally. Breath sounds are clear. ABDOMEN: Soft, nontender, no hepatosplenomegaly. No masses or tenderness. Bowel sounds active. No bruits. EXTREMITIES: No pitting edema. No cyanosis or clubbing. Full range of motion. Peripheral pulses good. She has cramping in her legs when she moves her legs around. BREASTS: She denies any lumps or bumps in her breasts. Deferred breast exam. GYNECOLOGIC: No vaginal bleeding. Deferred gynecological exam. RECTAL: No blood in the stools. Deferred rectal exam. NEUROLOGIC: Cranial nerves II-XII intact. No gross deficits. Sensation normal. Strength normal. Deep tendon reflexes equal bilaterally. Babinski is negative. MENTAL STATUS: Alert and oriented x3. IMPRESSION: 1. Bilateral leg pain and low back pain. 2. COPD. 3. Hypoxia and requiring home oxygen at 2 liters per minute nasal cannula. 4. History of CHF. 5. History of chronic hyponatremia. 6. History of atrial fibrillation on Eliquis. 7. History of hypercholesterolemia. 8. History of GERD. 9. History of weakness in the past. Also, she is on amiodarone. PLAN: Pain control with Ultram. Continue her home medications. Physical Therapy evaluate and treat. Possibly Urology consultation. ADDENDUM 10/24/2016 @ 1218 Admit to inpatient care based on my medical assessment after consideration of patient risk factors, age, comorbidity, patients presenting symptoms. I expect this patient will remain in the hospital greater than or equal to 2 midnights and the service needed will warrant inpatient care because of neurogenic bladder and low back pain. The patient is not urinating on her own. ESTIMATED LENGTH OF STAY: Three to four days. The patient may reasonably be expected to be discharged or transferred to the hospital within 96 hours of admission to [facility]. I certify that my determination is in accordance with my understanding of Medicare requirements for reasonable and necessary inpatient services. SOU[place]
[2016-10-24] MEDS: BUDESONIDE 0.5 MG/2 ML INH SCH ×2 (09:20→22:13)
[2016-10-24] MEDS: APIXABAN 5MG TABLET PO SCH ×2 (09:23→22:26)
[2016-10-24] MEDS: AMIODARONE HCL 200 MG TABLET PO SCH (09:23)
[2016-10-24] MEDS: FUROSEMIDE 20 MG TABLET PO SCH (09:24)
[2016-10-24] MEDS: LISINOPRIL 5 MG TABLET PO SCH (09:24)
[2016-10-24] MEDS: ASPIRIN 81 MG TABEC PO SCH (09:24)
[2016-10-24] MEDS: TAMSULOSIN HCL 0.4 MG CAP.ER.24H PO SCH (09:24)
[2016-10-24] MEDS: CARVEDILOL 3.125 MG TABLET PO SCH ×2 (09:24→22:26)
[2016-10-24] MEDS ORDERED: FLUCONAZOLE 100 MG TABLET PO ONE (09:40)
[2016-10-24] MEDS ORDERED: IPRATROPIUM/ALBUTEROL (0.5MG/3MG) NEB INH SCH (10:00)
--- NOTE | 2016-10-24 11:33 | Rehab Evaluation ---
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 leg swelling, hx afib PMH - Neuro Hx Neurological Disorders Yes Hx Dizziness Yes Hx Headaches Yes Hx Neuropathy Yes PMH - GI Hx Gastrointestinal Disorders Yes Hx Gastroesophageal Reflux Yes Hx Nausea/Vomiting Yes Hx Ulcer Yes PMH - Hx Genitourinary Disorders Yes Hx Bladder Problem Yes: bladder repair PMH - Endocrine Hx Endocrine Disorders No PMH - Musculoskeletal Hx Musculoskeletal Disorders Yes Hx Arthritis Yes PMH - Psych Hx Psychiatric Problems Yes Hx Anxiety Yes Hx Depression Yes PMH - Hematology/Oncology Hx Hematology/Oncology Yes Disorders Hx Cancer Yes: uterine- partial hysterectomy Premorbid Status: Detail (The patient was ambulatory with a 4 wheeled walker.) Social History: Detail (The patient lives with daughter in a one story house with 2 steps at the entrance and no railing. The patient has a tub/shower combo with a tub bench and a standard toilet. The patient's home also has a second bathroom with an elevated toilet and walk in shower, however the patient does not usually use that bathroom. The patient was independent with toileting, grooming/hygiene and dressing and has a home health aide assist with showering twice a week. Her daughter is responsible for all home mgmt, meal prep and laundry.) Precautions: [place], Fall - Time With Patient Total Time Spent With Patient (Min): 35 Treatment Procedures: Detail (OT eval low complexity) Subjective Information - Subjective Information Per Patient Objective Data - Pain Pain Present: Yes (7-8/10 in buttocks) - Mental Status Patient Orientation: Oriented x3 - Visual Perception Appears within normal limits for therapeutic activities (Pt wears glasses at all times.) - ROM Within normal limits (Rahat UE AROM WNL) - Strength/Tone Within normal limits (Rahat UE strength 4+/5 throughout) - Coordination Appears within normal limits for therapeutic activities - ADL's/IADL's Detail (Pt reports nursing is assisting her with toileting using commode chair although she is able to complete toileting hygiene. She has not completed other self cares due to pain.) Therapy Assessment - Therapy Assessment Detail (Pt presents with normal UE function, she is currently refusing to complete mobility/self care activities due to pain and fear of worsening her symptoms.) Problem List - Problem List Physical Therapy Problem List: Detail (1) Bilateral buttock pain radiating into LE's level 8/9 at the highest 2) Assistance with mobility due to pain complaints 3) Muscular tightness in lumbar region and both gastrocnemius. 4) Nonambulatory due to pain complaints. 5) Anxiety and fear of movement due to pain complaints.) Occupational Therapy Problem List: Detail (1. Decreased functional mobility due to LBP 2. Decreased Ind and safety with self care activities due to LBP) Goals - Goals Physical Therapy Goals: 1) The patient will be independent with bed mobility and transfers. 2) The patient will ambulate on levels with assistive device household distances independently and on 2-3 stairs with supervision for safety. 3) Decrease lumbar muscular tightness by 50% to allow the patient to acheive independent mobility. 4) Decrease buttock pain to level 3-4 at the highest to allow the patient to acheive independent mobility. Occupational Therapy Goals: 1. Pt will be Ind with bed mobility and ambulating household distances to allow Ind with ADLs. 2. Pt will be Ind with total body dressing Prognosis - Prognosis Moderate (Depending on pain control which is a limiting factor for her therapy prognosis.) Plan - Plan Physical Therapy Plan: PT one time a day for bed mobility, transfers, ambulation , manual therapy techniques to decrease pain and modalities as needed. Occupational Therapy Plan: OT 2-4 times weekly to address pain management, self cares and functional mobility to allow safe and Ind return home with daughter. She may benefit from short term IP rehab to work on pain mgmt, safe functional mobility and self care.
--- NOTE | 2016-10-24 11:46 | Physical Therapy Tx Note ---
Physical Therapy Tx Note - Treatment Note Tolerated: Fair Physical Therapy Tx Note: Detail (The patient was seen jointly with OT during OT evaluation. Patient presented with pelvic assymetry L anterior rotation of the ilium, R posterior rotation of the ilium. PT completed muscle energy techniques which included L leg pull, correction of L anterior rotation and R posterior rotation and bilateral iliopsoas releases. The patient was moving LE' s better following MTT. Patient refused to get up.) Physical Therapy Problem List: Detail (1) Bilateral buttock pain radiating into LE's level 8/9 at the highest 2) Assistance with mobility due to pain complaints 3) Muscular tightness in lumbar region and both gastrocnemius. 4) Nonambulatory due to pain complaints. 5) Anxiety and fear of movement due to pain complaints.) Physical Therapy Goals: 1) The patient will be independent with bed mobility and transfers. 2) The patient will ambulate on levels with assistive device household distances independently and on 2-3 stairs with supervision for safety. 3) Decrease lumbar muscular tightness by 50% to allow the patient to acheive independent mobility. 4) Decrease buttock pain to level 3-4 at the highest to allow the patient to acheive independent mobility. Physical Therapy Plan: PT one time a day for bed mobility, transfers, ambulation , manual therapy techniques to decrease pain and modalities as needed.
--- NOTE | 2016-10-24 12:40 | Medical Records Consult ---
DATE OF CONSULTATION: 10/23/2016 REASON FOR CONSULTATION: Urinary retention. CASE SUMMARY: Thank you Dr. Morin for asking me to see this delightful 80-year-old female. She has been admitted to the hospital numerous times over the last 5-6 months with weakness and back pain. Yesterday she was admitted through the emergency room again with severe back pain and during the course of her evaluation was found to be in urinary retention with a High placed for 1 liter of urine. The patient noted immediate relief of her pelvic discomfort as soon as the catheter was placed. This has never happened to her before. She did have a bladder suspension surgery in the 1960s but no complaints of any urinary issues until now. She has been relatively less active due to the pain. The catheter was removed yesterday evening. The patient has been unable to void since the catheter came out, and her bladder scan results are a little over 300 mL currently and she has no urge to void. PAST MEDICAL HISTORY: Reviewed per the chart and includes cardiovascular and coronary artery disease, significant pulmonary disease including COPD. She is a former smoker. She has atrial fibrillation, dyslipidemia. PAST SURGICAL HISTORY: Noted for bladder suspension as noted above as well as hysterectomy for uterine carcinoma according to the chart. MEDICATIONS: Reviewed and currently include at home: 1. Albuterol. 2. Zetia. 3. Simvastatin. 4. Amiodarone. 5. Eliquis. 6. Aspirin. 7. Coreg. 8. Nitroglycerin. 9. Prilosec. 10. Ultram. 11. Pulmicort. 12. Lasix. 13. Phenergan. ALLERGIES: CODEINE, PENICILLIN. SOCIAL HISTORY: Significant for former tobacco use. Otherwise unremarkable. FAMILY HISTORY: Negative for urological problems. REVIEW OF SYSTEMS: Ten plus per the chart. PHYSICAL EXAMINATION: GENERAL: The patient is awake, alert. Appears in no distress. VITAL SIGNS: Temperature 98.0, heart rate 72, blood pressure 134/59. NECK: No masses or tenderness. CHEST: Normal expansion with any audible wheezing. ABDOMEN: Soft, flat, nontender, nondistended. The bladder is not palpable. There is no costovertebral or flank tenderness or masses appreciated. There is a midline well-healed old incision. GENITALIA: External genitalia appear unremarkable. EXTREMITIES: There is minimal lower extremity edema. NEUROLOGIC: There is no focal neurologic deficit or sensory abnormality. She is moving all 4 extremities. LABORATORY DATA: Reviewed and significant for white count of 8, hemoglobin 8.7, platelets 343,000. Creatinine 1.3. Initial dipstick urinalysis was normal, and the microscopic analysis showed 36-50 white cells per high-power field, 0-2 epithelials per high-power field, and 4+ bacteria. No culture result is available. The patient has not had any urologically relevant imaging during this admission. FINAL IMPRESSION: 1. Severe urinary retention. 2. Weakness with back pain and lower extremity pain. 3. Bacteriuria, rule out urinary tract infection. PLAN: The patient will be started on Flomax 0.4 mg as discussed with Dr. Morin. She will be straight cath'd for any bladder scan residual greater than 300 mL and at this point she is already above that marlon and will be catheterized with that urine sample sent for a culture. The patient will likely be transferred to nursing facility and my hope is that at the facility she can be monitored with bladder scan post-void residuals and straight cath for volumes greater than 300 mL as needed. Most likely she will regain some bladder contractility over time but at the moment, there is a very high likelihood that she will continue to retain. The patient can follow up in the [facility] or in my office in [place] if there are any further issues. The case was discussed with Dr. Morin who evaluated the patient with me today as well. Thank you again for the opportunity to care for this very pleasant patient. Please let me know if I can be of further assistance. Danis Gonsales M.D. [facility]
[2016-10-24] MEDS: SIMVASTATIN 20 MG TABLET PO SCH (22:26)
[2016-10-24] MEDS: ALPRAZOLAM 0.25 MG TABLET PO PRN (22:27)
[2016-10-24] MEDS: EZETIMIBE 10 MG TABLET PO SCH (22:32)
[2016-10-25] MEDS: ACETAMINOPHEN 325 MG TAB PO PRN ×2 (01:59→23:11)
[2016-10-25] MEDS: IPRATROPIUM/ALBUTEROL (0.5MG/3MG) NEB INH SCH ×6 (02:21→22:10)
[2016-10-25] MEDS: TRAMADOL HCL 50 MG TABLET PO PRN ×3 (04:15→19:14)
[2016-10-25] MEDS: ALPRAZOLAM 0.25 MG TABLET PO PRN ×2 (06:05→23:00)
[2016-10-25] MEDS: PANTOPRAZOLE SODIUM 40 MG TABLET PO SCH (06:05)
--- NOTE | 2016-10-25 07:57 | Discharge Note ---
VTE H&P Assessment - Risk for VTE Risk for VTE: Yes Risk Level: Moderate Risk Assessment Date: 10/21/16 Risk Assessment Time: 22:00 VTE Orders Placed or Will Be Placed: Yes Discharge Medications - Discharge Medications Prescriptions: Alprazolam [Xanax] 0.25 mg PO Q8H PRN #90 PRN Reason: Anxiety Tamsulosin HCl [Flomax] 0.4 mg PO DAILY #30 cap.er.24h Tramadol HCl [Ultram] 50 mg PO Q6H PRN #100 PRN Reason: Pain - General Home Medications: Ambulatory Orders Albuterol Sulfate [Ventolin Hfa] 1 - 2 puff IH .EVERY 4-6 HOURS PRN 07/05/16 [ Last Taken 1 Day Ago ~09/17/16] Ezetimibe [Zetia] 10 mg PO QHS 07/05/16 [Last Taken 1 Day Ago ~09/17/16] Simvastatin [Zocor] 20 mg PO QHS 07/05/16 [Last Taken 1 Day Ago ~09/17/16] Amiodarone HCl [Pacerone] 400 mg PO DAILY 07/19/16 [Last Taken 1 Day Ago ~] Apixaban [Eliquis] 5 mg PO BID 08/12/16 [Last Taken 1 Day Ago ~09/17/16] Aspirin [Aspir-Low] 81 mg PO DAILY 08/12/16 [Last Taken 1 Day Ago ~09/17/16] Carvedilol [Coreg] 3.125 mg PO BID 08/12/16 [Last Taken 1 Day Ago ~09/17/16] Ipratropium/Albuterol [Duoneb] 3 ml IH Q4H #10 ampul.neb. 08/20/16 [Last Taken 1 Day Ago ~09/17/16] Albuterol Sulfate 0.083% [Neb] 2.5 mg INH RESP.Q2H PRN #240 nebulization solution 08/21/16 [Last Taken 1 Day Ago ~09/17/16] Lisinopril [Zestril] 2.5 mg PO DAILY tablet 08/21/16 [Last Taken 1 Day Ago ~12/27] Nitroglycerin 0.3 mg SL ASDIR PRN 08/30/16 [Last Taken 1 Day Ago ~09/17/16] Omeprazole [Prilosec] 40 mg PO DAILY 08/30/16 [Last Taken 1 Day Ago ~09/17/16] Tramadol HCl [Ultram] 50 mg PO Q6H PRN 08/30/16 [Last Taken 1 Day Ago ~09/17/16] Budesonide [Pulmicort] 0.5 mg INH RESP.BID 08/31/16 [Last Taken 1 Day Ago ~09/17] Furosemide [Lasix] 20 mg PO DAILY 10/22/16 [Last Taken Unknown] Promethazine HCl [Phenergan] 25 mg PO Q4H PRN 10/22/16 [Last Taken Unknown] Alprazolam [Xanax] 0.25 mg PO Q8H PRN #90 10/25/16 [Last Taken Unknown] Tamsulosin HCl [Flomax] 0.4 mg PO DAILY #30 cap.er.24h 10/25/16 [Last Taken Unknown] Tramadol HCl [Ultram] 50 mg PO Q6H PRN #100 10/25/16 [Last Taken Unknown] Discharge Note - Date Date of Discharge Note: 10/25/16 Disposition: Inpatient Rehab Facility Condition: (2) Stable Additional Instructions: follow up with Dr. Bob when out of rehab follow up with Dr. Gonsales in one month use bladder scanner and check three times a day and when over 300 ml straight cath physical therapy for lumbar strain and DJD of low back with radiculopathy to the right leg Prescriptions: Alprazolam [Xanax] 0.25 mg PO Q8H PRN #90 PRN Reason: Anxiety Tamsulosin HCl [Flomax] 0.4 mg PO DAILY #30 cap.er.24h Tramadol HCl [Ultram] 50 mg PO Q6H PRN #100 PRN Reason: Pain - General Referrals: RISHI BOB [Primary Care Provider] - Forms: Patient Portal Access Activity at Discharge: Increase Activity as Tolerated Diet at Discharge: Regular Diet
[2016-10-25] MEDS: BUDESONIDE 0.5 MG/2 ML INH SCH ×2 (09:53→22:10)
[2016-10-25] MEDS: ASPIRIN 81 MG TABEC PO SCH (09:53)
[2016-10-25] MEDS: AMIODARONE HCL 200 MG TABLET PO SCH (09:53)
[2016-10-25] MEDS: CARVEDILOL 3.125 MG TABLET PO SCH ×2 (09:54→23:00)
[2016-10-25] MEDS: FUROSEMIDE 20 MG TABLET PO SCH (09:54)
[2016-10-25] MEDS: TAMSULOSIN HCL 0.4 MG CAP.ER.24H PO SCH (09:54)
[2016-10-25] MEDS: APIXABAN 5MG TABLET PO SCH ×2 (09:54→23:00)
--- NOTE | 2016-10-25 10:02 | Occupational Therapy Tx Note ---
Occupational Therapy Tx Note - Treatment Note Tolerated: Other (refused treatment) Occupational Therapy Treatment Note: Detail (Patient side-lying in bed upon arrival in severe pain. She stated she just got back from getting x-ray and refuses therapy at this time due to pain. Nsg in room during visit about to administer pain medication. Feels it would be better to try PT/OT in the afternoon. Patient is waiting for insurance auth in order to be t/f'd to inpatient rehab.) Occupational Therapy Problem List: Detail (1. Decreased functional mobility due to LBP 2. Decreased Ind and safety with self care activities due to LBP) Occupational Therapy Goals: 1. Pt will be Ind with bed mobility and ambulating household distances to allow Ind with ADLs. 2. Pt will be Ind with total body dressing Occupational Therapy Plan: OT 2-4 times weekly to address pain management, self cares and functional mobility to allow safe and Ind return home with daughter. She may benefit from short term IP rehab to work on pain mgmt, safe functional mobility and self care.
[2016-10-25] MEDS: LISINOPRIL 5 MG TABLET PO SCH (10:16)
--- NOTE | 2016-10-25 10:34 | RADIOLOGY REPORT ---
EXAM: RIGHT HIP WITH AP PELVIS HISTORY: RIGHT HIP PAIN, FELL TWO WEEKS AGO. TECHNIQUE: AP view of the pelvis and AP and lateral views of the right hip were obtained. Comparison: No prior pelvis or hip series. Encounter: Initial. FINDINGS: Diffuse osteopenia is seen consistent with osteoporosis. Degenerative change at the pubic symphysis. No definite acute fracture or dislocation of the right hip evident. Vascular calcification seen. There is probably an aortobiiliac graft/stent in place as well. IMPRESSION: 1. OSTEOPOROSIS. 2. NO DEFINITE FRACTURE OF THE RIGHT HIP IDENTIFIED. JOB NUMBER: [id number] MTDD
--- NOTE | 2016-10-25 12:38 | Discharge Summary ---
DATE OF ADMISSION: 10/22/2016 DATE OF DISCHARGE: 10/25/2016 DISCHARGE DIAGNOSES: 1. Lumbar strain with radiculopathy. 2. Neurogenic bladder. 3. Urinary retention. 4. COPD requiring home oxygen. 5. Hypoxia on home oxygen at 2 liters per minute nasal cannula. 6. Right hip pain. An x-ray of the right hip will be taken prior to discharge. 7. History of chronic atrial fibrillation on Eliquis. 8. History of CHF. 9. History of hypercholesterolemia. 10. History of GERD. 11. Chronic anemia. Hemoglobin 8.4. ATTENDING PHYSICIAN: Ernesto Morin DO REASON FOR HOSPITALIZATION: Weakness and bilateral leg pain. HISTORY: This 80-year-old female presented to the Emergency Department via EMS, evaluated by Dr. Huerta, and stated having lower leg pains and trouble walking for the last 24 hours. She has mild back pain with sitting, standing, and also patient unable to get up because of her pain. She was lying flat in bed. Additionally, she is having pelvic pain and trouble urinating. The patient did fall 3 weeks ago, was not hurt, and did not seek medical care. She has no fever, chills, vomiting, diarrhea, chest pain, shortness of breath or dyspnea. She was admitted to the hospital with the diagnosis of weakness, anemia. Verbally Dr. Huerta told me back pain and bilateral leg pain. She also has urinary retention. In the Emergency Department, she could not urinate. She was then catheterized and 1000 mL of urine was obtained. The High was left in; however, on admission to the floor, decided to remove the High otherwise she would never get out of bed, and we could trial and follow her with bladder scanning to see if she is able to urinate on her own. Consultation with Dr. Gonsales with Urology next day. SIGNIFICANT FINDINGS FROM EXAMINATION AND TESTING: The lumbar spine x-ray showing osteopenia, multilevel degenerative joint disease. No acute process seen. With the laboratory, there is some question about the urine. It was initially a negative urine that I could see on the computer; however, Dr. Gonsales found something in the computer that said she possibly could have a urinary tract infection, so we straight cathed her and send a second urine, which also was negative, so it is a little concerning to me where these abnormal findings came from, and someone was looking into it. Her last CBC, WBC 8300, hemoglobin 8.4. Sodium 135. Potassium 4. BUN 21. Creatinine 1.3. Urine x 3 were negative. Troponin I was negative. Right hip x-ray was ordered today because of the right hip pain. Consultation with Dr. Gonsales who felt that she has a neurogenic bladder, severe urinary retention, weakness with back pain and lower extremity pain. Started a trial of Flomax 0.4 mg to see if that would help. Also straight catheter for residual whenever her bladder is above 300 mL of urine. Straight cath is recommended. She is requiring about 2 straight caths in 24 hours. Hopefully, she will get her bladder contractility back over time. HOSPITAL COURSE: Patient is gradually improving. Still having back spasms, which radiate down the right leg, requiring Ultram occasionally. Most of the time, she only requires 1 Ultram, and occasionally she requires a second Ultram to help her pain, usually about 3 or 4 hours after the first Ultram. She has been using about 3 or 4 a day. CONDITION AT DISCHARGE: Stable and improved. DISCHARGE INSTRUCTIONS: Follow up with Dr. Kwan in 2 or 3 weeks after discharge from Rehab. She is going to [facility] on [facility]. Home oxygen at 2 liters per minute nasal cannula. She is to use the DuoNeb every 4 hours while awake. She also can use albuterol, either the inhaler or the nebulizer every 2 hours p.r.n. rescue if she needs additional help with her breathing. Her breathing has been stable here in the hospital. Follow up with Dr. Gonsales in about a month for her neurogenic bladder. Nursing has been instructed to relay on that she is to have a bladder scan about 3 times a day. If her urine is above 300 mL to be straight cathed. She is requiring 2 straight caths in 24 hours. She has also been started on Xanax this hospitalization. Seems to be helping both the back pain and her anxiety. It is 0.25 mg 3 times a day p.r.n., and Flomax was started at 0.4 mg daily to help her neurogenic bladder. She is to continue her home medications of simvastatin 20 mg at bedtime, Nitro sublingual p.r.n. She has not required any Nitro during this hospitalization. DuoNebs every 4 hours while awake. Lasix 20 mg daily. Pulmicort 0.5 mg b.i.d. nebulization. Amiodarone 400 mg daily. Ventolin rescue inhaler 2 puffs every 2 hours p.r.n., or she could use the albuterol nebulization treatments of 2.5 mg every 2 hours p.r.n. rescue if she needs extra besides her DuoNeb. Phenergan 25 mg every 4 hours p.r.n. nausea. Zetia 10 mg at bedtime. Coreg 3.125 b.i.d. Aspirin 81 mg daily. Eliquis 5 mg b.i.d. Omeprazole 20 mg daily. Lisinopril 2.15 mg daily. CC: Demarcus Kwan, DO [facility]
[2016-10-25] MEDS: SIMVASTATIN 20 MG TABLET PO SCH (23:00)
[2016-10-25] MEDS: EZETIMIBE 10 MG TABLET PO SCH (23:00)
[2016-10-25] MEDS: SENNOSIDES/DOCUSATE SODIUM UD CAPSULE PO SCH (23:06)
[2016-10-26] MEDS: TRAMADOL HCL 50 MG TABLET PO PRN ×2 (01:10→06:48)
[2016-10-26] MEDS: IPRATROPIUM/ALBUTEROL (0.5MG/3MG) NEB INH SCH ×4 (01:23→14:01)
[2016-10-26] MEDS: ACETAMINOPHEN 325 MG TAB PO PRN ×2 (04:24→10:04)
[2016-10-26] MEDS: PANTOPRAZOLE SODIUM 40 MG TABLET PO SCH (06:48)
[2016-10-26] MEDS: ALPRAZOLAM 0.25 MG TABLET PO PRN (06:50)
[2016-10-26] MEDS ORDERED: CYCLOBENZAPRINE 10MG TABLET PO PRN (08:54)
[2016-10-26] MEDS ORDERED: MAGNESIUM HYDROXIDE 30 ML UDC PO PRN (08:54)
[2016-10-26] MEDS: BUDESONIDE 0.5 MG/2 ML INH SCH (09:52)
[2016-10-26] MEDS: APIXABAN 5MG TABLET PO SCH (10:04)
[2016-10-26] MEDS: CARVEDILOL 3.125 MG TABLET PO SCH (10:04)
[2016-10-26] MEDS: SENNOSIDES/DOCUSATE SODIUM UD CAPSULE PO SCH (10:04)
[2016-10-26] MEDS: TAMSULOSIN HCL 0.4 MG CAP.ER.24H PO SCH (10:04)
[2016-10-26] MEDS: AMIODARONE HCL 200 MG TABLET PO SCH (10:05)
[2016-10-26] MEDS: FUROSEMIDE 20 MG TABLET PO SCH (10:05)
[2016-10-26] MEDS: LISINOPRIL 5 MG TABLET PO SCH (10:05)
[2016-10-26] MEDS: ASPIRIN 81 MG TABEC PO SCH (10:05)
[2016-10-26] MEDS ORDERED: ONDANSETRON 4 MG ODT TABLET SL PRN (11:20)
--- NOTE | 2016-10-26 11:36 | Physical Therapy Tx Note ---
Physical Therapy Tx Note - Treatment Note Tolerated: Fair Total Time Spent With Patient: 25 Physical Therapy Tx Note: Detail (The patient was on commode when PT arrive with RN. PT assisted RN in guarding patient when on commode. The patient was moaning in pain and insisting on going back to bed. The patient was transferred back to bed with moderate PA of 1, minimal PA of 1 and verbal cues not to sit down quickly. The patient required min to moderate PA of 1 with supine to sit. The patient was in a right sidelying postion with manual therapy techniques completed including MFR, STM of L piriformis and deep rotators, bilateral quadratus lumborum and lumbar/thoracic paraspinals. The patient then stated she felt like she was going to vomit. Patient was given a container and head of bed was elevated. Nursing staff was notified and PT treatment was discontinued per patient's request. The patient was left with RN who was administering medication.) Physical Therapy Problem List: Detail (1) Bilateral buttock pain radiating into LE's level 8/9 at the highest 2) Assistance with mobility due to pain complaints 3) Muscular tightness in lumbar region and both gastrocnemius. 4) Nonambulatory due to pain complaints. 5) Anxiety and fear of movement due to pain complaints.) Physical Therapy Goals: 1) The patient will be independent with bed mobility and transfers. 2) The patient will ambulate on levels with assistive device household distances independently and on 2-3 stairs with supervision for safety. 3) Decrease lumbar muscular tightness by 50% to allow the patient to acheive independent mobility. 4) Decrease buttock pain to level 3-4 at the highest to allow the patient to acheive independent mobility. Physical Therapy Plan: PT one time a day for bed mobility, transfers, ambulation , manual therapy techniques to decrease pain and modalities as needed.
== END 2016-10-26 15:10 ==
LOC: ER 12:16 → INTOOBSV 15:17 → MEDSURG 15:17 → OBSVTOIN 15:17
PROVIDERS: ADMIT Emergency Medicine; ATTEND Family Medicine
DX: M54.16 Radiculopathy, lumbar region (principal); J44.1 Chronic obstructive pulmonary disease with (acute) exacerbation; I25.5 Ischemic cardiomyopathy; I50.9 Heart failure, unspecified; N31.9 Neuromuscular dysfunction of bladder, unspecified; R33.8 Other retention of urine; I48.0 Paroxysmal atrial fibrillation; Z79.01 Long term (current) use of anticoagulants; E78.00 Pure hypercholesterolemia, unspecified; K21.9 Gastro-esophageal reflux disease without esophagitis; D63.8 Anemia in other chronic diseases classified elsewhere; I10 Essential (primary) hypertension
CPT/HCPCS: 51798; 72100; 80048; 80053; 81003; 82310; 83690; 85025; 85610; 85730; 94640 ×2; 94760 ×2; 94761 ×2; 96374; 97140; 97165; 99220; 99223; 99285; G0378; G8978; G8979; J2270; J3490